=== PATIENT | female | born 1940 | race Two or more races ===

== ENCOUNTER → 2024-06-29 | Outpatient (CLI) | payer OTHER, SELFPAY ==
[2024-06-29 12:01] LABS: Carcinoembryonic Antigen 2.6 ng/mL (0.0-5.0)
[2024-06-29 12:11] LABS: Alanine Aminotransferase 8 U/L (10-49); Albumin, Serum 3.9 gm/dL (3.4-4.8); Albumin/Globulin Ratio 1.6 (1.2-2.2); Alkaline Phosphatase 68 U/L (46-116); Anion Gap 6 (7-16); Aspartate Amino Transferase 17 U/L (0-34); BUN/Creatinine Ratio 17 Ratio (12-20); Bilirubin,Total 0.8 mg/dL (0.3-1.2); Blood Urea Nitrogen 12 mg/dL (9-23); Calcium 9.1 mg/dL (8.3-10.6); Calcium (Corrected) 9.2 mg/dL (8.5-10.1); Chloride 102 mMol/L (98-107); Creatinine (Component) 0.7 mg/dL (0.6-1.3); Globulin 2.4 gm/dL (2.3-3.5); Glucose 134 mg/dL (74-106); Osmolality,Calculated 268 (275-295); Potassium 4.1 mMol/L (3.4-5.1); Sodium 133 mMol/L (136-145); Total Protein 6.3 gm/dL (5.7-8.2); eGFR > 60 See Note
[2024-06-29 13:27] LABS: Protein Total, Random Urine 29 mg/dL (1-14)
== END | disposition home or self-care (01) ==
PROVIDERS: PCP Family Medicine; Referring Provider Internal Medicine Hematology; Visit Provider Internal Medicine Hematology
DX: C18.1 Malignant neoplasm of appendix (principal)
CPT/HCPCS: 36415; 80053; 82378; 84156

== ENCOUNTER → 2024-07-12 | Outpatient (CLI) | payer OTHER, MEDICAID, SELFPAY ==
[2024-07-12 13:37] LABS: Protein Total, Random Urine 10 mg/dL (1-14)
[2024-07-12 13:44] LABS: Carcinoembryonic Antigen 2.8 ng/mL (0.0-5.0)
[2024-07-12 13:52] LABS: Alanine Aminotransferase 8 U/L (10-49); Albumin, Serum 3.8 gm/dL (3.4-4.8); Albumin/Globulin Ratio 1.7 (1.2-2.2); Alkaline Phosphatase 65 U/L (46-116); Anion Gap 6 (7-16); Aspartate Amino Transferase 16 U/L (0-34); BUN/Creatinine Ratio 16 Ratio (12-20); Blood Urea Nitrogen 14 mg/dL (9-23); Calcium 9.1 mg/dL (8.3-10.6); Calcium (Corrected) 9.3 mg/dL (8.5-10.1); Carbon Dioxide 26.8 mMol/L (20.0-31.0); Chloride 100 mMol/L (98-107); Creatinine (Component) 0.9 mg/dL (0.6-1.3); Globulin 2.3 gm/dL (2.3-3.5); Glucose 108 mg/dL (74-106); Osmolality,Calculated 267 (275-295); Potassium 4.3 mMol/L (3.4-5.1); Sodium 133 mMol/L (136-145); Total Protein 6.1 gm/dL (5.7-8.2); eGFR > 60 See Note
== END | disposition home or self-care (01) ==
PROVIDERS: PCP Family Medicine; Referring Provider Internal Medicine Hematology; Visit Provider Internal Medicine Hematology
DX: C18.1 Malignant neoplasm of appendix (principal)
CPT/HCPCS: 36415; 80053; 82378; 84156

== ENCOUNTER → 2024-08-30 | Outpatient (CLI) | payer MEDICARE, MEDICAID, SELFPAY ==
[2024-08-30 12:13] LABS: Protein Total, Random Urine 25 mg/dL (1-14)
[2024-08-30 12:19] LABS: Carcinoembryonic Antigen 3.3 ng/mL (0.0-5.0)
[2024-08-30 12:26] LABS: Alanine Aminotransferase 8 U/L (10-49); Albumin/Globulin Ratio 1.5 (1.2-2.2); Alkaline Phosphatase 68 U/L (46-116); Anion Gap 7 (7-16); Aspartate Amino Transferase 12 U/L (0-34); BUN/Creatinine Ratio 30 Ratio (12-20); Bilirubin,Total 0.6 mg/dL (0.3-1.2); Blood Urea Nitrogen 21 mg/dL (9-23); Calcium 9.1 mg/dL (8.3-10.6); Calcium (Corrected) 9.1 mg/dL (8.5-10.1); Carbon Dioxide 27.9 mMol/L (20.0-31.0); Chloride 98 mMol/L (98-107); Creatinine (Component) 0.7 mg/dL (0.6-1.3); Globulin 2.6 gm/dL (2.3-3.5); Glucose 137 mg/dL (74-106); Osmolality,Calculated 271 (275-295); Potassium 4.2 mMol/L (3.4-5.1); Sodium 133 mMol/L (136-145); Total Protein 6.6 gm/dL (5.7-8.2); eGFR > 60 See Note
== END | disposition home or self-care (01) ==
LOC: COPL 11:07
PROVIDERS: PCP Family Medicine; Referring Provider Internal Medicine Hematology; Visit Provider Internal Medicine Hematology
DX: C18.1 Malignant neoplasm of appendix (principal)
CPT/HCPCS: 36415; 80053; 82378; 84156

== ENCOUNTER 2024-09-30 05:45 | Day surgery (SDC) | payer OTHER, SELFPAY ==
--- NOTE | 2024-09-28 06:55 | EKG_ITS ---
[facility] Test Date: 2024-09-28 Pat Name: JENNIFER ADAME Department: Room: - Gender: Female Mobile Sales Expert: RT STUDENT : 1940 Requested By: Rory Calabrese Order Number: [id number] Reading MD: Rory Calabrese Measurements Intervals [place] Rate: 74 P: 48 OK: 162 QRS: 45 QRSD: 78 T: 51 QT: 353 QTc: 393 Interpretive Statements SINUS RHYTHM Compared to ECG 01/20/2022 12:44:44 Indeterminate axis no longer present Myocardial infarct finding no longer present /store/S0/[id number]
[2024-09-28 08:11] VITALS: BMI 23.8
[2024-09-28 09:35] LABS: Basophils % (Auto) 1 % (0-2.5); Eosinophils # (Auto) 0.1 Thou/mm3 (0.0-0.5); Eosinophils % (Auto) 2 % (0-10); Hematocrit 32.3 % (36.0-46.0); Hemoglobin 10.6 g/dL (12.0-16.0); Immature Granulocytes % (Auto) 0 % (0-0); Immature Granulocytes Auto 0.02 Thou/mm3 (0.00-0.00); Lymphocytes # (Auto) 1.1 Thou/mm3 (1.0-4.8); Lymphocytes % (Auto) 17 % (10-50); Mean Corpuscular HGB Conc 32.8 g/dl (31.0-37.0); Mean Corpuscular Hemoglobin 27.8 pg (25.0-35.0); Mean Corpuscular Volume 85 fL (80-100); Monocytes # (Auto) 0.7 Thou/mm3 (0.0-0.8); Monocytes % (Auto) 11 % (0-12); Neutrophils # (Auto) 4.6 Thou/mm3 (1.8-7.7); Neutrophils % (Auto) 70 % (37-80); Nucleated Red Blood Cell % 0 /100 WBC (0); Partial Thromboplastin Time 27.3 Seconds (22.0-36.0); Platelet Count 272 Thou/mm3 (140-440); Prothrombin Time 10.9 Seconds (9.0-12.2); RDW Standard Deviation 57.5 fL (36.4-46.3); Red Blood Count 3.81 Miln/mm3 (4.00-5.20); White Blood Count 6.5 Thou/mm3 (3.6-11.0)
[2024-09-28 09:36] LABS: Alanine Aminotransferase 11 U/L (10-49); Albumin, Serum 4.1 gm/dL (3.4-4.8); Albumin/Globulin Ratio 1.5 (1.2-2.2); Alkaline Phosphatase 80 U/L (46-116); Anion Gap 9 (7-16); Aspartate Amino Transferase 17 U/L (0-34); BUN/Creatinine Ratio 29 Ratio (12-20); Bilirubin,Total 0.5 mg/dL (0.3-1.2); Blood Urea Nitrogen 20 mg/dL (9-23); Calcium 9.1 mg/dL (8.3-10.6); Calcium (Corrected) 9.1 mg/dL (8.5-10.1); Carbon Dioxide 26.1 mMol/L (20.0-31.0); Chloride 97 mMol/L (98-107); Creatinine (Component) 0.7 mg/dL (0.6-1.3); Estimated Creatinine Clearance 55.8 mL/min (>60); Globulin 2.7 gm/dL (2.3-3.5); Glucose 109 mg/dL (74-106); Osmolality,Calculated 268 (275-295); Sodium 132 mMol/L (136-145); Total Protein 6.8 gm/dL (5.7-8.2); eGFR > 60 See Note
[2024-09-30] VITALS (8 sets, daily range): BP systolic 114–150; BP diastolic 61–89; PULSE 69–78; RESP 12–16; TEMP 36.1–36.6; O2SAT 97–100; BMI 23.3
--- NOTE | 2024-09-30 07:35 | CHAP ---
Patient expressed gratitude for prayer before their procedure.
--- NOTE | 2024-09-30 09:23 | PD.SUROPNT ---
Date of Procedure 09/30/24 Pre Op Diagnosis Incisional hernia the upper abdomen near the previous incision Post Op Diagnosis Same Procedure Repair of incisional hernia with Ventrio patch measuring 7.6 cm in diameter. Findings Patient had a large defect on the right side of the upper abdomen from the previous exploratory laparotomy. This was herniating the bowel and causing symptoms. Procedure Description After the patient was brought to the operating room and Trulance was given. Then her abdomen was prepped with ChloraPrep and draped in a sterile manner. Site of hernia was marked preoperatively over the right side of the incision. Timeout was performed. Then I made a midline incision for about 5 cm in length and reach the subcutaneous tissue and found out that the patient has had a large defect measuring 6 cm in length and 4 cm in width it is almost an oval defect. I found small bowel was stuck to the undersurface and I released it carefully to prevent any injury during the repair. The sac was excised which was basically the peritoneum and sent for histopathology to see if there is any residual tumor. Then the fascial edges were clamped with Gurwinder clamp and I defined the edges. I placed a Ventrio patch measuring 7.6 cm in diameter and attached it by suturing the fascia to the Marlex mesh. This was done all around using at least 8-10 sutures. At the end the defect was well controlled and patient did not have any opening through which bowel and hernia. The subcutaneous tissue was closed with 3-0 plain and injected half percent Marcaine for analgesia the skin was closed with 4-0 Monocryl subcuticular stitch and a dressing was applied with 4 x 4 and gauze. Patient tolerated the procedure well. Anesthesia GETA Implants Ventrio patch ST 7.6 cm in diameter. Pathology / specimen Other (The peritoneum which was presenting as a sac) IVF Infused 1,000 Estimated Blood Loss 10 Disposition PACU Surgeon Barbra Tafoya MD Surgical Staff Operation Date: 09/30/24 08:00 Case Staff Anesthesiologist: Luis M Hyde RN First Assistant: Kate Tam
--- NOTE | 2024-09-30 09:25 | SUR.PHASEI ---
0925: Pt. AAOx4, vitals stable, breathing unlabored, no complaint of pain or nausea, dressing to ABD CDI, no active bleed noted, report received from MD Hyde and Natalie ZARCO.
[2024-09-30] MEDS: ACETAMINOPHEN IVPB 1,000 MG/100 ML VIAL 250 MG IV (09:49)
[2024-09-30] MEDS: fentaNYL CIT INJ 50 mCg/ML AMP 2ML 25 MCG IVP (09:49)
--- NOTE | 2024-09-30 10:30 | SUR.PHASEII ---
1030: Pt. AAOx4, vitals stable, breathing unlabored, no complaint of pain or nausea, dressing to ABD CDI, no active bleed noted, pt. tolerated sips of water well, pt. ambulated to wheelchair with steady gait and no assist, no complications. Gave discharge instructions to the pt. and her ride, both verbalized understanding and had no further questions. Pt. left with all personal belongings.
== END 2024-09-30 10:30 | disposition home or self-care (01) ==
PROVIDERS: PCP Family Medicine; Referring Provider Surgery; Visit Provider Surgery
PROC: (CPT 49593; principal; 2024-09-30 08:00)
DX: K43.2 Incisional hernia without obstruction or gangrene (principal); Z01.810 Encounter for preprocedural cardiovascular examination
CPT/HCPCS: 49593; 36415; 80053; 85025; 85610; 85730; 93005; A4217; A4649; C1781; J0131; J2250; J2371; J2405; J2704; J2765; J3010; J3490; A9270

== ENCOUNTER → 2024-12-09 | Outpatient (CLI) | payer MEDICARE, MEDICAID, SELFPAY ==
[2024-12-09 12:04] LABS: Alanine Aminotransferase < 7 U/L (10-49); Albumin, Serum 3.9 gm/dL (3.4-4.8); Albumin/Globulin Ratio 1.4 (1.2-2.2); Alkaline Phosphatase 73 U/L (46-116); Anion Gap 8 (7-16); Aspartate Amino Transferase 18 U/L (0-34); BUN/Creatinine Ratio 21 Ratio (12-20); Bilirubin,Total 0.8 mg/dL (0.3-1.2); Blood Urea Nitrogen 17 mg/dL (9-23); Calcium (Corrected) 9.1 mg/dL (8.5-10.1); Carbon Dioxide 27.8 mMol/L (20.0-31.0); Chloride 99 mMol/L (98-107); Creatinine (Component) 0.8 mg/dL (0.6-1.3); Globulin 2.7 gm/dL (2.3-3.5); Glucose 136 mg/dL (74-106); Osmolality,Calculated 273 (275-295); Potassium 4.5 mMol/L (3.4-5.1); Sodium 135 mMol/L (136-145); Total Protein 6.6 gm/dL (5.7-8.2); eGFR > 60 See Note
[2024-12-10 00:59] LABS: Protein Total, Random Urine 12 mg/dL (1-14)
== END | disposition home or self-care (01) ==
LOC: COPL 10:52
PROVIDERS: PCP Family Medicine; Referring Provider Internal Medicine Hematology; Visit Provider Internal Medicine Hematology
DX: C18.1 Malignant neoplasm of appendix (principal)
CPT/HCPCS: 36415; 80053; 82378; 84156

== ENCOUNTER → 2025-01-05 | Outpatient (CLI) | payer MEDICARE, MEDICAID, SELFPAY ==
[2025-01-05 12:16] LABS: Protein Total, Random Urine 11 mg/dL (1-14)
[2025-01-05 12:32] LABS: Alanine Aminotransferase < 7 U/L (10-49); Albumin, Serum 3.8 gm/dL (3.4-4.8); Albumin/Globulin Ratio 1.7 (1.2-2.2); Alkaline Phosphatase 71 U/L (46-116); Anion Gap 9 (7-16); Aspartate Amino Transferase 17 U/L (0-34); BUN/Creatinine Ratio 18 Ratio (12-20); Bilirubin,Total 0.6 mg/dL (0.3-1.2); Blood Urea Nitrogen 14 mg/dL (9-23); Calcium 8.2 mg/dL (8.3-10.6); Calcium (Corrected) 8.4 mg/dL (8.5-10.1); Carbon Dioxide 24.1 mMol/L (20.0-31.0); Chloride 104 mMol/L (98-107); Creatinine (Component) 0.8 mg/dL (0.6-1.3); Globulin 2.3 gm/dL (2.3-3.5); Glucose 136 mg/dL (74-106); Osmolality,Calculated 276 (275-295); Potassium 3.8 mMol/L (3.4-5.1); Sodium 137 mMol/L (136-145); Total Protein 6.1 gm/dL (5.7-8.2); eGFR > 60 See Note
== END | disposition home or self-care (01) ==
LOC: COPL 10:38
PROVIDERS: PCP Family Medicine; Referring Provider Internal Medicine; Visit Provider Internal Medicine
DX: C18.1 Malignant neoplasm of appendix (principal)
CPT/HCPCS: 36415; 80053; 84156

== ENCOUNTER → 2025-02-01 | Outpatient (CLI) | payer MEDICARE, MEDICAID, SELFPAY ==
[2025-02-01 10:52] LABS: Carcinoembryonic Antigen 3.6 ng/mL (0.0-5.0)
[2025-02-01 10:53] LABS: Ferritin 23 ng/mL (7.3-270.7); Iron 22 mcg/dL (50-170); Percent Iron Saturation 5 % (20-55); Total Iron Binding Capacity 394 mcg/dL (250-425); Unsaturated Iron Binding 372 (225-295)
[2025-02-01 11:07] LABS: Alanine Aminotransferase < 7 U/L (10-49); Albumin, Serum 3.7 gm/dL (3.4-4.8); Albumin/Globulin Ratio 1.6 (1.2-2.2); Alkaline Phosphatase 72 U/L (46-116); Anion Gap 10 (7-16); Aspartate Amino Transferase 17 U/L (0-34); BUN/Creatinine Ratio 14 Ratio (12-20); Bilirubin,Total 0.7 mg/dL (0.3-1.2); Blood Urea Nitrogen 10 mg/dL (9-23); Calcium 8.5 mg/dL (8.3-10.6); Calcium (Corrected) 8.7 mg/dL (8.5-10.1); Chloride 103 mMol/L (98-107); Creatinine (Component) 0.7 mg/dL (0.6-1.3); Globulin 2.3 gm/dL (2.3-3.5); Glucose 132 mg/dL (74-106); Osmolality,Calculated 278 (275-295); Potassium 3.7 mMol/L (3.4-5.1); Sodium 139 mMol/L (136-145); eGFR > 60 See Note
[2025-02-01 11:34] LABS: Protein Total, Random Urine 19 mg/dL (1-14)
== END | disposition home or self-care (01) ==
LOC: COPL 09:59
PROVIDERS: PCP Family Medicine; Referring Provider Internal Medicine; Visit Provider Internal Medicine
DX: C18.1 Malignant neoplasm of appendix (principal)
CPT/HCPCS: 36415; 80053; 82378; 82728; 83540; 83550; 84156

== ENCOUNTER 2025-03-09 18:44 | Observation (INO) | payer MEDICARE, MEDICAID, SELFPAY ==
[2025-03-09 18:51] VITALS: BP 152/92; PULSE 70; RESP 19; TEMP 36.7; O2SAT 95
[2025-03-09 19:16] VITALS: PULSE 88; RESP 28; O2SAT 98; BMI 22.8
--- NOTE | 2025-03-09 19:36 | EKG_ITS ---
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
--- NOTE | 2025-03-09 19:36 | XR_ITS ---
Examination: AP chest single view TECHNIQUE: AP portable semiupright chest single view Date and time: March 09, 20252005 hours INDICATIONS: Dizziness today. FINDINGS: Left base pneumonia with moderate left pleural effusion Mild right pleural effusion Mild prominence left ventricle Mild vascular congestion Right internal jugular Port-A-Cath tip satisfactory position IMPRESSION: Left base pneumonia with moderate left pleural effusion
--- NOTE | 2025-03-09 19:38 | EDNOTE_ITS ---
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 Onset of symptoms since few days as worsening generalized body weakness, nausea, vomiting severity moderate. Patient told me that she felt very weak, and worried because she is living alone. She also complained of nonproductive cough, and shortness of breath. Patient had chemotherapy last week. Patient denies any fever. denies any diarrhea denies any other complaints no medications taken prior travel. Related Data Home Medications ?Medication ?Instructions ?Recorded ?Confirmed Alendronate Sodium * (FOSAMAX *) 35 mg PO Q7D #0 tabs 09/25/16 03/10/25 omeprazole 20 mg capsule,delayed 20 mg PO QDAY ##0 03/10/25 release simvastatin 10 mg tablet (Zocor) 10 mg PO HS #0 tabs 0 09/25/16 03/10/25 cyproheptadine 4 mg tablet 4 mg PO HS 09/28/24 5 lisinopril 10 mg tablet 10 mg PO QDAY 09/28/2403/10 Allergies Allergy/AdvReac Type Severity Reaction Status Date / Time No Known Allergies Allergy Verified 09/30/24 06:42 Review of Systems Review of Systems Narrative Review of Systems: Review of system reviewed and within normal limits except mentioned in HPI ED Exam Narrative Physical exam: VITAL SIGNS: Reviewed. GENERAL APPEARANCE: Alert and interactive, follows commands, no acute distress, HEAD AND FACE: Non-traumatic. ENT: PERRL, pink conjunctivitis, eyelid no trauma, Mucous membrane dry NECK: Supple, nontender, no nuchal rigidity. CHEST: No tenderness, no crepitus, no paradoxical movement, no retractions. LUNGS: Clear, well ventilated, symmetric, no rales, no wheezing, no ronchi, no stridor, good breath sounds bilaterally. HEART: Regular rate, regular rhythm, no murmur, no gallops. ABDOMEN: Soft, positive bowel sounds, nondistended, no guarding, nontender, no rebound, no masses, RECTAL: Deferred. GENITAL: Deferred. NEUROLOGICAL: Gross motor function intact sensory function intact, Appropriate for age. MUSCULOSKELETAL: low back nontender, full range of motion. EXTREMITIES: Nontender, full range of motion. SKIN: Color pink, dry, no rash, no lacerations, no abrasions, no contusions. LYMPHATICS: Deferred. Course Quality Measures none Orders Category Date Time Status COVID-19 Screening Questionnaire NOW Care 03/09/25 23:[address] Screening NOW Care 03/09/25 23:38 Active Decision to Admit X1 Care 03/09/25 23:46 Completed EKG (ED ONLY) *Do not use* NOW Care 03/09/25 19:36 Completed IV [Insert IV] NOW Care 03/09/25 19:54 Active In and Out Catheter X1 Care 03/09/25 22:[address] abdomen pelvis w con Stat Exams 03/09/25 23:38 Completed EKG (ED Only) Stat Exams 03/09/25 19:36 Draft XR chest 1V Stat Exams 03/09/25 19:36 Completed C-Reactive Protein Stat Lab 03/09/25 19:46 Completed CBC [CBC] Stat Lab 03/09/25 19:46 Completed Comprehensive Metabolic Panel Stat Lab 03/09/25 19:46 Completed Lactate (Lactic Acid) Stat Lab 03/09/25 19:46 Completed Partial Thromboplastin Time Stat Lab 03/09/25 19:46 Completed Procalcitonin Stat Lab 03/09/25 19:46 Completed Troponin I Stat Lab 03/09/25 19:46 Completed UA, C/S IF [Urinalysis, C/S if Indicated] Stat Lab 03/09/25 22:30 Completed Azithromycin Inj [Zithromax Inj] 500 mg Med 03/09/25 23:37 Discontinued Sodium Chloride 0.9% 250 ml [Ns] 250 ml IV X1 Metoclopramide Inj [Reglan Inj] Med 03/09/25 21:28 Discontinued 10 mg IVP X1 ONE Ondansetron Inj [Zofran Inj] Med 03/09/25 19:36 Discontinued 4 mg IVP X1 ONE Ringers Lactated 1000 ml [Lactated Ringers] 1,000 ml Med 03/09/25 19:37 Discontinued IV 999 mls/hr cefTRIAXone/D5w 1gm IV premix [Rocephin/D5w 1gm IV Med 03/09/25 23:37 Discontinued premix] 1 gm in 50 ml IV X1 Vital Signs Vital signs: Vital Signs Temperature 98.1 F 03/09/25 18:51 Pulse Rate 70 03/09/25 18:51 Respiratory Rate 19 03/09/25 18:51 Blood Pressure 152/92 H 03/09/25 18:51 Pulse Oximetry (%) 95 03/09/25 18:51 Oxygen Delivery Method Room Air 03/09/25 18:51 Weakness MDM Narrative [facility] Narrative:: 84-year-old female patient with 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 Onset of symptoms since few days as worsening generalized body weakness, nausea, vomiting severity moderate. Patient told me that she felt very weak, and worried because she is living alone. She also complained of nonproductive cough, and shortness of breath. Patient had chemotherapy last week. Patient denies any fever. denies any diarrhea denies any other complaints no medications taken prior travel. Chest x-ray is significant for pneumonia with pleural effusion. CT scan of the chest abdomen and pelvis showed small bowel obstruction. Patient received IV fluids Zofran and Reglan. Patient was also given ceftriaxone and Zithromax. Case discussed with hospitalist, who admitted the patient. Patient data External records reviewed:: None Clinical information provided by:: patient Social determinants that could affect healthcare access:: none (None) Patient has the following chronic illnesses:: Cancer of appendix, currently on chemotherapy How is presenting disease/condition affected by chronic disease/condition?: exacerbated by Evaluation data The following diagnostics were reviewed and interpreted by me:: lab results and radiology exam(s) Lab and/or radiology exams considered but not ordered:: None Interpretation Summary: See results [facility] Medications / Prescriptions Medications or Prescriptions considered but not ordered:: None Medication administrations:: Medication Administration History Acetaminophen (Acetaminophen 325 Mg Tablet) 650 mg PO Q6H PRN PRN Reason: PAIN SCALE 1-3 (mild Stop: 04/09/25 00:45 Heparin Sodium (Porcine) (Heparin Sod Inj 5000 Unit/Ml Vial) 5,000 unit SC Q12H BALA Stop: 03/24/25 00:59 Last Admin: 03/10/25 02:06 Dose: 5,000 unit Documented By: CLARK Co-signed By: Lactated Ringer's (Lactated Ringers) 1,000 mls @ 75 mls/hr IV .[id number] [facility] Stop: 03/10/25 14:19 Last Admin: 03/10/25 02:05 Dose: 75 mls/hr Documented By: CLARK Azithromycin 500 mg/ Sodium (Chloride) 250 mls @ 250 mls/hr IV QDAY@2100 BALA Stop: 03/17/25 20:59 Ceftriaxone Sodium/Dextrose (Rocephin/D5w 1gm Iv Premix) 1 gm in 50 mls @ 100 mls/hr IV QDAY@2100 BALA Stop: 03/17/25 20:59 Magnesium Sulfate (Magnesium Sulfate Ivpb) 4 gm in 50 mls @ 12.5 mls/hr IV X1 ONE Stop: 03/10/25 11:50 Last Admin: 03/10/25 09:56 Dose: 12.5 mls/hr Documented By: TURNER Ondansetron HCl (Ondansetron Inj 2 Mg/Ml Inj 2 Ml) 4 mg IVP Q6H PRN; Protocol PRN Reason: NAUSEA OR VOMITING Stop: 04/09/25 00:45 Last Admin: 03/10/25 09:54 Dose: 4 mg Documented By: TURNER Sennosides (Senna Tablet) 1 tab PO QDAY PRN; Protocol PRN Reason: constipation Stop: 04/09/25 00:45 Discontinued Medications Bisacodyl (Bisacodyl 10 Mg Supp) 10 mg ME X1 ONE; Protocol Stop: 03/10/25 07:44 Last Admin: 03/10/25 08:35 Dose: 10 mg Documented By: TURNER Lactated Ringer's (Lactated Ringers) 1,000 mls @ 999 mls/hr IV .Q1H1M ONE Stop: 03/09/25 20:37 Last Infusion: 03/09/25 21:00 Dose: Infused Documented By: Admin: 03/09/25 19:51 Dose: 999 mls/hr Documented By: AFSHAN Azithromycin 500 mg/ Sodium (Chloride) 250 mls @ 250 mls/hr IV X1 ONE Stop: 03/10/25 00:36 Last Infusion: 03/10/25 02:00 Dose: Infused Documented By: Admin: 03/10/25 00:52 Dose: 250 mls/hr Documented By: CLARK Ceftriaxone Sodium/Dextrose (Rocephin/D5w 1gm Iv Premix) 1 gm in 50 mls @ 100 mls/hr IV X1 ONE Stop: 03/10/25 00:06 Last Infusion: 03/10/25 00:51 Dose: Infused Documented By: Admin: 03/10/25 00:21 Dose: 100 mls/hr Documented By: CLARK Azithromycin 500 mg/ Sodium (Chloride) 250 mls @ 250 mls/hr IV QDAY [facility] Stop: 03/17/25 00:53 Last Admin: 03/10/25 01:28 Dose: Not Given Documented By: CLARK Non-Admin Reason: Discontinued Ceftriaxone Sodium/Dextrose (Rocephin/D5w 1gm Iv Premix) 1 gm in 50 mls @ 100 mls/hr IV QDAY [facility] Stop: 03/17/25 00:54 Last Admin: 03/10/25 01:28 Dose: Not Given Documented By: CLARK Non-Admin Reason: Discontinued Sodium Chloride (Ns) 1,000 mls @ 80 mls/hr IV .[id number] ONE Stop: 03/10/25 20:23 Metoclopramide HCl (Metoclopramide Inj 5 Mg/Ml Vial 2 Ml) 10 mg IVP X1 ONE; Protocol Stop: 03/09/25 21:29 Last Admin: 03/09/25 21:41 Dose: 10 mg Documented By: CLARK Morphine Sulfate (Morphine Sulf Inj 10 Mg/Ml Vial) 2 mg IVP X1 ONE Stop: 03/10/25 09:41 Last Admin: 03/10/25 09:56 Dose: 2 mg Documented By: TURNER Ondansetron HCl (Ondansetron Inj 2 Mg/Ml Inj 2 Ml) 4 mg IVP X1 ONE; Protocol Stop: 03/09/25 19:37 Last Admin: 03/09/25 19:52 Dose: 4 mg Documented By: AFSHAN IV fluids, Zofran, Reglan, supraduction IV, and Zithromax Consultations Consultation(s) initiated? (list below): No Diagnosis Weakness Differential Diagnosis: dehydration and other Most likely diagnosis given after review of the tests above:: Vomiting, small bowel obstruction, pneumonia Admission Indicated Admission indicated?: indicated Admission Request Was there a request for admission?: Yes Admission Attestation Admission request attestation: Discussed case with Hospitalist service regarding admission. Discussed patients ED course, exam findings, labs, and radiology results. The Hospitalist [agrees, to accept the patient for admission. Disposition Plan Disposition Plan: Admit Discharge Plan Plan Patient Disposition: Other Care w/in Hosp ([facility]) Problem List Clinical Impression: Nausea & vomiting, Pneumonia, Pleural effusion, Small bowel obstruction
[2025-03-09 19:50] LABS: Lactate (Lactic Acid) 1.3 mMol/L (0.4-2.0)
[2025-03-09 19:51] LABS: Basophils # (Auto) 0.0 Thou/mm3 (0.0-0.2); Basophils % (Auto) 0 % (0-2.5); Eosinophils # (Auto) 0.0 Thou/mm3 (0.0-0.5); Eosinophils % (Auto) 0 % (0-10); Hematocrit 35.9 % (36.0-46.0); Hemoglobin 11.8 g/dL (12.0-16.0); Immature Granulocytes Auto 0.03 Thou/mm3 (0.00-0.00); Lymphocytes # (Auto) 0.8 Thou/mm3 (1.0-4.8); Lymphocytes % (Auto) 8 % (10-50); Mean Corpuscular HGB Conc 32.9 g/dl (31.0-37.0); Mean Corpuscular Hemoglobin 28.5 pg (25.0-35.0); Mean Corpuscular Volume 87 fL (80-100); Monocytes # (Auto) 0.7 Thou/mm3 (0.0-0.8); Monocytes % (Auto) 7 % (0-12); Neutrophils # (Auto) 8.3 Thou/mm3 (1.8-7.7); Neutrophils % (Auto) 84 % (37-80); Nucleated Red Blood Cell # 0.00 Thou/mm3 (0.00-0.00); Nucleated Red Blood Cell % 0 /100 WBC (0); Platelet Count 261 Thou/mm3 (140-440); RDW Standard Deviation 64.4 fL (36.4-46.3); Red Blood Count 4.14 Miln/mm3 (4.00-5.20); White Blood Count 9.9 Thou/mm3 (3.6-11.0)
[2025-03-09] MEDS: RINGERS LACTATED 1000 ML 1,000 ML 999 ML IV (19:51)
[2025-03-09] MEDS: ONDANSETRON INJ 2 MG/ML INJ 2 ML 4 MG IVP (19:52)
[2025-03-09 20:20] LABS: Partial Thromboplastin Time 27.8 Seconds (22.0-36.0)
[2025-03-09] MEDS: METOCLOPRAMIDE INJ 5 MG/ML VIAL 2 ML 10 MG IVP (21:41)
[2025-03-09 21:49] LABS: Alanine Aminotransferase < 7 U/L (10-49); Albumin, Serum 4.1 gm/dL (3.4-4.8); Albumin/Globulin Ratio 1.4 (1.2-2.2); Alkaline Phosphatase 74 U/L (46-116); Anion Gap 10 (7-16); Aspartate Amino Transferase 13 U/L (0-34); BUN/Creatinine Ratio 22 Ratio (12-20); Bilirubin,Total 0.6 mg/dL (0.3-1.2); Blood Urea Nitrogen 13 mg/dL (9-23); Calcium 9.7 mg/dL (8.3-10.6); Calcium (Corrected) 9.7 mg/dL (8.5-10.1); Carbon Dioxide 24.3 mMol/L (20.0-31.0); Chloride 98 mMol/L (98-107); Creatinine (Component) 0.6 mg/dL (0.6-1.3); Estimated Creatinine Clearance 63.9 mL/min (>60); Globulin 2.9 gm/dL (2.3-3.5); Glucose 130 mg/dL (74-106); Osmolality,Calculated 266 (275-295); Potassium 4.2 mMol/L (3.4-5.1); Procalcitonin 0.05 ng/ml (0.0-0.49); Sodium 132 mMol/L (136-145); Total Protein 7.0 gm/dL (5.7-8.2); Troponin I < 0.020 ng/mL (0.0-0.045); eGFR > 60 See Note
[2025-03-09 22:04] VITALS: BP 149/88; PULSE 74; RESP 18; TEMP 36.5; O2SAT 95
[2025-03-09 22:38] LABS: Collection Type, Urine Clean Catch; Squamous Epithelial Cell,Urine 0 /hpf (0-5)
[2025-03-09 22:43] LABS: Bilirubin,Urine Negative (Negative); Blood,Urine Negative (Negative); Clarity,Urine Clear (Clear/Hazy); Color,Urine Yellow (Lt Yel-Yel); Culture Indicated,Urine Not Indicated; Glucose, Urine Negative (Negative); Ketones,Urine 1+ (Negative); Leukocyte Esterase,Urine Negative (Negative); Nitrite,Urine Negative (Negative); PH,Urine 5.5 (5.0-7.0); Protein,Urine Trace (Neg - Trace); RBC,Urine 3 /hpf (0-3); Specific Gravity,Urine 1.020 (1.001-1.035); Urobilinogen,Urine Negative mg/dL (0.0-1.0); WBC,Urine 1 /hpf (0-5)
[2025-03-09 23:36] LABS: C-Reactive Protein 0.7 mg/dL (0.0-0.9)
--- NOTE | 2025-03-09 23:38 | XR_ITS ---
Examination: CT abdomen with intravenous contrast CT pelvis with intravenous contrast 2-D coronal reconstructions 2-D sagittal reconstructions Date and time of exam: March 10, 2025, 0001 hours Comparison September 25, 2016 INDICATIONS: Nausea vomiting dizziness today CTDI: vol (mGy) 15.1 DLP: (mGycm) 843 Technique: Multiple axial sections of the abdomen and pelvis have been obtained. 64 slice high-resolution scanner used. 3 mm axial sections have been obtained, post intravenous injection 60 cc Isovue 370 2-D sagittal, coronal reconstructions obtained. Low dose protocols were performed. One or more of the following dose reduction techniques were used; automated exposure control, adjustment of the mA and/or KV according to patient size, use of iterative reconstruction technique. Findings: 12 mm nodule in the left upper lobe Moderate left and mild right pleural fluid with atelectasis in lower lung zones Fluid distended esophagus Mild enlargement cardiac contour Cirrhosis, liver is irregular in contour with moderate ascites Spleen is not enlarged Gastric mucosa is prominent No pancreatic mass No hydronephrosis Aorta normal size Multiple fluid distended small bowel loops There is rotation of the mesentery in the lower abdomen on the right The appendix is not visualized Abundant stool in the rectosigmoid and rectum Contracted urinary bladder Moderate osteopenia IMPRESSION: 12 mm pulmonary nodule in the left upper lobe, consider CT chest without contrast follow-up Moderate left pleural effusion Cirrhosis Gastritis pattern Small bowel obstruction, high-grade, consider Gastrografin small bowel series follow-up Moderate ascites Abundant stool in the rectosigmoid and rectum
[2025-03-10] MEDS: cefTRIAXone/D5w 1gm IV premix 1 GM/50 ML BAG IV ×2 (00:21→20:03)
[2025-03-10] MEDS: AZITHROMYCIN INJ 500 MG in SODIUM CHLORIDE 0.9% 250 ML 250 ML 250 MG IV ×2 (00:52→21:02)
--- NOTE | 2025-03-10 00:56 | ESHP_ITS ---
<Statement entered by Juan Pablo Camara MD - 03/10/25 06:29> I have discussed and was present for the essential components of the history, physical examination, diagnosis, and treatment plan with the resident. I agree with the patient's care as documented by the resident and amended herein by me. Juan Pablo Camara MD FACP. <Statement entered by Hosea Sanches MD - 03/10/25 05:01> I have reviewed the note and agree with the resident's assessment & plan with exceptions as below. I have personally reviewed labs, imaging, home meds/prior records, examined the patient, formulated and discussed management plan with my attending Dr. Camara. 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 Patient stated that overall she has been feeling very weak for the past 1 month, but worsened today and was accompanied by nausea and vomiting. Patient has been able to tolerate p.o. and has been urinating well. Last chemotherapy was 1 week ago. Patient lives alone and has children that live in [place] will visit her frequently. At this time patient does not feel safe going back home as she lives alone and feel she is too weak to care for herself. Patient does have a pleural effusion bilaterally, but larger on the left than on the right and some pneumonia as well. Abdomen/pelvis CT preliminary showed SBO secondary to volvulus from internal hernia and some small to moderate ascites, patient's last BM was yesterday and has been passing flatulence today. Patient did have lower abdominal pain, but not out of proportion initially and on reevaluation was more tender to light palpation and warm, lactic acid was normal but given changes in PE will order repeat lactic acid and general surgery consult. Will start patient on azithromycin and Rocephin to cover for CAP, ordered procalcitonin, not hypoxic nor any spikes in WBC or fevers. Patient may benefit from thoracentesis for differentiation as possible malignant pleural effusion is suspected. NG tube to intermittent suction and NPO. If blood products are needed in the future consider irradiated blood products given history of chemotherapy. 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 Patient reports that she has been feeling weak beginning a month ago but that she has felt particularly weak today which is what led her to seek care at the hospital. She endorses 2 episodes of nonbloody emesis today; she vomited once when the ambulance arrived at her house and then again upon arriving at the ED. She reports that she has not felt nausea or vomited since receiving REGLAN and ZOFRAN in the ED. She also endorses a mild, dry cough, backache, abdominal pain that is most severe in the LLQ (of note, she reports receiving an incisional hernia repair back in September of this year), and leg swelling. When asked to rate the severity of her abdominal pain on a scale from 1-10, she replied that it only hurt a little . Patient reports that she has been receiving chemotherapy for her cancer since 2018 and that it occurs every 2 weeks with her last session being 1 week ago. She expresses uncertainty about being able to take care of herself and wishes to stay in the hospital so that she can get better. The idea of having her convalesce at a SNF rather than the hospital was broached; patient seemed doubtful and resistant towards this option. In the ED, vitals showed: BP 152/92 HR 70 RR 19 Temp 98.1 SpO2 95% on room air ED Course: CBC showed slightly low Hgb 11.8 (MCV 87, RDW 64.4). CMP showed slightly low sodium 132 but was otherwise unremarkable. UA showed 1+ ketones but was otherwise unremarkable. Imaging: Chest x-ray showed left base pneumonia with moderate left pleural effusion. EKG showed normal sinus rhythm. CTAP showed findings suggestive of high-grade small bowel obstruction, likely due to mesenteric volvulus/internal hernia, small to moderate ascites in the background of cirrhosis, small right and moderate left pleural effusions with underlying atelectasis, and a 1 cm discrete nodule in the left upper lobe. In the ED, patient was given AZITHROMYCIN, ROCEPHIN, REGLAN, ZOFRAN, and 1 L lactated Ringer's bolus. Patient was admitted for the work-up and management of SBO and community- acquired pneumonia. Review of Systems Constitutional Comments: General: Endorses generalized weakness. Denies fevers or chills HEENT: Denies congestion or sore throat Heart: Endorses leg swelling. Denies chest pain or palpitations Lungs: Denies shortness of breath or cough Abdomen: Endorses nausea and vomiting. Endorses generalized abdominal pain (particularly to LLQ). Endorses some constipation. Denies diarrhea or blood in stool Genitourinary: Denies frequency, urgency, dysuria, or hematuria Neurology: Denies any changes in vision, neurologic weakness or difficulty speaking Musculoskeletal: Endorses backache. Review of systems otherwise negative except what is mentioned above. 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 and HTN PSH: 2017 surgery for ruptured appendix, and a surgery 6 months later to remove remnants of the tumor Medications: Lisinopril, simvastatin, omeprazole, alendronate Allergies: None FH: None SH: Lives alone in [place] in a motor home community ( 2 years ago), has 2 sons who live close by and help out, denies any drinking, smoking, or recreational drug use history Exam Vital Signs Temp Pulse Resp BP Pulse Ox O2 Del Method 97.7 F 74 18 149/88 H 95 Room Air 03/09/25 22:04 03/09/25 22:04 03/09/25 22:04 03/09/25 22:04 03/09/25 22:04 03/09/25 22:04 Narrative Exam Physical Exam: General: A/O x3, some distress, frail-appearing Skin: Warm, dry, intact, no obvious rash. Head: Normocephalic, atraumatic. Eyes: PERRL, EOMI. Anicteric, vision grossly intact. Ears: No ear pain, no ear discharge, Hearing grossly intact. Nose: No nasal discharge. Mouth/Throat: Oral mucosa moist. No obvious lesions in oropharynx. Neck: Neck supple, non-tender, no cervical lymphadenopathy. Cardiovascular: Regular rate and rhythm, no murmur, no JVD or carotid bruits. +S1/S2. Respiratory: Bilateral lungs are clear to auscultation and percussion, respirations unlabored, no crackles, no wheezing. No accessory muscle use. Gastrointestinal: Tenderness to palpation of the abdomen, most notably in the LLQ. Soft, grossly distended, no palpable masses. No guarding or rebound tenderness. Normoactive bowel sounds. Extremities: Telangiectasias noted across bilateral shins. Symmetrical, no significant deformities. No edema, no cyanosis, no clubbing. 2+ radial pulse bilaterally, 2+ posterior tibial pulse bilaterally. Neuro: No focal deficits observed. Conversant, moving all extremities. No overt cerebellar signs/incoordination. UE and LE strength symmetrical and 5+. Psychiatric: Cooperative, appropriate affect. Results: Labs 03/09/25 19:46 03/09/25 19:46 Labs: Short CBC 03/09/25 Range/Units 19:46 WBC 9.9 (3.6-11.0) Thou/mm3 Hgb 11.8 L (12.0-16.0) g/dL Hct 35.9 L (36.0-46.0) % Plt Count 261 (140-440) Thou/mm3 BMP 03/09/25 19:46 Sodium 132 L Potassium 4.2 Chloride 98 Carbon Dioxide 24.3 BUN 13 Creatinine 0.6 Glucose 130 H Calcium 9.7 Cardiac Enzymes 03/09/25 Range/Units 19:46 Troponin I < 0.020 (0.0-0.045) ng/mL Liver Function 03/09/25 Range/Units 19:46 Total Bilirubin 0.6 (0.3-1.2) mg/dL AST 13 (0-34) U/L ALT < 7 L (10-49) U/L Alkaline Phosphatase 74 (46-116) U/L Albumin 4.1 (3.4-4.8) gm/dL Urine 03/09/25 Range/Units 22:30 Urine Color Yellow (Lt Yel-Yel) Urine Clarity Clear (Clear/Hazy) Urine pH 5.5 (5.0-7.0) Ur Specific [place] 1.020 (1.001-1.035) Urine Protein Trace (Neg - Trace) Urine Glucose (UA) Negative (Negative) Quality Measures Quality Measures VTE prophylaxis Advance care planning discussed with:: patient Medications Home Medications and Allergies Home Medications ?Medication ?Instructions ?Recorded ?Confirmed ?Type Alendronate Sodium * (FOSAMAX *) 35 mg PO Q7D #0 tabs 09/25/16 03/10/25 History omeprazole 20 mg capsule,delayed 20 mg PO QDAY ##0 03/10/25 History release simvastatin 10 mg tablet (Zocor) 10 mg PO HS #0 tabs 0 09/25/16 03/10/25 History cyproheptadine 4 mg tablet 4 mg PO HS 09/28/24 5 History lisinopril 10 mg tablet 10 mg PO QDAY 09/28/2403/10 History Allergies Allergy/AdvReac Type Severity Reaction Status Date / Time No Known Allergies Allergy Verified 09/30/24 06:42 Visit Medications Discontinued Medications Lactated Ringer's (Lactated Ringers) 1,000 mls @ 999 mls/hr IV .Q1H1M ONE Stop: 03/09/25 20:37 Last Infusion: 03/09/25 21:00 Dose: Infused Azithromycin 500 mg/ Sodium (Chloride) 250 mls @ 250 mls/hr IV X1 ONE Stop: 03/10/25 00:36 Last Admin: 03/10/25 00:52 Dose: 250 mls/hr Ceftriaxone Sodium/Dextrose (Rocephin/D5w 1gm Iv Premix) 1 gm in 50 mls @ 100 mls/hr IV X1 ONE Stop: 03/10/25 00:06 Last Infusion: 03/10/25 00:51 Dose: Infused Metoclopramide HCl (Metoclopramide Inj 5 Mg/Ml Vial 2 Ml) 10 mg IVP X1 ONE; Protocol Stop: 03/09/25 21:29 Last Admin: 03/09/25 21:41 Dose: 10 mg Ondansetron HCl (Ondansetron Inj 2 Mg/Ml Inj 2 Ml) 4 mg IVP X1 ONE; Protocol Stop: 03/09/25 19:37 Last Admin: 03/09/25 19:52 Dose: 4 mg Assessment & Plan Assessment Kyleigh Oneal is an 84-year-old female with a PMH of 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 Patient was admitted for the work-up and management of SBO and community-acquired pneumonia. #Small bowel obstruction #2/2 mesenteric volvulus vs. internal hernia vs. adhesions vs. 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) #Hx of multiple abdominal surgeries #Abdominal distension #Abdominal pain (LLQ) #N/V Patient presented with nonspecific generalized weakness, nausea, vomiting, and generalized abdominal pain primarily localized to the LLQ beginning today CTAP showed findings suggestive of high-grade small bowel obstruction, likely due to mesenteric volvulus/internal hernia (incisional hernia repair in September) Currently, partial obstruction is suspected due to patient's retained ability to pass gas since being admitted (last BM was yesterday) Patient possesses the following risk factors for SBO: prior abdominal/pelvic surgery, abdominal wall or groin hernia, neoplastic history Differential Dx: intraperitoneal adhesions (55-80% of cases), tumors (particularly located in the ileum), complicated hernias, other infectious or inflammatory disorders Caution with the following drugs that may exacerbate presentation due to constipatory side effect profile: antihistamines, antispasmodics, antidepressants, antipsychotics, iron supplements, aluminum, barium, opiates, antihypertensives, ganglionic blockers, vinca alkaloids, calcium channel blockers, 5HT3 antagonists, GLP-1 agonists Initial lactic acid 1.3, uptrended to 1.6 after 6 hours at 01:59 (03/10/25) Diagnostic Inquiry -Relevant laboratory studies 1. Monitor CBC for leukocytosis or anemia 2. Monitor CMP for electrolyte derangements or signs of fluid depletion -Additional laboratory studies indicated for systemic signs of illness (eg, fever, tachycardia, hypotension, AMS) 1. Consider ABG to identify metabolic alkalosis from vomiting or metabolic acidosis from hypoperfusion 2. Serum lactate level to assess for mesenteric ischemia (2.7+) 3. Blood cultures to diagnose bacteremia/septicemia 2/2 bowel compromise Treatment Plan -Initial management 1. NPO 2. Fluid resuscitation: 1 L LR @ 75 mL/hr 3. Electrolyte repletion as necessary (already ordered baseline magnesium and phosphorus) 4. NG tube decompression w/ LIS 5. Recommend abdominal CT with oral and IV contrast to determine if immediate surgery is indicated (bowel ischemia/necrosis/perforation, closed-loop obstruction [including volvulus], acute incarcerated hernia of abdomen or groin, intussusception, gallstone ileus, foreign body ingestion, localized small bowel tumor) 6. General surgery consulted -Subsequent management in the setting of SBO likely 2/2 adhesions (non-adhesive SBO should have targeted therapy for its underlying etiology) 7. Consider Gastrografin challenge with reflex KUB based on General Surgery recommendations 8. If passed, advance diet as tolerated due to SBO resolution 9. If failed, continue steps 1-4 of initial management until surgical intervention can be performed #?Community acquired pneumonia #Moderate left pleural effusion (malignant vs. other) #Pulmonary nodule (1 cm, left upper lobe) #Dry cough CXR showed findings suggestive of left base pneumonia with moderate left pleural effusion, and a 1 cm discrete nodule in the left upper lobe Afebrile without any respiratory symptoms except for mild, dry cough (not present during interview) Upon admission, SpO2 95% on room air In the setting of presentation above as well as normal WBC, normal procalcitonin, and 0/4 SIRS criteria met, there is lower suspicion for true pneumonia at this time Diagnostic Inquiry -Flu and pneumonia vaccine screen and COVID-19 antigen test -Consider Cocci serology Treatment Plan -IV ROCEPHIN 1 gm qD -IV AZITHROMYCIN 500 mg qD -If necessary, supplemental O2, titrate as tolerated to maintain SpO2 >93% -Consider therapeutic pleural aspiration and possible pleural fluid analysis -Consider the following should shortness of breath or dyspnea worsen: 1. DUONEBS q6HR 2. MUCINEX as needed 3. Chest physiotherapy #Unsafe release #Generalized weakness Initially, admitted on observation due to presenting medical problem being generalized weakness thought to be 2/2 pneumonia Later, patient exhibited increasing abdominal distension and CTAP came back showing signs of high-grade SBO May consider upgrading to inpatient should it be deemed appropriate #Chronic medical problems #HTN #Health maintenance housekeeping Patient reports developing HTN after she began receiving chemotherapy During current admission, systolic has ranged 133-152, diastolic 87-92 Diagnostic Inquiry -TSH level Treatment Plan -Monitor BP, initiate antihypertensive therapy as appropriate -PT referral Hospital Management: Disposition: being managed for SBO, pending General Surgery recommendations Diet: NPO GI Prophylaxis: none, consider restarting patient's home omeprazole Bowel Prophylaxis: Senna DVT Prophylaxis: Heparin CODE STATUS: Full Code I have examined the patient and conferred with my attending, Dr. Camara, and my senior resident, Dr. Davis, regarding them. Neptali Bullock, DO PGY-1 Internal Medicine
[2025-03-10 01:10] VITALS: BP 133/87; PULSE 75; RESP 19; TEMP 36.4; O2SAT 96
--- NOTE | 2025-03-10 01:10 | PRELIM_ITS ---
CT scan of the abdomen and pelvis with intravenous contrast (axial sections with sagittal and coronal reformats) March 09, 2025 at 2359 hours Clinical History: Nausea vomiting Findings: There is a small right pleural effusion with underlying atelectasis. There is moderate left pleural effusion with left lower lobe atelectasis. There is streaky atelectasis and intersitial septal thickening in the remaining visualised lungs. There is a 1 cm discrete nodule in the left upper lobe (image 12/278). The liver is shrunken with diffuse nodular contour, suggestive of cirrhosis. The gallbladder is not visualised and may be surgically absent. There is focal splenic capsular calcification. The pancreas is mildly atrophic. There is prominent right extrarenal pelvis. There is a 1.5 x 1.4 cm left renal cortical cyst. The adrenals are unremarkable. There is fluid distension of the visualised esophagus. There is mild fluid distension of the stomach with mild wall thickening and enhancement. There are multiple markedly dilated and fluid filled small bowel loops, measuring up to 4.2 cm in calibre. There is apparent transition at the level of the distal ileal loop in the right mid abdomen. There is a probable twist / apparent whirl sign in the adjacent mesentery along the medial aspect, better appreciable in the coronal images. There is no luminal compromise of the mesenteric vessels. There is moderate amount of free fluid in the upper abdomen and pelvis. There is no definite extraluminal free air. The appendix is not distinctly visualised. Abund ant fecal material is noted within the proximal 2/3rd of the colon and also in the rectosigmoid colon. There is no mesenteric or retroperitoneal adenopathy. The abdominal aorta and its branches demonstrate atheromatous calcification without evidence of aneurysm. The urinary bladder is incompletely distended at the time of the examination and appears mildly thick walled. The uterus is not visualized and may be surgically absent. The bones are osteopenic. Mild degenerative changes are identified in the spine. Impression: 1. Findings suggestive of high grade small bowel obstruction, likely due to mesenteric volvulus/internal hernia. Recommend clinical correlation and follow- up. 2. Small to moderate ascites in the background of cirrhosis. 3. Small right and moderate left pleural effusions with underlying atelectasis. 4. A 1 cm discrete nodule in the left upper lobe. Recommend follow up as per Fleischner criteria. 5. Constipation. 6. Other findings as described above. Discussion Details: Results verbally communicated to : Dr. Davis at 01:04 AM 03/10/2025 Report Electronically Signed By: Rory Avery 03/10/2025 1:10:08 AM [EST]
[2025-03-10 01:42] LABS: Cardiac Risk Estimate 2.3 RATIO (3.7-5.6); Cholesterol 156 mg/dL (132-200); HDL Cholesterol 68 mg/dL (40-60); LDL Cholesterol,Calculated 77 mg/dL (0-130); Procalcitonin 0.04 ng/ml (0.0-0.49); Triglycerides 53 mg/dL (30-150)
--- NOTE | 2025-03-10 01:52 | XR_ITS ---
Examination: AP chest single view TECHNIQUE: AP portable upright chest single view Date and time: March 10, 2025, 0204 hours Comparison March 09, 2025 INDICATION: Post orogastric tube placement. FINDINGS: Orogastric tube tip in the stomach satisfactory position Mild heart failure, enlarged cardiac contour with prominent vascular congestion, mild edema at the lung bases and significant left pleural effusion Right internal jugular Port-A-Cath tip SVC satisfactory position IMPRESSION: Orogastric tube tip in the stomach satisfactory position
--- NOTE | 2025-03-10 01:56 | PC.NURSE ---
INFORMED DR. RICHARDSON NG TUBE INSERTED WITH YELLOW GASTRIC CONTENTS NOTED.
[2025-03-10] MEDS: RINGERS LACTATED 1000 ML 1,000 ML 75 ML IV (02:05)
[2025-03-10] MEDS: HEPARIN SOD INJ 5000 UNIT/ML VIAL SC (02:06)
[2025-03-10 02:08] LABS: Lactate (Lactic Acid) 1.6 mMol/L (0.4-2.0)
[2025-03-10 02:25] VITALS: BMI 27.7
[2025-03-10 04:00] VITALS: BP 124/79; PULSE 78; RESP 19; TEMP 36.4; O2SAT 95
[2025-03-10 06:24] LABS: Basophils # (Auto) 0.0 Thou/mm3 (0.0-0.2); Basophils % (Auto) 0 % (0-2.5); Eosinophils # (Auto) 0.0 Thou/mm3 (0.0-0.5); Eosinophils % (Auto) 0 % (0-10); Hematocrit 34.7 % (36.0-46.0); Hemoglobin 11.4 g/dL (12.0-16.0); Immature Granulocytes Auto 0.04 Thou/mm3 (0.00-0.00); Lymphocytes # (Auto) 0.6 Thou/mm3 (1.0-4.8); Lymphocytes % (Auto) 6 % (10-50); Mean Corpuscular HGB Conc 32.9 g/dl (31.0-37.0); Mean Corpuscular Hemoglobin 28.6 pg (25.0-35.0); Mean Corpuscular Volume 87 fL (80-100); Monocytes # (Auto) 0.4 Thou/mm3 (0.0-0.8); Monocytes % (Auto) 4 % (0-12); Neutrophils # (Auto) 9.9 Thou/mm3 (1.8-7.7); Neutrophils % (Auto) 90 % (37-80); Nucleated Red Blood Cell # 0.00 Thou/mm3 (0.00-0.00); Nucleated Red Blood Cell % 0 /100 WBC (0); Platelet Count 228 Thou/mm3 (140-440); RDW Standard Deviation 65.7 fL (36.4-46.3); Red Blood Count 3.99 Miln/mm3 (4.00-5.20); White Blood Count 11.0 Thou/mm3 (3.6-11.0)
[2025-03-10 07:28] LABS: Alanine Aminotransferase < 7 U/L (10-49); Albumin, Serum 3.5 gm/dL (3.4-4.8); Albumin/Globulin Ratio 1.3 (1.2-2.2); Alkaline Phosphatase 65 U/L (46-116); Anion Gap 13 (7-16); Aspartate Amino Transferase 16 U/L (0-34); BUN/Creatinine Ratio 17 Ratio (12-20); Bilirubin,Total 0.5 mg/dL (0.3-1.2); Blood Urea Nitrogen 10 mg/dL (9-23); Calcium 8.7 mg/dL (8.3-10.6); Calcium (Corrected) 9.1 mg/dL (8.5-10.1); Carbon Dioxide 22.5 mMol/L (20.0-31.0); Chloride 97 mMol/L (98-107); Creatinine (Component) 0.6 mg/dL (0.6-1.3); Estimated Creatinine Clearance 59.5 mL/min (>60); Globulin 2.7 gm/dL (2.3-3.5); Glucose 130 mg/dL (74-106); Magnesium 1.4 mg/dL (1.6-2.6); Osmolality,Calculated 265 (275-295); Phosphorous 4.3 mg/dL (2.4-5.1); Potassium 4.1 mMol/L (3.4-5.1); Sodium 132 mMol/L (136-145); Thyroid Stimulating Hormone 3.13 uIU/mL (0.55-4.78); Total Protein 6.2 gm/dL (5.7-8.2); eGFR > 60 See Note
[2025-03-10 07:40] VITALS: BP 126/77; PULSE 74; RESP 17; TEMP 36.3; O2SAT 94
--- NOTE | 2025-03-10 07:43 | XR_ITS ---
Examination: Small bowel series AP abdomen supine 3 views Date and time: March 10, 2025 0824 hours INDICATIONS: Abdominal pain and distention this week, small bowel obstruction pattern on CT abdomen pelvis March 09, 2025 TECHNIQUE AND FINDINGS: FINDINGS: Patient received 120 cc Gastrografin through the orogastric tube AP abdomen supine films immediate, 30 minutes one hour obtained Dilated small bowel loops are noted IMPRESSION: Small bowel obstruction pattern Recommend follow-up abdomen films 11:00 AM, 1:00 PM, 3:00 PM
--- NOTE | 2025-03-10 08:17 | PC.NURSE ---
MD Cash at bedside consulting on pt. Per MD boyle bowel series will be done & NG will be clamped at this time.
--- NOTE | 2025-03-10 08:18 | PD.SURCONS ---
HPI Consult details Consult date: 03/10/25 Reason for consultation narrative: Small bowel obstruction History of present illness: 84-year-old female with history of perforated appendicitis underwent open appendectomy. 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 She has been on chemotherapy since 2018. She is also had incisional hernia repair with mesh recently by Dr. Bella. She states that she has been feeling weak over the past 2 days. She started episodes of emesis after which she started developing generalized abdominal pain. Her last bowel movement was day prior to admission. A CT scan was obtained that revealed dilated loops of small bowel suspicious for high-grade small bowel obstruction. An NG tube was placed and patient was admitted for further management. Review of Systems Constitutional Constitutional: Denies chills and Denies fever(s) Cardiovascular Cardiovascular: Denies chest pain Respiratory Respiratory: Denies cough Gastrointestinal Gastrointestinal: Reports abdominal pain, Reports nausea and Reports vomiting Genitourinary Genitourinary: Denies difficulty voiding Hematologic/Lymphatic Hematologic/Lymphatic: Denies easy bleeding and Denies easy bruising Past Medical History Surgical History OTHER SURGICAL HX: As stated in HPI Meds Home Medications and Allergies Home Medications ?Medication ?Instructions ?Recorded ?Confirmed ?Type Alendronate Sodium * (FOSAMAX *) 35 mg PO Q7D #0 tabs 09/25/16 03/10/25 History omeprazole 20 mg capsule,delayed 20 mg PO QDAY ##0 09/25/16 03/10/25 History release simvastatin 10 mg tablet (Zocor) 10 mg PO HS #0 tabs 09/25/16 03/10/25 History cyproheptadine 4 mg tablet 4 mg PO HS 09/28/24 03/10/25 History lisinopril 10 mg tablet 10 mg PO QDAY 09/28/24 03/10/25 History Allergies Allergy/AdvReac Type Severity Reaction Status Date / Time No Known Allergies Allergy Verified 09/30/24 06:42 Exam Vital Signs Temp Pulse Resp BP Pulse Ox O2 Del Method 97.6 F 78 19 124/79 95 Room Air 03/10/25 04:00 03/10/25 04:00 03/10/25 04:00 03/10/25 04:00 03/10/25 04:00 03/10/25 04:00 Constitutional Constitutional: no acute distress Routine Abdominal Exam Comments: Abdomen is soft and mildly distended. She has tenderness to palpation throughout the abdomen, no rebound tenderness or peritonitis at this time. She has laparotomy scars from previous operations Results Results: Laboratory Laboratory results: results reviewed Results: Imaging CT scan - abdomen: report reviewed and image reviewed CT scan - pelvis: report reviewed and image reviewed Assessment & Plan Additional Assessment Additional comments: Possible small bowel obstruction from adhesions. Plan I agree with NG tube decompression. Will obtain small bowel series
--- NOTE | 2025-03-10 08:46 | ESPR_ITS ---
<Statement entered by Leanna Pack MD - 03/13/25 16:10> I reviewed above note and agree with findings and plans. I have also personally examined the patient with medicine team and went over assessment and plan with medical team including nurse intern and resident physician. <Statement entered by aCmden Gaona MD - 03/10/25 18:21> Patient was examined and case was reviewed with team including attending physician. Note reviewed, I agree with most of its contents and agree with the patient's care. 84-year-old female who was admitted here for small bowel obstruction. Patient seen today at the bedside found awake, alert, orientedx3. No overnight events reported. Vitals and labs reviewed. Patient's last bowel movement was on March 08. Currently undergoing small bowel series with NG tube, no vomiting overnight. Pending general surgery recommendations. With regards to her CAP patient currently Abx therapy Rocephin and Azithromycin will continue current regimen at this time. Case discussed with my attending Dr. Sirena Gaona MD PGY-2 Documentation for date of: 03/10/25 Subjective Subjective Interval history: No overnight events. Evaluated at bedside. Pt feels nauseous but denies vomiting overnight. NG in placed on LIS. Gen surg consulted, pending small bowel series. Last BM 03/08. Exam Vital Signs Temp Pulse Resp BP Pulse Ox O2 Del Method 97.3 F 74 17 126/77 94 L Room Air 03/10/25 07:40 03/10/25 07:40 03/10/25 07:40 03/10/25 07:40 03/10/25 07:40 03/10/25 07:40 Narrative Exam General: Well appearing, well nourished, in no distress. Oriented x 3, normal mood and affect. NG tube in place. Skin: Good turgor, no rash, unusual bruising or prominent lesions Head: Normocephalic, atraumatic, no visible or palpable masses, depressions, or scaring. Eyes: Visual acuity intact, conjunctiva clear, sclera non-icteric, EOM intact, PERRL, no exudates or hemorrhages Heart: No cardiomegaly or thrills; regular rate and rhythm, no murmur or gallop Lungs: Left base crackles, diminished lung sound. Abdomen: Distended. LLQ pain with palpation. Back: Spine normal without deformity or tenderness, no CVA tenderness Extremities: No amputations or deformities, cyanosis. Peripheral pulses intact. Superficial varicosities noted on bilateral lower extremitiy. Objective Labs 03/10/25 05:04 03/10/25 05:04 Labs: Laboratory Results - last 24 hr 03/09/25 03/09/25 03/09/25 19:46 19:46 22:30 WBC 9.9 RBC 4.14 Hgb 11.8 L Hct 35.9 L MCV 87 MCH 28.5 MCHC 32.9 RDW Std Deviation 64.4 H Plt Count 261 Neut % (Auto) 84 H Lymph % (Auto) 8 L [place] % (Auto) 7 Eos % (Auto) 0 Baso % (Auto) 0 Neut # (Auto) 8.3 H Lymph # (Auto) 0.8 L [place] # (Auto) 0.7 Eos # (Auto) 0.0 Baso # (Auto) 0.0 Immature Gran # (Auto) 0.03 H Absolute Nucleated RBC 0.00 Immature Gran % 0 Nucleated RBC % 0 APTT 27.8 Sodium 132 L Potassium 4.2 Chloride 98 Carbon Dioxide 24.3 Anion Gap 10 BUN 13 Creatinine 0.6 Estim Creat Clear Calc 63.9 eGFR > 60 BUN/Creatinine Ratio 22 H Glucose 130 H Calculated Osmolality 266 L Lactic Acid 1.3 Calcium 9.7 Corrected Calcium 9.7 Phosphorus Magnesium Total Bilirubin 0.6 AST 13 ALT < 7 L Alkaline Phosphatase 74 Troponin I < 0.020 C-Reactive Prot, Quant 0.7 Total Protein 7.0 Albumin 4.1 Globulin 2.9 Albumin/Globulin Ratio 1.4 Triglycerides 53 Cholesterol 156 LDL Cholesterol, Calc 77 HDL Cholesterol 68 H Cholesterol/HDL Ratio 2.3 L Procalcitonin 0.05 0.04 TSH Ur Collection Type Clean Catch Urine Color Yellow Urine Clarity Clear Urine pH 5.5 Ur Specific [place] 1.020 Urine Protein Trace Urine Glucose (UA) Negative Urine Ketones 1+ A Urine Blood Negative Urine Nitrite Negative Urine Bilirubin Negative Urine Urobilinogen (Auto) Negative Ur Leukocyte Esterase Negative Urine RBC 3 Urine WBC 1 Ur Squamous Epith Cells 0 Urine Bacteria None Ur Culture Indicated? Not Indicated 03/10/25 03/10/25 01:59 05:04 WBC 11.0 RBC 3.99 L Hgb 11.4 L Hct 34.7 L MCV 87 MCH 28.6 MCHC 32.9 RDW Std Deviation 65.7 H Plt Count 228 D Neut % (Auto) 90 H Lymph % (Auto) 6 L [place] % (Auto) 4 Eos % (Auto) 0 Baso % (Auto) 0 Neut # (Auto) 9.9 H Lymph # (Auto) 0.6 L [place] # (Auto) 0.4 Eos # (Auto) 0.0 Baso # (Auto) 0.0 Immature Gran # (Auto) 0.04 H Absolute Nucleated RBC 0.00 Immature Gran % 0 Nucleated RBC % 0 APTT Sodium 132 L Potassium 4.1 Chloride 97 L Carbon Dioxide 22.5 Anion Gap 13 BUN 10 Creatinine 0.6 Estim Creat Clear Calc 59.5 L eGFR > 60 BUN/Creatinine Ratio 17 Glucose 130 H Calculated Osmolality 265 L Lactic Acid 1.6 Calcium 8.7 Corrected Calcium 9.1 Phosphorus 4.3 Magnesium 1.4 L Total Bilirubin 0.5 AST 16 ALT < 7 L Alkaline Phosphatase 65 Troponin I C-Reactive Prot, Quant Total Protein 6.2 Albumin 3.5 D Globulin 2.7 Albumin/Globulin Ratio 1.3 Triglycerides Cholesterol LDL Cholesterol, Calc HDL Cholesterol Cholesterol/HDL Ratio Procalcitonin TSH 3.13 Ur Collection Type Urine Color Urine Clarity Urine pH Ur Specific [place] Urine Protein Urine Glucose (UA) Urine Ketones Urine Blood Urine Nitrite Urine Bilirubin Urine Urobilinogen (Auto) Ur Leukocyte Esterase Urine RBC Urine WBC Ur Squamous Epith Cells Urine Bacteria Ur Culture Indicated? Quality Measures Quality Measures VTE prophylaxis Advance care planning discussed with:: patient Assessment & Plan Assessment Current Active Medications: Generic Name Dose Route Start Last Admin Trade Name Freq PRN Reason Stop Dose Admin Acetaminophen 650 mg 03/10/25 00:46 Acetaminophen 325 Mg Tablet PO 04/09/25 00:45 Q6H PRN PAIN SCALE 1-3 (mild Heparin Sodium (Porcine) 5,000 unit 03/10/25 01:00 03/10/25 02:06 Heparin Sod Inj 5000 Unit/Ml Vial SC 03/24/25 00:59 5,000 unit Q12H BALA Administration Lactated Ringer's 1,000 mls @ 75 mls/hr 03/10/25 01:00 03/10/25 02:05 Lactated Ringers IV 03/10/25 14:19 75 mls/hr .[id number] BALA Administration Azithromycin 500 mg/ Sodium 250 mls @ 250 mls/hr 03/10/25 21:00 Chloride IV 03/17/25 20:59 QDAY@2100 BALA Ceftriaxone Sodium/Dextrose 1 gm in 50 mls @ 100 mls/hr 03/10/25 21:00 Rocephin/D5w 1gm Iv Premix IV 03/17/25 20:59 QDAY@2100 BALA Magnesium Sulfate 4 gm in 50 mls @ 12.5 mls/hr 03/10/25 07:51 Magnesium Sulfate Ivpb IV 03/10/25 11:50 X1 ONE Ondansetron HCl 4 mg 03/10/25 00:46 Ondansetron Inj 2 Mg/Ml Inj 2 Ml IVP 04/09/25 00:45 Q6H PRN NAUSEA OR VOMITING Protocol Sennosides 1 tab 03/10/25 00:46 Senna Tablet PO 04/09/25 00:45 QDAY PRN constipation Protocol Plan 84F with 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 #Small bowel obstruction #2/2 mesenteric volvulus vs. internal hernia vs. adhesions vs. 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 (reported last chemo session week of 02/27/25) Pt reports weakness for past few weeks, decrease appetite and n/v for past few days. LBM 03/08 03/09: CTAP showed findings suggestive of high-grade small bowel obstruction, likely due to mesenteric volvulus/internal hernia (incisional hernia repair in September). 03/10: Lactate 1.6. Dx: - Pending small bowel series - Daily Chem, Mag, and Phos Tx: - Caution with drugs that may exacerbate presentation due to constipatory side effect profile: antihistamines, antispasmodics, iron supplements, and opiates. - Gen surg consulted, pending small bowel series results - NPO - NG tube LIS - Replete K and Mg with goal of K > 4 and Mg > 2 #Community acquired pneumonia vs aspiration pneumonia #Moderate left pleural effusion #Pulmonary nodule (1 cm, left upper lobe) 03/09 Pt reports dry cough. CXR showed findings suggestive of left base pneumonia with moderate left pleural. effusion, and a 1 cm discrete nodule in the left upper lobe. No prior CXR on record. WBC 9.9 03/10 Pt satting 96% on RA. WBC 11.0. Afebrile. Resp 16. 0/4 SIRS Dx - Daily CBC, trend WBC. - Consider repeat CXR if hypoxic Tx - Continue Azithromycin 500mg QD and Rocephin 1g QD - Consider Duonebs Q6H if pt becomes hypoxic - Consider Mucinex as needed if pt have productive cough - Supplemental O2 as needed with goal of O2 sat > 93%. #Chronic Anemia, likely due to iron deficiency Chronic medical problem Baseline Hgb 10 Pt reported her chemo doctor d/c her iron pills 03/10 Iron 63, TIBC 383, Iron sat low 16%, Ferritin 62 Dx: - Iron panel ordered - Ferritin ordered - Daily CBC Tx: - Consider iron pills or diet in high iron - Outpt PCP follow up - Blood transfusion if Hgb < 7 and symptomatic. #HTN Chronic Medical problem BP on admission was 152/92. Normotensive now. Dx: - Daily VS Tx: - consider coreg or labetalol if hypertensive - outpt PCP followup - diet and lifestyle modification #Electrolyte Abnormalities #Hypomagnemia 03/10 : Mg 1.4 Dx: - Daily Mg and K Tx: - Replete as needed with goal of Mg > 2 and K > 4 Dispo: Obs DVT prophylaxis: SCD, holding Heparin for possible surgery GI prophylaxis: Not indicated Diet: NPO Lines: Peripheral IV, NG Tube Code status: Full code Case discussed with my senior resident Dr. Lj Gaona Case discussed with my attending Dr. Sirena Aebl, DO PGY 1
[2025-03-10 08:47] LABS: INR 1.0 (0.9-1.3); Prothrombin Time 11.3 Seconds (9.0-12.2)
[2025-03-10 08:57] LABS: Ammonia < 10 uMol/L (11-32)
[2025-03-10] MEDS: ONDANSETRON INJ 2 MG/ML INJ 2 ML 4 MG IVP (09:54)
[2025-03-10] MEDS: Magnesium Sulfate 4 GM Ivpb 4 GM/50 ML BAG IV (09:56)
[2025-03-10] MEDS: MORPHINE SULF INJ 10 MG/ML VIAL 2 MG IVP (09:56)
[2025-03-10 09:58] LABS: Ferritin 62 ng/mL (7.3-270.7); Iron 63 mcg/dL (50-170); Percent Iron Saturation 16 % (20-55); Total Iron Binding Capacity 383 mcg/dL (250-425); Unsaturated Iron Binding 320 (225-295)
--- NOTE | 2025-03-10 10:19 | PC.SS ---
Patient is a 84 year old female presenting to the hospital for generalized weakens and vomiting. LEGGER PRESS OPERATOR made contact with patient at bedside and explained role and reason for visit. Patient requested that LEGGER PRESS OPERATOR confirm demographic information with patient?s son Larry. LEGGER PRESS OPERATOR spoke to Larry over the phone to confirm information. Patient?s son reported that patient lives at home alone and has a walker but does not use it. Patient son stated that patient is able to ambulate independent. At home patient does not use oxygen. Patient son states that depending on doctor recommendation he would like mother to d/c home. Patient son stated that either he or Art could provide transportation. Patient son sated that PCP is Ely Ferreira and had her last appointment on 03/08/25. Patient son stated that patient has other doctors but is unsure of the names. D/C : home PCP: Dr. Graves Next of Kin: Larry Jm ph: [phone]
--- NOTE | 2025-03-10 10:51 | PC.PT ---
Patient was approached at 10:30 for PT eval. Per patient, she is feeling nauseous, weak, and cannot work with PT today. Patient was encouraged to participate but she still declined at this time. Will re-attempt PT eval at another time.
--- NOTE | 2025-03-10 11:30 | XR_ITS ---
Examination: Abdomen AP single view Technique: AP portable supine abdomen, single view Exam date and time: March 10, 2025 1125 hours INDICATIONS: Abdominal distention this week, 3 hour delayed film post small bowel series FINDINGS: Contrast in distended small bowel loops IMPRESSION: Small bowel obstruction pattern Additional delayed films will be obtained
[2025-03-10 12:05] VITALS: BP 121/72; PULSE 69; RESP 16; TEMP 36.4; O2SAT 93
--- NOTE | 2025-03-10 14:33 | PC.SS ---
Rounding note: Pt. pending workup, surgery recommendation.
[2025-03-10] MEDS: HYDROmorphone INJ 2 MG/ML VIAL 0.5 MG IVP (15:27)
--- NOTE | 2025-03-10 15:28 | PC.SS ---
SS update: CORPORATION PILOT met with patient to discuss d/c plan. Patient stated she was still not feeling well to talk about d/c plan. CORPORATION PILOT spoke to bedside nurse, bedside nurse stated family came to visit and PT but patient was not feeling well to meet with PT. Patient would like to discuss d/c plan at a later time but stated she does not feel returning home would be a safe d/c due to living alone.
--- NOTE | 2025-03-10 15:30 | XR_ITS ---
Examination: Abdomen AP single view Technique: AP portable supine abdomen, single view Exam date and time: March 10, 2025 1823 hours INDICATIONS: Abdominal pain and distention this week 7 hour delayed film post small bowel series FINDINGS: Contrast in distended small bowel loops Some contrast is present in the colon IMPRESSION: Recommend follow-up abdomen films 5:00 PM 7:00 PM
--- NOTE | 2025-03-10 15:30 | XR_ITS ---
Examination: Abdomen AP single view Technique: AP portable supine abdomen, single view Exam date and time: March 10, 2025 1336 hours INDICATIONS: Fibroids delayed film post small bowel series today, abdominal pain and distention this week, small bowel obstruction pattern on CT abdomen pelvis March 09, 2025 FINDINGS: Contrast now present in the colon IMPRESSION: Incomplete small bowel obstruction
[2025-03-10 16:00] VITALS: BP 125/74; PULSE 76; RESP 18; TEMP 36.3; O2SAT 96
--- NOTE | 2025-03-10 17:30 | XR_ITS ---
Examination: Abdomen AP single view Technique: AP portable supine abdomen, single view Exam date and time: March 10, 2025 1726 hours INDICATIONS: Abdominal pain and distention this week, 9 hour delayed film for small bowel series today. Findings : Much of the contrast is in the colon on the current study IMPRESSION: Negative for complete small bowel obstruction No further films are needed
--- NOTE | 2025-03-10 19:32 | PC.NURSE ---
Contacted hospitalist Dr. Potter regarding patient's NG tube. Patient has finished the SBO series and the results showed that the patient has had an incomplete bowel obstruction. Per Dr. Potter still have the patient on NG tube on low intermittent suction. Patient is showing no sign of distress.
[2025-03-10 20:00] VITALS: BP 114/69; PULSE 71; RESP 16; TEMP 36.6; O2SAT 93
[2025-03-10] MEDS: KETOROLAC INJ 30 MG/ML VIAL IVP (22:55)
--- NOTE | 2025-03-10 22:59 | PC.NURSE ---
Dr. Potter was contacted by nurse Louie regarding patient's pain. Dr. Potter was made aware the the patient had started having pain after her iv got infiltrated and was in severe pain. Per Dr. Potter, give the patient toradol for the pain.
[2025-03-11] VITALS: BP 104/56; PULSE 68; RESP 16; TEMP 36.3; O2SAT 94
[2025-03-11 04:00] VITALS: BP 138/63; PULSE 72; RESP 19; TEMP 36.3; O2SAT 96
[2025-03-11 05:59] LABS: Basophils # (Auto) 0.0 Thou/mm3 (0.0-0.2); Basophils % (Auto) 0 % (0-2.5); Eosinophils # (Auto) 0.0 Thou/mm3 (0.0-0.5); Eosinophils % (Auto) 0 % (0-10); Hematocrit 32.7 % (36.0-46.0); Hemoglobin 10.7 g/dL (12.0-16.0); Immature Granulocytes Auto 0.02 Thou/mm3 (0.00-0.00); Lymphocytes # (Auto) 0.9 Thou/mm3 (1.0-4.8); Lymphocytes % (Auto) 11 % (10-50); Mean Corpuscular HGB Conc 32.7 g/dl (31.0-37.0); Mean Corpuscular Hemoglobin 28.3 pg (25.0-35.0); Mean Corpuscular Volume 87 fL (80-100); Monocytes # (Auto) 0.6 Thou/mm3 (0.0-0.8); Monocytes % (Auto) 7 % (0-12); Neutrophils # (Auto) 7.0 Thou/mm3 (1.8-7.7); Neutrophils % (Auto) 82 % (37-80); Nucleated Red Blood Cell # 0.00 Thou/mm3 (0.00-0.00); Nucleated Red Blood Cell % 0 /100 WBC (0); Platelet Count 257 Thou/mm3 (140-440); RDW Standard Deviation 65.2 fL (36.4-46.3); Red Blood Count 3.78 Miln/mm3 (4.00-5.20); White Blood Count 8.5 Thou/mm3 (3.6-11.0)
[2025-03-11 06:48] LABS: Alanine Aminotransferase < 7 U/L (10-49); Albumin, Serum 3.2 gm/dL (3.4-4.8); Albumin/Globulin Ratio 1.5 (1.2-2.2); Alkaline Phosphatase 59 U/L (46-116); Anion Gap 10 (7-16); Aspartate Amino Transferase 13 U/L (0-34); BUN/Creatinine Ratio 23 Ratio (12-20); Bilirubin,Total 0.6 mg/dL (0.3-1.2); Blood Urea Nitrogen 16 mg/dL (9-23); Calcium 8.0 mg/dL (8.3-10.6); Calcium (Corrected) 8.6 mg/dL (8.5-10.1); Carbon Dioxide 26.8 mMol/L (20.0-31.0); Chloride 101 mMol/L (98-107); Creatinine (Component) 0.7 mg/dL (0.6-1.3); Estimated Creatinine Clearance 51.0 mL/min (>60); Globulin 2.2 gm/dL (2.3-3.5); Glucose 112 mg/dL (74-106); Magnesium 2.2 mg/dL (1.6-2.6); Osmolality,Calculated 277 (275-295); Phosphorous 4.0 mg/dL (2.4-5.1); Potassium 4.0 mMol/L (3.4-5.1); Sodium 138 mMol/L (136-145); Total Protein 5.4 gm/dL (5.7-8.2); eGFR > 60 See Note
--- NOTE | 2025-03-11 07:27 | PD.SURPROG ---
Documentation for date of: 03/11/25 Subjective Subjective Narrative: Patient is seen and examined. She is feeling much better. She started passing flatus and had bowel movement. Small bowel series did not show bowel obstruction Exam Vital Signs Temp Pulse Resp BP Pulse Ox O2 Del Method 97.4 F 72 19 138/63 H 96 Room Air 03/11/25 04:00 03/11/25 04:00 03/11/25 04:00 03/11/25 04:00 03/11/25 04:00 03/11/25 04:00 Constitutional Constitutional: no acute distress Routine Abdominal Exam Comments: Abdomen is soft and less distended. She has minimal tenderness to deep palpation, no rebound tenderness or peritonitis at this time Assessment & Plan Assessment Additional comments: Small bowel obstruction resolving Plan Will DC NG tube and start patient on clear liquids. When tolerating clear liquids may advance diet as tolerated and possible discharge home tomorrow
[2025-03-11 08:00] VITALS: BP 111/64; PULSE 72; RESP 18; TEMP 36.3; O2SAT 94
[2025-03-11] MEDS: Milk Of Magnesia Susp 30 ML UDC NG (08:52)
[2025-03-11 12:00] VITALS: BP 120/70; PULSE 70; RESP 18; TEMP 36.5; O2SAT 98
--- NOTE | 2025-03-11 15:18 | ESPR_ITS ---
<Statement entered by Leanna Pack MD - 03/22/25 13:47> I reviewed above note and agree with findings and plans. I have also personally examined the patient with medicine team and went over assessment and plan with medical team including equine intern and resident physician. <Statement entered by Camden Gaona MD - 03/11/25 23:46> Patient was examined and case was reviewed with team including attending physician. Note reviewed, I agree with most of its contents and agree with the patient's care. Patient seen today at the bedside found awake, alert, orientedx3. No overnight events reported. Vitals and labs reviewed. Patient was admitted for high-grade small bowel obstruction which improved after decompression with NG tube in small bowel series. Small bowel obstruction has now resolved and patient is currently having bowel movements. Spoke to general surgery recommended discontinuing continuing the NG tube and start the patient on clear liquid diet if tolerated may advance then possibly discharge home in the next 24 hours. Case discussed with my attending Dr. Sirena Gaona MD PGY-2 Disclaimer: Despite multiple revisions, due to the dictation software being used, the document bellow may not be free of grammatical errors including phonetic/typographic errors. However, this does not deter from our commitment to providing health care in the patient's best interest in mind. Documentation for date of: 03/11/25 Subjective Subjective Interval history: Per night team, the patient?s IV infiltrated in the right arm and was subsequently removed and replaced in the left arm. Patient was seen at the bedside this morning and reports feeling significantly better today. She had a bowel movement this morning and denies abdominal pain, dysuria, cough, or shortness of breath. She is motivated to get out of bed and ambulate today. Exam Vital Signs Temp Pulse Resp BP Pulse Ox O2 Del Method 97.7 F 70 18 120/70 98 Room Air 03/11/25 12:03/11/25 12:03/11/25 12:03/11/25 12:03/11/25 12:03/11/25 12:00 Narrative Exam Physical Exam General: Awake and in no acute distress. Conversational and non-toxic appearing. NG tube in place. HEENT: Normocephalic, atraumatic, mucous membranes moist. Heart: Regular rate and rhythm, normal S1 and S2, no murmurs. Lungs: Left base crackles, diminished lung sound. Abdomen: Soft, less distended, minimal tenderness. No guarding or rebound tenderness. Neurologic: Alert and oriented x3, no gross neurological deficit, and patient able to move all 4 extremities. Extremities: No edema. Superficial varicosities noted on bilateral lower extremitiy. Skin: No rash or ecchymoses. Objective Labs 03/11/25 04:56 03/11/25 04:56 Labs: Laboratory Results - last 24 hr 03/11/25 04:56 WBC 8.5 RBC 3.78 L Hgb 10.7 L Hct 32.7 L MCV 87 MCH 28.3 MCHC 32.7 RDW Std Deviation 65.2 H Plt Count 257 Neut % (Auto) 82 H Lymph % (Auto) 11 [place] % (Auto) 7 Eos % (Auto) 0 Baso % (Auto) 0 Neut # (Auto) 7.0 Lymph # (Auto) 0.9 L [place] # (Auto) 0.6 Eos # (Auto) 0.0 Baso # (Auto) 0.0 Immature Gran # (Auto) 0.02 H Absolute Nucleated RBC 0.00 Immature Gran % 0 Nucleated RBC % 0 Sodium 138 Potassium 4.0 Chloride 101 Carbon Dioxide 26.8 Anion Gap 10 BUN 16 Creatinine 0.7 Estim Creat Clear Calc 51.0 L eGFR > 60 BUN/Creatinine Ratio 23 H Glucose 112 H Calculated Osmolality 277 Calcium 8.0 L Corrected Calcium 8.6 Phosphorus 4.0 Magnesium 2.2 Total Bilirubin 0.6 AST 13 ALT < 7 L Alkaline Phosphatase 59 Total Protein 5.4 L Albumin 3.2 L Globulin 2.2 L Albumin/Globulin Ratio 1.5 Quality Measures Quality Measures none Advance care planning discussed with:: patient Assessment & Plan Assessment Current Active Medications: Generic Name Dose Route Start Last Admin Trade Name Freq PRN Reason Stop Dose Admin Acetaminophen 650 mg 03/10/25 00:46 Acetaminophen 325 Mg Tablet PO 04/09/25 00:45 Q6H PRN PAIN SCALE 1-3 (mild Heparin Sodium (Porcine) 5,000 unit 03/10/25 01:00 03/10/25 13:20 Heparin Sod Inj 5000 Unit/Ml Vial SC 03/24/25 00:59 Not Given Q12H BALA Azithromycin 500 mg/ Sodium 250 mls @ 250 mls/hr 03/10/25 21:00 03/10/25 21:02 Chloride IV 03/17/25 20:59 250 mls/hr QDAY@2100 BALA Administration Ceftriaxone Sodium/Dextrose 1 gm in 50 mls @ 100 mls/hr 03/10/25 21:00 03/10/25 20:03 Rocephin/D5w 1gm Iv Premix IV 03/17/25 20:59 100 mls/hr QDAY@2100 BALA Administration Ondansetron HCl 4 mg 03/10/25 00:46 03/10/25 09:54 Ondansetron Inj 2 Mg/Ml Inj 2 Ml IVP 04/09/25 00:45 4 mg Q6H PRN Administration NAUSEA OR VOMITING Protocol Sennosides 1 tab 03/10/25 00:46 Senna Tablet PO 04/09/25 00:45 QDAY PRN constipation Protocol Plan 84-year-old female with a 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 (reported last chemo session week of 02/27/25) CTAP (03/09): high grade small bowel obstruction Small bowel x-ray (03/10): small bowel obstruction pattern Abdomen X-ray (03/10): Incomplete small bowel obstruction Abdomen X-ray (03/10): Negative for complete small bowel obstruction Lactate 1.3 --> 1.6, slight uptrend, no signs of ischemia Plan - General surgery recommendations: discontinue NG tube and start patient on clear liquids, advance diet as tolerated, possible discharge home tomorrow (03/12) #Community acquired pneumonia vs aspiration pneumonia #Moderate left pleural effusion #Pulmonary nodule (1 cm, left upper lobe) CXR (03/09): left base pneumonia with moderate left pleural effusion, 1 cm discrete nodule in the left upper lobe. No prior CXR on record to compare. No leukocytosis and afebrile Normal Procalcitonin O2 satting 94-96% on RA 0/4 SIRS Plan - Daily CBC, trend WBC. - Consider repeat CXR if hypoxic - Continue Azithromycin 500mg QD and Rocephin 1g QD #Chronic Anemia, likely due to iron deficiency Chronic medical problem Hgb 11.8 --> 11.4 --> 10.7 (stable, low) Pt reported her chemo doctor d/c her iron pills 03/10 Iron 63, TIBC 383, Iron sat low 16%, Ferritin 62 Plan - Consider iron pills or diet in high iron - Outpt PCP follow up - Blood transfusion if Hgb < 7 and symptomatic #Hypertension Chronic Medical problem BP on admission was 152/92. Normotensive now. #Electrolyte Abnormalities (resolved) Mg 1.4 --> 2.2 Plan - Replete as needed with goal of Mg > 2 and K > 4 Health Maintenance: Dispo: Possible discharge home tomorrow (03/12) DVT prophylaxis: SCD GI prophylaxis: Not indicated Diet: NPO Lines: Peripheral IV, NG Tube Code status: Full code Patient plan of care was discussed with the senior resident, Dr. Lj Gaona, and attending physician, Dr. Pack. Regla Haskins, DO PGY-1
[2025-03-11 16:00] VITALS: BP 126/79; PULSE 69; RESP 18; TEMP 36.6; O2SAT 98
[2025-03-11 20:00] VITALS: BP 133/69; PULSE 64; RESP 16; TEMP 36.3; O2SAT 94
[2025-03-11] MEDS: cefTRIAXone/D5w 1gm IV premix 1 GM/50 ML BAG IV (20:13)
[2025-03-11] MEDS: AZITHROMYCIN INJ 500 MG in SODIUM CHLORIDE 0.9% 250 ML 250 ML 250 MG IV (20:53)
[2025-03-12] VITALS: BP 110/65; PULSE 60; RESP 16; TEMP 36.6; O2SAT 95
[2025-03-12 04:00] VITALS: BP 125/74; PULSE 69; RESP 16; TEMP 36.7; O2SAT 92
[2025-03-12 05:55] LABS: Basophils # (Auto) 0.0 Thou/mm3 (0.0-0.2); Basophils % (Auto) 0 % (0-2.5); Eosinophils # (Auto) 0.1 Thou/mm3 (0.0-0.5); Eosinophils % (Auto) 2 % (0-10); Hematocrit 29.3 % (36.0-46.0); Hemoglobin 9.8 g/dL (12.0-16.0); Immature Granulocytes Auto 0.03 Thou/mm3 (0.00-0.00); Lymphocytes # (Auto) 0.7 Thou/mm3 (1.0-4.8); Lymphocytes % (Auto) 12 % (10-50); Mean Corpuscular HGB Conc 33.4 g/dl (31.0-37.0); Mean Corpuscular Hemoglobin 29.3 pg (25.0-35.0); Mean Corpuscular Volume 88 fL (80-100); Monocytes # (Auto) 0.6 Thou/mm3 (0.0-0.8); Monocytes % (Auto) 9 % (0-12); Neutrophils # (Auto) 4.5 Thou/mm3 (1.8-7.7); Neutrophils % (Auto) 76 % (37-80); Nucleated Red Blood Cell # 0.00 Thou/mm3 (0.00-0.00); Nucleated Red Blood Cell % 0 /100 WBC (0); Platelet Count 230 Thou/mm3 (140-440); RDW Standard Deviation 65.5 fL (36.4-46.3); Red Blood Count 3.35 Miln/mm3 (4.00-5.20); White Blood Count 5.9 Thou/mm3 (3.6-11.0)
[2025-03-12 06:31] LABS: Alanine Aminotransferase < 7 U/L (10-49); Albumin, Serum 3.0 gm/dL (3.4-4.8); Albumin/Globulin Ratio 1.6 (1.2-2.2); Alkaline Phosphatase 53 U/L (46-116); Anion Gap 8 (7-16); Aspartate Amino Transferase 13 U/L (0-34); BUN/Creatinine Ratio 34 Ratio (12-20); Bilirubin,Total 0.4 mg/dL (0.3-1.2); Blood Urea Nitrogen 17 mg/dL (9-23); Calcium 7.5 mg/dL (8.3-10.6); Calcium (Corrected) 8.3 mg/dL (8.5-10.1); Carbon Dioxide 27.8 mMol/L (20.0-31.0); Chloride 102 mMol/L (98-107); Creatinine (Component) 0.5 mg/dL (0.6-1.3); Estimated Creatinine Clearance 71.4 mL/min (>60); Globulin 1.9 gm/dL (2.3-3.5); Glucose 89 mg/dL (74-106); Magnesium 2.5 mg/dL (1.6-2.6); Osmolality,Calculated 276 (275-295); Phosphorous 2.9 mg/dL (2.4-5.1); Potassium 3.9 mMol/L (3.4-5.1); Sodium 138 mMol/L (136-145); Total Protein 4.9 gm/dL (5.7-8.2); eGFR > 60 See Note
[2025-03-12 07:51] VITALS: BP 135/78; PULSE 74; RESP 16; TEMP 36.3; O2SAT 94
[2025-03-12] MEDS: CALCIUM CARBONATE 600 MG TABLET PO (09:27)
--- NOTE | 2025-03-12 11:10 | ESDS_ITS ---
Planned Discharge Date 03/12/25 DS: Providers Provider Date of admission: 03/10/25 00:46 Primary care physician: Hanna Graves MD Admitting Provider: Juan Pablo Camara MD Attending Provider on Admission: Leanna Pack MD Consults: 03/10/25 00:54 Referral Physical Therapy Routine Comment: Physician Instructions: 03/10/25 01:32 Consult to General Surgery Routine Comment: Consulting Provider: Juan Diego Cash Attending Provider on DC: Júnior Kwok MD Discharging Provider: Paulo Abel DO Anticipated date of discharge: 03/12/25 DS: Diagnosis Problem List Completed Was Problem List Reviewed/Reconciled?: Yes Hospital Course Hospital Course Hospital course: Mrs. 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 Pt reported weakness for past few weeks, decreased appetite and n/v for past few days prior to admission. CTAP on 03/09/25 showed findings suggestive of high-grade small bowel obstruction. Gen surg was consulted and suggested small bowel series, which showed resolving SBO, therefore no surgical intervention indicated at this point. Pt tolaterd diet well on her last day of admission and denied nausea, vomiting or abdominal pain. Pt reported positive bowel movement prior to discharge. Of note, CXR on 03/09 showed findings suggestive of left base pneumonia with moderate left pleural effusion, and a 1 cm discrete nodule in the left upper lobe. No prior CXR on record for comparison. Pt was afebrile throughout this admission and saturated well on room air. She was treated with Azithromycin 500mg QD and Rocephin 1g QD and advised to follow up with her PCP after discharge. Pt is medically and physically stable for discharge. Diagnosis #Small bowel obstruction - resolved #Community acquired pneumonia #Moderate left pleural effusion #Pulmonary nodule (1 cm, left upper lobe) #Chronic Anemia, likely due to iron deficiency #Hypertension Discharge Plan: Start taking Amoxicillin/clavulanate 1 tab twice daily for 5 days. Continue home medications as prescribed. Follow up with PCP within 2 weeks. Case discussed with my senior resident Dr. Beltrán Case discussed with my attending Dr. Rissa Abel DO PGY 1 Time Spent with Patient Time attestation: Total time spent providing and/or coordinating discharge services: Time spent: Greater than 30 minutes Exam Vital Signs Temp Pulse Resp BP Pulse Ox O2 Del Method 97.3 F 74 16 135/78 H 94 L Room Air 03/12/25 07:51 03/12/25 07:51 03/12/25 07:51 03/12/25 07:51 03/12/25 07:51 03/12/25 07:51 Narrative Exam General: Well appearing, well nourished, in no distress. Oriented x 3, normal mood and affect. Skin: Good turgor, no rash, unusual bruising or prominent lesions Head: Normocephalic, atraumatic, no visible or palpable masses, depressions, or scaring. Eyes: Visual acuity intact, conjunctiva clear, sclera non-icteric, EOM intact, PERRL, no exudates or hemorrhages Heart: No cardiomegaly or thrills; regular rate and rhythm, no murmur or gallop Lungs: CTAB, no wheeze, rales, or rhonchi Abdomen: soft, nondistended. No guarding, tenderness, or rebound rigidity. Back: Spine normal without deformity or tenderness, no CVA tenderness Extremities: No amputations or deformities, cyanosis. Peripheral pulses intact. Superficial varicosities noted on bilateral lower extremitiy. Discharge Plan Plan Patient Disposition: Home w/HOME HEALTH Patient condition on transfer: Stable Care Plan Goals: Start taking Amoxicillin/clavulanate 1 tab twice daily for 5 days. Continue home medications as prescribed. Follow up with PCP within 2 weeks. Prescriptions/Referrals Prescriptions/Med Rec: New amoxicillin-pot clavulanate 875-125 mg tablet 1 tab PO BID 5 Days Qty: 10 0RF Continued Alendronate Sodium * (FOSAMAX *) 35 MG tablet 35 mg PO Q7D Qty: 0 simvastatin [Zocor] 10 MG tablet 10 mg PO HS Qty: 0 omeprazole 20 MG capsule,delayed release(DR/EC) 20 mg PO QDAY Qty: 0 cyproheptadine 4 mg tablet 4 mg PO HS lisinopril 10 mg tablet 10 mg PO QDAY Referrals: Hanna Graves MD [Primary Care Provider] - Patient/Caregiver Discharge Instructions Print Language: Bulgarian Stand Alone Forms: Lillian Award Info., Patient Portal Info Letter, Work/Release Restrictions Discharge Order Discharge Orders: Discharge (Routine); Ordered 03/12/25 Ordered By: Benjamin Beltrán Quality Discharge Quality Measures none MD Attestestation MD Attestation I have examined the patient, reviewed labs and imaging findings, discussed the case with the resident(s), and reviewed entered orders. I agree with the plan of care as outlined in this note. Time Spent: [address] Rissa MD
[2025-03-12 12:00] VITALS: BP 134/83; PULSE 67; RESP 17; TEMP 36.1; O2SAT 96
--- NOTE | 2025-03-12 12:44 | PC.SS ---
Melinda fowler ordered per PT reccs via [facility]. Pending response.
--- NOTE | 2025-03-12 13:32 | PC.NURSE ---
MD made aware of Patient's statement I feel to weak to go home . MD will assess patient at bedside
--- NOTE | 2025-03-12 15:22 | ESPR_ITS ---
<Statement entered by Benjamin Beltrán MD - 03/12/25 16:01> Senior Resident Attestation: I supervised/discussed management plan with university intern physician Dr. Abel, and was involved in the care of this patient. I personally saw and examined the patient and discussed the assessment and plan with the entire medicine team, including my attending. I agree with the assessment and plan as documented. No acute overnight events reported. Patient was seen and examined at the bedside. Patient reports that she wants to go home today. However during discharge process patient reported that she is too weak to go home and wanted to go to SNF. marine services technician were contacted and placement was initiated. Patient's care was discussed with attending physician, Dr. Kwok. Benjamin Beltrán MD PGY-3. Documentation for date of: 03/12/25 Subjective Subjective Interval history: No overnight events. Evaluated at bedside. The patient refers no pain. Reports BM yesterday. Upon discharge this afternoon, pt reports she feels weak and would like to go to a SNF to regain her strength prior to returning home. Social Service aware. Exam Vital Signs Temp Pulse Resp BP Pulse Ox O2 Del Method 97.0 F 67 17 134/83 H 96 Room Air 03/12/25 12:00 03/12/25 12:00 03/12/25 12:00 03/12/25 12:00 03/12/25 12:00 03/12/25 12:00 Narrative Exam General: Awake and in no acute distress. Conversational and non-toxic appearing. NG tube in place. HEENT: Normocephalic, atraumatic, mucous membranes moist. Heart: Regular rate and rhythm, normal S1 and S2, no murmurs. Lungs: Left base crackles, diminished lung sound. Abdomen: Soft, less distended, minimal tenderness. No guarding or rebound tenderness. Neurologic: Alert and oriented x3, no gross neurological deficit, and patient able to move all 4 extremities. Extremities: No edema. Superficial varicosities noted on bilateral lower extremitiy. Skin: No rash or ecchymoses. Objective Labs 03/13/25 05:34 03/13/25 05:34 Labs: Laboratory Results - last 24 hr 03/12/25 04:38 WBC 5.9 RBC 3.35 L Hgb 9.8 L Hct 29.3 L MCV 88 MCH 29.3 MCHC 33.4 RDW Std Deviation 65.5 H Plt Count 230 Neut % (Auto) 76 Lymph % (Auto) 12 Bell % (Auto) 9 Eos % (Auto) 2 Baso % (Auto) 0 Neut # (Auto) 4.5 Lymph # (Auto) 0.7 L Bell # (Auto) 0.6 Eos # (Auto) 0.1 Baso # (Auto) 0.0 Immature Gran # (Auto) 0.03 H Absolute Nucleated RBC 0.00 Immature Gran % 1 H Nucleated RBC % 0 Sodium 138 Potassium 3.9 Chloride 102 Carbon Dioxide 27.8 Anion Gap 8 BUN 17 Creatinine 0.5 L Estim Creat Clear Calc 71.4 eGFR > 60 BUN/Creatinine Ratio 34 H Glucose 89 Calculated Osmolality 276 Calcium 7.5 L Corrected Calcium 8.3 L Phosphorus 2.9 Magnesium 2.5 Total Bilirubin 0.4 AST 13 ALT < 7 L Alkaline Phosphatase 53 Total Protein 4.9 L Albumin 3.0 L Globulin 1.9 L Albumin/Globulin Ratio 1.6 Quality Measures Quality Measures VTE prophylaxis Advance care planning discussed with:: patient Assessment & Plan Assessment Current Active Medications: Generic Name Dose Route Start Last Admin Trade Name Freq PRN Reason Stop Dose Admin Acetaminophen 650 mg 03/10/25 00:46 Acetaminophen 325 Mg Tablet PO 04/09/25 00:45 Q6H PRN PAIN SCALE 1-3 (mild Heparin Sodium (Porcine) 5,000 unit 03/10/25 01:00 03/10/25 13:20 Heparin Sod Inj 5000 Unit/Ml Vial SC 03/24/25 00:59 Not Given Q12H BALA Azithromycin 500 mg/ Sodium 250 mls @ 250 mls/hr 03/10/25 21:00 03/11/25 20:53 Chloride IV 03/17/25 20:59 250 mls/hr QDAY@2100 BALA Administration Ceftriaxone Sodium/Dextrose 1 gm in 50 mls @ 100 mls/hr 03/10/25 21:00 03/11/25 20:13 Rocephin/D5w 1gm Iv Premix IV 03/17/25 20:59 100 mls/hr QDAY@2100 BALA Administration Ondansetron HCl 4 mg 03/10/25 00:46 03/10/25 09:54 Ondansetron Inj 2 Mg/Ml Inj 2 Ml IVP 04/09/25 00:45 4 mg Q6H PRN Administration NAUSEA OR VOMITING Protocol Sennosides 1 tab 03/10/25 00:46 Senna Tablet PO 04/09/25 00:45 QDAY PRN constipation Protocol Plan 84-year-old female with a 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 (reported last chemo session week of 02/27/25) CTAP (03/09): high grade small bowel obstruction Small bowel x-ray (03/10): small bowel obstruction pattern Abdomen X-ray (03/10): Incomplete small bowel obstruction Abdomen X-ray (03/10): Negative for complete small bowel obstruction Lactate 1.3 --> 1.6, slight uptrend, no signs of ischemia Plan - General surgery recommendations: discontinue NG tube and start patient on clear liquids, advance diet as tolerated, possible discharge home tomorrow (03/12.) Gen surg okay with d/c - Advanced to regular diet by noon (03/12) #Community acquired pneumonia vs aspiration pneumonia #Moderate left pleural effusion #Pulmonary nodule (1 cm, left upper lobe) CXR (03/09): left base pneumonia with moderate left pleural effusion, 1 cm discrete nodule in the left upper lobe. No prior CXR on record to compare. No leukocytosis and afebrile Normal Procalcitonin O2 satting 94-96% on RA 0/4 SIRS Plan - Daily CBC, trend WBC. - Consider repeat CXR if hypoxic - Continue Azithromycin 500mg QD and Rocephin 1g QD #Chronic Anemia, likely due to iron deficiency Chronic medical problem Hgb 11.8 --> 11.4 --> 10.7 (stable, low) Pt reported her chemo doctor d/c her iron pills 03/10 Iron 63, TIBC 383, Iron sat low 16%, Ferritin 62 Plan - Consider iron pills or diet in high iron - Outpt PCP follow up - Blood transfusion if Hgb < 7 and symptomatic #Hypertension Chronic Medical problem BP on admission was 152/92. Normotensive now. #Electrolyte Abnormalities (resolved) Mg 1.4 --> 2.2 Plan - Replete as needed with goal of Mg > 2 and K > 4 Health Maintenance: Dispo: Pending SNF placement DVT prophylaxis: SCD GI prophylaxis: Not indicated Diet: Regular diet Lines: Peripheral IV Code status: Full code Case discussed with my senior resident Dr. Beltrán Case discussed with my attending Dr. Rissa Araizah, PGY 1 Attending Provider Attestation/Addendum I have examined the patient, reviewed labs and imaging findings, discussed the case with the resident(s), and reviewed entered orders. I agree with the plan of care as outlined in this note. Time Spent: [address] Rissa MD
[2025-03-12 16:00] VITALS: BP 134/89; PULSE 79; RESP 18; TEMP 36.2; O2SAT 97
[2025-03-12 20:00] VITALS: BP 142/88; PULSE 69; RESP 16; TEMP 36.3; O2SAT 97
[2025-03-12] MEDS: cefTRIAXone/D5w 1gm IV premix 1 GM/50 ML BAG IV (20:07)
[2025-03-12] MEDS: AZITHROMYCIN INJ 500 MG in SODIUM CHLORIDE 0.9% 250 ML 250 ML 250 MG IV (21:26)
[2025-03-13] VITALS: BP 139/81; PULSE 60; RESP 18; TEMP 37.2; O2SAT 95
--- NOTE | 2025-03-13 00:45 | PC.NURSE ---
patient not being discharged at this time due to pt changing her mind and now requesting SNF.
[2025-03-13 04:00] VITALS: BP 131/78; PULSE 62; RESP 16; TEMP 36.5; O2SAT 92
[2025-03-13 06:16] LABS: Basophils # (Auto) 0.0 Thou/mm3 (0.0-0.2); Basophils % (Auto) 0 % (0-2.5); Eosinophils # (Auto) 0.1 Thou/mm3 (0.0-0.5); Eosinophils % (Auto) 1 % (0-10); Hematocrit 29.9 % (36.0-46.0); Hemoglobin 9.9 g/dL (12.0-16.0); Immature Granulocytes Auto 0.02 Thou/mm3 (0.00-0.00); Lymphocytes # (Auto) 0.8 Thou/mm3 (1.0-4.8); Lymphocytes % (Auto) 13 % (10-50); Mean Corpuscular HGB Conc 33.1 g/dl (31.0-37.0); Mean Corpuscular Hemoglobin 28.9 pg (25.0-35.0); Mean Corpuscular Volume 87 fL (80-100); Monocytes # (Auto) 0.7 Thou/mm3 (0.0-0.8); Monocytes % (Auto) 11 % (0-12); Neutrophils # (Auto) 4.8 Thou/mm3 (1.8-7.7); Neutrophils % (Auto) 75 % (37-80); Nucleated Red Blood Cell # 0.00 Thou/mm3 (0.00-0.00); Nucleated Red Blood Cell % 0 /100 WBC (0); Platelet Count 233 Thou/mm3 (140-440); RDW Standard Deviation 66.3 fL (36.4-46.3); Red Blood Count 3.42 Miln/mm3 (4.00-5.20); White Blood Count 6.4 Thou/mm3 (3.6-11.0)
[2025-03-13 07:07] LABS: Alanine Aminotransferase < 7 U/L (10-49); Albumin, Serum 3.1 gm/dL (3.4-4.8); Albumin/Globulin Ratio 1.6 (1.2-2.2); Alkaline Phosphatase 54 U/L (46-116); Anion Gap 8 (7-16); Aspartate Amino Transferase 15 U/L (0-34); BUN/Creatinine Ratio 20 Ratio (12-20); Bilirubin,Total 0.4 mg/dL (0.3-1.2); Blood Urea Nitrogen 10 mg/dL (9-23); Calcium 8.3 mg/dL (8.3-10.6); Calcium (Corrected) 9.0 mg/dL (8.5-10.1); Carbon Dioxide 26.0 mMol/L (20.0-31.0); Chloride 102 mMol/L (98-107); Creatinine (Component) 0.5 mg/dL (0.6-1.3); Estimated Creatinine Clearance 71.4 mL/min (>60); Globulin 2.0 gm/dL (2.3-3.5); Glucose 95 mg/dL (74-106); Magnesium 1.5 mg/dL (1.6-2.6); Osmolality,Calculated 270 (275-295); Phosphorous 3.6 mg/dL (2.4-5.1); Potassium 3.9 mMol/L (3.4-5.1); Sodium 136 mMol/L (136-145); Total Protein 5.1 gm/dL (5.7-8.2); eGFR > 60 See Note
[2025-03-13 08:00] VITALS: BP 140/82; PULSE 72; RESP 18; TEMP 36.2; O2SAT 96
[2025-03-13] MEDS: Magnesium Sulfate 2 GM Ivpb 2 GM/50 ML BAG IV (08:39)
[2025-03-13 11:40] VITALS: BP 153/89; PULSE 72; RESP 18; TEMP 36.3; O2SAT 97
--- NOTE | 2025-03-13 11:50 | PC.SS ---
ACQUISITION CONSULTANT spoke to Matt PT for PT evaluation. ACQUISITION CONSULTANT met with patient and patient family at bedside to discuss SNF placement. Patient stated she would like to go to [facility]. Patient stated that once medically cleared patient family will provide transportation. ACQUISITION CONSULTANT completed PASSR and did file transfer to [facility]. ACQUISITION CONSULTANT confirmed booking with [facility] and PASSR completion.
--- NOTE | 2025-03-13 12:03 | PC.SS ---
SPEECH ASSISTANT submitted updated PT note and PASSR via [facility] to [facility]. SPEECH ASSISTANT informed bedside nurse Maria C, that patient will be going to [facility], authorization is pending.
--- NOTE | 2025-03-13 13:50 | PC.SS ---
WHITE HAT HACKER placed phone call to [facility]. Eamon at [facility] stated that authorization denied, can possibly use secondary insurance, WHITE HAT HACKER will follow up with Raj.
--- NOTE | 2025-03-13 14:03 | ESDS_ITS ---
Planned Discharge Date 03/13/25 DS: Providers Provider Date of admission: 03/10/25 00:46 Primary care physician: Hanna Graves MD Admitting Provider: Juan Pablo Camara MD Attending Provider on Admission: Leanna Pack MD Consults: 03/10/25 00:54 Referral Physical Therapy Routine Comment: Physician Instructions: 03/10/25 01:32 Consult to General Surgery Routine Comment: Consulting Provider: Juan Diego Cash Attending Provider on DC: Júnior Kwok MD Discharging Provider: Camden Gaona MD Anticipated date of discharge: 03/13/25 DS: Diagnosis Problem List Completed Was Problem List Reviewed/Reconciled?: Yes Hospital Course Hospital Course Hospital course: 84F with 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 Pt reported weakness for past few weeks, decreased appetite and n/v for past few days prior to admission. CTAP on 03/09/25 showed findings suggestive of high-grade small bowel obstruction. Gen surg was consulted and suggested small bowel series, which showed resolving SBO, therefore no surgical intervention indicated at this point. Pt tolaterd diet well on her last day of admission and denied nausea, vomiting or abdominal pain. Pt reported positive bowel movement prior to discharge. Of note, CXR on 03/09 showed findings suggestive of left base pneumonia with moderate left pleural effusion, and a 1 cm discrete nodule in the left upper lobe. No prior CXR on record for comparison. Pt was afebrile throughout this admission and saturated well on room air. She was treated with Azithromycin 500mg QD and Rocephin 1g QD and advised to follow up with her PCP after discharge. Patient is medically and physically stable for discharge. Patient was prescribed Augmentin 1 tab twice a day for a total of 5 days. Please take your medications as prescribed. Patient is instructed to follow-up with primary care physician within 1 week of discharge. Should any symptoms recur or worsen patient is instructed to return to the ER. Diagnosis #Small bowel obstruction - resolved #Community acquired pneumonia #Moderate left pleural effusion #Pulmonary nodule (1 cm, left upper lobe) #Chronic Anemia, likely due to iron deficiency #Hypertension Case discussed with my attending Dr. Rissa Gaona MD PGY-2 Status at Discharge Functional status at discharge: independent ambulation Overall status at discharge: patient is progressing back to baseline Time Spent with Patient Time attestation: Total time spent providing and/or coordinating discharge services: Time spent: Greater than 30 minutes Home Health Home Health Referral Orders: 03/12/25 13:52 Home Health Referral Routine Reason For Exam: PT Home-Bound The patient must either because of illness or injury, need the aid of supportive devices such as crutches, canes, wheelchairs, and walkers; the use of special transportation; or the assistance of another person in order to leave their place of residence; OR have a condition such that leaving his or her home is medically contraindicated. In addition, the patient also meets the following criteria: patient is normally unable to leave the home and leaving home requires considerable taxing effort. Addendum to Home Health Certification Practitioner's Certification: I certify that the patient has been under my care in the hospital and the care of attending physician (see below). We had a [id number] encounter on (see date below). My clinical findings indicate that the patient is home bound per the above cri teria and the Home Health Services noted in these orders are medically necessary. The primary reason for the [id number] encounter is related to the fact that the patient requires home health se rvices. Date Certifying [id number] Physician Encounter: 03/10/25 Physician's Name who will Assume Oversight for Services: Hanna Graves Physician's Phone No.who will Assume Oversight for Service: TELECOMMUNICATIONS ADMINISTRATOR - Community Resources: No PT to Evaluate: Yes PT to evaluate and provide a treatmnet plan to increase patient's mobility and strength. Wound Care: No IV Therapy: No RN Safety Evaluation: Yes RN to evaluate and create a plan of care that will produce positive outcomes. Palliative Treatment: No Palliative treatment and evaluate the need for hospice. Home Health Aide - Personal Care: Yes Home Health Aide to assist with any ADL's. Exam Vital Signs Temp Pulse Resp BP Pulse Ox O2 Del Method 97.4 F 72 18 153/89 H 97 Room Air 03/13/25 11:40 03/13/25 11:40 03/13/25 11:40 03/13/25 11:40 03/13/25 11:40 03/13/25 11:40 Narrative Exam General: Awake and in no acute distress. Conversational and non-toxic appearing. NG tube in place. HEENT: Normocephalic, atraumatic, mucous membranes moist. Heart: Regular rate and rhythm, normal S1 and S2, no murmurs. Lungs: Left base crackles, diminished lung sound. Abdomen: Soft, less distended, minimal tenderness. No guarding or rebound tenderness. Neurologic: Alert and oriented x3, no gross neurological deficit, and patient able to move all 4 extremities. Extremities: No edema. Superficial varicosities noted on bilateral lower extremitiy. Skin: No rash or ecchymoses. Discharge Plan Plan Patient Disposition: Home w/HOME HEALTH Patient condition on transfer: Stable Care Plan Goals: Start taking Amoxicillin/clavulanate 1 tab twice daily for 5 days. Continue home medications as prescribed. Follow up with PCP within 2 weeks. Prescriptions/Referrals Prescriptions/Med Rec: New amoxicillin-pot clavulanate 875-125 mg tablet 1 tab PO BID 5 Days Qty: 10 0RF Continued Alendronate Sodium * (FOSAMAX *) 35 MG tablet 35 mg PO Q7D Qty: 0 simvastatin [Zocor] 10 MG tablet 10 mg PO HS Qty: 0 omeprazole 20 MG capsule,delayed release(DR/EC) 20 mg PO QDAY Qty: 0 cyproheptadine 4 mg tablet 4 mg PO HS lisinopril 10 mg tablet 10 mg PO QDAY Referrals: Hanna Graves MD [Primary Care Provider] - Patient/Caregiver Discharge Instructions Education Materials: Small Bowel Obstruction, How the Colon Works Print Language: Salvadorean Stand Alone Forms: Lillian Award Info., Patient Portal Info Letter, Work/Release Restrictions Discharge Order Discharge Orders: Discharge (Routine); Ordered 03/13/25 Ordered By: Camden Gaona Quality Discharge Quality Measures VTE prophylaxis Attestestation Attestation I have examined the patient, reviewed labs and imaging findings, discussed the case with the resident(s), and reviewed entered orders. I agree with the plan of care as outlined in this note. Time Spent: [address] Rissa MD
--- NOTE | 2025-03-13 14:33 | PC.SS ---
Rounding note: Patient is medically cleared, CLINICAL IMPLEMENTATION SPECIALIST informed during rounding that insurance denied, possible Home health. CLINICAL IMPLEMENTATION SPECIALIST will follow up with Raj.
--- NOTE | 2025-03-13 15:26 | PC.SS ---
Addendum entered by SHANICE Turner 03/13/25 15:36: SOLID PLASTERER placed phone call to son Brandon, patient son was not available. SOLID PLASTERER called son Larry to inform him of insurance update. Patient son Larry stated that he would let Brandon know of HH and will return phone call. Original Note: SOLID PLASTERER followed up with Human in regards to authorization for SNF. Eamon at [facility] stated that patient does not meet medicare guidelines for SNF based on PT note, in addition [facility] will not be paying for hospital stay past Thursday. SOLID PLASTERER informed patient on [facility] update. SOLID PLASTERER informed patient that [facility] staff stated that they can appeal the billing letter once they receive it. SOLID PLASTERER informed patient that she can go home with home health, patient was agreeable to . Her PCP is Dr. Hanna Wallace her last appointment was in February 2025 and she has no preference for HH. SOLID PLASTERER informed bedside nurse Maria C.
--- NOTE | 2025-03-13 15:40 | PC.SS ---
WAFER POLISHING LEAD WORKER informed bedside nurse that patient is ready for d/c with home health. WAFER POLISHING LEAD WORKER informed brother Larry due to Art not asnwering.
--- NOTE | 2025-03-13 16:20 | PC.SS ---
MEDICAL OFFICE COORDINATOR [facility] in [facility] to [facility] ordered yesterday. [facility] staff stated that authorization is still not submitted, MEDICAL OFFICE COORDINATOR requested that authorizatin be submitted as patient is being d/c today. [facility] staff submitted for authorization. MEDICAL OFFICE COORDINATOR provided patient son Brandon with [facility] address to chart picker DME. Patient son confirmed. Pt. to be d/c today.
--- NOTE | 2025-03-13 16:22 | PC.SS ---
ORGANIZATIONAL EFFECTIVENESS CONSULTANT spoke to [facility] in regards to DME ordered yesterday. [facility] stated that they will submit for authorization. ORGANIZATIONAL EFFECTIVENESS CONSULTANT provided patient son Brandon with DME metal pickling equipment operator location. Patient to be d/c today.
--- NOTE | 2025-03-14 10:06 | PC.CC ---
Addendum entered by Edi Duffy RN 03/14/25 10:56: [facility] accepted and booked. SOC pending Original Note: HH ref sent to [facility]. Pt is a [employer] member. waiting for response
--- NOTE | 2025-03-15 12:22 | PC.CM ---
[facility] has accepted patient they they will open on 03/16.
== END 2025-03-13 16:33 | disposition home health service (06) ==
LOC: SERX 23:03 → SERHOLD 03-10 01:28 → S3SX 03-10 02:40
PROVIDERS: Nurse Practitioner Family; Admitting Provider Internal Medicine; Emergency Provider Emergency Medicine; PCP Family Medicine; Visit Provider Internal Medicine
DX: K56.600 Partial intestinal obstruction, unspecified as to cause (principal); J18.9 Pneumonia, unspecified organism; J90 Pleural effusion, not elsewhere classified; R91.1 Solitary pulmonary nodule; D64.9 Anemia, unspecified; I10 Essential (primary) hypertension; K74.60 Unspecified cirrhosis of liver; R18.8 Other ascites; C18.1 Malignant neoplasm of appendix; E83.42 Hypomagnesemia
CPT/HCPCS: 36415; 71045; 74018; 74177; 74250; 80053; 80061; 81001; 82140; 82728; 83540; 83550; 83605; 83735; 84100; 84145; 84443; 84484; 85025; 85610; 85730; 86140; 87811; 93005; 96361; 96365; 96366; 96372; 96375; 96376; 97162; 99284; A4649; G0378; J0456; J0696; J1171; J1644; J1885; J2270; J2405; J2765; J3475; J7050; J7120; Q9963; Q9967; A9270

== ENCOUNTER 2025-04-03 17:27 | Inpatient (IN) | payer MEDICARE, MEDICAID, SELFPAY ==
[2025-04-03 17:28] VITALS: BMI 20.9
[2025-04-03 18:39] VITALS: BP 127/80; PULSE 87; RESP 22; TEMP 36.9; O2SAT 95
--- NOTE | 2025-04-03 18:43 | XR_ITS ---
Examination: CT chest, without intravenous contrast. Sagittal and coronal 2-D reconstructions. Exam date and time: April 03, 2025, 1913 hours INDICATIONS: Difficulty breathing coughing one week, 8 mm pulmonary nodule left upper lobe on chest x-ray today CTDI:vol (mGy) 6.7 DLP: (mGycm) 225 Technique: Multiple 3.0 mm axial sections of the chest to been obtained. Bone and lung density settings are obtained. Sagittal and coronal 2-D reconstructions have been obtained. Low dose protocols were performed. One or more of the following dose reduction techniques were used; automated exposure control, adjustment of the mA and/or KV according to patient size, use of iterative reconstruction technique. Findings: No thoracic aorta and aneurysmal dilatation Pulmonary artery segments are not enlarged. No paratracheal tracheobronchial or bronchopulmonary adenopathy. Pulmonary nodule left upper lobe is confirmed, 11 mm Also 4 mm pulmonary nodule right lower lobe Prominent central pulmonary vasculature Pneumonia left base Moderate right moderate to large left pleural effusions Liver is irregular in contour Spleen is not enlarged. No pancreatic mass. Prominent osteopenia. IMPRESSION: Mild heart failure. Significant pneumonia left base. Moderate right moderate to large left pleural effusions 11 mm pulmonary nodule left upper lobe, 4 mm pulmonary nodule right upper lobe, differential would include lung carcinoma, metastatic pulmonary nodular disease Liver is irregular in contour, primary hepatocellular disease versus cirrhosis
--- NOTE | 2025-04-03 18:43 | EKG_ITS ---
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
--- NOTE | 2025-04-03 18:44 | PD.EDRME ---
Rapid Medical Screening Exam RME Arrival date/time: 04/03/25 17:27 This is a case of 84-year-old female who was sent by the outpatient department due to moderate pleural effusion patient was seen there due to shortness of breath chest pain and generalized weakness for 2 days patient underwent 2 chest x-ray and showed a moderate pleural effusion and was transferred here in ER for higher level of care and for CT scan of the chest Chief Complaint: Shortness of Breath/Dyspnea Time Seen by Provider: 04/03/25 18:43 Vital signs: Vital Signs Temperature 98.5 F 04/03/25 18:39 Pulse Rate 87 04/03/25 18:39 Respiratory Rate 22 H 04/03/25 18:39 Blood Pressure 127/80 04/03/25 18:39 Pulse Oximetry (%) 95 04/03/25 18:39 Oxygen Delivery Method Room Air 04/03/25 18:39
--- NOTE | 2025-04-03 19:09 | PD.EDSOB ---
ED SOB =RME/HPI General Chief Complaint: Shortness of Breath/Dyspnea Stated Complaint: SOB, WEAK AND LARGE PLEURAL EFFUSION ON XRAY Time Seen by Provider: 04/03/25 18:43 Arrival date/time: 04/03/25 17:27 RME / HPI RME / HPI Narrative: 04/03/25 17:27 This is a case of 84-year-old female who was sent by the outpatient department due to moderate pleural effusion patient was seen there due to shortness of breath chest pain and generalized weakness for 2 days patient underwent 2 chest x-ray and showed a moderate pleural effusion and was transferred here in ER for higher level of care and for CT scan of the chest -------- Dr. 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 Has a scant productive cough and increased fatigue. No vomiting, diarrhea, dysuria. Patient had finished course of Augmentin as an outpatient. Related Data Home Medications ?Medication ?Instructions ?Recorded ?Confirmed Alendronate Sodium * (FOSAMAX *) 35 mg PO Q7D #0 tabs 09/25/16 03/10/25 omeprazole 20 mg capsule,delayed 20 mg PO QDAY ##0 09/25/16 03/10/25 release simvastatin 10 mg tablet (Zocor) 10 mg PO HS #0 tabs 09/25/16 03/10/25 cyproheptadine 4 mg tablet 4 mg PO HS 09/28/24 03/10/25 lisinopril 10 mg tablet 10 mg PO QDAY 09/28/24 03/10/25 Allergies Allergy/AdvReac Type Severity Reaction Status Date / Time No Known Allergies Allergy Verified 04/03/25 17:30 Review of Systems Review of Systems Systems Reviewed: All systems reviewed, normal except as documented Past Medical History Past Medical History NEUROLOGIC: Negative Neurological Disorders, Cerebrovascular Accident, Alzheimer's Disease or Seizures CARDIAC: Positive Hypercholesterolemia and Hypertension; Negative Cardiac Disorders, Myocardial Infarction, Angina or Congestive Heart Failure RESPIRATORY: Negative Chronic Obstructive Pulmonary Disease (COPD), Asthma or Emphysema GASTROINTESTINAL: Negative Gastrointestinal Disorders, Hepatitis, Cirrhosis, Gastrointestinal Bleed or Diverticulosis GENITOURINARY: Negative Genitourinary Disorders or Renal Disease REPRODUCTIVE: Positive Previous Pregnancies MUSCULOSKELETAL: Positive Musculoskeletal Disorders, Arthritis and Osteoporosis ENDOCRINE: Negative Endocrine Disorders, Diabetes Mellitus Type 1 or Diabetes Mellitus Type 2 HEMATOLOGIC: Positive Blood Disorders and Anemia; Negative Sickle Cell Disease OTHER HISTORY: Positive Hospitalization, Chemotherapy (Gets infusions every 2 weeks, prevention of noncancerous tumor, colon), Chicken Pox, Measles and Mumps; Negative Autoimmune Disease, Down Syndrome, Developmental Delay, Shingles, Falls, Blood Transfusions, Blood Transfusion Reaction, Anesthesia Reactions or Cancer Family History FAMILY HISTORY: Positive Family Cardiac Disorders and Family Surgery; Negative Family Psychiatric Problems, Family Respiratory Disorders, Family Gastrointestinal Problems, Family Cancer or Family Anesthesia Reaction Surgical History SURGICAL: Positive Abdominal Surgery and Bowel Surgery (colon resection) Social History SMOKING STATUS: Never smoker ED Exam Narrative Physical exam: GENERAL APPEARANCE: alert and oriented x 4, nontoxic, no acute distress HEENT: Normocephalic, atraumatic; pupils equal, round, reactive to light; EOMI; mucous membranes pink, moist; oropharynx clear NECK: Supple, no JVD LUNGS: Diminished breath sounds at the left base HEART: Regular rate, regular rhythm; normal S1, S2; no murmurs ABDOMEN: non distended; normal BS; soft, no tenderness BACK: no CVA tenderness EXTREMITIES: atraumatic; no edema NEUROLOGIC: awake; alert and oriented x4; cranial nerves II-XII grossly intact; no focal sensory or motor deficits PSYCHIATRIC: appropriate mood and affect SKIN: warm, dry, normal color; no rashes Course Quality Measures none Orders Category Date Time Status EKG (ED ONLY) *Do not use* NOW Care 04/03/25 18:[address] chest wo con Stat Exams 04/03/25 18:43 Completed EKG (ED Only) Stat Exams 04/03/25 18:43 Draft BNP [B-Type Natriuretic Peptide] Stat Lab 04/03/25 19:42 Ordered CBC Stat Lab 04/03/25 18:44 Ordered CMP [Comprehensive Metabolic Panel] Stat Lab 04/03/25 18:44 Ordered Troponin I Stat Lab 04/03/25 18:44 Ordered Type and Screen Stat Lab 04/03/25 18:44 Ordered Clindamycin 900Mg Ivpb [Cleocin/D5w Ivpb] 900 mg Med 04/03/25 19:36 Active Pre-Mixed [Pre-mixed Bag] 1 bag IV X1 Furosemide Inj [Lasix Inj] Med 04/03/25 19:36 Discontinued 40 mg IVP X1 ONE Levofloxacin/D5w 500 mg Ivpb [Levaquin Ivpb] Med 04/03/25 19:36 Active 500 mg in 100 ml IV X1 Nitroglycerin Oint 2% [Nitro-paste Oint 2%] Med 04/03/25 19:43 Once 1 inch TOP X1 ONE Vital Signs Vital signs: Vital Signs Temperature 98.5 F 04/03/25 18:39 Pulse Rate 87 04/03/25 18:39 Respiratory Rate 22 H 04/03/25 18:39 Blood Pressure 127/80 04/03/25 18:39 Pulse Oximetry (%) 95 04/03/25 18:39 Oxygen Delivery Method Room Air 04/03/25 18:39 Shortness of Breath / Dyspnea MDM Narrative MDM Narrative:: Scribe Attestation: 04/03/25 - Hugh, Alla Gaona am scribing for and in the presence of Dr. Barnes. 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 Has a scant productive cough and increased fatigue. Please see PE findings. Lab markers demonstrate normal WBC count, mild anemia with Hgb 11.5, normal platelets, no left shift or bandemia. Chemistries show mildly elevated blood sugar of 117, normal renal function, UA without signs of infection. Outpatient CXR demonstrates bilateral pleural effusions with mild vascular congestion in addition to a 8 mm nodule at the RUL. CT chest obtained which demonstrated bilateral (L>R) pleural effusions with mild vascular congestion, 4 mm nodule at the RUL, in addition to previously described, suggests lung carcinoma consistent with metastatic disease. Initial oxygenation is well without any respiratory distress. Will re-institute antibiotic therapy, contact the hospitalist for admission for IR directed thoracentesis, and further work-up for possible metastasis. Dx: bilateral pleural effusions, pneumonia, pulmonary nodule, mild CHF Patient data External records reviewed:: [facility] previous records (Per chart review, patient was seen and admitted here on 03/09/21 for nausea and vomiting. 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 [facility] Report Signed Patient: JENNIFER ADAME [facility]. Record#: [id number] Birthdate: 1940 Age/Sex: 84 / F Location: [facility] Attending Dr: Hanna Graves MD Ordering Physician: Hanna Graves MD Date of Service: 04/03/25 Procedure(s): XR chest 2V Accession Number(s): [id number] cc: Yoni Shankar MD; Hanna Graves MD~ Examination: PA lateral chest 2 views TECHNIQUE: Upright PA and lateral chest 2 views Date and time: April 03, 2025, 1322 hours, comparison March 10, 2025 INDICATIONS: Shortness of breath even 2 weeks ago. FINDINGS: Mild prominence left ventricle Mild vascular congestion. Moderate right large left pleural effusion Suspicious for 8mm pulmonary nodule left mid lung IMPRESSION: Moderate right large left pleural effusions Recommend CT chest without contrast follow-up to exclude 8mm pulmonary nodule left upper lobe Dictated By: Yoni Shankar MD Signed By: <Electronically signed by Yoni Shankar MD in OV> 04/03/25 1411 [facility] Report Signed Patient: JENNIFER ADAME [place]. Record#: [id number] Birthdate: 1940 Age/Sex: 84 / F Location: [facility] Attending Dr: Ordering Physician: Chuck Mike Date of Service: 04/03/25 Procedure(s): CT chest wo con Accession Number(s): [id number] cc: Yoni Shankar MD; Chuck Mike~ Examination: CT chest, without intravenous contrast. Sagittal and coronal 2-D reconstructions. Exam date and time: April 03, 2025, 1913 hours INDICATIONS: Difficulty breathing coughing one week, 8 mm pulmonary nodule left upper lobe on chest x-ray today CTDI:vol (mGy) 6.7 DLP: (mGycm) 225 Technique: Multiple 3.0 mm axial sections of the chest to been obtained. Bone and lung density settings are obtained. Sagittal and coronal 2-D reconstructions have been obtained. Low dose protocols were performed. One or more of the following dose reduction techniques were used; automated exposure control, adjustment of the mA and/or KV according to patient size, use of iterative reconstruction technique. Findings: No thoracic aorta and aneurysmal dilatation Pulmonary artery segments are not enlarged. No paratracheal tracheobronchial or bronchopulmonary adenopathy. Pulmonary nodule left upper lobe is confirmed, 11 mm Also 4 mm pulmonary nodule right lower lobe Prominent central pulmonary vasculature Pneumonia left base Moderate right moderate to large left pleural effusions Liver is irregular in contour Spleen is not enlarged. No pancreatic mass. Prominent osteopenia. IMPRESSION: Mild heart failure. Significant pneumonia left base. Moderate right moderate to large left pleural effusions 11 mm pulmonary nodule left upper lobe, 4 mm pulmonary nodule right upper lobe, differential would include lung carcinoma, metastatic pulmonary nodular disease Liver is irregular in contour, primary hepatocellular disease versus cirrhosis Dictated By: Yoni Shankar MD Signed By: <Electronically signed by Yoni Shankar MD in OV> 04/03/251926 Medications / Prescriptions Medications or Prescriptions considered but not ordered:: none Medication administrations:: Medication Administration History Clindamycin Phosphate 900 mg/ (IV Miscellaneous Supplies) 50 mls @ 50 mls/hr IV X1 ONE Stop: 04/03/25 20:35 Levofloxacin/Dextrose (Levaquin Ivpb) 500 mg in 100 mls @ 100 mls/hr IV X1 ONE Stop: 04/03/25 20:35 Nitroglycerin (Nitroglycerin Oint 2% 1 Inch Packet) 1 inch TOP X1 ONE Stop: 04/03/25 19:44 Discontinued Medications Furosemide (Furosemide Inj 10 Mg/Ml 4ml Vial) 40 mg IVP X1 ONE Stop: 04/03/25 19:37 see above, if any Consultations Consultation(s) initiated? (list below): Yes Consultation #1 (Physician, Specialty, Details): Discussed case with Dr. Gongora, the resident physician, attending Dr. Camara from Hospitalist service regarding admission. Discussed patients ED course, exam findings, labs, and radiology results. The Hospitalist agrees to accept the patient for admission. Time: 19:43 Diagnosis Shortness of Breath Differential Diagnosis: acute exacerbation of chronic obstructive airways disease, congestive heart failure and community acquired pneumonia Most likely diagnosis given after review of the tests above:: bilateral pleural effusions, pneumonia, pulmonary nodule, mild CHF Admission Indicated Admission indicated?: indicated Explain why admission is indicated or not indicated:: bilateral pleural effusions, pneumonia, pulmonary nodule, mild CHF Admission Request Was there a request for admission?: Yes Admission Attestation Admission request attestation: Discussed case with [] from Hospitalist service regarding admission. Discussed patients ED course, exam findings, labs, and radiology results. The Hospitalist [agrees,declines] to accept the patient for admission. Disposition Plan Disposition Plan: Admit Discharge Plan Plan Patient Disposition: Admit Acute Care w/in Hospital Prescriptions/Referrals Prescriptions/Med Rec: No Action Alendronate Sodium * (FOSAMAX *) 35 MG tablet 35 mg PO Q7D Qty: 0 simvastatin [Zocor] 10 MG tablet 10 mg PO HS Qty: 0 omeprazole 20 MG capsule,delayed release(DR/EC) 20 mg PO QDAY Qty: 0 cyproheptadine 4 mg tablet 4 mg PO HS lisinopril 10 mg tablet 10 mg PO QDAY Problem List Clinical Impression: Bilateral pleural effusion, Pneumonia, Pulmonary nodule, Mild congestive heart failure Patient/Caregiver Discharge Instructions Print Language: Uzbek Stand Alone Forms: Lillian Award Info., Patient Portal Info Letter
[2025-04-03 20:01] VITALS: BP 165/90; PULSE 78; RESP 18; TEMP 36.7; O2SAT 96
[2025-04-03 20:01] LABS: Basophils # (Auto) 0.0 Thou/mm3 (0.0-0.2); Basophils % (Auto) 0 % (0-2.5); Eosinophils # (Auto) 0.1 Thou/mm3 (0.0-0.5); Eosinophils % (Auto) 1 % (0-10); Hematocrit 31.5 % (36.0-46.0); Hemoglobin 10.4 g/dL (12.0-16.0); Immature Granulocytes Auto 0.01 Thou/mm3 (0.00-0.00); Lymphocytes # (Auto) 1.1 Thou/mm3 (1.0-4.8); Lymphocytes % (Auto) 19 % (10-50); Mean Corpuscular HGB Conc 33.0 g/dl (31.0-37.0); Mean Corpuscular Hemoglobin 28.5 pg (25.0-35.0); Mean Corpuscular Volume 86 fL (80-100); Monocytes # (Auto) 0.7 Thou/mm3 (0.0-0.8); Monocytes % (Auto) 13 % (0-12); Neutrophils # (Auto) 3.6 Thou/mm3 (1.8-7.7); Neutrophils % (Auto) 66 % (37-80); Nucleated Red Blood Cell # 0.00 Thou/mm3 (0.00-0.00); Nucleated Red Blood Cell % 0 /100 WBC (0); Platelet Count 201 Thou/mm3 (140-440); RDW Standard Deviation 60.7 fL (36.4-46.3); Red Blood Count 3.65 Miln/mm3 (4.00-5.20); White Blood Count 5.4 Thou/mm3 (3.6-11.0)
[2025-04-03 20:19] LABS: Alanine Aminotransferase < 7 U/L (10-49); Albumin, Serum 3.7 gm/dL (3.4-4.8); Albumin/Globulin Ratio 1.4 (1.2-2.2); Alkaline Phosphatase 61 U/L (46-116); Anion Gap 10 (7-16); Aspartate Amino Transferase 16 U/L (0-34); BUN/Creatinine Ratio 18 Ratio (12-20); Bilirubin,Total 0.4 mg/dL (0.3-1.2); Blood Urea Nitrogen 11 mg/dL (9-23); Calcium 9.0 mg/dL (8.3-10.6); Calcium (Corrected) 9.2 mg/dL (8.5-10.1); Carbon Dioxide 23.9 mMol/L (20.0-31.0); Chloride 103 mMol/L (98-107); Creatinine (Component) 0.6 mg/dL (0.6-1.3); Estimated Creatinine Clearance 66.1 mL/min (>60); Globulin 2.7 gm/dL (2.3-3.5); Glucose 116 mg/dL (74-106); Osmolality,Calculated 274 (275-295); Potassium 4.1 mMol/L (3.4-5.1); Sodium 137 mMol/L (136-145); Total Protein 6.4 gm/dL (5.7-8.2); Troponin I < 0.020 ng/mL (0.0-0.045); eGFR > 60 See Note
[2025-04-03 20:21] LABS: B-Type Natriuretic Peptide 62 pg/mL (0-100)
[2025-04-03 20:23] VITALS: BP 165/90; PULSE 71
[2025-04-03] MEDS: NITROGLYCERIN OINT 2% 1 INCH PACKET TOP (20:23)
[2025-04-03 20:29] VITALS: BP 149/86; PULSE 71
[2025-04-03] MEDS: FUROSEMIDE INJ 10 MG/ML 4ML VIAL 40 MG IVP (20:29)
--- NOTE | 2025-04-03 21:19 | ESHP_ITS ---
<Statement entered by Juan Pablo Camara MD - 04/04/25 08:47> I have discussed and was present for the essential components of the history, physical examination, diagnosis, and treatment plan with the resident. I agree with the patient's care as documented by the resident and amended herein by me. Juan Pablo Camara MD FACP. Documentation for date of: 04/03/25 HPI History of Present Illness Chief complaint: Shortness of breath, fatigue. 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 She reports feeling exhausted over the past 2?3 weeks, with today being the worst. She endorses scant cough but denies fevers, chills, orthopnea, or paroxysmal nocturnal dyspnea. No recent chest pain, dizziness, or palpitations. She has trace bilateral leg swelling, right > left. She notes poor appetite and unintentional weight loss over the past month. Denies abdominal pain, diarrhea, or constipation. She had one episode of non-bloody vomiting 3 days ago. Her last chemotherapy was about 1 month ago. She lives at home with family support. No oxygen use at baseline. In the ED: afebrile, normotensive, satting well on room air. CXR showed bilateral effusions and a nodule. CT chest revealed moderate R, [id number] L pleural effusions, left basilar consolidation, 11 mm RANDAL and 4 mm RUL nodules concerning for malignancy, and irregular liver contour suggesting possible cirrhosis. She was ordered clindamycin and levofloxacin in the ED but was stopped. ROS * Constitutional: +fatigue, +weight loss, -fever/chills * HEENT: -sore throat, -vision changes * CV: -chest pain, -palpitations, +trace LE edema * Resp: +dyspnea, +cough, -orthopnea, -PND * GI: -abdominal pain, -diarrhea, +nausea/vomiting x1 (3 days ago) * : -dysuria, -hematuria * Neuro: -weakness, -dizziness, -headache * Skin: -rash Past Medical History * Appendiceal carcinoma s/p perforation, on chemotherapy * Hypertension * Ventral hernia s/p repair * SBO (recent admission 03/10?03/13/25) Past Surgical History: * Laparotomy for ruptured appendix (2016) * Ventral hernia repair (Sep 2024) Medications: * Lisinopril * Simvastatin * Omeprazole Allergies: None known Social History * Lives alone, family (children) visit frequently and assist * No smoking, alcohol, or illicit drugs * Independent with ADLs, uses walker for mobility Family History * Non-contributory Exam Vital Signs Temp Pulse Resp BP Pulse Ox O2 Del Method 98.0 F 71 18 149/86 H 96 Room Air 04/03/25 20:01 04/03/25 20:29 04/03/25 20:01 04/03/25 20:29 04/03/25 20:01 04/03/25 20:01 Narrative Exam General: Elderly, frail-appearing, alert and oriented ?4, no acute distress HEENT: MMM, PERRL, no JVD Lungs: Diminished breath sounds at left base, mild crackles; no accessory muscle use Heart: RRR, normal S1/S2, no murmurs/rubs/gallops Abdomen: Soft, non-distended, non-tender; surgical scars present Extremities: Trace bilateral LE edema, right > left Neuro: CN II?XII intact, strength grossly intact Skin: Warm, dry, intact Results: Labs 04/04/25 01:10 04/04/25 01:10 Labs: Short CBC 04/03/25 Range/Units 19:51 WBC 5.4 (3.6-11.0) Thou/mm3 Hgb 10.4 L (12.0-16.0) g/dL Hct 31.5 L (36.0-46.0) % Plt Count 201 D (140-440) Thou/mm3 BMP 04/03/25 19:51 Sodium 137 Potassium 4.1 Chloride 103 Carbon Dioxide 23.9 BUN 11 Creatinine 0.6 Glucose 116 H Calcium 9.0 Cardiac Enzymes 04/03/25 Range/Units 19:51 Troponin I < 0.020 (0.0-0.045) ng/mL Liver Function 04/03/25 Range/Units 19:51 Total Bilirubin 0.4 (0.3-1.2) mg/dL AST 16 (0-34) U/L ALT < 7 L (10-49) U/L Alkaline Phosphatase 61 (46-116) U/L Albumin 3.7 (3.4-4.8) gm/dL Quality Measures Quality Measures VTE prophylaxis Advance care planning discussed with:: patient and child (grandchild) Medications Home Medications and Allergies Home Medications ?Medication ?Instructions ?Recorded ?Confirmed ?Type Alendronate Sodium * (FOSAMAX *) 35 mg PO Q7D #0 tabs 09/25/16 04/04/25 History omeprazole 20 mg capsule,delayed 20 mg PO QDAY ##0 04/04/25 History release simvastatin 10 mg tablet (Zocor) 10 mg PO HS #0 tabs 0 09/25/16 04/04/25 History lisinopril 10 mg tablet 10 mg PO QDAY 09/28/2404/04 History Allergies Allergy/AdvReac Type Severity Reaction Status Date / Time No Known Allergies Allergy Verified 04/03/25 17:30 Visit Medications Acetaminophen (Acetaminophen 325 Mg Tablet) 650 mg PO Q6H PRN PRN Reason: Fever >100.4 or pain 1-3 Stop: 05/03/25 21:01 Hydrocodone Bitart/Acetaminophen (Hydrocodone/Apap 5/325 Tablet) 1 tab PO Q4HR PRN PRN Reason: PAIN SCALE 4-10(Mod-Sev Stop: 04/08/25 21:01 Enoxaparin Sodium (Enoxaparin Sod Inj 40 Mg/0.4 Ml Syringe) 40 mg SC QDAY [facility] Stop: 04/18/25 08:59 Ceftriaxone Sodium/Dextrose (Rocephin/D5w 1gm Iv Premix) 1 gm in 50 mls @ 100 mls/hr IV QDAY [facility] Stop: 04/10/25 21:06 Azithromycin 500 mg/ Sodium (Chloride) 250 mls @ 250 mls/hr IV QDAY@2100 [facility] Stop: 04/11/25 20:59 Azithromycin 500 mg/ Sodium (Chloride) 250 mls @ 250 mls/hr IV X1 ONE Stop: 04/03/25 22:14 Ondansetron HCl (Ondansetron Inj 2 Mg/Ml Inj 2 Ml) 4 mg IVP Q6H PRN; Protocol PRN Reason: NAUSEA OR VOMITING Stop: 05/03/25 21:01 Pantoprazole Sodium (Pantoprazole Inj 40 Mg Vial) 40 mg IVP QDAY [facility] Stop: 05/04/25 08:59 Discontinued Medications Furosemide (Furosemide Inj 10 Mg/Ml 4ml Vial) 40 mg IVP X1 ONE Stop: 04/03/25 19:37 Last Admin: 04/03/25 20:29 Dose: 40 mg Clindamycin Phosphate 900 mg/ (IV Miscellaneous Supplies) 50 mls @ 50 mls/hr IV X1 ONE Stop: 04/03/25 20:35 Last Admin: 04/03/25 21:05 Dose: Not Given Levofloxacin/Dextrose (Levaquin Ivpb) 500 mg in 100 mls @ 100 mls/hr IV X1 ONE Stop: 04/03/25 20:35 Last Admin: 04/03/25 21:06 Dose: Not Given Nitroglycerin (Nitroglycerin Oint 2% 1 Inch Packet) 1 inch TOP X1 ONE Stop: 04/03/25 19:44 Last Admin: 04/03/25 20:23 Dose: 1 inch Assessment & Plan Plan 84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 # Bilateral pleural effusions (L>R) Progressive dyspnea/fatigue, CT chest with bilateral effusions (L>R), pulmonary nodules, irregular liver contour. Exam with diminished breath sounds. Most consistent with malignant effusion. Plan: * US thoracentesis with full fluid studies (cell count/diff, protein, LDH, glucose, pH, Gram stain, culture, cytology) * Hold heparin morning of procedure * Oxygen PRN, monitor sats # Possible pneumonia vs post-obstructive consolidation ED ordered clinda/levo (stopped). On floor received 1 dose of ceftriaxone only, but procalcitonin negative, afebrile, WBC normal --> infectious etiology less likely. Plan: * Stop antibiotics, no azithro was given * Monitor clinically for fever, WBC, sputum changes # Pulmonary nodules (11 mm RANDAL, 4 mm RUL) New nodules, concerning for metastatic disease. 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 Plan: * Continue outpatient oncology follow-up * Update onc team once cytology results available # Generalized weakness / poor appetite Likely multifactorial from malignancy, anemia, poor PO intake. Plan: * Nutrition consult if needed * PT eval # Hypertension On lisinopril, Stable Plan: * Continue lisinopril * Complete med rec once available # Normocytic anemia Hgb 11.5, stable from prior, likely chronic disease. Plan: * Monitor CBC Health Maintenance Disposition: Admit to med-surg Diet: Cardiac; NPO after midnight for thora Thromboprophylaxis: Heparin SQ (hold AM of thora) GI prophylaxis: Protonix Code Status: CPR ok, no intubation (oxygen support only) ----- Plan discussed with attending physician Dr. Hoa Alexandre MD PGY-1 Internal Medicine
--- NOTE | 2025-04-03 21:21 | XR_ITS ---
Examination: Duplex scan of the lower extremity, unilateral right Date and time of exam: April 03, 2025 2128 hours INDICATIONS: Right leg swelling 6 months, undergoing chemotherapy Technique: Duplex scan of the extremity veins using B-mode/grayscale imaging and Doppler spectral analysis and color flow Attention is directed to internal echogenicity, compression and augmentation involving these veins, color flow assessment, spectral analysis Findings: Major deep venous structures in the extremity demonstrate normal course and caliber. There is no evidence of deep vein thrombosis. Normal color flow and spectral analysis Impression: Negative for DVT..
[2025-04-03 21:50] VITALS: PULSE 76; RESP 18; RESP 94
[2025-04-03 21:57] LABS: Procalcitonin 0.04 ng/ml (0.0-0.49)
[2025-04-03 23:35] VITALS: BP 104/68; PULSE 74; RESP 17; O2SAT 95
[2025-04-04] VITALS (9 sets, daily range): BP systolic 93–130; BP diastolic 58–82; PULSE 68–82; RESP 16–22; TEMP 36.4–36.8; O2SAT 91–97; BMI 20.9
[2025-04-04] MEDS: cefTRIAXone/D5w 1gm IV premix 1 GM/50 ML BAG IV (00:27)
[2025-04-04 01:17] LABS: Basophils # (Auto) 0.0 Thou/mm3 (0.0-0.2); Basophils % (Auto) 0 % (0-2.5); Eosinophils # (Auto) 0.1 Thou/mm3 (0.0-0.5); Eosinophils % (Auto) 1 % (0-10); Hematocrit 33.9 % (36.0-46.0); Hemoglobin 11.2 g/dL (12.0-16.0); Immature Granulocytes Auto 0.02 Thou/mm3 (0.00-0.00); Lymphocytes # (Auto) 1.1 Thou/mm3 (1.0-4.8); Lymphocytes % (Auto) 18 % (10-50); Mean Corpuscular HGB Conc 33.0 g/dl (31.0-37.0); Mean Corpuscular Hemoglobin 28.4 pg (25.0-35.0); Mean Corpuscular Volume 86 fL (80-100); Monocytes # (Auto) 0.9 Thou/mm3 (0.0-0.8); Monocytes % (Auto) 14 % (0-12); Neutrophils # (Auto) 4.2 Thou/mm3 (1.8-7.7); Neutrophils % (Auto) 67 % (37-80); Nucleated Red Blood Cell # 0.00 Thou/mm3 (0.00-0.00); Nucleated Red Blood Cell % 0 /100 WBC (0); Platelet Count 221 Thou/mm3 (140-440); RDW Standard Deviation 60.5 fL (36.4-46.3); Red Blood Count 3.94 Miln/mm3 (4.00-5.20); White Blood Count 6.4 Thou/mm3 (3.6-11.0)
[2025-04-04 01:35] LABS: Anion Gap 11 (7-16); BUN/Creatinine Ratio 22 Ratio (12-20); Blood Urea Nitrogen 13 mg/dL (9-23); Calcium 9.4 mg/dL (8.3-10.6); Carbon Dioxide 26.4 mMol/L (20.0-31.0); Chloride 100 mMol/L (98-107); Creatinine (Component) 0.6 mg/dL (0.6-1.3); Estimated Creatinine Clearance 66.1 mL/min (>60); Glucose 123 mg/dL (74-106); LDH (Lactate Dehydrogenase) 126 U/L (120-246); Magnesium 1.7 mg/dL (1.6-2.6); Osmolality,Calculated 274 (275-295); Phosphorous 4.1 mg/dL (2.4-5.1); Potassium 3.6 mMol/L (3.4-5.1); Sodium 137 mMol/L (136-145); eGFR > 60 See Note
[2025-04-04] MEDS: Magnesium Sulfate 4 GM Ivpb 4 GM/50 ML BAG IV (09:11)
--- NOTE | 2025-04-04 09:36 | ESPR_ITS ---
<Statement entered by Memo Camarena MD - 04/04/25 19:33> I have reviewed the note and agree with the resident's assessment & plan with exceptions as below. I have personally reviewed labs, imaging, home meds/prior records, examined the patient, formulated and discussed management plan with the IM team. Patient examined at bedside today. No acute overnight events. Patient to get thoracentesis tomorrow done by IR. Etiology of pleural effusions will need to be determined, however could be related to metastases (cancer history), however will need to determine using pleural fluid analysis, cytology and calculating lights criteria. Repeat hematology chemistry in the a.m. N.p.o. at midnight Memo Camarena, PGY-2 Internal Medicine Documentation for date of: 04/04/25 Subjective Subjective Interval history: Patient examined bedside feels good , Denies having oxygen at home, states she has a dry cough at home but has not coughed since admission. She denies chest pain, and all pain of any kind at the moment, denies SOB, fevers, chills night sweats. She confirmed the same narrative from the HPI. At the moment her only complaint is fatigue. Exam Vital Signs Temp Pulse Resp BP Pulse Ox O2 Del Method O2 Flow Rate 97.9 F 78 17 103/71 95 Room Air 1 04/04/25 08:00 04/04/25 08:18 04/04/25 08:00 04/04/25 08:18 04/04/25 08:00 04/04/25 08:00 04/04/25 07:06 Narrative Exam General: Elderly, frail-appearing, alert and oriented ?4, no acute distress HEENT: MMM, PERRL, no JVD Lungs: Left lower lobe mild lung crackles, other lobes clear to auscultation; no accessory muscle use Heart: RRR, normal S1/S2, no murmurs/rubs/gallops Abdomen: Soft, non-distended, non-tender; surgical scars present Extremities: Trace bilateral LE edema, right > left Neuro: CN II?XII intact, strength grossly intact Skin: Warm, dry, intact Objective Labs 04/05/25 05:21 04/05/25 05:21 Labs: Laboratory Results - last 24 hr 04/03/25 04/04/25 19:51 01:10 WBC 5.4 6.4 RBC 3.65 L 3.94 L Hgb 10.4 L 11.2 L Hct 31.5 L 33.9 L MCV 86 86 MCH 28.5 28.4 MCHC 33.0 33.0 RDW Std Deviation 60.7 H 60.5 H Plt Count 201 D 221 Neut % (Auto) 66 67 Lymph % (Auto) 19 18 Swain % (Auto) 13 H 14 H Eos % (Auto) 1 1 Baso % (Auto) 0 0 Neut # (Auto) 3.6 4.2 Lymph # (Auto) 1.1 1.1 Swain # (Auto) 0.7 0.9 H Eos # (Auto) 0.1 0.1 Baso # (Auto) 0.0 0.0 Immature Gran # (Auto) 0.01 H 0.02 H Absolute Nucleated RBC 0.00 0.00 Immature Gran % 0 0 Nucleated RBC % 0 0 Sodium 137 137 Potassium 4.1 3.6 D Chloride 103 100 Carbon Dioxide 23.9 26.4 Anion Gap 10 11 BUN 11 13 Creatinine 0.6 0.6 Estim Creat Clear Calc 66.1 66.1 eGFR > 60 > 60 BUN/Creatinine Ratio 18 22 H Glucose 116 H 123 H Calculated Osmolality 274 L 274 L Calcium 9.0 9.4 Corrected Calcium 9.2 Phosphorus 4.1 Magnesium 1.7 Total Bilirubin 0.4 AST 16 ALT < 7 L Alkaline Phosphatase 61 Lactate Dehydrogenase 126 Troponin I < 0.020 B-Natriuretic Peptide 62 Total Protein 6.4 Albumin 3.7 Globulin 2.7 Albumin/Globulin Ratio 1.4 Procalcitonin 0.04 Blood Type O Positive Antibody Screen NEGATIVE Blood Bank Wristband ID Yes Quality Measures Quality Measures VTE prophylaxis Advance care planning discussed with:: patient Assessment & Plan Assessment Current Active Medications: Generic Name Dose Route Start Last Admin Trade Name Freq PRN Reason Stop Dose Admin Acetaminophen 650 mg 04/03/25 21:02 Acetaminophen 325 Mg Tablet PO 05/03/25 21:01 Q6H PRN Fever >100.4 or pain 1-3 Hydrocodone Bitart/Acetaminophen 1 tab 04/03/25 21:02 Hydrocodone/Apap 5/325 Tablet PO 04/08/25 21:01 Q4HR PRN PAIN SCALE 4-10(Mod-Sev Atorvastatin Calcium 5 mg 04/04/25 21:00 Atorvastatin Calcium 10 Mg Tablet PO 05/04/25 20:59 HS BALA Protocol Enoxaparin Sodium 40 mg 04/04/25 09:00 Enoxaparin Sod Inj 40 Mg/0.4 Ml Syringe SC 04/18/25 08:59 QDAY BALA Magnesium Sulfate 4 gm in 50 mls @ 12.5 mls/hr 04/04/25 08:36 04/04/25 09:11 Magnesium Sulfate Ivpb IV 04/04/25 12:35 12.5 mls/hr X1 ONE Administration Ondansetron HCl 4 mg 04/03/25 21:02 Ondansetron Inj 2 Mg/Ml Inj 2 Ml IVP 05/03/25 21:01 Q6H PRN NAUSEA OR VOMITING Protocol Pantoprazole Sodium 40 mg 04/04/25 09:00 04/04/25 08:17 Pantoprazole Inj 40 Mg Vial IVP 05/04/25 08:59 40 mg QDAY BALA Administration Plan 84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 Awaiting thoracentesis for AM 04/05. # Bilateral pleural effusions (L>R) Progressive dyspnea/fatigue, CT chest with bilateral effusions (L>R), pulmonary nodules, irregular liver contour. Exam with diminished breath sounds. Most consistent with malignant effusion. Plan: * US thoracentesis with full fluid studies (cell count/diff, protein, LDH, glucose, pH, Gram stain, culture, cytology) * Hold heparin morning of procedure * Oxygen PRN, monitor sats # Possible pneumonia vs post-obstructive consolidation ED ordered clinda/levo (stopped). On floor received 1 dose of ceftriaxone only, but procalcitonin negative, afebrile, WBC normal --> infectious etiology less likely. Plan: * Stop antibiotics, no azithro was given * Monitor clinically for fever, WBC, sputum changes # Pulmonary nodules (11 mm RANDAL, 4 mm RUL) New nodules, concerning for metastatic disease. 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 Plan: * Continue outpatient oncology follow-up * Update onc team once cytology results available # Generalized weakness / poor appetite Likely multifactorial from malignancy, anemia, poor PO intake. Plan: * Nutrition consult if needed * PT eval # Hypertension On lisinopril, Stable Plan: * Continue lisinopril * Complete med rec once available # Normocytic anemia Hgb 11.5, stable from prior, likely chronic disease. Plan: * Monitor CBC Health Maintenance Disposition: Admit to med-surg Diet: Cardiac; NPO after midnight for thora Thromboprophylaxis: Heparin SQ (hold AM of thora) GI prophylaxis: Protonix Code Status: CPR ok, no intubation (oxygen support only) ----- Plan discussed with attending physician Dr. Shorty Yu MD PGY-1 Internal Medicine Attending Provider Attestation/Addendum I reviewed labs, imaging, EKG, home medications and prior available records. Face to face evaluation was performed by me. I have personally examined the patient and discussed assessment and plan with the IM team. I reviewed the resident note and agree with the plan with exceptions as below. 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
--- NOTE | 2025-04-04 11:42 | PC.SS ---
Patient is a 84 year old female presenting to the hospital for SOB. 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 ?Patient gave consent for son to be present in the room. Patient reported that she lives at home with her great granddaughter. Patient stated that in case she is unable to make medical decisions she would like her son Brandon to make them PH: [phone]. Patient stated that she uses a walker at home no oxygen. Her PCP is Dr. Graves her next appointment was today. Patient?s pharmacy of choice is [email or web address]. Patient stated that once she is medically clear she would like to return home and her son will provide transportation. PCP: Dr. Graves Decision maker: Brandon Jm PH: [phone] D/C: Home
[2025-04-04 13:37] LABS: INR 1.0 (0.9-1.3); Partial Thromboplastin Time 27.4 Seconds (22.0-36.0); Prothrombin Time 11.1 Seconds (9.0-12.2)
--- NOTE | 2025-04-04 13:45 | PC.PT ---
PT eval only. Patient is I with transfers and S with ambulation with walker.
--- NOTE | 2025-04-04 15:36 | PC.SS ---
Rounding note: pending IR
--- NOTE | 2025-04-04 16:39 | PC.NURSE ---
MD Brown made aware of pts current bps for today last one 93/58- 72 HR. No new orders received at this time. Pt comfortable in bed no distress noted.
[2025-04-04] MEDS: ATORVASTATIN CALCIUM 10 MG TABLET 5 MG PO (21:18)
[2025-04-05] VITALS (8 sets, daily range): BP systolic 108–131; BP diastolic 71–82; PULSE 69–81; RESP 16–97; TEMP 36.4–36.9; O2SAT 94–96
[2025-04-05 06:08] LABS: Basophils # (Auto) 0.0 Thou/mm3 (0.0-0.2); Basophils % (Auto) 0 % (0-2.5); Eosinophils # (Auto) 0.2 Thou/mm3 (0.0-0.5); Eosinophils % (Auto) 3 % (0-10); Hematocrit 31.6 % (36.0-46.0); Hemoglobin 10.1 g/dL (12.0-16.0); Immature Granulocytes Auto 0.02 Thou/mm3 (0.00-0.00); Lymphocytes # (Auto) 1.0 Thou/mm3 (1.0-4.8); Lymphocytes % (Auto) 18 % (10-50); Mean Corpuscular HGB Conc 32.0 g/dl (31.0-37.0); Mean Corpuscular Hemoglobin 28.0 pg (25.0-35.0); Mean Corpuscular Volume 88 fL (80-100); Monocytes # (Auto) 0.8 Thou/mm3 (0.0-0.8); Monocytes % (Auto) 13 % (0-12); Neutrophils # (Auto) 3.8 Thou/mm3 (1.8-7.7); Neutrophils % (Auto) 65 % (37-80); Nucleated Red Blood Cell # 0.00 Thou/mm3 (0.00-0.00); Nucleated Red Blood Cell % 0 /100 WBC (0); Platelet Count 182 Thou/mm3 (140-440); RDW Standard Deviation 62.9 fL (36.4-46.3); Red Blood Count 3.61 Miln/mm3 (4.00-5.20); White Blood Count 5.8 Thou/mm3 (3.6-11.0)
[2025-04-05 06:32] LABS: INR 1.0 (0.9-1.3); Partial Thromboplastin Time 21.9 Seconds (22.0-36.0); Prothrombin Time 10.9 Seconds (9.0-12.2)
[2025-04-05 06:41] LABS: Anion Gap 10 (7-16); BUN/Creatinine Ratio 22 Ratio (12-20); Blood Urea Nitrogen 13 mg/dL (9-23); Calcium 9.5 mg/dL (8.3-10.6); Carbon Dioxide 26.2 mMol/L (20.0-31.0); Chloride 100 mMol/L (98-107); Creatinine (Component) 0.6 mg/dL (0.6-1.3); Estimated Creatinine Clearance 66.1 mL/min (>60); Glucose 96 mg/dL (74-106); Magnesium 1.8 mg/dL (1.6-2.6); Osmolality,Calculated 272 (275-295); Phosphorous 4.4 mg/dL (2.4-5.1); Potassium 3.5 mMol/L (3.4-5.1); Sodium 136 mMol/L (136-145); eGFR > 60 See Note
--- NOTE | 2025-04-05 10:28 | CHAP ---
Patient was visited by a Spiritual Care Volunteer on 04/04/2025 between 0900 and 1140 and received comfort, encouragement and/or prayer.
--- NOTE | 2025-04-05 14:59 | ESCONSULT_ITS ---
HPI Data of Consult Consult date: 04/05/25 Requesting Physician: Juan Oro MD Primary Care Provider: Hanna Graves MD Consult Narrative Reason for consult: Metastatic appendiceal CA History of present illness: Patient is an unfortunate 84-year-old lady diagnosed to have appendiceal neoplasm since 2016 following laparoscopic appendectomy for ruptured appendix. Patient had additional surgery performed by Dr. Alcala in [place] and had postop chemotherapy with [facility] in [place]. Recently admitted for small bowel obstruction and pneumonia and readmitted for worsening shortness of breath with chest CT 04/03/2025 revealing moderate right and moderate to large left pleural effusions. Also noted were several pulmonary nodules likely mets. Patient now referred for oncological consultation. 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 Hypertension ventral hernia repair recent small bowel obstruction Meds Home Medications and Allergies Home Medications ?Medication ?Instructions ?Recorded ?Confirmed ?Type Alendronate Sodium * (FOSAMAX *) 35 mg PO Q7D #0 tabs 09/25/16 04/04/25 History omeprazole 20 mg capsule,delayed 20 mg PO QDAY ##0 04/04/25 History release simvastatin 10 mg tablet (Zocor) 10 mg PO HS #0 tabs 0 09/25/16 04/04/25 History lisinopril 10 mg tablet 10 mg PO QDAY 09/28/2404/04 History Allergies Allergy/AdvReac Type Severity Reaction Status Date / Time No Known Allergies Allergy Verified 04/03/25 17:30 Exam Vital Signs Temp Pulse Resp BP Pulse Ox O2 Del Method O2 Flow Rate 97.6 F 81 17 125/82 95 Room Air 1 04/05/25 12:00 04/05/25 12:00 04/05/25 12:00 04/05/25 12:00 04/05/25 12:00 04/05/25 12:00 04/04/25 07:06 Narrative Exam Appears well answering questions well. Results Labs 04/05/25 05:21 04/05/25 05:21 Labs: Short CBC 04/05/25 Range/Units 05:21 WBC 5.8 (3.6-11.0) Thou/mm3 Hgb 10.1 L (12.0-16.0) g/dL Hct 31.6 L (36.0-46.0) % Plt Count 182 D (140-440) Thou/mm3 BMP 04/05/25 05:21 Sodium 136 Potassium 3.5 Chloride 100 Carbon Dioxide 26.2 BUN 13 Creatinine 0.6 Glucose 96 Calcium 9.5 Assessment and Plan Additional Assessment & Plan Additional Plan: 1. History of appendiceal carcinoma presenting with perforation 2017. Receiving intermittent chemo at [facility] in [place]. 2. Recent admission for ventral hernia repair and pneumonia and small bowel obstruction now presenting with significant large left pleural effusion awaiting thoracentesis. 3. Reportedly has been living alone which may problematic considering her overall condition at this time. plant maintenance worker reportedly is following the case. 4. Patient appears content to continue cancer treatment at [facility] in [place] as long as possible. We could follow her locally if needed. Thank you for allowig me to evaluate this patient.
--- NOTE | 2025-04-05 16:42 | ESPR_ITS ---
Documentation for date of: 04/05/25 Subjective Subjective Interval history: Patient was seen and examined at bedside. She denied any new symptoms today she reported significant improvement of her symptoms. We still pending the thoracentesis that might not be done today due to radiology schedule overload. We consulted Dr. Gonzales were waiting for his recommendations. Exam Vital Signs Temp Pulse Resp BP Pulse Ox O2 Del Method O2 Flow Rate 97.6 F 81 17 125/82 95 Room Air 1 04/05/25 12:00 04/05/25 12:00 04/05/25 12:00 04/05/25 12:04/05/25 12:00 04/05/25 12:00 04/04/25 07:06 Narrative Exam GEN: AOx3, lying in bed comfortably, on room air, able to speak full sentences HEENT: NC/AC, oral mucosa moist, neck supple CVS: RRR, S1-S2 present, no murmurs appreciated RESP: Mild fine crepitations on the left side. GI: soft,non distended, non tender, NBS MSK: able to move all 4 limbs, trace bilateral lower extremity edema SKIN: warm and dry HEATING OPERATORS ENGINEER: CN II-XII and Sensation grossly intact. Objective Labs 04/06/25 06:12 04/06/25 06:12 Labs: Laboratory Results - last 24 hr 04/05/25 05:21 WBC 5.8 RBC 3.61 L Hgb 10.1 L Hct 31.6 L MCV 88 MCH 28.0 MCHC 32.0 RDW Std Deviation 62.9 H Plt Count 182 D Neut % (Auto) 65 Lymph % (Auto) 18 Gosper % (Auto) 13 H Eos % (Auto) 3 Baso % (Auto) 0 Neut # (Auto) 3.8 Lymph # (Auto) 1.0 Gosper # (Auto) 0.8 Eos # (Auto) 0.2 Baso # (Auto) 0.0 Immature Gran # (Auto) 0.02 H Absolute Nucleated RBC 0.00 Immature Gran % 0 Nucleated RBC % 0 PT 10.9 INR 1.0 APTT 21.9 L Sodium 136 Potassium 3.5 Chloride 100 Carbon Dioxide 26.2 Anion Gap 10 BUN 13 Creatinine 0.6 Estim Creat Clear Calc 66.1 eGFR > 60 BUN/Creatinine Ratio 22 H Glucose 96 Calculated Osmolality 272 L Calcium 9.5 Phosphorus 4.4 Magnesium 1.8 Quality Measures Quality Measures VTE prophylaxis Advance care planning discussed with:: patient Assessment & Plan Assessment Current Active Medications: Generic Name Dose Route Start Last Admin Trade Name Freq PRN Reason Stop Dose Admin Acetaminophen 650 mg 04/03/25 21:02 Acetaminophen 325 Mg Tablet PO 05/03/25 21:01 Q6H PRN Fever >100.4 or pain 1-3 Hydrocodone Bitart/Acetaminophen 1 tab 04/03/25 21:02 Hydrocodone/Apap 5/325 Tablet PO 04/08/25 21:01 Q4HR PRN PAIN SCALE 4-10(Mod-Sev Atorvastatin Calcium 5 mg 04/04/25 21:00 04/04/25 21:18 Atorvastatin Calcium 10 Mg Tablet PO 05/04/25 20:59 5 mg HS BALA Administration Protocol Diazepam 1 mg 04/04/25 11:24 Diazepam Inj 5 Mg/Ml Vial 2 Ml IVP X1 PRN for thoracentesis Enoxaparin Sodium 40 mg 04/04/25 09:00 04/05/25 07:08 Enoxaparin Sod Inj 40 Mg/0.4 Ml Syringe SC 04/18/25 08:59 Not Given QDAY BALA Ondansetron HCl 4 mg 04/03/25 21:02 Ondansetron Inj 2 Mg/Ml Inj 2 Ml IVP 05/03/25 21:01 Q6H PRN NAUSEA OR VOMITING Protocol Pantoprazole Sodium 40 mg 04/04/25 09:00 04/05/25 08:50 Pantoprazole Inj 40 Mg Vial IVP 05/04/25 08:59 40 mg QDAY BALA Administration Plan Summary: 84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 Awaiting thoracentesis to rule out pulmonary metastasis Assessment and plan: # Bilateral pleural effusions (L>R) # Pulmonary nodules (11 mm RANDAL, 4 mm RUL) New nodules, concerning for metastatic disease. Progressive dyspnea/fatigue, CT chest with bilateral effusions (L>R), pulmonary nodules, irregular liver contour. procalcitonin negative, afebrile, WBC normal --> infectious etiology less likely. Exam with diminished breath sounds. Most consistent with malignant effusion. Plan: * US thoracentesis with full fluid studies (cell count/diff, protein, LDH, glucose, pH, Gram stain, culture, cytology) * Follow up pleural cytology * Oncology consult if malignant * N.p.o. after midnight * Hold heparin morning of procedure * Oxygen PRN, monitor sats # Appendiceal carcinoma on chemotherapy Last chemo ~1 month ago. Plan: * Continue outpatient oncology follow-up * Update onc team once cytology results available # Generalized weakness / poor appetite Likely multifactorial from malignancy, anemia, poor PO intake. Plan: * Nutrition consult if needed * PT eval # Hypertension On lisinopril, Stable Plan: * Continue lisinopril * Complete med rec once available # Normocytic anemia Hgb 11.5, stable from prior, likely chronic disease. Plan: * Monitor CBC Health Maintenance Disposition: Admit to med-surg Diet: Cardiac; NPO after midnight for thora Thromboprophylaxis: Heparin SQ (hold AM of thora) GI prophylaxis: Protonix Code Status: Limited, no intubation ----- - Patient's plan and care discussed with my attending, Dr. Shorty Calderon MD Internal Medicine PGY-3 Attending Provider Attestation/Addendum I reviewed labs, imaging, EKG, home medications and prior available records. Face to face evaluation was performed by me. I have personally examined the patient and discussed assessment and plan with the IM team. I reviewed the resident note and agree with the plan with exceptions as below. 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
[2025-04-05] MEDS: ATORVASTATIN CALCIUM 10 MG TABLET 5 MG PO (20:43)
--- NOTE | 2025-04-05 23:39 | PC.NURSE ---
pt requesting a stool softener, Dr. Alexandre was made aware, new orders for pt from Dr Alexandre.
[2025-04-06] VITALS: BP 123/75; PULSE 70; RESP 17; TEMP 36.5; O2SAT 96
--- NOTE | 2025-04-06 | XR_ITS ---
Examination: PA chest single view Technique: Upright PA chest single view Date and time: April 06, 2025 1054 hrs. Comparison April 03, 2025 Indications: Status post left thoracentesis. Findings: Mild enlargement cardiac contour Significant hyperexpansion Moderate bilateral pleural fluid. No pneumothorax. Right internal jugular Port-A-Cath tip satisfactory position Impression: No pneumothorax post thoracentesis
[2025-04-06] MEDS: LACTULOSE SYRUP 20 GM/30 ML UDC PO (00:04)
--- NOTE | 2025-04-06 00:08 | PC.NURSE ---
okay to give senna x1, lactulose x1 to pt per MD Alexandre.
[2025-04-06 04:00] VITALS: BP 123/76; PULSE 67; RESP 17; TEMP 36.2; O2SAT 95
[2025-04-06 06:38] LABS: Basophils # (Auto) 0.0 Thou/mm3 (0.0-0.2); Basophils % (Auto) 0 % (0-2.5); Eosinophils # (Auto) 0.1 Thou/mm3 (0.0-0.5); Eosinophils % (Auto) 2 % (0-10); Hematocrit 36.3 % (36.0-46.0); Hemoglobin 11.9 g/dL (12.0-16.0); Immature Granulocytes Auto 0.01 Thou/mm3 (0.00-0.00); Lymphocytes # (Auto) 1.4 Thou/mm3 (1.0-4.8); Lymphocytes % (Auto) 25 % (10-50); Mean Corpuscular HGB Conc 32.8 g/dl (31.0-37.0); Mean Corpuscular Hemoglobin 28.7 pg (25.0-35.0); Mean Corpuscular Volume 88 fL (80-100); Monocytes # (Auto) 0.7 Thou/mm3 (0.0-0.8); Monocytes % (Auto) 11 % (0-12); Neutrophils # (Auto) 3.6 Thou/mm3 (1.8-7.7); Neutrophils % (Auto) 62 % (37-80); Nucleated Red Blood Cell # 0.00 Thou/mm3 (0.00-0.00); Nucleated Red Blood Cell % 0 /100 WBC (0); Platelet Count 240 Thou/mm3 (140-440); RDW Standard Deviation 62.4 fL (36.4-46.3); Red Blood Count 4.15 Miln/mm3 (4.00-5.20); White Blood Count 5.8 Thou/mm3 (3.6-11.0)
[2025-04-06 06:56] LABS: Anion Gap 10 (7-16); BUN/Creatinine Ratio 17 Ratio (12-20); Blood Urea Nitrogen 10 mg/dL (9-23); Calcium 9.9 mg/dL (8.3-10.6); Carbon Dioxide 26.2 mMol/L (20.0-31.0); Chloride 99 mMol/L (98-107); Creatinine (Component) 0.6 mg/dL (0.6-1.3); Estimated Creatinine Clearance 66.1 mL/min (>60); Glucose 100 mg/dL (74-106); Magnesium 1.9 mg/dL (1.6-2.6); Osmolality,Calculated 269 (275-295); Phosphorous 4.1 mg/dL (2.4-5.1); Potassium 3.5 mMol/L (3.4-5.1); Sodium 135 mMol/L (136-145); eGFR > 60 See Note
[2025-04-06 07:52] VITALS: BP 118/79; PULSE 70; RESP 18; TEMP 36.4; O2SAT 96
[2025-04-06] MEDS: Magnesium Sulfate 4 GM Ivpb 4 GM/50 ML BAG IV (08:21)
--- NOTE | 2025-04-06 10:51 | ESPR_ITS ---
<Statement entered by Memo Camarena MD - 04/06/25 17:18> I have reviewed the note and agree with the resident's assessment & plan with exceptions as below. I have personally reviewed labs, imaging, home meds/prior records, examined the patient, formulated and discussed management plan with the IM team. Patient examined at bedside today. Patient is currently not on room air. Patient had thoracentesis lights criteria calculated which seems to be an exudative effusion. This could be likely related to patient's prior history to malignancy. Will repeat chest x-ray tomorrow, anticipate discharge within next 24 to 48 hours. Repeat hematology and chemistry in AM. Memo Camarena, PGY-2 Internal Medicine Documentation for date of: 04/06/25 Subjective Subjective Interval history: Dr. Gonzales consulted: patient wants to continue treatment at [facility] as long as possible. Living alone maybe problematic, working with renal social worker. Pending thoracentesis for today. Patient was seen and examined at bedside. She denied any new symptoms today she reported significant improvement of her symptoms. She feels good able to walk with her cane and use the bathroom +BM and +pee. Her cough has much improved. Says she has no pain or discomfort. Exam Vital Signs Temp Pulse Resp BP Pulse Ox O2 Del Method O2 Flow Rate 97.6 F 70 18 118/79 96 Room Air 1 04/06/25 07:52 04/06/25 07:52 04/06/25 07:52 04/06/25 07:52 04/06/25 07:52 04/06/25 07:52 04/04/25 07:06 Narrative Exam GEN: AOx3, lying in bed comfortably, on room air, able to speak full sentences. Mobile and friendly HEENT: NC/AC, oral mucosa moist, neck supple CVS: RRR, S1-S2 present, no murmurs appreciated RESP: Mild fine crepitations on the left side. GI: soft,non distended, non tender, NBS MSK: able to move all 4 limbs, trace bilateral lower extremity edema SKIN: warm and dry COST CONTROL SPECIALIST: CN II-XII and Sensation grossly intact. Objective Labs 04/07/25 04:14 04/07/25 04:14 Labs: Laboratory Results - last 24 hr 04/06/25 06:12 WBC 5.8 RBC 4.15 Hgb 11.9 L Hct 36.3 MCV 88 MCH 28.7 MCHC 32.8 RDW Std Deviation 62.4 H Plt Count 240 D Neut % (Auto) 62 Lymph % (Auto) 25 [place] % (Auto) 11 Eos % (Auto) 2 Baso % (Auto) 0 Neut # (Auto) 3.6 Lymph # (Auto) 1.4 [place] # (Auto) 0.7 Eos # (Auto) 0.1 Baso # (Auto) 0.0 Immature Gran # (Auto) 0.01 H Absolute Nucleated RBC 0.00 Immature Gran % 0 Nucleated RBC % 0 Sodium 135 L Potassium 3.5 Chloride 99 Carbon Dioxide 26.2 Anion Gap 10 BUN 10 Creatinine 0.6 Estim Creat Clear Calc 66.1 eGFR > 60 BUN/Creatinine Ratio 17 Glucose 100 Calculated Osmolality 269 L Calcium 9.9 Phosphorus 4.1 Magnesium 1.9 Quality Measures Quality Measures VTE prophylaxis Advance care planning discussed with:: patient Assessment & Plan Assessment Current Active Medications: Generic Name Dose Route Start Last Admin Trade Name Freq PRN Reason Stop Dose Admin Acetaminophen 650 mg 04/03/25 21:02 Acetaminophen 325 Mg Tablet PO 05/03/25 21:01 Q6H PRN Fever >100.4 or pain 1-3 Hydrocodone Bitart/Acetaminophen 1 tab 04/03/25 21:02 Hydrocodone/Apap 5/325 Tablet PO 04/08/25 21:01 Q4HR PRN PAIN SCALE 4-10(Mod-Sev Atorvastatin Calcium 5 mg 04/04/25 21:00 04/05/25 20:43 Atorvastatin Calcium 10 Mg Tablet PO 05/04/25 20:59 5 mg HS BALA Administration Protocol Diazepam 1 mg 04/04/25 11:24 Diazepam Inj 5 Mg/Ml Vial 2 Ml IVP X1 PRN for thoracentesis Enoxaparin Sodium 40 mg 04/04/25 09:00 04/06/25 08:22 Enoxaparin Sod Inj 40 Mg/0.4 Ml Syringe SC 04/18/25 08:59 Not Given QDAY BALA Magnesium Sulfate 4 gm in 50 mls @ 12.5 mls/hr 04/06/25 07:47 04/06/25 08:21 Magnesium Sulfate Ivpb IV 04/06/25 11:46 12.5 mls/hr X1 ONE Administration Ondansetron HCl 4 mg 04/03/25 21:02 Ondansetron Inj 2 Mg/Ml Inj 2 Ml IVP 05/03/25 21:01 Q6H PRN NAUSEA OR VOMITING Protocol Pantoprazole Sodium 40 mg 04/04/25 09:00 04/06/25 08:21 Pantoprazole Inj 40 Mg Vial IVP 05/04/25 08:59 40 mg QDAY BALA Administration Plan Summary: 84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 Awaiting thoracentesis to rule out pulmonary metastasis Assessment and plan: # Bilateral pleural effusions (L>R) # Pulmonary nodules (11 mm RANDAL, 4 mm RUL) New nodules, concerning for metastatic disease. Progressive dyspnea/fatigue, CT chest with bilateral effusions (L>R), pulmonary nodules, irregular liver contour. procalcitonin negative, afebrile, WBC normal --> infectious etiology less likely. Exam with diminished breath sounds. Most consistent with malignant effusion. Plan: * US thoracentesis with full fluid studies (cell count/diff, protein, LDH, glucose, pH, Gram stain, culture, cytology) * Follow up pleural cytology * Oncology consult if malignant * Hold lovenox morning of procedure * Oxygen PRN, monitor sats # Appendiceal carcinoma on chemotherapy Last chemo ~1 month ago. Plan: * Continue outpatient oncology follow-up * Update onc team once cytology results available # Generalized weakness / poor appetite Likely multifactorial from malignancy, anemia, poor PO intake. Plan: * Nutrition consult if needed * PT eval # Hypertension On lisinopril, Stable, No signs of HTN while admitted, 118/79, 04/06. Plan: * Continue lisinopril - not started yet * Complete med rec once available # Normocytic anemia Hgb 11.5 --> 11.9, stable from prior, likely chronic disease. Plan: * Monitor CBC #HLD Plan: -Lipitor 5mg PO HS Health Maintenance Disposition: Admit to med-surg Diet: Cardiac; NPO after midnight for thora Thromboprophylaxis: Heparin SQ (hold AM of thora) GI prophylaxis: Protonix Code Status: Limited, no intubation ----- - Patient's plan and care discussed with my attending, Dr. Oro, and supervising resident Dr. Telma Yu MD Internal Medicine PGY-1 Attending Provider Attestation/Addendum I reviewed labs, imaging, EKG, home medications and prior available records. Face to face evaluation was performed by me. I have personally examined the patient and discussed assessment and plan with the IM team. I reviewed the resident note and agree with the plan with exceptions as below. Shortness of breath History of appendix carcinoma on therapy Pleural effusion, bilateral, possible malignant effusion Pulmonary nodules Status post pleurocentesis Follow-up pleural fluid analysis Consulted oncology: Recommended outpatient follow-up Management of pain as needed Monitor respiratory status Repeat chest x-ray on 04/07
--- NOTE | 2025-04-06 11:00 | XR_ITS ---
Exam: Ultrasound-guided left thoracentesis. INDICATION: Left pleural effusion. DATE: 04/06/2025 10:19 AM Comparison exam: Chest CT 04/03/2025 PROCEDURE: After discussion of risks and benefits informed consent was obtained. Patient was placed upright on the exam table. Preliminary ultrasound evaluation demonstrated a large left pleural effusion. This was targeted for thoracentesis. The overlying skin was cleaned and draped in normal sterile surgical fashion. 10 cc 1% lidocaine was used for local anesthesia. Using ultrasound guidance 5 Persian Yueh needle catheter was sequentially advanced into the targeted fluid. Clear pleural fluid was obtained. Catheter was attached to bottle suction. Approximately 0.55 L of fluid were removed. Flow ceased from the catheter. Catheter removed. Access site was covered with a sterile dressing. There are no immediate complications. Impression: Successful left thoracentesis as above. 0.55 L of fluid were removed
[2025-04-06 12:00] VITALS: BP 113/77; PULSE 76; RESP 17; TEMP 36.3; O2SAT 98
[2025-04-06 12:13] LABS: Amylase,Pleural Fluid 40 IU/L; Glucose,Pleural Fluid 85 mg/dL; LDH,Pleural Fluid 111 IU/L; Protein Total,Pleural Fluid 4.5 g/dL
[2025-04-06 12:20] LABS: Pleural Fluid WBC 293 /cmm
[2025-04-06 12:48] LABS: Pleural Fluid Appearance Hazy; Pleural Fluid Color Yellow; Pleural Fluid Mononuclear 80 %; Pleural Fluid Polynuclear 20 %; Pleural Fluid RBC 126 /cmm
[2025-04-06 16:00] VITALS: BP 136/87; PULSE 82; RESP 20; TEMP 36.7; O2SAT 98
[2025-04-06 16:12] VITALS: BMI 19.9
[2025-04-06 20:00] VITALS: BP 121/70; PULSE 105; RESP 20; TEMP 36.2; O2SAT 98
[2025-04-06] MEDS: ATORVASTATIN CALCIUM 10 MG TABLET 5 MG PO (20:15)
[2025-04-07] VITALS: BP 125/71; PULSE 71; RESP 18; TEMP 36.5; O2SAT 95
[2025-04-07 04:00] VITALS: BP 151/88; PULSE 80; RESP 20; TEMP 36.1; O2SAT 94
[2025-04-07 06:24] LABS: Basophils # (Auto) 0.0 Thou/mm3 (0.0-0.2); Basophils % (Auto) 0 % (0-2.5); Eosinophils # (Auto) 0.1 Thou/mm3 (0.0-0.5); Eosinophils % (Auto) 2 % (0-10); Hematocrit 33.6 % (36.0-46.0); Hemoglobin 11.2 g/dL (12.0-16.0); Immature Granulocytes Auto 0.02 Thou/mm3 (0.00-0.00); Lymphocytes # (Auto) 1.0 Thou/mm3 (1.0-4.8); Lymphocytes % (Auto) 18 % (10-50); Mean Corpuscular HGB Conc 33.3 g/dl (31.0-37.0); Mean Corpuscular Hemoglobin 29.1 pg (25.0-35.0); Mean Corpuscular Volume 87 fL (80-100); Monocytes # (Auto) 0.7 Thou/mm3 (0.0-0.8); Monocytes % (Auto) 13 % (0-12); Neutrophils # (Auto) 3.6 Thou/mm3 (1.8-7.7); Neutrophils % (Auto) 67 % (37-80); Nucleated Red Blood Cell # 0.00 Thou/mm3 (0.00-0.00); Nucleated Red Blood Cell % 0 /100 WBC (0); Platelet Count 221 Thou/mm3 (140-440); RDW Standard Deviation 60.5 fL (36.4-46.3); Red Blood Count 3.85 Miln/mm3 (4.00-5.20); White Blood Count 5.4 Thou/mm3 (3.6-11.0)
[2025-04-07 07:03] LABS: Alanine Aminotransferase < 7 U/L (10-49); Albumin, Serum 3.7 gm/dL (3.4-4.8); Albumin/Globulin Ratio 1.5 (1.2-2.2); Alkaline Phosphatase 69 U/L (46-116); Anion Gap 11 (7-16); Aspartate Amino Transferase 12 U/L (0-34); BUN/Creatinine Ratio 22 Ratio (12-20); Bilirubin,Total 0.7 mg/dL (0.3-1.2); Blood Urea Nitrogen 11 mg/dL (9-23); Calcium 9.3 mg/dL (8.3-10.6); Calcium (Corrected) 9.5 mg/dL (8.5-10.1); Carbon Dioxide 26.4 mMol/L (20.0-31.0); Chloride 100 mMol/L (98-107); Creatinine (Component) 0.5 mg/dL (0.6-1.3); Estimated Creatinine Clearance 75.7 mL/min (>60); Globulin 2.5 gm/dL (2.3-3.5); Glucose 80 mg/dL (74-106); Magnesium 2.0 mg/dL (1.6-2.6); Osmolality,Calculated 272 (275-295); Phosphorous 3.5 mg/dL (2.4-5.1); Potassium 3.7 mMol/L (3.4-5.1); Sodium 137 mMol/L (136-145); Total Protein 6.2 gm/dL (5.7-8.2); eGFR > 60 See Note
[2025-04-07 07:52] VITALS: BP 126/81; PULSE 77; RESP 18; TEMP 36.4; O2SAT 98
--- NOTE | 2025-04-07 08:00 | XR_ITS ---
Examination: AP chest single view TECHNIQUE: AP portable upright chest single view Date and time: April 07, 2025 0714 hours INDICATIONS: Difficulty breathing this week with bilateral pleural effusions on chest x-rays this week including March 29, 2025 FINDINGS: Mild prominence left ventricle Hyperexpansion. Pneumonia left base. Moderate right moderate to large left pleural effusion Right internal jugular Port-A-Cath tip satisfactory position IMPRESSION: Pneumonia left base. Moderate right moderate to large left pleural effusion
[2025-04-07] MEDS: POLYETHYLENE GLYCOL 17 GM PACKET PO (10:00)
[2025-04-07] MEDS: DOCUSATE SOD 100 MG CAPSULE PO (10:00)
--- NOTE | 2025-04-07 11:13 | ESDS_ITS ---
<Statement entered by Memo Camarena MD - 04/07/25 14:46> I have reviewed the note and agree with the resident's assessment & plan with exceptions as below. I have personally reviewed labs, imaging, home meds/prior records, examined the patient, formulated and discussed management plan with the IM team. Patient examined at bedside today. Patient medically cleared for discharge at this time. Patient's L sided pleural fluid (550 cc removed) likely exudative in nature and related to malignancy history. Patient's repeat chest x-ray seems to be a bit improved. Patient recommended to follow-up with her oncologist outpatient, Dr. Nicholson. Patient was then discharged with the following instructions listed below. Memo Camarena, PGY-2 Internal Medicine Planned Discharge Date 04/07/25 DS: Providers Provider Date of admission: 04/03/25 21:02 Primary care physician: Hanna Graves MD Admitting Provider: Juan Pablo Camara MD Attending Provider on Admission: Juan Oro MD Consults: 04/03/25 21:22 PT [Referral Physical Therapy] Routine Comment: Physician Instructions: 04/05/25 13:20 Consult to Oncology Urgent Comment: Possible Pulmonary Mets Consulting Provider: Jourdan Gonzales Attending Provider on DC: Juan Oro MD Discharging Provider: Juan Oro MD DS: Diagnosis Problem List Completed Was Problem List Reviewed/Reconciled?: Yes Hospital Course Hospital Course Hospital course: 84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 In the ED she was afebrile, normotensive, satting well on room air. CXR showed bilateral effusions and a nodule. CT chest revealed moderate R, [id number] L pleural effusions, left basilar consolidation, 11 mm RANDAL and 4 mm RUL nodules concerning for malignancy, and irregular liver contour suggesting possible cirrhosis. She was ordered clindamycin and levofloxacin in the ED but was stopped. She was admitted for bilateral pleural effusions and SOB. In the hospital a diagnostic thoracentesis was lights criteria positive for exudative effusion. Patient is safe to discharge, she has improved SOB, is walking, eating, and brushing teeth on her own and will follow up with her oncologist. Discharge Instructions: Follow-up with your PCP within 1 week Follow up with your oncologist, Dr. Nicholson within one to two weeks as you may have had fluid build up regarded to your cancer history Recommend to have repeat imaging of chest to assess for enlargement of pulmonary nodules Take your medicines as prescribed Return to ED if your symptoms worsen or return #Bilateral pleural effusions (L>R) #Pulmonary nodules (11 mm RANDAL, 4 mm RUL) #Appendiceal carcinoma on chemotherapy #Generalized weakness / poor appetite #Hypertension #Normocytic anemia #HLD Patient's plan and care discussed with my attending, Dr. Oro and my senior resident, MD Darrian Johnson MD Internal Medicine PGY-1 Time Spent with Patient Time attestation: Total time spent providing and/or coordinating discharge services: Time spent: Greater than 30 minutes Exam Vital Signs Temp Pulse Resp BP Pulse Ox O2 Del Method O2 Flow Rate 97.6 F 77 18 126/81 98 Room Air 1 04/07/25 07:52 04/07/25 07:52 04/07/25 07:52 04/07/25 07:52 04/07/25 07:52 04/07/25 07:52 04/04/25 07:06 Narrative Exam GEN: AOx3, lying in bed comfortably, on room air, able to speak full sentences. Mobile and friendly HEENT: NC/AC, oral mucosa moist, neck supple CVS: RRR, S1-S2 present, no murmurs appreciated RESP: Mild fine crepitations on the left lower lobe. R lung lobes clear to auscultation GI: soft,non distended, non tender, NBS MSK: able to move all 4 limbs, trace bilateral lower extremity edema SKIN: warm and dry AUDIT SPEC: CN II-XII and Sensation grossly intact. Discharge Plan Plan Patient Disposition: HOME (Self Care) Patient condition on transfer: Stable Care Plan Goals: Discharge instructions Follow-up with your PCP within 1 week Follow up with your oncologist, Dr. Nicholson within one to two weeks as you may have had fluid build up regarded to your cancer history Recommend to have repeat imaging of chest to assess for enlargement of pulmonary nodules Take your medicines as prescribed Return to ED if your symptoms worsen or return Prescriptions/Referrals Prescriptions/Med Rec: Continued Alendronate Sodium * (FOSAMAX *) 35 MG tablet 35 mg PO Q7D Qty: 0 simvastatin [Zocor] 10 MG tablet 10 mg PO HS Qty: 0 omeprazole 20 MG capsule,delayed release(DR/EC) 20 mg PO QDAY Qty: 0 lisinopril 10 mg tablet 10 mg PO QDAY Referrals: Hanna Graves MD [Primary Care Provider] - Patient/Caregiver Discharge Instructions Discharge Activity: activity as tolerated Education Materials: Thoracentesis Dc, Shortness of Breath Maximizing ..., Shortness of Breath Coping, ED Shortness of Breath (Dyspnea) Print Language: Faroese Stand Alone Forms: Lillian Award Info., Patient Portal Info Letter Discharge Order Discharge Orders: Discharge (Routine); Ordered 04/07/25 Ordered By: Memo Camarena Quality Discharge Quality Measures VTE prophylaxis MD Attestestation MD Attestation I reviewed labs, imaging, EKG, home medications and prior available records. Face to face evaluation was performed by me. I have personally examined the jaden ent and discussed assessment and plan with the IM team. I reviewed the resident note and agree with the plan with exceptions as below. Shortness of breath History of appendix carcinoma on therapy Pleural effusion, bilateral, possible malignant effusion Pulmonary nodules Status post pleurocentesis on the left with removal of 550 cc Follow-up pleural fluid analysis: Exudative possibly due to malignancy Consulted oncology: Recommended outpatient follow-up Repeat chest x-ray showed right-sided effusion however since her respiratory status is stable and she is on room air, will hold off any further pleurocentesis Time spent is 35 minutes. More than 50% of the time was spent on patient education and coordination of care.
[2025-04-07 12:00] VITALS: BP 134/71; PULSE 81; RESP 17; TEMP 36.3; O2SAT 97
== END 2025-04-07 13:50 | disposition home or self-care (01) | DRG 206 ==
LOC: SERX 19:54 → SERHOLD 21:16 → S3NX 04-04 01:17
PROVIDERS: Nurse Practitioner Family; Admitting Provider Internal Medicine; Emergency Provider Emergency Medicine; PCP Family Medicine; Visit Provider Student in an Organized Health Care Education/Training Program
DX: R91.1 Solitary pulmonary nodule (principal); C18.1 Malignant neoplasm of appendix; K56.600 Partial intestinal obstruction, unspecified as to cause; D63.0 Anemia in neoplastic disease; E78.5 Hyperlipidemia, unspecified; I11.0 Hypertensive heart disease with heart failure; I50.9 Heart failure, unspecified; J18.9 Pneumonia, unspecified organism; J91.8 Pleural effusion in other conditions classified elsewhere
CPT/HCPCS: 36415; 71045; 71250; 80048; 80053; 82150; 82945; 83615; 83735; 83880; 84100; 84145; 84157; 84484; 85025; 85610; 85730; 86850; 86900; 86901; 87040; 87070; 87075; 87081; 87205; 87400; 87811; 89051; 93005; 93971; 96374; 96376; 97162; 99284; C1729; J0696; J1650; J1938; J1956; J2470; J3475; A9270

== ENCOUNTER → 2025-04-03 | Outpatient (CLI) | payer MEDICARE, MEDICAID, SELFPAY ==
--- NOTE | 2025-04-03 12:44 | XR_ITS ---
Examination: PA lateral chest 2 views TECHNIQUE: Upright PA and lateral chest 2 views Date and time: April 03, 2025, 1322 hours, comparison March 10, 2025 INDICATIONS: Shortness of breath even 2 weeks ago. FINDINGS: Mild prominence left ventricle Mild vascular congestion. Moderate right large left pleural effusion Suspicious for 8mm pulmonary nodule left mid lung IMPRESSION: Moderate right large left pleural effusions Recommend CT chest without contrast follow-up to exclude 8mm pulmonary nodule left upper lobe
[2025-04-03 14:08] LABS: Collection Type, Urine Clean Catch
[2025-04-03 14:43] LABS: Basophils # (Auto) 0.0 Thou/mm3 (0.0-0.2); Basophils % (Auto) 0 % (0-2.5); Eosinophils # (Auto) 0.0 Thou/mm3 (0.0-0.5); Eosinophils % (Auto) 1 % (0-10); Hematocrit 35.6 % (36.0-46.0); Hemoglobin 11.5 g/dL (12.0-16.0); Immature Granulocytes Auto 0.03 Thou/mm3 (0.00-0.00); Lymphocytes # (Auto) 1.1 Thou/mm3 (1.0-4.8); Lymphocytes % (Auto) 17 % (10-50); Mean Corpuscular HGB Conc 32.3 g/dl (31.0-37.0); Mean Corpuscular Hemoglobin 28.3 pg (25.0-35.0); Mean Corpuscular Volume 88 fL (80-100); Monocytes # (Auto) 0.8 Thou/mm3 (0.0-0.8); Monocytes % (Auto) 12 % (0-12); Neutrophils # (Auto) 4.6 Thou/mm3 (1.8-7.7); Neutrophils % (Auto) 70 % (37-80); Nucleated Red Blood Cell # 0.00 Thou/mm3 (0.00-0.00); Nucleated Red Blood Cell % 0 /100 WBC (0); Platelet Count 232 Thou/mm3 (140-440); RDW Standard Deviation 62.7 fL (36.4-46.3); Red Blood Count 4.06 Miln/mm3 (4.00-5.20); White Blood Count 6.6 Thou/mm3 (3.6-11.0)
[2025-04-03 14:50] LABS: Alanine Aminotransferase < 7 U/L (10-49); Albumin, Serum 3.9 gm/dL (3.4-4.8); Albumin/Globulin Ratio 1.2 (1.2-2.2); Alkaline Phosphatase 69 U/L (46-116); Anion Gap 10 (7-16); Aspartate Amino Transferase 19 U/L (0-34); BUN/Creatinine Ratio 20 Ratio (12-20); Bilirubin,Total 0.4 mg/dL (0.3-1.2); Blood Urea Nitrogen 12 mg/dL (9-23); Calcium 9.0 mg/dL (8.3-10.6); Calcium (Corrected) 9.1 mg/dL (8.5-10.1); Carbon Dioxide 25.4 mMol/L (20.0-31.0); Chloride 100 mMol/L (98-107); Creatinine (Component) 0.6 mg/dL (0.6-1.3); Globulin 3.2 gm/dL (2.3-3.5); Glucose 117 mg/dL (74-106); Osmolality,Calculated 270 (275-295); Potassium 4.5 mMol/L (3.4-5.1); Sodium 135 mMol/L (136-145); Total Protein 7.1 gm/dL (5.7-8.2); eGFR > 60 See Note
[2025-04-03 15:06] LABS: Bilirubin,Urine Negative (Negative); Blood,Urine Negative (Negative); Clarity,Urine Clear (Clear/Hazy); Color,Urine Lt-Yellow (Lt Yel-Yel); Culture Indicated,Urine Not Indicated; Glucose, Urine Negative (Negative); Ketones,Urine Negative (Negative); Leukocyte Esterase,Urine Negative (Negative); Nitrite,Urine Negative (Negative); PH,Urine 6.0 (5.0-7.0); Protein,Urine Negative (Neg - Trace); RBC,Urine 1 /hpf (0-3); Specific Gravity,Urine 1.011 (1.001-1.035); Squamous Epithelial Cell,Urine 1 /hpf (0-5); Urobilinogen,Urine Negative mg/dL (0.0-1.0); WBC,Urine 1 /hpf (0-5)
== END | disposition home or self-care (01) ==
LOC: CDIM 12:37 → COPL 13:36
PROVIDERS: PCP Family Medicine; Referring Provider Family Medicine; Visit Provider Radiology Diagnostic Radiology
DX: J90 Pleural effusion, not elsewhere classified (principal); D50.8 Other iron deficiency anemias; R53.81 Other malaise; R06.02 Shortness of breath
CPT/HCPCS: 36415; 71046; 80053; 81001; 85025

== ENCOUNTER 2025-05-25 14:47 | Emergency (ER) | payer OTHER, MEDICAID, SELFPAY ==
[2025-05-25 14:48] VITALS: BP 135/87; PULSE 86; RESP 17; TEMP 36.8; O2SAT 97
[2025-05-25 15:01] VITALS: PULSE 87; RESP 18; O2SAT 96
[2025-05-25 15:12] VITALS: BMI 20.6
--- NOTE | 2025-05-25 15:14 | EKG_ITS ---
[facility] Test Date: 2025-05-25 Pat Name: JENNIFER ADAME Department: Room: - Gender: Female Cashier Manager: : 1940 Requested By: Elkin Stephens (ANDREW) Order Number: [id number] Reading MD: Elkin Stephens (AMMONIA STILL OPERATOR) Measurements Intervals [place] Rate: 89 P: 69 [place]: 135 QRS: 51 QRSD: 83 T: 2 QT: 346 QTc: 422 Interpretive Statements SINUS RHYTHM Compared to ECG 04/03/2025 18:51:40 No significant changes /store/S0/[id number].pdf
--- NOTE | 2025-05-25 15:14 | XR_ITS ---
EXAMINATION: PA lateral chest 2 views TECHNIQUE: Upright PA lateral chest 2 views Date and time: May 25, 2025 1542 hours, comparison April 07, 2025 INDICATIONS: Heartburn this morning. FINDINGS: Opacity left base consistent with pneumonia Moderate right large left pleural effusion No major cardiac enlargement Fluid in the fissures on the lateral view however Increased AP dimension chest Moderate vascular congestion IMPRESSION: Mild chronic heart failure pattern Moderate right large left pleural fluid
--- NOTE | 2025-05-25 15:14 | PD.EDRME ---
Rapid Medical Screening Exam RME Arrival date/time: 05/25/25 14:47 84-year-old female presents to the emergency room today for complaints of heartburn ongoing since this morning Chief Complaint: Weakness Vital signs: Vital Signs Temperature 98.2 F 05/25/25 14:48 Pulse Rate 86 05/25/25 14:48 Respiratory Rate 17 05/25/25 14:48 Blood Pressure 135/87 H 05/25/25 14:48 Pulse Oximetry (%) 97 05/25/25 14:48 Oxygen Delivery Method Room Air 05/25/25 14:48
[2025-05-25] MEDS: FAMOTIDINE 20 MG TABLET 40 MG PO (15:33)
[2025-05-25] MEDS: MG HYD/AL HYD/SIME (Maalox Reg) SUSP 30 ML UDC PO (15:34)
[2025-05-25] MEDS: LIDOCAINE VISCOUS 2% 15 ML UDC PO (15:34)
[2025-05-25 15:52] LABS: Basophils # (Auto) 0.0 Thou/mm3 (0.0-0.2); Basophils % (Auto) 0 % (0-2.5); Eosinophils # (Auto) 0.0 Thou/mm3 (0.0-0.5); Eosinophils % (Auto) 0 % (0-10); Hematocrit 35.7 % (36.0-46.0); Hemoglobin 11.8 g/dL (12.0-16.0); Immature Granulocytes Auto 0.02 Thou/mm3 (0.00-0.00); Lymphocytes # (Auto) 0.7 Thou/mm3 (1.0-4.8); Lymphocytes % (Auto) 12 % (10-50); Mean Corpuscular HGB Conc 33.1 g/dl (31.0-37.0); Mean Corpuscular Hemoglobin 27.5 pg (25.0-35.0); Mean Corpuscular Volume 83 fL (80-100); Monocytes # (Auto) 0.7 Thou/mm3 (0.0-0.8); Monocytes % (Auto) 12 % (0-12); Neutrophils # (Auto) 4.8 Thou/mm3 (1.8-7.7); Neutrophils % (Auto) 76 % (37-80); Nucleated Red Blood Cell # 0.00 Thou/mm3 (0.00-0.00); Nucleated Red Blood Cell % 0 /100 WBC (0); Platelet Count 196 Thou/mm3 (140-440); RDW Standard Deviation 51.2 fL (36.4-46.3); Red Blood Count 4.29 Miln/mm3 (4.00-5.20); White Blood Count 6.4 Thou/mm3 (3.6-11.0)
[2025-05-25 16:10] LABS: B-Type Natriuretic Peptide 34 pg/mL (0-100)
[2025-05-25 16:23] LABS: Alanine Aminotransferase 9 U/L (10-49); Albumin, Serum 3.7 gm/dL (3.4-4.8); Albumin/Globulin Ratio 1.8 (1.2-2.2); Alkaline Phosphatase 65 U/L (46-116); Anion Gap 10 (7-16); Aspartate Amino Transferase 18 U/L (0-34); BUN/Creatinine Ratio 22 Ratio (12-20); Bilirubin,Total 0.5 mg/dL (0.3-1.2); Blood Urea Nitrogen 11 mg/dL (9-23); Calcium 8.6 mg/dL (8.3-10.6); Calcium (Corrected) 8.8 mg/dL (8.5-10.1); Carbon Dioxide 25.6 mMol/L (20.0-31.0); Chloride 98 mMol/L (98-107); Creatinine (Component) 0.5 mg/dL (0.6-1.3); Estimated Creatinine Clearance 75.7 mL/min (>60); Globulin 2.1 gm/dL (2.3-3.5); Glucose 100 mg/dL (74-106); Osmolality,Calculated 267 (275-295); Potassium 3.5 mMol/L (3.4-5.1); Sodium 134 mMol/L (136-145); Total Protein 5.8 gm/dL (5.7-8.2); Troponin I < 0.020 ng/mL (0.0-0.045); eGFR > 60 See Note
--- NOTE | 2025-05-25 19:40 | EDNOTE_ITS ---
ED Weakness RME/HPI General Chief complaint: Weakness Stated complaint: WEAKNESS Time Seen by Provider: 05/25/25 17:44 Arrival date/time: 05/25/25 14:47 RME / HPI RME / HPI Narrative: 05/25/25 14:47 84-year-old female presents to the emergency room today for complaints of heartburn ongoing since this morning Dr. Del Rio?s Main ED Evaluation: 84yo female presents to the ED for a chief complaint of heartburn since this morning. Patient states she woke up at 0530 having significant heartburn and felt nauseated throughout the day. She was seen at her PCP's office and prescribed medications that she took without improvement. Patient felt generally weak, so she came in for evaluation. Patient does take omeprazole daily. Patient denies any chest pain, shortness of breath, abdominal pain, or any other associated symptoms. NKA. Related Data Home Medications ?Medication ?Instructions ?Recorded ?Confirmed Alendronate Sodium * (FOSAMAX *) 35 mg PO Q7D #0 tabs 09/25/16 04/04/25 omeprazole 20 mg capsule,delayed 20 mg PO QDAY ##0 04/04/25 release simvastatin 10 mg tablet (Zocor) 10 mg PO HS #0 tabs 0 09/25/16 04/04/25 lisinopril 10 mg tablet 10 mg PO QDAY 09/28/2404/04 Allergies Allergy/AdvReac Type Severity Reaction Status Date / Time No Known Allergies Allergy Verified 05/25/25 15:04 Review of Systems Review of Systems Systems Reviewed: All systems reviewed, normal except as documented Past Medical History Past Medical History NEUROLOGIC: Negative Neurological Disorders, Cerebrovascular Accident, Alzheimer's Disease or Seizures CARDIAC: Positive Hypercholesterolemia and Hypertension; Negative Cardiac Disorders, Myocardial Infarction, Angina or Congestive Heart Failure RESPIRATORY: Negative Chronic Obstructive Pulmonary Disease (COPD), Asthma or Emphysema GASTROINTESTINAL: Negative Gastrointestinal Disorders, Hepatitis, Cirrhosis, Gastrointestinal Bleed or Diverticulosis GENITOURINARY: Negative Genitourinary Disorders or Renal Disease REPRODUCTIVE: Positive Previous Pregnancies MUSCULOSKELETAL: Positive Musculoskeletal Disorders, Arthritis and Osteoporosis ENDOCRINE: Negative Endocrine Disorders, Diabetes Mellitus Type 1 or Diabetes Mellitus Type 2 HEMATOLOGIC: Positive Blood Disorders and Anemia; Negative Sickle Cell Disease OTHER HISTORY: Positive Hospitalization, Chemotherapy, Chicken Pox, Measles and Mumps; Negative Autoimmune Disease, Down Syndrome, Developmental Delay, Shingles, Falls, Blood Transfusions, Blood Transfusion Reaction, Anesthesia Reactions or Cancer Family History FAMILY HISTORY: Positive Family Cardiac Disorders and Family Surgery; Negative Family Psychiatric Problems, Family Respiratory Disorders, Family Gastrointestinal Problems, Family Cancer or Family Anesthesia Reaction Surgical History SURGICAL: Positive Abdominal Surgery and Bowel Surgery Social History SMOKING STATUS: Never smoker ED Exam Narrative Physical exam: Generally patient is alert and in no obvious distress and elderly and somewhat cachectic appearing female, heart regular rate and rhythm, lungs clear to auscultation with distant breath sounds bilaterally, abdomen soft bowel sounds present all send nontender, extremities show no edema, neurologic exam shows Celina Coma Scale of 15 Course Course Course Narrative: CXR is ordered for determining the etiology of weakness. Quality Measures none Orders Category Date Time Status EKG (ED ONLY) *Do not use* NOW Care 05/25/25 15:14 Completed EKG (ED Only) Stat Exams 05/25/25 15:14 Draft XR chest 2V Stat Exams 05/25/25 15:14 Completed BNP [B-Type Natriuretic Peptide] Stat Lab 05/25/25 15:35 Completed CBC Stat Lab 05/25/25 15:35 Completed Comprehensive Metabolic Panel Stat Lab 05/25/25 15:35 Completed Troponin I Stat Lab 05/25/25 15:35 Completed Famotidine [Pepcid] Med 05/25/25 15:14 Discontinued 40 mg PO X1 ONE Lidocaine 2% Viscous [Xylocaine 2% Viscous] Med 05/25/25 15:14 Discontinued 15 ml PO X1 ONE mg Hyd/Al Hyd/Lizz Susp [Maalox Susp] Med 05/25/25 15:14 Discontinued 30 ml PO X1 ONE Vital Signs Vital signs: Vital Signs Temperature 98.2 F 05/25/25 14:48 Pulse Rate 86 05/25/25 14:48 Respiratory Rate 17 05/25/25 14:48 Blood Pressure 135/87 H 05/25/25 14:48 Pulse Oximetry (%) 97 05/25/25 14:48 Oxygen Delivery Method Room Air 05/25/25 14:48 Weakness MDM Narrative MDM Narrative:: Scribe Attestation: 05/25/25 - Alla Reese am scribing for and in the presence of Dr. Del Rio. I interpreted all labs. Cardiac workup was unremarkable. Chest x-ray shows bilateral pleural effusions that are little changed in size when compared to a chest x-ray done in March of this year. Port-A-Cath is in place. Patient feels much improved and wishes to go home. By history this patient had an episode of gastroesophageal reflux. She has had this multiple times in the past and the reason why the patient came in today is a symptom simply were not going away today. She is currently on omeprazole. She may take Mylanta or Maalox or Gaviscon as needed for breakthrough acid reflux. She does have primary care follow-up. 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 Record#: [id number] Birthdate: 1940 Age/Sex: 84 / F Location: [facility] Attending Dr: Ordering Physician: Angelo BLAKE)Elkin NP Date of Service: 05/25/25 Procedure(s): XR chest 2V Accession Number(s): [id number] cc: Angelo BLAKE)Elkin NP; Yoni Shankar MD; Hanna Graves MD~ EXAMINATION: PA lateral chest 2 views TECHNIQUE: Upright PA lateral chest 2 views Date and time: May 25, 2025 1542 hours, comparison April 07, 2025 INDICATIONS: Heartburn this morning. FINDINGS: Opacity left base consistent with pneumonia Moderate right large left pleural effusion No major cardiac enlargement Fluid in the fissures on the lateral view however Increased AP dimension chest Moderate vascular congestion IMPRESSION: Mild chronic heart failure pattern Moderate right large left pleural fluid Dictated By: Yoni Shankar MD Signed By: <Electronically signed by Yoni Shankar MD in OV> 05/25/25 1556 Medications / Prescriptions Medications or Prescriptions considered but not ordered:: none Medication administrations:: Medication Administration History Discontinued Medications Al Hydrox/Mg Hydrox/Simethicone (Mg Hyd/Al Hyd/Lizz (Maalox Reg) Susp 30 Ml Udc) 30 ml PO X1 ONE Stop: 05/25/25 15:15 Last Admin: 05/25/25 15:34 Dose: 30 ml Documented By: LOREN Famotidine (Famotidine 20 Mg Tablet) 40 mg PO X1 ONE Stop: 05/25/25 15:15 Last Admin: 05/25/25 15:33 Dose: 40 mg Documented By: LOREN Lidocaine HCl (Lidocaine Viscous 2% 15 Ml Udc) 15 ml PO X1 ONE Stop: 05/25/25 15:15 Last Admin: 05/25/25 15:34 Dose: 15 ml Documented By: LOREN see above Consultations Consultation(s) initiated? (list below): No Diagnosis Weakness Differential Diagnosis: other (See MDM) Most likely diagnosis given after review of the tests above:: see clinical impression below Admission Indicated Admission indicated?: not indicated Admission Request Was there a request for admission?: No Disposition Plan Disposition Plan: Discharge Discharge Attestation Discharge Attestation: The patient and all family members were given an opportunity to ask questions and understood the discharge instructions. Discharge instructions specifically effects, indications for sooner follow up or return to the emergency department, and the expected course of current diagnosis. Patient condition: Stable Discharge Plan Plan Patient Disposition: HOME (Self Care) Prescriptions/Referrals Prescriptions/Med Rec: No Action Alendronate Sodium * (FOSAMAX *) 35 MG tablet 35 mg PO Q7D Qty: 0 simvastatin [Zocor] 10 MG tablet 10 mg PO HS Qty: 0 omeprazole 20 MG capsule,delayed release(DR/EC) 20 mg PO QDAY Qty: 0 lisinopril 10 mg tablet 10 mg PO QDAY Referrals: Hanna Graves MD [Primary Care Provider, Family Practice] - In 1 week Problem List Clinical Impression: Gastroesophageal reflux disease, Bilateral pleural effusion Patient/Caregiver Discharge Instructions Education Materials: ED GERD (Adult) Additional Instructions: Continue all current medications. You may use [id number] Maalox, Mylanta or Gaviscon as needed for breakthrough acid reflux. Avoid hot spicy greasy fatty foods. Follow-up with your doctor. Return to ER as needed or if condition worsens. Print Language: Maldivian Stand Alone Forms: Lillian Award Info., Patient Portal Info Letter
[2025-05-25 19:48] VITALS: BP 130/77; PULSE 79; RESP 18; O2SAT 97
== END 2025-05-25 20:22 | disposition home or self-care (01) ==
PROVIDERS: Nurse Practitioner Primary Care; Emergency Provider Emergency Medicine; PCP Family Medicine
DX: K21.9 Gastro-esophageal reflux disease without esophagitis (principal); I50.9 Heart failure, unspecified
CPT/HCPCS: 36415; 71046; 80053; 83880; 84484; 85025; 93005; 99283; J3490; A9270

== ENCOUNTER 2025-06-27 22:53 | Emergency (ER) | payer OTHER, MEDICAID, SELFPAY ==
[2025-06-27 22:58] VITALS: PULSE 88; RESP 18; BMI 19.4
--- NOTE | 2025-06-27 22:59 | EDNOTE_ITS ---
ED Weakness RME/HPI General Chief complaint: Weakness Stated complaint: WEAKNESS Time Seen by Provider: 06/27/25 22:59 Arrival date/time: 06/27/25 22:53 RME / HPI RME / HPI Narrative: Dr. 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 Patient states her weakness got progressively worse today, so she came in for evaluation. Patient endorses N/V (last emetic episode was last night). Denies any fever, chills, or any other associated symptoms. NKA. Related Data Home Medications ?Medication ?Instructions ?Recorded ?Confirmed Alendronate Sodium * (FOSAMAX *) 35 mg PO Q7D #0 tabs 09/25/16 04/04/25 omeprazole 20 mg capsule,delayed 20 mg PO QDAY ##0 04/04/25 release simvastatin 10 mg tablet (Zocor) 10 mg PO HS #0 tabs 0 09/25/16 04/04/25 lisinopril 10 mg tablet 10 mg PO QDAY 09/28/2404/04 Allergies Allergy/AdvReac Type Severity Reaction Status Date / Time No Known Allergies Allergy Verified 06/27/25 23:03 Review of Systems Review of Systems Systems Reviewed: All systems reviewed, normal except as documented ED Exam Narrative Physical exam: Generally the patient is alert elderly appearing female but no obvious distress, heart regular rate and rhythm, lungs clear to auscultation equal bilaterally, abdomen is soft distended and tympanic with minimal tenderness without rebound. Neurologic exam shows the patient to have a Celina Coma Scale of 15 without focal motor deficit Course Course Course Narrative: CXR is ordered for determining the etiology of weakness. Quality Measures none Orders Category Date Time Status CT Screening NOW Care 06/27/25 23:00 Active EKG (ED ONLY) *Do not use* NOW Care 06/27/25 23:[address] abdomen pelvis w con Stat Exams 06/27/25 23:00 Taken EKG (ED Only) Stat Exams 06/27/25 23:00 Ordered XR chest 1V portable Stat Exams 06/27/25 23:00 Completed CBC Stat Lab 06/27/25 23:22 Completed CMP [Comprehensive Metabolic Panel] Stat Lab 06/27/25 23:22 Completed Magnesium Stat Lab 06/27/25 23:22 Completed Troponin I Stat Lab 06/27/25 23:22 Completed UA [Urinalysis] Stat Lab 06/27/25 23:17 Completed Sodium Chloride 0.9% 1000 ml [Ns] 1,000 ml Med 06/27/25 22:59 Discontinued IV 999 mls/hr Vital Signs Vital signs: Vital Signs Temperature 97.6 F 06/27/25 23:07 Pulse Rate 87 06/27/25 23:07 Respiratory Rate 14 06/27/25 23:07 Blood Pressure 122/67 06/27/25 23:07 Pulse Oximetry (%) 100 06/27/25 23:07 Oxygen Delivery Method Room Air 06/27/25 23:07 Weakness MDM Narrative MDM Narrative:: Scribe Attestation: 06/27/25 Alla Beatty, am scribing for and in the presence of Dr. Del Rio. I interpreted all labs. There is no leukocytosis. No anemia. No electrolyte abnormality. No kidney dysfunction. Urine is not infected. CT scan down the abdomen pelvis with IV contrast shows atelectasis to bilateral lower lobes with chronic bilateral pleural effusions left side greater than right. There is no bowel obstruction. There is evidence for gastritis. All of this is known to the patient. I do long discussion with the patient and the patient's daughter at bedside. They wish to go home. There is no reason to admit this patient to the hospital at this time. Cardiac workup was unremarkable. Patient will be discharged in stable condition. 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 Her last chemotherapy was in March of this year. Patient data External records reviewed:: [facility] previous records (Per chart review, patient was seen here on 05/25/25 for bilateral pleural effusions.) Clinical information provided by:: patient Social determinants that could affect healthcare access:: none Patient has the following chronic illnesses:: appendiceal carcinoma, ventral wall hernia s/p repair How is presenting disease/condition affected by chronic disease/condition?: uneffected by Evaluation data The following diagnostics were reviewed and interpreted by me:: lab results, radiology exam(s) and EKG tracing(s) Lab and/or radiology exams considered but not ordered:: none Interpretation Summary: [facility] Report Signed Patient: JENNIFER ADAME [facility]. Record#: [id number] Birthdate: 1940 Age/Sex: 84 / F Location: [facility] Attending Dr: Ordering Physician: Kelton Del Rio DO Date of Service: 06/27/25 Procedure(s): XR chest 1V portable Accession Number(s): [id number] cc: Yoni Shankar MD; Kelton Del Rio DO~ EXAMINATION: AP chest single view TECHNIQUE: AP portable upright chest single view Date and time: June 27, 2025, 11:19 p.m., comparison May 25, 2025 INDICATIONS: Chest pain shortness of breath today. FINDINGS: Mild prominence left ventricle Moderate vascular congestion Pneumonia both bases Large left moderate right pleural effusions Right internal jugular Port-A-Cath tip satisfactory position IMPRESSION: Moderate vascular congestion Pneumonia both bases Moderate right large left pleural effusion. Dictated By: Yoni Shankar MD Signed By: <Electronically signed by Yoni Shankar MD in OV> 06/27/25 2359 [place] Preliminary Report Draft Patient: JENNIFER ADAME [facility]. Record#: [id number] Birthdate: 1940 Age/Sex: 84 / F Location: [facility] Attending Dr: Ordering Physician: Date of Service: Procedure(s): Accession Number(s): cc: ~ CT scan of the abdomen and pelvis with intravenous contrast (axial sections with sagittal and coronal reformats) June 28, 2025 at 0043 hours. Clinical History: Abdominal pain Comparison: Compared with the prior study dated March 09, 2025. Findings: Moderate pleural effusion bilaterally. Airspace disease in the lower lungs bilaterally may represent atelectasis and/or pneumonia. There is subcapsular splenic calcifications. There is a 1 cm left renal cyst. The gallbladder is surgically absent. The liver, pancreas, and adrenals are unremarkable. Small hiatus hernia noted. There is wall thickening of the stomach. There is a perigastric hypodensity (37 HU) along the body of the stomach (axial image 48-74/245 and coronal image 34- 79/141) measuring 7.4 x 3.2 cm. There is anastomotic sutures in the right colon. There is scattered small bowel thickening No evidence of bowel obstruction. A moderate amount of fecal material is present in the colon. There is no m esenteric or retroperitoneal adenopathy. The urinary bladder is unremarkable. There is moderate to large amount of free fluid in the pelvis. The uterus is not visualized and may be surgically absent. The abdominal aorta demonstrates atheromatous calcification without evidence of aneurysm. There is no free fluid, free air or abscess. Degenerative changes are identified in the spine. There is mild dextroscoliosis of the lumbar spine. There is superficial body wall soft tissue edema. Impression: 1. No evidence of bowel obstruction, free air or abscess. 2. Wall thickening of the stomach and perigastric hypodensity along the inferior aspect of the body of the stomach of indeterminate etiology; the possibility of changes related to gastritis or gastric mass cannot be excluded. Recommend clinical correlation, direct comparison with prior studies/further evaluation with upper GI examination or endoscopy if clinically feasible. 3. Scattered small bowel wall thickening may indicate enteritis. 4. Moderate bilateral pleural effusions. Airspace disease in the lower lungs may represent atelectasis and/or pneumonia. 5. Other findings as described above. Report Electronically Signed By: Leif Arenas 06/28/2025 1:27:41 AM [EST] Medications / Prescriptions Medications or Prescriptions considered but not ordered:: none Medication administrations:: Medication Administration History Discontinued Medications Sodium Chloride (Ns) 1,000 mls @ 999 mls/hr IV .Q1H1M ONE Stop: 06/27/25 23:59 Last Infusion: 06/28/25 00:19 Dose: Infused Documented By: [email or web address] Admin: 06/27/25 23:11 Dose: 999 mls/hr Documented By: [email or web address] see above Consultations Consultation(s) initiated? (list below): No Diagnosis Weakness Differential Diagnosis: other (See MDM) Most likely diagnosis given after review of the tests above:: see clinical impression below Admission Indicated Admission indicated?: not indicated Admission Request Was there a request for admission?: No Disposition Plan Disposition Plan: Discharge Discharge Attestation Discharge Attestation: The patient and all family members were given an opportunity to ask questions and understood the discharge instructions. Discharge instructions specifically effects, indications for sooner follow up or return to the emergency department, and the expected course of current diagnosis. Patient condition: Stable Discharge Plan Plan Patient Disposition: HOME (Self Care) Prescriptions/Referrals Prescriptions/Med Rec: No Action Alendronate Sodium * (FOSAMAX *) 35 MG tablet 35 mg PO Q7D Qty: 0 simvastatin [Zocor] 10 MG tablet 10 mg PO HS Qty: 0 omeprazole 20 MG capsule,delayed release(DR/EC) 20 mg PO QDAY Qty: 0 lisinopril 10 mg tablet 10 mg PO QDAY Referrals: Hanna Graves MD [Primary Care Provider, Family Practice] - In 1 week Problem List Clinical Impression: Weakness, Gastroesophageal reflux disease Patient/Caregiver Discharge Instructions Education Materials: ED GERD (Adult) Additional Instructions: Continue all current medications at this time. Follow-up with your doctor. Return to ER as needed or if condition worsens. Print Language: Lao Stand Alone Forms: Lillian Award Info., Patient Portal Info Letter
--- NOTE | 2025-06-27 23:00 | XR_ITS ---
Examination: CT abdomen with intravenous contrast CT pelvis with intravenous contrast 2-D coronal reconstructions 2-D sagittal reconstructions Date and time of exam: June 28, 2025, 0046 hours, comparison March 10, 2025 INDICATIONS: Abdominal pain weakness today, cirrhosis diagnosis, small bowel obstruction pattern on CT study March 10, 2025. CTDI: vol (mGy) 5.29 DLP: (mGycm) 281 Technique: Multiple axial sections of the abdomen and pelvis have been obtained. 64 slice high-resolution scanner used. 3 mm axial sections have been obtained, post intravenous injection 60 cc Isovue 370 2-D sagittal, coronal reconstructions obtained. Low dose protocols were performed. One or more of the following dose reduction techniques were used; automated exposure control, adjustment of the mA and/or KV according to patient size, use of iterative reconstruction technique. Findings: Moderate bilateral pleural effusions Mild enlargement cardiac contour Pneumonia left base Retrocardiac gastric hernia Liver irregular in contour Splenic calcifications Mucosal thickening in the stomach and duodenum Moderate ascites Absent gallbladder No pancreatic or adrenal mass No hydronephrosis Abdominal aortic calcification Right: Sutures Mild thickening of the colonic brabour Multiple fluid distended small bowel loops with mild wall thickening Abundant stool in the rectum No bladder mass Severe osteopenia IMPRESSION: Moderate bilateral pleural effusions Pneumonia left base Gastritis pattern Liver irregular in contour, cirrhosis pattern Moderate ascites Hepatic colopathy hepatic enteropathy pattern
--- NOTE | 2025-06-27 23:00 | EKG_ITS ---
[facility] Test Date: 2025-06-27 Pat Name: JENNIFER ADAME Department: Room: - Gender: Female [employer] Licensee: : 1940 Requested By: Kelton Maria Order Number: [id number] Reading MD: Kelton Maria Measurements Intervals [place] Rate: 86 P: 48 IN: 135 QRS: 22 QRSD: 77 T: 63 QT: 329 QTc: 396 Interpretive Statements SINUS RHYTHM LOW QRS VOLTAGE IN EXTREMITY LEADS [QRS DEFLECTION < 0.5 mV IN LIMB LEADS] MINIMAL ST DEPRESSION [0.025+ mV ST DEPRESSION] Compared to ECG 05/25/2025 15:16:17 Low QRS voltage now present ST (T wave) deviation now present /store/S0/[id number].pdf
[2025-06-27 23:02] VITALS: BMI 19.4
[2025-06-27 23:07] VITALS: BP 122/67; PULSE 87; RESP 14; TEMP 36.4; O2SAT 100
[2025-06-27] MEDS: SODIUM CHLORIDE 0.9% 1000 ML 1,000 ML 999 ML IV (23:11)
[2025-06-27 23:27] LABS: Collection Type, Urine Catheter; Squamous Epithelial Cell,Urine 0 /hpf (0-5)
[2025-06-27 23:28] LABS: Basophils # (Auto) 0.0 Thou/mm3 (0.0-0.2); Basophils % (Auto) 0 % (0-2.5); Eosinophils # (Auto) 0.0 Thou/mm3 (0.0-0.5); Eosinophils % (Auto) 0 % (0-10); Hematocrit 33.0 % (36.0-46.0); Hemoglobin 11.1 g/dL (12.0-16.0); Immature Granulocytes Auto 0.03 Thou/mm3 (0.00-0.00); Lymphocytes # (Auto) 1.3 Thou/mm3 (1.0-4.8); Lymphocytes % (Auto) 19 % (10-50); Mean Corpuscular HGB Conc 33.6 g/dl (31.0-37.0); Mean Corpuscular Hemoglobin 27.8 pg (25.0-35.0); Mean Corpuscular Volume 83 fL (80-100); Monocytes # (Auto) 0.8 Thou/mm3 (0.0-0.8); Monocytes % (Auto) 12 % (0-12); Neutrophils # (Auto) 4.6 Thou/mm3 (1.8-7.7); Neutrophils % (Auto) 69 % (37-80); Nucleated Red Blood Cell # 0.00 Thou/mm3 (0.00-0.00); Nucleated Red Blood Cell % 0 /100 WBC (0); Platelet Count 182 Thou/mm3 (140-440); RDW Standard Deviation 49.0 fL (36.4-46.3); Red Blood Count 3.99 Miln/mm3 (4.00-5.20); White Blood Count 6.7 Thou/mm3 (3.6-11.0)
[2025-06-27 23:31] LABS: Bilirubin,Urine Negative (Negative); Blood,Urine Negative (Negative); Clarity,Urine Clear (Clear/Hazy); Color,Urine Yellow (Lt Yel-Yel); Glucose, Urine Negative (Negative); Ketones,Urine Trace (Negative); Leukocyte Esterase,Urine Negative (Negative); Nitrite,Urine Negative (Negative); PH,Urine 6.0 (5.0-7.0); Protein,Urine Negative (Neg - Trace); RBC,Urine 1 /hpf (0-3); Specific Gravity,Urine 1.020 (1.001-1.035); Urobilinogen,Urine 12 mg/dL (0.0-1.0); WBC,Urine 1 /hpf (0-5)
[2025-06-28] LABS: Alanine Aminotransferase 7 U/L (10-49); Albumin, Serum 3.1 gm/dL (3.4-4.8); Albumin/Globulin Ratio 1.7 (1.2-2.2); Alkaline Phosphatase 72 U/L (46-116); Anion Gap 10 (7-16); Aspartate Amino Transferase 14 U/L (0-34); BUN/Creatinine Ratio 24 Ratio (12-20); Bilirubin,Total 0.5 mg/dL (0.3-1.2); Blood Urea Nitrogen 12 mg/dL (9-23); Calcium 7.8 mg/dL (8.3-10.6); Calcium (Corrected) 8.5 mg/dL (8.5-10.1); Carbon Dioxide 24.5 mMol/L (20.0-31.0); Chloride 97 mMol/L (98-107); Creatinine (Component) 0.5 mg/dL (0.6-1.3); Estimated Creatinine Clearance 71.4 mL/min (>60); Globulin 1.8 gm/dL (2.3-3.5); Glucose 116 mg/dL (74-106); Magnesium 1.8 mg/dL (1.6-2.6); Osmolality,Calculated 263 (275-295); Potassium 3.6 mMol/L (3.4-5.1); Sodium 131 mMol/L (136-145); Total Protein 4.9 gm/dL (5.7-8.2); Troponin I < 0.020 ng/mL (0.0-0.045); eGFR > 60 See Note
[2025-06-28 01:21] VITALS: BP 133/85; PULSE 80; RESP 19; TEMP 37; O2SAT 100
--- NOTE | 2025-06-28 01:28 | PRELIM_ITS ---
CT scan of the abdomen and pelvis with intravenous contrast (axial sections with sagittal and coronal reformats) June 28, 2025 at 0043 hours. Clinical History: Abdominal pain Comparison: Compared with the prior study dated March 09, 2025. Findings: Moderate pleural effusion bilaterally. Airspace disease in the lower lungs bilaterally may represent atelectasis and/or pneumonia. There is subcapsular splenic calcifications. There is a 1 cm left renal cyst. The gallbladder is surgically absent. The liver, pancreas, and adrenals are unremarkable. Small hiatus hernia noted. There is wall thickening of the stomach. There is a perigastric hypodensity (37 HU) along the body of the stomach (axial image 48-74/245 and coronal image 34- 79/141) measuring 7.4 x 3.2 cm. There is anastomotic sutures in the right colon. There is scattered small bowel thickening No evidence of bowel obstruction. A moderate amount of fecal material is present in the colon. There is no mesenteric or retroperitoneal adenopathy. The urinary bladder is unremarkable. There is moderate to large amount of free fluid in the pelvis. The uterus is not visualized and may be surgically absent. The abdominal aorta demonstrates atheromatous calcification without evidence of aneurysm. There is no free fluid, free air or abscess. Degenerative changes are identified in the spine. There is mild dextroscoliosis of the lumbar spine. There is superficial body wall soft tissue edema. Impression: 1. No evidence of bowel obstruction, free air or abscess. 2. Wall thickening of the stomach and perigastric hypodensity along the inferior aspect of the body of the stomach of indeterminate etiology; the possibility of changes related to gastritis or gastric mass cannot be excluded. Recommend clinical correlation, direct comparison with prior studies/further evaluation with upper GI examination or endoscopy if clinically feasible. 3. Scattered small bowel wall thickening may indicate enteritis. 4. Moderate bilateral pleural effusions. Airspace disease in the lower lungs may represent atelectasis and/or pneumonia. 5. Other findings as described above. Report Electronically Signed By: Leif Arenas 06/28/2025 1:27:41 AM [EST]
[2025-06-28 01:58] VITALS: BP 131/87; PULSE 81; RESP 18; TEMP 36.9; O2SAT 95
== END 2025-06-28 01:59 | disposition home or self-care (01) ==
PROVIDERS: Emergency Provider Emergency Medicine; PCP Family Medicine
DX: J18.9 Pneumonia, unspecified organism (principal); K21.9 Gastro-esophageal reflux disease without esophagitis
CPT/HCPCS: 36415; 71045; 74177; 80053; 81001; 83735; 84484; 85025; 93005; 96360; 99284; A4649; J7030; Q9967

== ENCOUNTER 2025-06-28 14:03 | Inpatient (IN) | payer MEDICARE, MEDICAID, SELFPAY ==
--- NOTE | 2025-06-28 14:15 | EKG_ITS ---
[facility] Test Date: 2025-06-28 Pat Name: JENNIFER ADAME Department: Room: - Gender: Female [employer] Technician: : 1940 Requested By: Elkin Stephens (ANDREW) Order Number: [id number] Reading MD: Elkin Stephens (MAIL COURIER) Measurements Intervals [place] Rate: 90 P: 87 [place]: 129 QRS: 77 QRSD: 69 T: 94 QT: 351 QTc: 431 Interpretive Statements SINUS RHYTHM WITH SINUS ARRHYTHMIA LOW QRS VOLTAGE IN PRECORDIAL LEADS [QRS DEFLECTION < 1.0 mV IN CHEST LEADS] Compared to ECG 05/25/2025 15:16:17 Low QRS voltage now present /store/S0/[id number].pdf
[2025-06-28 14:42] VITALS: BP 99/60; PULSE 89; RESP 20; TEMP 37; O2SAT 97
--- NOTE | 2025-06-28 14:52 | PD.EDRME ---
Rapid Medical Screening Exam [facility] Arrival date/time: 06/28/25 14:03 84-year-old female with a history of GERD evaluated yes today for GERD symptoms returns with complaints of nausea chest pain and throat burning Chief Complaint: Chest Pain Time Seen by Provider: 06/28/25 14:24 Vital signs: Vital Signs Temperature 98.6 F 06/28/25 14:42 Pulse Rate 89 06/28/25 14:42 Respiratory Rate 20 06/28/25 14:42 Blood Pressure 99/60 06/28/25 14:42 Pulse Oximetry (%) 97 06/28/25 14:42 Oxygen Delivery Method Room Air 06/28/25 14:42 Exam: ? Clinical Impression: ?
--- NOTE | 2025-06-28 15:29 | XR_ITS ---
Examination: CT chest, without intravenous contrast. Sagittal and coronal 2-D reconstructions. Exam date and time: June 28, 2025, 1557 hours, comparison April 03, 2025 INDICATIONS: Shortness of breath chest pain beginning 2 days ago, significant pneumonia left base moderate right moderate to large left pleural effusions 11 mm pulmonary nodule left upper lobe 4 mm pulmonary nodule right upper lobe on CT chest April 03, 2025 CTDI:vol (mGy) 5.85 DLP: (mGycm) 194 Technique: Multiple 3.0 mm axial sections of the chest to been obtained. Bone and lung density settings are obtained. Sagittal and coronal 2-D reconstructions have been obtained. Low dose protocols were performed. One or more of the following dose reduction techniques were used; automated exposure control, adjustment of the mA and/or KV according to patient size, use of iterative reconstruction technique. Findings: AP dimension ascending thoracic aorta 3.7 cm Pulmonary artery segments are not enlarged Moderate to large left pleural effusion Moderate right pleural effusion Pneumonia left base 14 mm pulmonary nodule left upper lobe Cirrhosis, liver irregular contour with moderate ascites Gastric mucosa appears thickened No hydronephrosis IMPRESSION: Moderate to large left pleural effusion Moderate right pleural effusion Pneumonia left base Enlarging nodule left upper lobe, differential would include lung carcinoma, pulmonary nodular metastatic disease Cirrhosis Moderate ascites Gastritis pattern
--- NOTE | 2025-06-28 15:36 | PD.EDADULT ---
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 Patient also stated she had nausea this am and had a vomiting episode after breakfast. Otherwise also mentioned some cough, but no phlegm and no fevers or chills. Patient recently seen in the ED due to generalized weakness and CXR appeared to have a pleural effusion, but otherwise labs unremarkable . Exam: ? Impression: ? Related Data Home Medications ?Medication ?Instructions ?Recorded ?Confirmed Alendronate Sodium * (FOSAMAX *) 35 mg PO Q7D #0 tabs 09/25/16 04/04/25 omeprazole 20 mg capsule,delayed 20 mg PO QDAY ##0 09/25/16 04/04/25 release simvastatin 10 mg tablet (Zocor) 10 mg PO HS #0 tabs 09/25/16 04/04/25 lisinopril 10 mg tablet 10 mg PO QDAY 09/28/24 04/04/25 Allergies Allergy/AdvReac Type Severity Reaction Status Date / Time No Known Allergies Allergy Verified 06/28/25 14:06 Review of Systems Review of Systems Systems Reviewed: All systems reviewed, normal except as documented Past Medical History Past Medical History NEUROLOGIC: Negative Neurological Disorders, Cerebrovascular Accident, Alzheimer's Disease or Seizures CARDIAC: Positive Hypercholesterolemia and Hypertension; Negative Cardiac Disorders, Myocardial Infarction, Angina or Congestive Heart Failure RESPIRATORY: Negative Chronic Obstructive Pulmonary Disease (COPD), Asthma or Emphysema GASTROINTESTINAL: Negative Gastrointestinal Disorders, Hepatitis, Cirrhosis, Gastrointestinal Bleed or Diverticulosis GENITOURINARY: Negative Genitourinary Disorders or Renal Disease REPRODUCTIVE: Positive Previous Pregnancies MUSCULOSKELETAL: Positive Musculoskeletal Disorders, Arthritis and Osteoporosis ENDOCRINE: Negative Endocrine Disorders, Diabetes Mellitus Type 1 or Diabetes Mellitus Type 2 HEMATOLOGIC: Positive Blood Disorders and Anemia; Negative Sickle Cell Disease OTHER HISTORY: Positive Hospitalization, Chemotherapy, Chicken Pox, Measles and Mumps; Negative Autoimmune Disease, Down Syndrome, Developmental Delay, Shingles, Falls, Blood Transfusions, Blood Transfusion Reaction, Anesthesia Reactions or Cancer Family History FAMILY HISTORY: Positive Family Cardiac Disorders and Family Surgery; Negative Family Psychiatric Problems, Family Respiratory Disorders, Family Gastrointestinal Problems, Family Cancer or Family Anesthesia Reaction Surgical History SURGICAL: Positive Abdominal Surgery and Bowel Surgery Social History SMOKING STATUS: Never smoker ED Exam Narrative Physical exam: Gen: A&O X 3, NAD, thin/frail elderly HEENT: NCAT, EOMI, Pupils reactive GRACIA, not icteric. External ears normal. No rhinorrhea. Moist mucous membranes. Neck: Supple, full range of motion, no observable masses, No meningeal sign. Lungs: No Respiratory distress, decreased breath sounds in L Lower lobe. CV: RRR, no murmurs. Abdomen: Soft, nondistended, No rebound tenderness. MSK: No joint swelling, no redness, peripheral pulses presents, 1+ peripheral edema. Skin: No rashes, petechiae, lesions. Neuro: No focal neurological deficits appreciated, sensory and motor intact. Psych: Anxious, appropriate mood and effect. Course Course Course Narrative: 14:51: Patient got zofran and protonix for heartburn 15:10 ordered labs and reviewed EKG no acute ST changes. 15:30: Patient personally seen by myself. Ordered labs and Chest CT given Hx of pulmonary nodules. 16:40: CT read as moderate/large pleural effusion on L and moderate pleural effusion on R, PNA left base, cirrhosis, moderate ascites and an enlarging L upper lobe nodule measuring 14mm from 11mm 3 months ago. CBC fairly unremarkable. 16:50: troponin and procalcitonin both negative and CMP fairly unremarkable. Will do bedside thoracentesis. Repeat trops at 17:50. 17:22: Patient complaining of heart burn gave maalox, bentyl, viscous lidocaine, and pepcid. Discussed possibility of thoracentesis along with risks and benefits, but patient unsure if she would like to proceed. 18:00: Patient reassessed states has improvements in her heart burn and feeling of not being able to swallow. Still feels nervous if it happens again. 18:10: spoke with patient states she is also having issues with swallowing and has had decreased PO intake do to this. Also wanted something to help her sleep, but at this time given her age explained that medications for anxiety can cause more issues with mentation. 18:11: Patient care transferred to Dr. Darci Johnson. Case disclosed with Attending Dr. Abhay Sanches PGY2 Disclaimer: Even though this this note was dictated by speech recognition and even though it was carefully revised there may still be minor errors in optical mechanic apprentice due to voice recognition software. Quality Measures none Orders Category Date Time Status Bedside COVID-19 Antigen Test NOW Care 06/28/25 15:29 Active Bedside Influenza A&B Antigen Test NOW Care 06/28/25 15:30 Active EKG (ED ONLY) *Do not use* NOW Care 06/28/25 14:[address] chest wo con Stat Exams 06/28/25 15:29 Completed EKG (ED Only) Stat Exams 06/28/25 14:15 Draft CBC [CBC] Stat Lab 06/28/25 15:50 Completed CMP [Comprehensive Metabolic Panel] Stat Lab 06/28/25 15:50 Completed Drug Screen,Urine Stat Lab 06/28/25 15:10 Stop Req Procalcitonin Stat Lab 06/28/25 15:50 Completed Troponin I Routine Lab 06/28/25 17:50 Ordered Troponin I Stat Lab 06/28/25 15:50 Completed Dicyclomine [Bentyl] Med 06/28/25 17:20 Discontinued 10 mg PO X1 ONE Famotidine [Pepcid] Med 06/28/25 17:20 Discontinued 40 mg PO X1 ONE Lidocaine 2% Viscous [Xylocaine 2% Viscous] Med 06/28/25 17:20 Discontinued 15 ml PO X1 ONE Ondansetron Odt [Zofran Odt] Med 06/28/25 14:51 Discontinued 4 mg PO X1 ONE Pantoprazole [Protonix] Med 06/28/25 14:51 Discontinued 40 mg PO X1 ONE mg Hyd/Al Hyd/Lizz Susp [Maalox Susp] Med 06/28/25 17:20 Discontinued 30 ml PO X1 ONE Vital Signs Vital signs: Vital Signs Temperature 98.6 F 06/28/25 14:42 Pulse Rate 89 06/28/25 14:42 Respiratory Rate 20 06/28/25 14:42 Blood Pressure 99/60 06/28/25 14:42 Pulse Oximetry (%) 97 06/28/25 14:42 Oxygen Delivery Method Room Air 06/28/25 14:42 Discharge Plan Prescriptions/Referrals Prescriptions/Med Rec: No Action Alendronate Sodium * (FOSAMAX *) 35 MG tablet 35 mg PO Q7D Qty: 0 simvastatin [Zocor] 10 MG tablet 10 mg PO HS Qty: 0 omeprazole 20 MG capsule,delayed release(DR/EC) 20 mg PO QDAY Qty: 0 lisinopril 10 mg tablet 10 mg PO QDAY Referrals: Hanna Graves MD [Primary Care Provider, Family Practice] - In 1 week Problem List Clinical Impression: Weakness, Pleural effusion, Chest pain, pleuritic Patient/Caregiver Discharge Instructions Other Activity Instructions:: Follow up with your oncologist within 5 days to discuss recurrent pleural effusion. Follow up with your primary care physician within 2-3 days Come back to the ED if worsening chest pain, shortness of breath, fevers, or any worsening symptoms. Education Materials: ED Chest Pain, Noncardiac, ED Pleural Effusion, ED Weakness (Uncertain Cause) Print Language: Citizen Of [place] MDM Medication Administration(s) Medication Administration History Discontinued Medications Al Hydrox/Mg Hydrox/Simethicone (Mg Hyd/Al Hyd/Lizz (Maalox Reg) Susp 30 Ml Udc) 30 ml PO X1 ONE Stop: 06/28/25 17:21 Last Admin: 06/28/25 17:31 Dose: 30 ml Documented By: MG Dicyclomine HCl (Dicyclomine 10 Mg Capsule) 10 mg PO X1 ONE Stop: 06/28/25 17:21 Last Admin: 06/28/25 17:31 Dose: 10 mg Documented By: MG Famotidine (Famotidine 20 Mg Tablet) 40 mg PO X1 ONE Stop: 06/28/25 17:21 Last Admin: 06/28/25 17:31 Dose: 40 mg Documented By: MG Lidocaine HCl (Lidocaine Viscous 2% 15 Ml Udc) 15 ml PO X1 ONE Stop: 06/28/25 17:21 Last Admin: 06/28/25 17:32 Dose: 15 ml Documented By: MG Ondansetron HCl (Ondansetron Odt 4 Mg Tabrap) 4 mg PO X1 ONE; Protocol Stop: 06/28/25 14:52 Last Admin: 06/28/25 16:13 Dose: 4 mg Documented By: LP Pantoprazole Sodium (Pantoprazole 40 Mg Tablet) 40 mg PO X1 ONE Stop: 06/28/25 14:52 Last Admin: 06/28/25 16:13 Dose: 40 mg Documented By: SONIA
[2025-06-28] MEDS: PANTOPRAZOLE 40 MG TABLET PO (16:13)
[2025-06-28] MEDS: ONDANSETRON ODT 4 MG TABRAP PO (16:13)
[2025-06-28 16:22] LABS: Basophils # (Auto) 0.0 Thou/mm3 (0.0-0.2); Basophils % (Auto) 0 % (0-2.5); Eosinophils # (Auto) 0.0 Thou/mm3 (0.0-0.5); Eosinophils % (Auto) 0 % (0-10); Hematocrit 34.6 % (36.0-46.0); Hemoglobin 11.5 g/dL (12.0-16.0); Immature Granulocytes Auto 0.02 Thou/mm3 (0.00-0.00); Lymphocytes # (Auto) 1.1 Thou/mm3 (1.0-4.8); Lymphocytes % (Auto) 16 % (10-50); Mean Corpuscular HGB Conc 33.2 g/dl (31.0-37.0); Mean Corpuscular Hemoglobin 27.2 pg (25.0-35.0); Mean Corpuscular Volume 82 fL (80-100); Monocytes # (Auto) 0.5 Thou/mm3 (0.0-0.8); Monocytes % (Auto) 7 % (0-12); Neutrophils # (Auto) 5.3 Thou/mm3 (1.8-7.7); Neutrophils % (Auto) 76 % (37-80); Nucleated Red Blood Cell # 0.00 Thou/mm3 (0.00-0.00); Nucleated Red Blood Cell % 0 /100 WBC (0); Platelet Count 237 Thou/mm3 (140-440); RDW Standard Deviation 48.9 fL (36.4-46.3); Red Blood Count 4.23 Miln/mm3 (4.00-5.20); White Blood Count 7.0 Thou/mm3 (3.6-11.0)
[2025-06-28 16:48] LABS: Alanine Aminotransferase 9 U/L (10-49); Albumin, Serum 3.2 gm/dL (3.4-4.8); Albumin/Globulin Ratio 1.7 (1.2-2.2); Alkaline Phosphatase 77 U/L (46-116); Anion Gap 10 (7-16); Aspartate Amino Transferase 17 U/L (0-34); BUN/Creatinine Ratio 24 Ratio (12-20); Bilirubin,Total 0.4 mg/dL (0.3-1.2); Blood Urea Nitrogen 12 mg/dL (9-23); Calcium 8.3 mg/dL (8.3-10.6); Calcium (Corrected) 8.9 mg/dL (8.5-10.1); Carbon Dioxide 26.0 mMol/L (20.0-31.0); Chloride 97 mMol/L (98-107); Creatinine (Component) 0.5 mg/dL (0.6-1.3); Globulin 1.9 gm/dL (2.3-3.5); Glucose 129 mg/dL (74-106); Osmolality,Calculated 268 (275-295); Potassium 3.6 mMol/L (3.4-5.1); Procalcitonin 0.08 ng/ml (0.0-0.49); Sodium 133 mMol/L (136-145); Total Protein 5.1 gm/dL (5.7-8.2); Troponin I 0.020 ng/mL (0.0-0.045); eGFR > 60 See Note
[2025-06-28] MEDS: FAMOTIDINE 20 MG TABLET 40 MG PO (17:31)
[2025-06-28] MEDS: MG HYD/AL HYD/SIME (Maalox Reg) SUSP 30 ML UDC PO (17:31)
[2025-06-28] MEDS: DICYCLOMINE 10 MG CAPSULE PO (17:31)
[2025-06-28] MEDS: LIDOCAINE VISCOUS 2% 15 ML UDC PO (17:32)
[2025-06-28 18:21] VITALS: BP 112/73; PULSE 79; RESP 18; TEMP 36.6; O2SAT 97
[2025-06-28 18:44] LABS: Troponin I < 0.020 ng/mL (0.0-0.045)
--- NOTE | 2025-06-28 19:04 | PD.EDADDENDU ---
Emergency Room Addendum Addendum Narrative: 18:00 - Care assumed from Dr. Davis (resident emergency physician). Past medical, surgical, social and family history reviewed. Vitals and home medications reviewed. Results and treatment plan discussed. I will assume the care of the patient at this time and will follow the patient, pending final disposition. The following addendum documentation note is intended to reflect any pending information, findings, or radiology results not included in the patient?s initial chart by the previous shift scribe. 19:14 - Dr. Latif made aware of the patient?s HPI, PMHx, lab and/or radiology results. Discussed treatment plan. Will consult an admission to the hospitalist. 19:20 - Discussed with Dr. Chaney for admission. Reviewed the patient?s HPI, PMHx, lab and/or radiology results. Discussed treatment plan. Will consult an admission to the hospitalist. 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 Records indicate patient is on Fosamax. Laboratory markers demonstrate stable hemoglobin and electrolytes. Patient with BL pleural effusions on CT scan. Currently resting comfortably, case discussed with Dr. Latif, our GI specialist, who has agreed to perform endocopy in the AM. Hospitalist consulted for admission.
--- NOTE | 2025-06-28 20:10 | ESHP_ITS ---
<Statement entered by Juan Pablo Camara MD - 06/29/25 06:22> I have discussed and was present for the essential components of the history, physical examination, diagnosis, and treatment plan with the resident. I agree with the patient's care as documented by the resident and amended herein by me. Juan Pablo Camara MD FACP. Documentation for date of: 06/28/25 HPI History of Present Illness History of present illness: 84-year-old female with a history of a malignant appendiceal mass status post perforation, off chemotherapy since 04/03, hypertension, and prior ventral hernia repair, was recently admitted on 04/03 for bilateral pleural effusions and shortness of breath. Since previous admission, the patient has experienced persistent heartburn and progressive dysphagia, involving both solids and liquids. Over the past three months, she has also reported a weight loss of approximately 10 pounds. The patient is no longer on Fosamax. She has been taking prednisone 10 mg daily for the last three months to prevent gastric upset. Patient was previously following Dr. Nicholson, oncologist, in [place], however has not going since 04/03. ED course: Initial vitals include T98.6, BP 99/60, HR 89, RR 20, O2 sat 97% room air. Notable labs include hemoglobin 11.5, sodium 133, potassium 3.6, creatinine 0.5, LFTs within normal range. UA negative. Chest CT shows large left pleural effusion, right pleural effusion, Past medical history: As stated above. Medications: Omeprazole 20 mg daily, simvastatin 10 mg daily, lisinopril 10 mg daily, prednisone 10 mg daily Past surgical history: Allergies: Laparotomy for ruptured appendix (2016), ventral hernia repair (Sep 2024) Family history: Noncontributory. Social history: No alcohol use, no smoking, no illicit drug use. Independent with ADLs, uses walker for mobility. Patient admitted for dysphagia workup pending EGD. Review of Systems Review of Systems Narrative Review of Systems: All systems reviewed negative unless stated otherwise above. Exam Vital Signs Temp Pulse Resp BP Pulse Ox O2 Del Method 97.9 F 79 18 112/73 97 Room Air 06/28/25 18:21 06/28/25 18:21 06/28/25 18:21 06/28/25 18:21 06/28/25 18:21 06/28/25 18:21 Narrative Exam General: AOx3, no acute distress, able to speak full sentences HEENT: NC/AT, mucous membranes moist, bilateral sclera anicteric Cardiovascular: regular rate and rhythm, S1/S2 present, no murmurs appreciated Pulmonary: clear to auscultation bilaterally, no rales/rhonchi/wheezes Abdominal: soft, non-tender, non-distended, no rebound/guarding, normal bowel sounds present Musculoskeletal: normal ROM, no peripheral edema Skin: warm and dry, intact, no rashes, Neuro: CN II-XII intact, no focal deficits Results: Labs 06/28/25 15:50 06/28/25 15:50 Labs: Short CBC 06/28/25 Range/Units 15:50 WBC 7.0 (3.6-11.0) Thou/mm3 Hgb 11.5 L (12.0-16.0) g/dL Hct 34.6 L (36.0-46.0) % Plt Count 237 D (140-440) Thou/mm3 BMP 06/28/25 15:50 Sodium 133 L Potassium 3.6 Chloride 97 L Carbon Dioxide 26.0 BUN 12 Creatinine 0.5 L Glucose 129 H Calcium 8.3 Cardiac Enzymes 06/28/25 06/28/25 Range/Units 15:50 18:17 Troponin I 0.020 < 0.020 (0.0-0.045) ng/mL Liver Function 06/28/25 Range/Units 15:50 Total Bilirubin 0.4 (0.3-1.2) mg/dL AST 17 (0-34) U/L ALT 9 L (10-49) U/L Alkaline Phosphatase 77 (46-116) U/L Albumin 3.2 L (3.4-4.8) gm/dL Quality Measures Quality Measures none Advance care planning discussed with:: patient Medications Home Medications and Allergies Home Medications ?Medication ?Instructions ?Recorded ?Confirmed ?Type Alendronate Sodium * (FOSAMAX *) 35 mg PO Q7D #0 tabs 09/25/16 06/28/25 History omeprazole 20 mg capsule,delayed 20 mg PO QDAY ##0 06/28/25 History release simvastatin 10 mg tablet (Zocor) 10 mg PO HS #0 tabs 0 09/25/16 06/28/25 History lisinopril 10 mg tablet 10 mg PO QDAY 09/28/2406/28 History ondansetron 4 mg disintegrating 4 mg PO Q12H PRN nause a and 06/28/25 06/28/25 History tablet vomiting prednisone 10 mg tablet 10 mg PO QDAY 06/28/2506/28 History Allergies Allergy/AdvReac Type Severity Reaction Status Date / Time No Known Allergies Allergy Verified 06/28/25 14:06 Visit Medications Discontinued Medications Al Hydrox/Mg Hydrox/Simethicone (Mg Hyd/Al Hyd/Lizz (Maalox Reg) Susp 30 Ml Udc) 30 ml PO X1 ONE Stop: 06/28/25 17:21 Last Admin: 06/28/25 17:31 Dose: 30 ml Dicyclomine HCl (Dicyclomine 10 Mg Capsule) 10 mg PO X1 ONE Stop: 06/28/25 17:21 Last Admin: 06/28/25 17:31 Dose: 10 mg Famotidine (Famotidine 20 Mg Tablet) 40 mg PO X1 ONE Stop: 06/28/25 17:21 Last Admin: 06/28/25 17:31 Dose: 40 mg Lidocaine HCl (Lidocaine Viscous 2% 15 Ml Udc) 15 ml PO X1 ONE Stop: 06/28/25 17:21 Last Admin: 06/28/25 17:32 Dose: 15 ml Ondansetron HCl (Ondansetron Odt 4 Mg Tabrap) 4 mg PO X1 ONE; Protocol Stop: 06/28/25 14:52 Last Admin: 06/28/25 16:13 Dose: 4 mg Pantoprazole Sodium (Pantoprazole 40 Mg Tablet) 40 mg PO X1 ONE Stop: 06/28/25 14:52 Last Admin: 06/28/25 16:13 Dose: 40 mg Assessment & Plan Plan 84-year-old female with a history of a malignant appendiceal mass s/p perforation, off chemotherapy since 04/03, HTN, and prior ventral hernia repair, presenting with persistent heartburn and progressive dysphagia, involving both solids and liquids. Patient admitted for dysphagia workup pending EGD. 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 Nicholson, who mentions that the patient should see palliative care as the patient is no longer coming for chemotherapy. If the patient is unable to follow-up with Dr. Nicholson, patient needs to establish care with local oncology. Plan ? GI consult placed, Dr. Latif to perform EGD tomorrow ? N.p.o. ? IV fluids ? Steroid has NOT been re-started, Day team to consider tapering of steroids #Hypertension Patient takes lisinopril 10 mg daily Plan ? Resume when no longer NPO #Generalized weakness #Poor appetite #Weight loss Likely multifactorial from malignancy and poor PO intake. Plan ? Dietitian consult placed Health Maintenance: Diet: N.p.o. GI prophylaxis: Protonix 40 mg IV daily DVT prophylaxis: Lovenox Antibiotics: none CODE STATUS: Full Disposition: [facility] Case discussed with my attending Dr. Camara, and senior resident, Dr. Tariq Luna MD PGY-1
[2025-06-28 20:30] VITALS: BP 110/70; PULSE 77; RESP 18; TEMP 36.6; O2SAT 97
[2025-06-28] MEDS: ENOXAPARIN SOD INJ 40 MG/0.4 ML SYRINGE SC (20:55)
[2025-06-28] MEDS: RINGERS LACTATED 1000 ML 1,000 ML 100 ML IV (20:57)
[2025-06-28 21:13] VITALS: PULSE 72; RESP 18; RESP 99
--- NOTE | 2025-06-28 21:37 | PD.IMCONS ---
HPI Data of Consult Requesting Physician: Juan Pablo Camara MD Primary Care Provider: Hanna Graves MD Consult Narrative Reason for consult: Dysphagia, dyspepsia History of present illness: 84 years old female being evaluated at request of the ER physician Dr. 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 Nicholson since then I been consulted basically for the GI tract symptoms of being unable to eat and having progressive dysphagia and heartburn cc:: cc: Juan Pablo Camara MD Review of Systems Review of Systems Systems Reviewed: All systems reviewed, normal except as documented Past Medical History Surgical History OTHER SURGICAL HX: Essential hypertension Hyperlipidemia Meds Home Medications and Allergies Home Medications ?Medication ?Instructions ?Recorded ?Confirmed ?Type omeprazole 20 mg capsule,delayed 20 mg PO QDAY ##0 09/25/16 06/28/25 History release simvastatin 10 mg tablet (Zocor) 10 mg PO HS #0 tabs 09/25/16 06/28/25 History lisinopril 10 mg tablet 10 mg PO QDAY 09/28/24 06/28/25 History ondansetron 4 mg disintegrating 4 mg PO Q12H PRN nausea and 06/28/25 06/28/25 History tablet vomiting Allergies Allergy/AdvReac Type Severity Reaction Status Date / Time No Known Allergies Allergy Verified 06/28/25 14:06 Exam Vital Signs Temp Pulse Resp BP Pulse Ox O2 Del Method 97.8 F 72 18 110/70 97 Room Air 06/28/25 20:30 06/28/25 21:13 06/28/25 21:13 06/28/25 20:30 06/28/25 20:30 06/28/25 20:30 Constitutional Comments: Chronically ill-appearing Routine Respiratory Exam Comments: Scattered rhonchi and decreased breath sounds Routine Abdominal Exam Comments: Soft nontender Results Labs 06/30/25 04:45 06/30/25 04:45 Labs: Short CBC 06/28/25 Range/Units 15:50 WBC 7.0 (3.6-11.0) Thou/mm3 Hgb 11.5 L (12.0-16.0) g/dL Hct 34.6 L (36.0-46.0) % Plt Count 237 D (140-440) Thou/mm3 BMP 06/28/25 15:50 Sodium 133 L Potassium 3.6 Chloride 97 L Carbon Dioxide 26.0 BUN 12 Creatinine 0.5 L Glucose 129 H Calcium 8.3 Cardiac Enzymes 06/28/25 06/28/25 Range/Units 15:50 18:17 Troponin I 0.020 < 0.020 (0.0-0.045) ng/mL Liver Function 06/28/25 Range/Units 15:50 Total Bilirubin 0.4 (0.3-1.2) mg/dL AST 17 (0-34) U/L ALT 9 L (10-49) U/L Alkaline Phosphatase 77 (46-116) U/L Albumin 3.2 L (3.4-4.8) gm/dL Assessment and Plan Additional Assessment & Plan Additional Plan: # Dysphagia # Dyspepsia # Abnormal weight loss Plan Consent obtained for fiberoptic esophagogastroduodenoscopy with possible biopsy possible therapeutic intervention under intravenous moderate sedation scheduled for tomorrow afternoon Patient can have clear liquid diet till 10 AM tomorrow then n.p.o. Other medical problems include Metastatic appendiceal carcinoma last chemotherapy treatment March [address] Nicholson in [place] the oncology group essential hypertension Hyperlipidemia Thank you very much for the opportunity to participate in the care of this patient
[2025-06-28 22:04] VITALS: BMI 20.7
[2025-06-29] VITALS (19 sets, daily range): BP systolic 94–145; BP diastolic 55–93; PULSE 59–106; RESP 8–97; TEMP 36.2–37.1; O2SAT 96–100; BMI 20.7
--- NOTE | 2025-06-29 | XR_ITS ---
EXAMINATION: AP chest single view TECHNIQUE: AP portable upright chest single view Date and time: June 29, 2025, 1426 hours, comparison June 27, 2025 INDICATIONS: Post left thoracentesis FINDINGS: No pneumothorax post thoracentesis Bilateral pleural fluid again noted Mild prominence left ventricle Right internal jugular Port-A-Cath tip satisfactory position Pneumonia at both bases IMPRESSION: No pneumothorax post thoracentesis
[2025-06-29 05:47] LABS: Basophils # (Auto) 0.0 Thou/mm3 (0.0-0.2); Basophils % (Auto) 0 % (0-2.5); Eosinophils # (Auto) 0.0 Thou/mm3 (0.0-0.5); Eosinophils % (Auto) 0 % (0-10); Hematocrit 28.7 % (36.0-46.0); Hemoglobin 9.6 g/dL (12.0-16.0); Immature Granulocytes Auto 0.01 Thou/mm3 (0.00-0.00); Lymphocytes # (Auto) 1.1 Thou/mm3 (1.0-4.8); Lymphocytes % (Auto) 23 % (10-50); Mean Corpuscular HGB Conc 33.4 g/dl (31.0-37.0); Mean Corpuscular Hemoglobin 27.7 pg (25.0-35.0); Mean Corpuscular Volume 83 fL (80-100); Monocytes # (Auto) 0.6 Thou/mm3 (0.0-0.8); Monocytes % (Auto) 13 % (0-12); Neutrophils # (Auto) 2.9 Thou/mm3 (1.8-7.7); Neutrophils % (Auto) 63 % (37-80); Nucleated Red Blood Cell # 0.00 Thou/mm3 (0.00-0.00); Nucleated Red Blood Cell % 0 /100 WBC (0); Platelet Count 149 Thou/mm3 (140-440); RDW Standard Deviation 49.2 fL (36.4-46.3); Red Blood Count 3.47 Miln/mm3 (4.00-5.20); White Blood Count 4.6 Thou/mm3 (3.6-11.0)
[2025-06-29 06:22] LABS: Alanine Aminotransferase < 7 U/L (10-49); Albumin, Serum 2.5 gm/dL (3.4-4.8); Albumin/Globulin Ratio 1.8 (1.2-2.2); Alkaline Phosphatase 58 U/L (46-116); Anion Gap 8 (7-16); Aspartate Amino Transferase 13 U/L (0-34); BUN/Creatinine Ratio 28 Ratio (12-20); Bilirubin,Total 0.4 mg/dL (0.3-1.2); Blood Urea Nitrogen 11 mg/dL (9-23); Calcium 7.5 mg/dL (8.3-10.6); Calcium (Corrected) 8.7 mg/dL (8.5-10.1); Carbon Dioxide 26.6 mMol/L (20.0-31.0); Chloride 99 mMol/L (98-107); Creatinine (Component) 0.4 mg/dL (0.6-1.3); Estimated Creatinine Clearance 95.2 mL/min (>60); Globulin 1.4 gm/dL (2.3-3.5); Glucose 82 mg/dL (74-106); Magnesium 2.0 mg/dL (1.6-2.6); Osmolality,Calculated 266 (275-295); Phosphorous 3.6 mg/dL (2.4-5.1); Potassium 3.6 mMol/L (3.4-5.1); Sodium 134 mMol/L (136-145); Total Protein 3.9 gm/dL (5.7-8.2); eGFR > 60 See Note
--- NOTE | 2025-06-29 11:40 | ESPR_ITS ---
Documentation for date of: 06/29/25 Subjective Subjective Interval history: The patient was admitted overnight for 3 months of progressive dysphagia involving solids and liquids, persistent heartburn, nausea/vomiting intermittently, and 10 lb unintentional weight loss. She also has a known history of malignant pleural effusions (March 2025 pathology: CK20+, CK7? metastatic carcinoma consistent with appendiceal primary). She reports that swallowing difficulties worsened this week and that she has had increasing fatigue and poor appetite. She has not followed with her oncologist, Dr. Nicholson, since March. On arrival yesterday her labs showed normal WBC, no infection signs. CT chest showed enlarging RANDAL pulmonary nodule, worsening pleural effusions, ascites, and gastric wall thickening (gastritis pattern). GI was consulted and scheduled an EGD for today. Today, patient reports feeling much better than yesterday. Breathing improved, tolerated clear liquid breakfast with no difficulty, no nausea/vomiting, no dizziness, and slept well overnight. All questions were answered and she understands the plan for EGD. Exam Vital Signs Temp Pulse Resp BP Pulse Ox O2 Del Method 98.0 F 78 18 131/77 H 98 Room Air 06/29/25 11:37 06/29/25 11:37 06/29/25 11:37 06/29/25 11:37 06/29/25 11:37 06/29/25 11:37 Narrative Exam General: Alert, oriented, comfortable, no distress HEENT: MMM, sclera anicteric Heart: RRR, normal S1/S2, no murmurs Lungs: Diminished sounds at bases, no wheezes/rales, non-labored breathing Abdomen: Soft, non-tender, non-distended, normal bowel sounds Extremities: No edema today Neuro: Cranial nerves intact, no focal deficits Skin: Warm, dry, intact Objective Labs 06/29/25 04:44 06/29/25 04:44 Labs: Laboratory Results - last 24 hr 06/28/25 06/28/25 06/29/25 15:50 18:17 04:44 WBC 7.0 4.6 RBC 4.23 3.47 L Hgb 11.5 L 9.6 L Hct 34.6 L 28.7 L MCV 82 83 MCH 27.2 27.7 MCHC 33.2 33.4 RDW Std Deviation 48.9 H 49.2 H Plt Count 237 D 149 D Neut % (Auto) 76 63 Lymph % (Auto) 16 23 [place] % (Auto) 7 13 H Eos % (Auto) 0 0 Baso % (Auto) 0 0 Neut # (Auto) 5.3 2.9 Lymph # (Auto) 1.1 1.1 [place] # (Auto) 0.5 0.6 Eos # (Auto) 0.0 0.0 Baso # (Auto) 0.0 0.0 Immature Gran # (Auto) 0.02 H 0.01 H Absolute Nucleated RBC 0.00 0.00 Immature Gran % 0 0 Nucleated RBC % 0 0 Sodium 133 L 134 L Potassium 3.6 3.6 Chloride 97 L 99 Carbon Dioxide 26.0 26.6 Anion Gap 10 8 BUN 12 11 Creatinine 0.5 L 0.4 L Estim Creat Clear Calc Not Performed. 95.2 eGFR > 60 > 60 BUN/Creatinine Ratio 24 H 28 H Glucose 129 H 82 Calculated Osmolality 268 L 266 L Calcium 8.3 7.5 L Corrected Calcium 8.9 8.7 Phosphorus 3.6 Magnesium 2.0 Total Bilirubin 0.4 0.4 AST 17 13 ALT 9 L < 7 L Alkaline Phosphatase 77 58 D Troponin I 0.020 < 0.020 Total Protein 5.1 L 3.9 L Albumin 3.2 L 2.5 L D Globulin 1.9 L 1.4 L Albumin/Globulin Ratio 1.7 1.8 Procalcitonin 0.08 Quality Measures Quality Measures VTE prophylaxis Advance care planning discussed with:: patient Assessment & Plan Assessment Current Active Medications: Generic Name Dose Route Start Last Admin Trade Name Freq PRN Reason Stop Dose Admin Acetaminophen 650 mg 06/28/25 20:01 Acetaminophen 325 Mg Tablet PO 07/28/25 20:00 Q6H PRN PAIN (1-3) OR FEVER > 100.4 Enoxaparin Sodium 40 mg 06/28/25 20:10 06/28/25 20:55 Enoxaparin Sod Inj 40 Mg/0.4 Ml Syringe SC 07/12/25 20:09 40 mg HS BALA Administration Ondansetron HCl 4 mg 06/28/25 20:01 Ondansetron Inj 2 Mg/Ml Inj 2 Ml IVP 07/28/25 20:00 Q6H PRN NAUSEA OR VOMITING Protocol Pantoprazole Sodium 40 mg 06/28/25 20:15 06/29/25 09:25 Pantoprazole Inj 40 Mg Vial IVP 07/28/25 20:14 40 mg QDAY BALA Administration Plan 84-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 #Dysphagia (progressive, solids + liquids) undergoing evaluation today Patient reports 3 months of progressive dysphagia to solids and liquids, heartburn, and poor appetite. She tolerated clear liquids today better than prior. Given her underlying metastatic disease, differential includes extrinsic compression, esophageal involvement from metastasis, peptic stricture, GERD- related esophagitis, or gastroparesis. Plan: * EGD today with GI (diagnostic ? therapeutic intervention, biopsy as needed) * NPO per GI instructions * IV fluids while NPO * Continue PPI (Protonix IV) * Monitor for aspiration, recurrent vomiting #Malignant pleural effusions (L > R), metastatic appendiceal carcinoma March pleural fluid cytology confirmed CK20+, CK7? metastatic carcinoma consistent with appendiceal primary. CT now shows progression with moderate-large effusions, RANDAL enlarging nodule. Today patient?s breathing is improved, no oxygen requirement. Plan: * Monitor respiratory status and O2 PRN * Ordered US thoracentesis of left lung. * No antibiotics needed (WBC normal, procal negative, afebrile) * Trend respiratory status daily #Metastatic appendiceal carcinoma Off chemotherapy since March 2025. Imaging shows worsening pleural disease, nodules, ascites, and malnutrition. Patient has not been following with oncology. Plan: * Strongly recommend she returns to Dr. Nicholson ([facility]) * If unable to follow there -> coordinate local oncology referral with Dr. Gonzales. * Hold prednisone unless needed for another indication; consider taper after EGD #Weight loss, poor appetite, and generalized weakness Likely due to malignancy and poor oral intake secondary to dysphagia and upper GI symptoms. Albumin 2.5 supports malnutrition. Plan: * Nutrition consult in place * Encourage PO intake after EGD * Reassess for need of supplements (Ensure, Boost) #Hypertension BP 170/75 this morning. On lisinopril 10 mg daily at home. Plan: * Resume lisinopril after EGD when PO is allowed * Monitor BP closely #Anemia (Hgb 9.6 from 11.5) Likely multifactorial: chronic disease + nutritional decline. No signs of bleeding. EGD will evaluate for upper GI source. Plan: * Trend CBC * Evaluate for bleeding if Hgb continues to drop * Follow EGD findings #Cirrhosis with ascites (suspected malignant or chronic liver disease) CT suggests cirrhosis and moderate ascites. No stigmata of acute decompensation. Plan: * Monitor LFTs, INR, abdomen exam Health Maintenance: Diet: NPO for EGD DVT prophylaxis: Lovenox (hold today if GI requests pre-procedure) GI prophylaxis: Protonix IV Antibiotics: None Code status: Full Disposition: Pending EGD results and oncology plan ----- Plan discussed with attending physician Dr. Delores Alexandre MD PGY-1 Internal Medicine Attending Provider Attestation/Addendum I have discussed and was present for the essential components of the history, physical examination, diagnosis, and treatment plan with the resident. I agree with the patient's care as documented by the resident and amended herein by me. Davidson Estrella DO. Although this document has been carefully reviewed, there may still be some phonetic and other typographical errors. These errors are purely grammatical due to imperfections in the software program and should not be construed in any way to compromise the substance of the patient's medical care during this visit.
--- NOTE | 2025-06-29 11:41 | XR_ITS ---
EXAMINATION: Ultrasound-guided left thoracentesis Ultrasound right hemithorax Ultrasound left hemithorax Date and time: June 29, 2025, 1345 hours INDICATIONS: Shortness of breath this week, significant bilateral pleural effusions CT chest study yesterday TECHNIQUE AND FINDINGS: High-resolution grayscale sonographic images right and left hemithoraces Significant right large left pleural effusions Informed consent provided. Timeout performed. Skin prepped over the left hemithorax and sterile drape applied hand hygiene ultrasound sterile technique 1% lidocaine administered for local anesthesia Utilizing ultrasonographic guidance successful percutaneous placement of 5 Swedish catheter in the left pleural space 850 cc pleural fluid removed IMPRESSION: Successful ultrasound-guided left thoracentesis, 850 cc pleural fluid removed
--- NOTE | 2025-06-29 12:05 | PC.DIETICIAN ---
Dietitian consult:Patient meets ASPEN criteria for moderate chronic disease related malnutrition due to wt loss >7.5% [id number], poor oral intake Thank you
[2025-06-29 12:56] LABS: INR 1.0 (0.9-1.3); Partial Thromboplastin Time 25.6 Seconds (22.0-36.0); Prothrombin Time 10.5 Seconds (9.0-12.2)
--- NOTE | 2025-06-29 15:27 | PD.ONCCONS ---
HPI Data of Consult Consult date: 06/29/25 Requesting Physician: Juan Pablo Camara MD Primary Care Provider: Hanna Graves MD Consult Narrative Reason for consult: Metastatic appendiceal CA History of present illness: Patient is an 84-year-old lady who underwent laparoscopic converted to open appendectomy performed 2017 pathology reviewed at [facility] invasive mucus is adenocarcinoma subserosa and serosal surface. Has been receiving intermittent chemo at [facility] in [place]. 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 Underwent thoracentesis 04/04/2025 revealing metastatic carcinoma. Admitted with progressive dysphagia for both solids and liquids with weight loss approximately 10 pounds in recent weeks. Last received chemo April [address] [place] 06/28/2025 revealed moderate to large left pleural effusion and moderate right pleural effusion along with pneumonia left base and enlarging nodule left upper lobe. Abdominal pelvis CT 06/27/2025 pneumonia left base irregular liver contour cirrhosis pattern moderate ascites and hepatic colopathy hepatic enteropathy pattern. Had thoracentesis today removing 850 cc from the left chest. Patient has been evaluated Dr. Latif and is scheduled for fiberoptic esophagogastroduodenoscopy with possible biopsy due to her dysphagia dyspepsia and weight loss. cc:: cc: Juan Pablo Camara MD Past Medical History Social History SOCIAL: Originally from [place] bilingual denies smoking drinking Past Medical History Comments PMH COMMENT: Appendiceal carcinoma status post perforation on chemo. Hypertension ventral hernia s/p repair. Meds Home Medications and Allergies Home Medications ?Medication ?Instructions ?Recorded ?Confirmed ?Type Alendronate Sodium * (FOSAMAX *) 35 mg PO Q7D #0 tabs 09/25/16 06/28/25 History omeprazole 20 mg capsule,delayed 20 mg PO QDAY ##0 09/25/16 06/28/25 History release simvastatin 10 mg tablet (Zocor) 10 mg PO HS #0 tabs 09/25/16 06/28/25 History lisinopril 10 mg tablet 10 mg PO QDAY 09/28/24 06/28/25 History ondansetron 4 mg disintegrating 4 mg PO Q12H PRN nausea and 06/28/25 06/28/25 History tablet vomiting prednisone 10 mg tablet 10 mg PO QDAY 06/28/25 06/28/25 History Allergies Allergy/AdvReac Type Severity Reaction Status Date / Time No Known Allergies Allergy Verified 06/28/25 14:06 Exam Vital Signs Temp Pulse Resp BP Pulse Ox O2 Del Method 98.0 F 78 18 131/77 H 98 Room Air 06/29/25 11:37 06/29/25 11:37 06/29/25 11:37 06/29/25 11:37 06/29/25 11:37 06/29/25 11:37 Narrative Exam Appearing well and breathing comfortably following thoracentesis. Results Labs 06/29/25 04:44 06/29/25 04:44 Labs: Short CBC 06/28/25 06/29/25 Range/Units 15:50 04:44 WBC 7.0 4.6 (3.6-11.0) Thou/mm3 Hgb 11.5 L 9.6 L (12.0-16.0) g/dL Hct 34.6 L 28.7 L (36.0-46.0) % Plt Count 237 D 149 D (140-440) Thou/mm3 BMP 06/28/25 06/29/25 15:50 04:44 Sodium 133 L 134 L Potassium 3.6 3.6 Chloride 97 L 99 Carbon Dioxide 26.0 26.6 BUN 12 11 Creatinine 0.5 L 0.4 L Glucose 129 H 82 Calcium 8.3 7.5 L Cardiac Enzymes 06/28/25 06/28/25 Range/Units 15:50 18:17 Troponin I 0.020 < 0.020 (0.0-0.045) ng/mL Liver Function 06/28/25 06/29/25 Range/Units 15:50 04:44 Total Bilirubin 0.4 0.4 (0.3-1.2) mg/dL AST 17 13 (0-34) U/L ALT 9 L < 7 L (10-49) U/L Alkaline Phosphatase 77 58 D (46-116) U/L Albumin 3.2 L 2.5 L D (3.4-4.8) gm/dL Assessment and Plan Additional Assessment & Plan Additional Plan: 1. 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 2. Receiving chemo under Dr. Nicholson's direction [facility] last chemo March 2025. 3. Admitted with dysphagia weight loss awaiting upper endoscopy Dr. Latif. 4. Will follow. Thank you for allowing me to evaluate this patient
[2025-06-29] MEDS: SODIUM CHLORIDE 0.9% 100 ML IV (20:50)
--- NOTE | 2025-06-29 21:19 | SUR.PHASEI ---
2118 To PACU able to lift head off of pillow, following simple commands continue to monitor pt katia signs and status.
--- NOTE | 2025-06-29 21:53 | SUR.PHASEI ---
2150 Transfer to room 380 in stable condition no complaints no s/s of distress noted.
[2025-06-30] VITALS (10 sets, daily range): BP systolic 93–126; BP diastolic 62–85; PULSE 72–90; RESP 16–100; TEMP 36.1–36.8; O2SAT 96
[2025-06-30 05:36] LABS: Basophils # (Auto) 0.0 Thou/mm3 (0.0-0.2); Basophils % (Auto) 0 % (0-2.5); Eosinophils # (Auto) 0.0 Thou/mm3 (0.0-0.5); Eosinophils % (Auto) 0 % (0-10); Hematocrit 32.6 % (36.0-46.0); Hemoglobin 10.8 g/dL (12.0-16.0); Immature Granulocytes Auto 0.01 Thou/mm3 (0.00-0.00); Lymphocytes # (Auto) 1.1 Thou/mm3 (1.0-4.8); Lymphocytes % (Auto) 25 % (10-50); Mean Corpuscular HGB Conc 33.1 g/dl (31.0-37.0); Mean Corpuscular Hemoglobin 27.3 pg (25.0-35.0); Mean Corpuscular Volume 83 fL (80-100); Monocytes # (Auto) 0.6 Thou/mm3 (0.0-0.8); Monocytes % (Auto) 12 % (0-12); Neutrophils # (Auto) 2.9 Thou/mm3 (1.8-7.7); Neutrophils % (Auto) 63 % (37-80); Nucleated Red Blood Cell # 0.00 Thou/mm3 (0.00-0.00); Nucleated Red Blood Cell % 0 /100 WBC (0); Platelet Count 181 Thou/mm3 (140-440); RDW Standard Deviation 48.7 fL (36.4-46.3); Red Blood Count 3.95 Miln/mm3 (4.00-5.20); White Blood Count 4.6 Thou/mm3 (3.6-11.0)
[2025-06-30 06:11] LABS: Alanine Aminotransferase < 7 U/L (10-49); Albumin, Serum 2.7 gm/dL (3.4-4.8); Albumin/Globulin Ratio 1.7 (1.2-2.2); Alkaline Phosphatase 68 U/L (46-116); Anion Gap 9 (7-16); Aspartate Amino Transferase 16 U/L (0-34); BUN/Creatinine Ratio 25 Ratio (12-20); Bilirubin,Total 0.5 mg/dL (0.3-1.2); Blood Urea Nitrogen 10 mg/dL (9-23); Calcium 7.6 mg/dL (8.3-10.6); Calcium (Corrected) 8.6 mg/dL (8.5-10.1); Carbon Dioxide 25.1 mMol/L (20.0-31.0); Chloride 99 mMol/L (98-107); Creatinine (Component) 0.4 mg/dL (0.6-1.3); Estimated Creatinine Clearance 92.0 mL/min (>60); Globulin 1.6 gm/dL (2.3-3.5); Glucose 82 mg/dL (74-106); Magnesium 1.9 mg/dL (1.6-2.6); Osmolality,Calculated 264 (275-295); Phosphorous 3.6 mg/dL (2.4-5.1); Potassium 3.4 mMol/L (3.4-5.1); Sodium 133 mMol/L (136-145); Total Protein 4.3 gm/dL (5.7-8.2); eGFR > 60 See Note
[2025-06-30] MEDS: POTASSIUM CHLORIDE 10% 20 MEQ/15 ML UDC PO (09:16)
[2025-06-30] MEDS: MIRTAZAPINE 15 MG TABLET 7.5 MG PO (11:10)
--- NOTE | 2025-06-30 13:24 | PC.SS ---
SNF referral submitted on behalf of pt request, pending responses
--- NOTE | 2025-06-30 13:34 | PC.SS ---
Kyleigh Oneal is a 84-year-old female admitted to Med Surg for Dysphagia. SS conducted bedside contact with the patient to complete initial assessment and to discuss discharge planning. Role and reason explained. Patient confirmed demographic information. Patient identifies Son Brandon Oneal [phone] as her surrogate decision maker. Pt states she is able to complete all ADL?s independently. Pt uses a walker at home. Pts PCP is Dr. Hanna Graves. Discharge options discussed and the pt wishes to go to short-term rehab her #1 preference is [facility].? Family will provide transportation upon DC. No further intervention required at this time, criminal justice social worker would be available to address any further concerns. DC Plan: SNF ? Contact: Nacho Taylor Address: Confirmed on face sheet PCP: Ely Bella
--- NOTE | 2025-06-30 14:20 | PC.SS ---
SS called Eamon with [facility] [phone] to update on pt requesting SNF. PT is to do eval now. Eamon stated she will keep an eye out for PT note to determine eligibility. PT SNF choice is [facility]
--- NOTE | 2025-06-30 14:41 | PC.SS ---
Rounding: Pending PT, DC plan if auth provided is DC to [facility]. PAS[facility] completed and downloaded.
[2025-06-30] MEDS: ACETAMINOPHEN 325 MG TABLET 650 MG PO (15:10)
--- NOTE | 2025-06-30 15:34 | ESPR_ITS ---
Documentation for date of: 06/30/25 Subjective Subjective Interval history: Patient reports swallowing is better after the dilation yesterday. Tolerated clear liquids well. No chest discomfort, no heartburn, no nausea or vomiting. Appetite remains poor. Breathing stable. Slept well. Patient is agreeable to temporary SNF placement as she lives alone and family cannot provide the level of care she needs at home. All questions answered. Exam Vital Signs Temp Pulse Resp BP Pulse Ox O2 Del Method O2 Flow Rate 98.2 F 72 18 126/81 96 Room Air 3 06/30/25 12:00 06/30/25 12:00 06/30/25 12:00 06/30/25 12:00 06/30/25 12:00 06/30/25 12:00 06/30/25 04:00 Narrative Exam General: Alert, oriented, comfortable, no distress HEENT: MMM, sclera anicteric Heart: RRR, normal S1/S2, no murmurs Lungs: Decreased breath sounds at bases, no wheezes/rales, non-labored breathing Abdomen: Soft, non-tender, non-distended, normal bowel sounds Extremities: No edema today Neuro: Cranial nerves intact, no focal deficits Skin: Warm, dry, intact Objective Labs 06/30/25 04:45 06/30/25 04:45 Labs: Laboratory Results - last 24 hr 06/30/25 04:45 WBC 4.6 RBC 3.95 L Hgb 10.8 L Hct 32.6 L MCV 83 MCH 27.3 MCHC 33.1 RDW Std Deviation 48.7 H Plt Count 181 D Neut % (Auto) 63 Lymph % (Auto) 25 [place] % (Auto) 12 Eos % (Auto) 0 Baso % (Auto) 0 Neut # (Auto) 2.9 Lymph # (Auto) 1.1 [place] # (Auto) 0.6 Eos # (Auto) 0.0 Baso # (Auto) 0.0 Immature Gran # (Auto) 0.01 H Absolute Nucleated RBC 0.00 Immature Gran % 0 Nucleated RBC % 0 Sodium 133 L Potassium 3.4 Chloride 99 Carbon Dioxide 25.1 Anion Gap 9 BUN 10 Creatinine 0.4 L Estim Creat Clear Calc 92.0 eGFR > 60 BUN/Creatinine Ratio 25 H Glucose 82 Calculated Osmolality 264 L Calcium 7.6 L Corrected Calcium 8.6 Phosphorus 3.6 Magnesium 1.9 Total Bilirubin 0.5 AST 16 ALT < 7 L Alkaline Phosphatase 68 Total Protein 4.3 L Albumin 2.7 L Globulin 1.6 L Albumin/Globulin Ratio 1.7 Quality Measures Quality Measures VTE prophylaxis Advance care planning discussed with:: patient Assessment & Plan Assessment Current Active Medications: Generic Name Dose Route Start Last Admin Trade Name Freq PRN Reason Stop Dose Admin Acetaminophen 650 mg 06/28/25 20:01 06/30/25 15:10 Acetaminophen 325 Mg Tablet PO 07/28/25 20:00 650 mg Q6H PRN Administration PAIN (1-3) OR FEVER > 100.4 Atorvastatin Calcium 5 mg 06/29/25 21:00 06/29/25 21:59 Atorvastatin Calcium 10 Mg Tablet PO 07/29/25 20:59 Not Given HS BALA Protocol Enoxaparin Sodium 40 mg 06/28/25 20:10 06/29/25 21:59 Enoxaparin Sod Inj 40 Mg/0.4 Ml Syringe SC 07/12/25 20:09 Not Given HS BALA Lidocaine 1 patch 06/30/25 15:12 Lidocaine 5% 1 Patch TOP 07/30/25 15:11 UD PRN PAIN Protocol Lisinopril 10 mg 06/30/25 09:00 06/30/25 08:01 Lisinopril 2.5 Mg Tablet PO 07/30/25 08:59 10 mg QDAY BALA Administration Mirtazapine 7.5 mg 06/30/25 11:15 06/30/25 11:10 Mirtazapine 15 Mg Tablet PO 07/30/25 11:14 7.5 mg QDAY BALA Administration Ondansetron HCl 4 mg 06/28/25 20:01 Ondansetron Inj 2 Mg/Ml Inj 2 Ml IVP 07/28/25 20:00 Q6H PRN NAUSEA OR VOMITING Protocol Pantoprazole Sodium 40 mg 06/28/25 20:15 06/30/25 08:02 Pantoprazole Inj 40 Mg Vial IVP 07/28/25 20:14 40 mg QDAY BALA Administration Plan 84F with metastatic appendiceal carcinoma, malignant pleural effusions, and recent EGD for dysphagia, now improving post-esophageal dilation and pending SNF placement. # Dysphagia, improving post-dilation Patient reports 3 months of progressive dysphagia to solids and liquids, heartburn, and poor appetite. Improved swallowing today after dilation. No nausea/vomiting; no chest pain; tolerated liquids then tolerated regular diet. Plan: * Advanced to regular diet and tolerated it well * Discontinue alendronate. 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 Imaging shows worsening pleural disease, nodules, ascites, and malnutrition. Patient has not been following with oncology. Prefers local oncology -> consult placed to Dr. Gonzales. Dr. Gonzales recommended patient to go see a Dr. Nicholson and discuss option of transfer of care to Dr. Gonzales. Plan: * Strongly recommend she returns to Dr. Nicholson ([facility]) one more time to discuss transfer of care as per Dr. Gonzales. * Follow-up on pathology from EGD. * Hold prednisone as patient was using it for stimulating appetite. * Started mirtazapine 7.5 daily. # Malignant pleural effusions Ultrasound thoracentesis was completed yesterday 06/29/2025 with 850 cc out. Stable breathing today close thoracentesis. Plan: * Monitor respiratory status * Repeat thoracentesis only if symptomatic #Weight loss, poor appetite, and generalized weakness Appetite still low despite improved swallowing. Plan: * Start mirtazapine 7.5 mg daily to stimulate appetite * Discharge patient on mirtazapine as well * Encourage small frequent meals #Hypertension BP stable. On lisinopril 10 mg daily at home. Plan: * Continue lisinopril 10 mg daily. * Monitor BP closely #Anemia (Hgb 10.8) Likely multifactorial: chronic disease + nutritional decline. No signs of bleeding. Plan: * Trend CBC #Cirrhosis with ascites (suspected malignant or chronic liver disease) CT suggests cirrhosis and moderate ascites. No stigmata of acute decompensation. Plan: * Monitor LFTs, INR, abdomen exam Health Maintenance: Diet: Regular diet. DVT prophylaxis: Lovenox GI prophylaxis: Protonix IV Antibiotics: None Code status: Full Disposition: Patient agrees to short-term SNF placement for rehab and support due to living alone and limited family assistance. ----- Plan discussed with attending physician Dr. Delores Alexandre MD PGY-1 Internal Medicine Attending Provider Attestation/Addendum I have discussed and was present for the essential components of the history, physical examination, diagnosis, and treatment plan with the resident. I agree with the patient's care as documented by the resident and amended herein by me. Davidson Estrella DO. Although this document has been carefully reviewed, there may still be some phonetic and other typographical errors. These errors are purely grammatical due to imperfections in the software program and should not be construed in any way to compromise the substance of the patient's medical care during this visit. Patient seen and evaluated this AM. Vital signs stable, patient afebrile, no acute events overnight. Labs largely unremarkable, hemoglobin low but stable at 10.8, sodium 133. Yesterday's thoracentesis removed 850 mL fluid. EGD significant for esophageal stenosis which was dilated, esophagitis and gastritis. Will continue to hold the patient's alendronate for potential pill induced esophagitis, will also start mirtazapine today 7.5 mg daily for appetite stimulation and discontinue patient's prednisone during this visit per oncology recommendations. Recommend patient to see Dr. Nicholson, her oncologist in [place] and explain her wishes to change oncologist due to distance from [place]. PT eval pending, the patient would like SNF placement going forward.
--- NOTE | 2025-06-30 16:16 | PC.SS ---
Follow up note: Eamon @ insurance [employer] called with auth. staff set up transport with [employer] for a knot picker cloth of 6p.m. SS notified family.
--- NOTE | 2025-06-30 18:13 | PD.IMPROG ---
Documentation for date of: 06/30/25 Subjective Subjective Interval history: Patient evaluated dysphagia symptoms have gotten better after endoscopic dilatation There is a mid gastric body mass biopsies are pending Exam Vital Signs Temp Pulse Resp BP Pulse Ox O2 Del Method O2 Flow Rate 97.2 F 90 18 107/74 96 Room Air 3 06/30/25 16:00 06/30/25 16:00 06/30/25 16:00 06/30/25 16:00 06/30/25 16:00 06/30/25 16:00 06/30/25 04:00 Objective Labs 06/30/25 04:45 06/30/25 04:45 Labs: Laboratory Results - last 24 hr 06/30/25 04:45 WBC 4.6 RBC 3.95 L Hgb 10.8 L Hct 32.6 L MCV 83 MCH 27.3 MCHC 33.1 RDW Std Deviation 48.7 H Plt Count 181 D Neut % (Auto) 63 Lymph % (Auto) 25 [place] % (Auto) 12 Eos % (Auto) 0 Baso % (Auto) 0 Neut # (Auto) 2.9 Lymph # (Auto) 1.1 [place] # (Auto) 0.6 Eos # (Auto) 0.0 Baso # (Auto) 0.0 Immature Gran # (Auto) 0.01 H Absolute Nucleated RBC 0.00 Immature Gran % 0 Nucleated RBC % 0 Sodium 133 L Potassium 3.4 Chloride 99 Carbon Dioxide 25.1 Anion Gap 9 BUN 10 Creatinine 0.4 L Estim Creat Clear Calc 92.0 eGFR > 60 BUN/Creatinine Ratio 25 H Glucose 82 Calculated Osmolality 264 L Calcium 7.6 L Corrected Calcium 8.6 Phosphorus 3.6 Magnesium 1.9 Total Bilirubin 0.5 AST 16 ALT < 7 L Alkaline Phosphatase 68 Total Protein 4.3 L Albumin 2.7 L Globulin 1.6 L Albumin/Globulin Ratio 1.7 Impressions Impression: Dysphagia status post endoscopic dilatation improved Metastatic appendiceal adenocarcinoma with a gastric mass Assessment & Plan A&P Narrative 1. 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 2. Receiving chemo under Dr. Nicholson's direction [facility] [place] last chemo March 2025. 3. Admitted with dysphagia weight loss awaiting upper endoscopy Dr. Latif. 4. Will follow. Thank you for allowing me to evaluate this patient Time Spent With Patient Time: Total time spent is greater than 50% in coordination of care (as documented) at patient's floor/unit and/or counseling patient:
[2025-06-30] MEDS: ENOXAPARIN SOD INJ 40 MG/0.4 ML SYRINGE SC (20:41)
[2025-06-30] MEDS: ATORVASTATIN CALCIUM 10 MG TABLET 5 MG PO (20:41)
[2025-07-01] VITALS (10 sets, daily range): BP systolic 93–129; BP diastolic 62–76; PULSE 68–93; RESP 16–98; TEMP 36.2–36.9; O2SAT 94–100
[2025-07-01 06:04] LABS: Basophils # (Auto) 0.0 Thou/mm3 (0.0-0.2); Basophils % (Auto) 0 % (0-2.5); Eosinophils # (Auto) 0.0 Thou/mm3 (0.0-0.5); Eosinophils % (Auto) 0 % (0-10); Hematocrit 29.2 % (36.0-46.0); Hemoglobin 10.0 g/dL (12.0-16.0); Immature Granulocytes Auto 0.02 Thou/mm3 (0.00-0.00); Lymphocytes # (Auto) 1.3 Thou/mm3 (1.0-4.8); Lymphocytes % (Auto) 25 % (10-50); Mean Corpuscular HGB Conc 34.2 g/dl (31.0-37.0); Mean Corpuscular Hemoglobin 28.2 pg (25.0-35.0); Mean Corpuscular Volume 83 fL (80-100); Monocytes # (Auto) 0.7 Thou/mm3 (0.0-0.8); Monocytes % (Auto) 14 % (0-12); Neutrophils # (Auto) 3.0 Thou/mm3 (1.8-7.7); Neutrophils % (Auto) 60 % (37-80); Nucleated Red Blood Cell # 0.00 Thou/mm3 (0.00-0.00); Nucleated Red Blood Cell % 0 /100 WBC (0); Platelet Count 164 Thou/mm3 (140-440); RDW Standard Deviation 49.0 fL (36.4-46.3); Red Blood Count 3.54 Miln/mm3 (4.00-5.20); White Blood Count 5.0 Thou/mm3 (3.6-11.0)
[2025-07-01] MEDS: LIDOCAINE 5% 1 PATCH TOP (06:16)
[2025-07-01 06:35] LABS: Alanine Aminotransferase < 7 U/L (10-49); Albumin, Serum 2.3 gm/dL (3.4-4.8); Albumin/Globulin Ratio 1.4 (1.2-2.2); Alkaline Phosphatase 62 U/L (46-116); Anion Gap 8 (7-16); Aspartate Amino Transferase 14 U/L (0-34); BUN/Creatinine Ratio 28 Ratio (12-20); Bilirubin,Total 0.5 mg/dL (0.3-1.2); Blood Urea Nitrogen 11 mg/dL (9-23); Calcium 7.0 mg/dL (8.3-10.6); Calcium (Corrected) 8.4 mg/dL (8.5-10.1); Carbon Dioxide 26.5 mMol/L (20.0-31.0); Chloride 99 mMol/L (98-107); Creatinine (Component) 0.4 mg/dL (0.6-1.3); Estimated Creatinine Clearance 92.0 mL/min (>60); Globulin 1.6 gm/dL (2.3-3.5); Glucose 78 mg/dL (74-106); Magnesium 1.8 mg/dL (1.6-2.6); Osmolality,Calculated 264 (275-295); Phosphorous 3.3 mg/dL (2.4-5.1); Potassium 3.4 mMol/L (3.4-5.1); Sodium 133 mMol/L (136-145); Total Protein 3.9 gm/dL (5.7-8.2); eGFR > 60 See Note
[2025-07-01] MEDS: MIRTAZAPINE 15 MG TABLET 7.5 MG PO (09:12)
[2025-07-01] MEDS: Milk Of Magnesia Susp 30 ML UDC PO (11:02)
[2025-07-01] MEDS: GABAPENTIN 100 MG CAPSULE 200 MG PO (11:02)
--- NOTE | 2025-07-01 11:30 | XR_ITS ---
Examination: Abdomen AP single view Technique: AP portable supine abdomen, single view Exam date and time: July 01, 2025, 1139 hours INDICATIONS: Abdominal pain and distention this week. FINDINGS: Prominent colonic ileus, also small bowel ileus Abundant stool throughout the entire colon No free air Severe osteopenia IMPRESSION: Prominent colonic ileus There appears to be also small bowel ileus
--- NOTE | 2025-07-01 13:17 | PC.SS ---
Addendum entered by Nikole Lawrence 07/01/25 16:08: SS contacted [facility] and canceled transport due to no BM, SS will follow up tomorrow Original Note: SS contacted [facility] #[phone], provided rep with Trip #[id number], per rep pt was assigned to [facility]. SS requested extended time for ETA to 1700. SS inquired with rep for a # for transport directly, who stated she can not provide that information as we need to contact [facility] directly to change time. ETA set 1700
--- NOTE | 2025-07-01 15:09 | PD.IMPROG ---
Documentation for date of: 07/01/25 Subjective Subjective Interval history: Dysphagia has improved after endoscopic dilatation Hemoglobin hematocrit 10.0 and 29.2 Exam Vital Signs Temp Pulse Resp BP Pulse Ox O2 Del Method O2 Flow Rate 98.2 F 87 16 97/69 96 Room Air 3 07/01/25 11:54 07/01/25 11:54 07/01/25 11:54 07/01/25 11:54 07/01/25 11:54 07/01/25 11:54 06/30/25 04:00 Objective Labs 07/01/25 04:45 07/01/25 04:45 Labs: Laboratory Results - last 24 hr 07/01/25 04:45 WBC 5.0 RBC 3.54 L Hgb 10.0 L Hct 29.2 L MCV 83 MCH 28.2 MCHC 34.2 RDW Std Deviation 49.0 H Plt Count 164 Neut % (Auto) 60 Lymph % (Auto) 25 [place] % (Auto) 14 H Eos % (Auto) 0 Baso % (Auto) 0 Neut # (Auto) 3.0 Lymph # (Auto) 1.3 [place] # (Auto) 0.7 Eos # (Auto) 0.0 Baso # (Auto) 0.0 Immature Gran # (Auto) 0.02 H Absolute Nucleated RBC 0.00 Immature Gran % 0 Nucleated RBC % 0 Sodium 133 L Potassium 3.4 Chloride 99 Carbon Dioxide 26.5 Anion Gap 8 BUN 11 Creatinine 0.4 L Estim Creat Clear Calc 92.0 eGFR > 60 BUN/Creatinine Ratio 28 H Glucose 78 Calculated Osmolality 264 L Calcium 7.0 L Corrected Calcium 8.4 L Phosphorus 3.3 Magnesium 1.8 Total Bilirubin 0.5 AST 14 ALT < 7 L Alkaline Phosphatase 62 Total Protein 3.9 L Albumin 2.3 L Globulin 1.6 L Albumin/Globulin Ratio 1.4 Impressions Impression: Dysphagia Esophagus stricture status post endoscopic dilatation Dysphagia improved after endoscopic dilatation Continue current manage Assessment & Plan A&P Narrative 1. 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 2. Receiving chemo under Dr. Nicholson's direction [facility] last chemo March 2025. 3. Admitted with dysphagia weight loss awaiting upper endoscopy Dr. Latif. 4. Will follow. Thank you for allowing me to evaluate this patient Time Spent With Patient Time: Total time spent is greater than 50% in coordination of care (as documented) at patient's floor/unit and/or counseling patient:
--- NOTE | 2025-07-01 16:18 | ESPR_ITS ---
Documentation for date of: 07/01/25 Subjective Subjective Interval history: No acute events overnight.?Patient seen and examined at bedside this AM.?Patient was apparently accepted by SNF and received insurance authorization yesterday, however was late in the day so discharge was deferred. Additionally, patient still needs to have a bowel movement. Patient's abdomen was distended so KUB was ordered which showed significant stool burden and ileus. Patient could not take oral laxatives as she was vomiting. Was attempted to give patient enema as well but unsuccessful. Patient was complaining of nerve pain, therefore given gabapentin. Will need to resolve patient's ileus prior to discharge, continue to encourage mobilization. Patient later had a rapid response for distention and pain, see event note for details. NG tube was started and laxatives held. Review of systems otherwise negative except what is mentioned above. Exam Vital Signs Temp Pulse Resp BP Pulse Ox O2 Del Method O2 Flow Rate 98.2 F 87 16 97/69 96 Room Air 3 07/01/25 11:54 07/01/25 11:54 07/01/25 11:54 07/01/25 11:54 07/01/25 11:54 07/01/25 11:54 06/30/25 04:00 Narrative Exam General: Alert, oriented, comfortable, no distress HEENT: MMM, sclera anicteric Heart: RRR, normal S1/S2, no murmurs Lungs: Decreased breath sounds at bases, no wheezes/rales, non-labored breathing Abdomen: Soft, non-tender, non-distended, normal bowel sounds Extremities: No edema today Neuro: Cranial nerves intact, no focal deficits Skin: Warm, dry, intact Objective Labs 07/01/25 04:45 07/01/25 04:45 Labs: Laboratory Results - last 24 hr 07/01/25 04:45 WBC 5.0 RBC 3.54 L Hgb 10.0 L Hct 29.2 L MCV 83 MCH 28.2 MCHC 34.2 RDW Std Deviation 49.0 H Plt Count 164 Neut % (Auto) 60 Lymph % (Auto) 25 [place] % (Auto) 14 H Eos % (Auto) 0 Baso % (Auto) 0 Neut # (Auto) 3.0 Lymph # (Auto) 1.3 [place] # (Auto) 0.7 Eos # (Auto) 0.0 Baso # (Auto) 0.0 Immature Gran # (Auto) 0.02 H Absolute Nucleated RBC 0.00 Immature Gran % 0 Nucleated RBC % 0 Sodium 133 L Potassium 3.4 Chloride 99 Carbon Dioxide 26.5 Anion Gap 8 BUN 11 Creatinine 0.4 L Estim Creat Clear Calc 92.0 eGFR > 60 BUN/Creatinine Ratio 28 H Glucose 78 Calculated Osmolality 264 L Calcium 7.0 L Corrected Calcium 8.4 L Phosphorus 3.3 Magnesium 1.8 Total Bilirubin 0.5 AST 14 ALT < 7 L Alkaline Phosphatase 62 Total Protein 3.9 L Albumin 2.3 L Globulin 1.6 L Albumin/Globulin Ratio 1.4 Quality Measures Quality Measures VTE prophylaxis Advance care planning discussed with:: patient Assessment & Plan Assessment Current Active Medications: Generic Name Dose Route Start Last Admin Trade Name Freq PRN Reason Stop Dose Admin Acetaminophen 650 mg 06/28/25 20:01 06/30/25 15:10 Acetaminophen 325 Mg Tablet PO 07/28/25 20:00 650 mg Q6H PRN Administration PAIN (1-3) OR FEVER > 100.4 Atorvastatin Calcium 5 mg 06/29/25 21:00 06/30/25 20:41 Atorvastatin Calcium 10 Mg Tablet PO 07/29/25 20:59 5 mg HS BALA Administration Protocol Docusate Sodium 100 mg 07/01/25 11:30 Docusate Sod 100 Mg Capsule PO 07/31/25 11:29 QDAY BALA Protocol Enoxaparin Sodium 40 mg 06/28/25 20:10 06/30/25 20:41 Enoxaparin Sod Inj 40 Mg/0.4 Ml Syringe SC 07/12/25 20:09 40 mg HS BALA Administration Glycerin 1 each 07/01/25 13:27 Glycerin, Adult 1 Ea Supp [place] 07/31/25 13:26 QDAY PRN CONSTIPATION Lidocaine 1 patch 06/30/25 15:12 07/01/25 06:16 Lidocaine 5% 1 Patch TOP 07/30/25 15:11 1 patch UD PRN Administration PAIN Protocol Lisinopril 10 mg 06/30/25 09:00 07/01/25 09:11 Lisinopril 2.5 Mg Tablet PO 07/30/25 08:59 10 mg QDAY BALA Administration Mirtazapine 7.5 mg 06/30/25 11:15 07/01/25 09:12 Mirtazapine 15 Mg Tablet PO 07/30/25 11:14 7.5 mg QDAY BALA Administration Ondansetron HCl 4 mg 06/28/25 20:01 Ondansetron Inj 2 Mg/Ml Inj 2 Ml IVP 07/28/25 20:00 Q6H PRN NAUSEA OR VOMITING Protocol Pantoprazole Sodium 40 mg 06/28/25 20:15 07/01/25 09:11 Pantoprazole Inj 40 Mg Vial IVP 07/28/25 20:14 40 mg QDAY BALA Administration Plan 84F with metastatic appendiceal carcinoma, malignant pleural effusions, and recent EGD for dysphagia, now improving post-esophageal dilation and pending SNF placement. # Colonic and small bowel ileus # Constipation Patient has significant stool burden as demonstrated on KUB 07/01, and is distended on physical exam. Plan: * Mobilize the patient, sit at the edge of bed or on chair as much as possible * Avoid laxatives for now * Continue NG tube to intermittent suction # Dysphagia, improving post-dilation Patient reports 3 months of progressive dysphagia to solids and liquids, heartburn, and poor appetite. Improved swallowing today after dilation. No nausea/vomiting; no chest pain; tolerated liquids then tolerated regular diet. Plan: * Advanced to regular diet and tolerated it well * Discontinue alendronate. 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 Imaging shows worsening pleural disease, nodules, ascites, and malnutrition. Patient has not been following with oncology. Prefers local oncology -> consult placed to Dr. Gonzales. Dr. Gonzales recommended patient to go see a Dr. Nicholson and discuss option of transfer of care to Dr. Gonzales. Plan: * Strongly recommend she returns to Dr. Nicholson ([place] [facility]) one more time to discuss transfer of care as per Dr. Gonzales. * Follow-up on pathology from EGD. * Hold prednisone as patient was using it for stimulating appetite. * Started mirtazapine 7.5 daily. # Malignant pleural effusions Ultrasound thoracentesis was completed yesterday 06/29/2025 with 850 cc out. Stable breathing today close thoracentesis. Plan: * Monitor respiratory status * Repeat thoracentesis only if symptomatic #Weight loss, poor appetite, and generalized weakness Appetite still low despite improved swallowing. Plan: * Start mirtazapine 7.5 mg daily to stimulate appetite * Discharge patient on mirtazapine as well * Encourage small frequent meals #Hypertension BP stable. On lisinopril 10 mg daily at home. Plan: * Continue lisinopril 10 mg daily. * Monitor BP closely #Anemia (Hgb 10.8) Likely multifactorial: chronic disease + nutritional decline. No signs of bleeding. Plan: * Stable, follow up outpatient #Cirrhosis with ascites (suspected malignant or chronic liver disease) CT suggests cirrhosis and moderate ascites. No stigmata of acute decompensation. Plan: * Monitor LFTs, INR, abdomen exam Health Maintenance: Diet: Regular diet. DVT prophylaxis: Lovenox GI prophylaxis: Protonix IV Antibiotics: None Code status: Full Disposition: Patient agrees to short-term SNF placement for rehab and support due to living alone and limited family assistance. Patient plan of care was discussed with the attending physician, Dr. Estrella. Bing Georges, PGY-3 Attending Provider Attestation/Addendum I have discussed and was present for the essential components of the history, physical examination, diagnosis, and treatment plan with the resident. I agree with the patient's care as documented by the resident and amended herein by me. Davidson Estrella, DO. Although this document has been carefully reviewed, there may still be some phonetic and other typographical errors. These errors are purely grammatical due to imperfections in the software program and should not be construed in any way to compromise the substance of the patient's medical care during this visit. Patient seen and evaluated this AM. No acute events overnight, vital signs stable, patient afebrile, patient is being prepped to be discharged to SNF however still has not had a bowel movement this day, we did order an abdominal ultrasound and it demonstrated prominent colonic ileus there appears also to be small bowel ileus. As such, we are going to encourage the patient to get up to a chair in hopes to get the bowel moving. She is passing gas hence we will attempt a glycerin suppository and warm water enema to hopefully get things moving. When she has a BM, she can be discharged. She will need to follow-up with her oncologist in [place], Dr. Nicholson within 1 week of discharge which she understood. We also started mirtazapine 7.5 mg for appetite stimulation and gabapentin 100 mg 3 times daily for now the patient's bilateral lower extremity neuropathy. Will continue to monitor closely while she is here hopefully has a BM soon
[2025-07-01] MEDS: KETOROLAC INJ 30 MG/ML VIAL 15 MG IVP (17:49)
--- NOTE | 2025-07-01 19:12 | PD.RESEVENT ---
Documentation for date of: 07/01/25 Event Note Event Note: Rapid Response Room: 380 Time: 6:35 Reason for Call: Abdominal distention and pain Patient presentation: Patient has significant abdominal distention increased from this afternoon, abdomen is firm however not completely rigid, some bowel sounds present. Patient complaining of pain all over, just received ketorolac 15 ml x1. Events: Patient was sat on the edge of bed and stood up on FWW, tolerated a few minutes of standing before being placed back into the bed. Attempted to reach out to both contacts on patient's chart, son Brandon Oneal and son Larry Oneal to give an update however was unable to connect a call to either. Assessment: Significant ileus and constipation. New orders: NG tube placement with lidocaine jelly, nursing staff to mobilize patient to edge of bed as much as possible. Hold off on laxatives for now. Will consider rectal tube and retention enema tomorrow if still no BM. Patient was discussed with the attending, Dr. Delores Georges, PGY-3
--- NOTE | 2025-07-01 19:13 | XR_ITS ---
EXAMINATION: AP chest single view TECHNIQUE: AP portable semiupright chest single view Date and time: July 01, 2025, 1921 hours, comparison June 29, 2025 INDICATIONS: Post orogastric tube placement FINDINGS: Chronic heart failure pattern with moderate right large left pleural effusions and prominent vascular congestion Right internal jugular Port-A-Cath tip SVC satisfactory position Orogastric tube in the stomach satisfactory position Mild enlargement left ventricle Prominent osteopenia IMPRESSION: Orogastric tube in satisfactory position in the stomach
[2025-07-01] MEDS: LIDOCAINE JELLY 2% 5 ML TUBE TOP (19:14)
[2025-07-01] MEDS: RINGERS LACTATED 1000 ML 500 ML 999 ML IV (19:40)
[2025-07-01] MEDS: ONDANSETRON INJ 2 MG/ML INJ 2 ML 4 MG IVP (20:22)
[2025-07-01] MEDS: ENOXAPARIN SOD INJ 40 MG/0.4 ML SYRINGE SC (20:28)
[2025-07-02 04:00] VITALS: BP 101/66; PULSE 85; RESP 16; TEMP 36.4; O2SAT 94
[2025-07-02] MEDS: ONDANSETRON INJ 2 MG/ML INJ 2 ML 4 MG IVP (05:36)
[2025-07-02 07:04] LABS: Magnesium 2.0 mg/dL (1.6-2.6); Phosphorous 3.5 mg/dL (2.4-5.1)
[2025-07-02 08:00] VITALS: BP 95/63; PULSE 76; RESP 17; TEMP 36.7; O2SAT 96
[2025-07-02 08:53] LABS: Basophils # (Auto) 0.0 Thou/mm3 (0.0-0.2); Basophils % (Auto) 0 % (0-2.5); Eosinophils # (Auto) 0.0 Thou/mm3 (0.0-0.5); Eosinophils % (Auto) 0 % (0-10); Hematocrit 32.4 % (36.0-46.0); Hemoglobin 10.9 g/dL (12.0-16.0); Immature Granulocytes Auto 0.02 Thou/mm3 (0.00-0.00); Lymphocytes # (Auto) 1.4 Thou/mm3 (1.0-4.8); Lymphocytes % (Auto) 20 % (10-50); Mean Corpuscular HGB Conc 33.6 g/dl (31.0-37.0); Mean Corpuscular Hemoglobin 27.9 pg (25.0-35.0); Mean Corpuscular Volume 83 fL (80-100); Monocytes # (Auto) 0.8 Thou/mm3 (0.0-0.8); Monocytes % (Auto) 11 % (0-12); Neutrophils # (Auto) 4.9 Thou/mm3 (1.8-7.7); Neutrophils % (Auto) 69 % (37-80); Nucleated Red Blood Cell # 0.00 Thou/mm3 (0.00-0.00); Nucleated Red Blood Cell % 0 /100 WBC (0); Platelet Count 201 Thou/mm3 (140-440); RDW Standard Deviation 49.0 fL (36.4-46.3); Red Blood Count 3.91 Miln/mm3 (4.00-5.20); White Blood Count 7.1 Thou/mm3 (3.6-11.0)
[2025-07-02 09:24] LABS: Lactate (Lactic Acid) 1.0 mMol/L (0.4-2.0)
[2025-07-02 09:32] LABS: Albumin, Serum 2.3 gm/dL (3.4-4.8); Albumin/Globulin Ratio 1.4 (1.2-2.2); Alkaline Phosphatase 71 U/L (46-116); Anion Gap 6 (7-16); Aspartate Amino Transferase 16 U/L (0-34); BUN/Creatinine Ratio 26 Ratio (12-20); Bilirubin,Total 0.4 mg/dL (0.3-1.2); Blood Urea Nitrogen 13 mg/dL (9-23); Calcium 7.2 mg/dL (8.3-10.6); Calcium (Corrected) 8.6 mg/dL (8.5-10.1); Carbon Dioxide 26.8 mMol/L (20.0-31.0); Chloride 99 mMol/L (98-107); Creatinine (Component) 0.5 mg/dL (0.6-1.3); Estimated Creatinine Clearance 73.6 mL/min (>60); Globulin 1.7 gm/dL (2.3-3.5); Glucose 98 mg/dL (74-106); Osmolality,Calculated 264 (275-295); Potassium 3.8 mMol/L (3.4-5.1); Sodium 132 mMol/L (136-145); Total Protein 4.0 gm/dL (5.7-8.2); eGFR > 60 See Note
[2025-07-02 09:36] LABS: Alanine Aminotransferase < 7 U/L (10-49)
--- NOTE | 2025-07-02 10:14 | XR_ITS ---
EXAMINATION: XR abdomen 2V ORDERING PROVIDER: Aj Alexandre MD HISTORY: sbo TECHNIQUE: 2 radiographs of the abdomen and pelvis COMPARISON: 07/01/2025, KUB and chest x-ray. FINDINGS: Tip of a Port-A-Cath projects over the expected region of the superior cavoatrial junction. An enteric tube is seen with tip and sideport projecting below the left hemidiaphragm. The distal end of the enteric tube is positioned at an acute angle. Improved but persistent prominent loops of large and small bowel. Large colonic stool burden. No free air identified. Moderate left pleural effusion. Emphysematous changes. Additional overlying leads identified. Chain suture right hemiabdomen. Cholecystectomy surgical namita. Osteopenia. Mild to moderate bony degenerative changes. IMPRESSION: 1. Enteric tube with tip and sideport projecting over the left hemidiaphragm. Tip is partially kinked. Consider retracting 1 to 2 cm. 2. Improved, though persistently prominent loops of small and large bowel, likely partial small bowel obstruction versus ileus. 3. Large colonic stool burden. 4. Moderate left pleural effusion.
[2025-07-02] MEDS: KETOROLAC INJ 30 MG/ML VIAL 15 MG IVP (10:48)
--- NOTE | 2025-07-02 11:57 | ESPR_ITS ---
Documentation for date of: 07/02/25 Subjective Subjective Interval history: Patient seen and examined at bedside this morning. Reports persistent abdominal discomfort but notes the NG tube is helping relieve some pressure (400 cc suctioned so far). She had an episode of vomiting this morning. She is passing gas, but still no bowel movement. She reports bloating but denies sharp abdominal pain, just mild abdominal discomfort. She agreed to mobilize and was assisted to sit at the edge of the bed. Breathing remains stable. No chest pain. No dizziness. Reports leg swelling, right > left, slightly worse than yesterday. Appetite remains poor. Exam Vital Signs Temp Pulse Resp BP Pulse Ox O2 Del Method O2 Flow Rate 98.0 F 76 17 95/63 96 Room Air 3 07/02/25 08:00 07/02/25 08:00 07/02/25 08:00 07/02/25 08:00 07/02/25 08:00 07/02/25 08:00 06/30/25 04:00 Narrative Exam General: Tired but alert; cooperative HEENT: MMM; NG tube in place Heart: RRR, no murmurs Lungs: Decreased breath sounds at bases; no distress Abdomen: Soft, non-tender, not distended, mild generalized discomfort, hypoactive bowel sounds Extremities: +2 edema, R > L Neuro: No focal deficits Skin: Warm, dry Objective Labs 07/02/25 08:29 07/02/25 08:29 Labs: Laboratory Results - last 24 hr 07/02/25 07/02/25 06:30 08:29 WBC 7.1 D RBC 3.91 L Hgb 10.9 L Hct 32.4 L MCV 83 MCH 27.9 MCHC 33.6 RDW Std Deviation 49.0 H Plt Count 201 D Neut % (Auto) 69 Lymph % (Auto) 20 [place] % (Auto) 11 Eos % (Auto) 0 Baso % (Auto) 0 Neut # (Auto) 4.9 Lymph # (Auto) 1.4 [place] # (Auto) 0.8 Eos # (Auto) 0.0 Baso # (Auto) 0.0 Immature Gran # (Auto) 0.02 H Absolute Nucleated RBC 0.00 Immature Gran % 0 Nucleated RBC % 0 Sodium 132 L Potassium 3.8 Chloride 99 Carbon Dioxide 26.8 Anion Gap 6 L BUN 13 Creatinine 0.5 L Estim Creat Clear Calc 73.6 eGFR > 60 BUN/Creatinine Ratio 26 H Glucose 98 Calculated Osmolality 264 L Lactic Acid 1.0 Calcium 7.2 L Corrected Calcium 8.6 Phosphorus 3.5 Magnesium 2.0 Total Bilirubin 0.4 AST 16 ALT < 7 L Alkaline Phosphatase 71 Total Protein 4.0 L Albumin 2.3 L Globulin 1.7 L Albumin/Globulin Ratio 1.4 Quality Measures Quality Measures VTE prophylaxis Advance care planning discussed with:: patient Assessment & Plan Assessment Current Active Medications: Generic Name Dose Route Start Last Admin Trade Name Freq PRN Reason Stop Dose Admin Acetaminophen 650 mg 06/28/25 20:01 06/30/25 15:10 Acetaminophen 325 Mg Tablet PO 07/28/25 20:00 650 mg Q6H PRN Administration PAIN (1-3) OR FEVER > 100.4 Atorvastatin Calcium 5 mg 06/29/25 21:00 07/01/25 20:27 Atorvastatin Calcium 10 Mg Tablet PO 07/29/25 20:59 Not Given On Hold: 07/02/25 08:09 HS BALA Protocol Enoxaparin Sodium 40 mg 06/28/25 20:10 07/01/25 20:28 Enoxaparin Sod Inj 40 Mg/0.4 Ml Syringe SC 07/12/25 20:09 40 mg HS BALA Administration Glycerin 1 each 07/01/25 13:27 Glycerin, Adult 1 Ea Supp [place] 07/31/25 13:26 QDAY PRN CONSTIPATION Lidocaine 1 patch 06/30/25 15:12 07/01/25 06:16 Lidocaine 5% 1 Patch TOP 07/30/25 15:11 1 patch UD PRN Administration PAIN Protocol Lisinopril 10 mg 06/30/25 09:00 07/01/25 09:11 Lisinopril 2.5 Mg Tablet PO 07/30/25 08:59 10 mg On Hold: 07/02/25 08:10 QDAY BALA Administration Mirtazapine 7.5 mg 06/30/25 11:15 07/01/25 09:12 Mirtazapine 15 Mg Tablet PO 07/30/25 11:14 7.5 mg On Hold: 07/02/25 08:10 QDAY BALA Administration Ondansetron HCl 4 mg 06/28/25 20:01 07/02/25 05:36 Ondansetron Inj 2 Mg/Ml Inj 2 Ml IVP 07/28/25 20:00 4 mg Q6H PRN Administration NAUSEA OR VOMITING Protocol Pantoprazole Sodium 40 mg 06/28/25 20:15 07/02/25 09:27 Pantoprazole Inj 40 Mg Vial IVP 07/28/25 20:14 40 mg QDAY BALA Administration Plan 84F with metastatic appendiceal carcinoma, malignant pleural effusions, recent EGD with dilation for dysphagia, SNF once BM achieved and ileus improves # Colonic and small bowel ileus # Constipation Patient has significant stool burden as demonstrated on KUB 07/01, and is distended on physical exam. No BM as of this morning but passing flatus. Plan: * Mobilize the patient, sit at the edge of bed or on chair as much as possible * Avoid laxatives for now * Continue NG tube to intermittent suction # Dysphagia, improving post-dilation Patient reports 3 months of progressive dysphagia to solids and liquids, heartburn, and poor appetite. Improved swallowing after dilation. No nausea/vomiting; no chest pain; tolerated liquids then tolerated regular diet. Plan: * Hold PO diet until ileus resolves * Discontinue alendronate. 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 Imaging shows worsening pleural disease, nodules, ascites, and malnutrition. Patient has not been following with oncology. Prefers local oncology -> consult placed to Dr. Gonzales. Dr. Gonzales recommended patient to go see a Dr. Nicholson and discuss option of transfer of care to Dr. Gonzales. Plan: * Strongly recommend she returns to Dr. Nicholson ([place] [facility]) one more time to discuss transfer of care as per Dr. Gonzales. * Follow-up on pathology from EGD. * Hold prednisone as patient was using it for stimulating appetite. * Continue mirtazapine 7.5 daily. # Malignant pleural effusions Ultrasound thoracentesis was completed yesterday 06/29/2025 with 850 cc out. Stable breathing today close thoracentesis. Plan: * Monitor respiratory status * Repeat thoracentesis only if symptomatic #Weight loss, poor appetite, and generalized weakness Appetite still low despite improved swallowing. Plan: * Continue mirtazapine 7.5 mg daily to stimulate appetite * Discharge patient on mirtazapine as well * Encourage small frequent meals #Hypertension BP soft today. On lisinopril 10 mg daily at home. Plan: * Hold lisinopril as BP is soft this morning. * Monitor BP closely #Anemia (Hgb 10.9) Likely multifactorial: chronic disease + nutritional decline. No signs of bleeding. Plan: * Stable, follow up outpatient #Cirrhosis with ascites (suspected malignant or chronic liver disease) CT suggests cirrhosis and moderate ascites. No stigmata of acute decompensation. Plan: * Monitor LFTs, INR, abdomen exam Health Maintenance: Diet: NPO. DVT prophylaxis: Lovenox GI prophylaxis: Protonix IV Code status: Full Disposition: SNF once BM achieved and ileus improves. Accepted with authorization. Discharge pending return of bowel function. ----- Plan discussed with attending physician Dr. Delores Alexandre MD PGY-1 Internal Medicine Attending Provider Attestation/Addendum I have discussed and was present for the essential components of the history, physical examination, diagnosis, and treatment plan with the resident. I agree with the patient's care as documented by the resident and amended herein by me. Davidson Estrella DO. Although this document has been carefully reviewed, there may still be some phonetic and other typographical errors. These errors are purely grammatical due to imperfections in the software program and should not be construed in any way to compromise the substance of the patient's medical care during this visit. Patient seen and evaluated this AM. No acute events overnight, rapid response was called prior to us leaving last night for abdominal pain, the patient's abdomen was distended, KUB demonstrated prominent colonic ileus and small bowel ileus. We ended up placing an NG tube and mobilize the patient is much as possible. Today the patient is much better, she endorses passing gas, she states her pain is better although she has not had any bowel movements, she is getting up to the edge of bed and we will clamp the NG tube and walk her today. Repeat KUB today shows improvement in the prominence of the small and large bowel, read as possibly partial SBO versus ileus and again a large colonic stool burden is noted. Will continue to get the patient up today, continue the NG tube for now, all laxatives have been discontinued and monitor for continued improvement.
[2025-07-02 12:00] VITALS: BP 91/60; PULSE 90; RESP 17; TEMP 36.6; O2SAT 96
--- NOTE | 2025-07-02 15:17 | PC.SS ---
Pt still has not had a bowel movement, DC held
--- NOTE | 2025-07-02 15:48 | ESPR_ITS ---
Documentation for date of: 07/02/25 Subjective Subjective Interval history: Biopsy report still pending from the gastric mass Exam Vital Signs Temp Pulse Resp BP Pulse Ox O2 Del Method O2 Flow Rate 97.8 F 90 17 91/60 96 Room Air 3 07/02/25 12:00 07/02/25 12:00 07/02/25 12:00 07/02/25 12:00 07/02/25 12:00 07/02/25 12:00 06/30/25 04:00 Objective Labs 07/02/25 08:29 07/02/25 08:29 Labs: Laboratory Results - last 24 hr 07/02/25 07/02/25 06:30 08:29 WBC 7.1 D RBC 3.91 L Hgb 10.9 L Hct 32.4 L MCV 83 MCH 27.9 MCHC 33.6 RDW Std Deviation 49.0 H Plt Count 201 D Neut % (Auto) 69 Lymph % (Auto) 20 [place] % (Auto) 11 Eos % (Auto) 0 Baso % (Auto) 0 Neut # (Auto) 4.9 Lymph # (Auto) 1.4 [place] # (Auto) 0.8 Eos # (Auto) 0.0 Baso # (Auto) 0.0 Immature Gran # (Auto) 0.02 H Absolute Nucleated RBC 0.00 Immature Gran % 0 Nucleated RBC % 0 Sodium 132 L Potassium 3.8 Chloride 99 Carbon Dioxide 26.8 Anion Gap 6 L BUN 13 Creatinine 0.5 L Estim Creat Clear Calc 73.6 eGFR > 60 BUN/Creatinine Ratio 26 H Glucose 98 Calculated Osmolality 264 L Lactic Acid 1.0 Calcium 7.2 L Corrected Calcium 8.6 Phosphorus 3.5 Magnesium 2.0 Total Bilirubin 0.4 AST 16 ALT < 7 L Alkaline Phosphatase 71 Total Protein 4.0 L Albumin 2.3 L Globulin 1.7 L Albumin/Globulin Ratio 1.4 Impressions Impression: Metastatic adenocarcinoma appendiceal Gastric mass Status post endoscopic dilatation of the proximal esophageal stricture Waiting biopsy report hopefully by tomorrow Assessment & Plan A&P Narrative 1. 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 2. Receiving chemo under Dr. Nicholson's direction [facility] last chemo March 2025. 3. Admitted with dysphagia weight loss awaiting upper endoscopy Dr. Latif. 4. Will follow. Thank you for allowing me to evaluate this patient Time Spent With Patient Time: Total time spent is greater than 50% in coordination of care (as documented) at patient's floor/unit and/or counseling patient:
[2025-07-02 16:00] VITALS: BP 100/66; PULSE 87; RESP 18; TEMP 36.6; O2SAT 95
--- NOTE | 2025-07-02 18:46 | PC.NURSE ---
Patient NGT that was placed last night during rapid response at 1900 on low intermittent suction. 52 at the nose. Output for this shift was 150ml of dark brown output. Canister marked at 1830. Patient currently tolerating well.
[2025-07-02 20:00] VITALS: BP 104/64; PULSE 86; RESP 17; TEMP 36.9; O2SAT 95
--- NOTE | 2025-07-02 22:51 | PC.NURSE ---
called Dr. Potter to ask if they could add fluids for pt, stated that she would check the chart and called me back.
[2025-07-02] MEDS: SODIUM CHLORIDE 0.9% 1000 ML 1,000 ML 80 ML IV (23:44)
[2025-07-03] VITALS: BP 98/61; PULSE 89; RESP 17; TEMP 36.8; O2SAT 94
--- NOTE | 2025-07-03 01:37 | PC.NURSE ---
Pt complaining of bruno lower extremities pain, pt stated that she was told she would get something for nerve pain since she has a pinched nerve, Dr. Potter was made aware. MD stated they will come to asses pt at bedside.
[2025-07-03] MEDS: LIDOCAINE 5% 1 PATCH TOP ×2 (03:22→14:32)
[2025-07-03 04:00] VITALS: BP 103/67; PULSE 80; RESP 17; TEMP 36.8; O2SAT 94
--- NOTE | 2025-07-03 04:42 | PC.NURSE ---
Called Dr. Potter to let her know that pt is upset since they did not come to asses her or gave her anything for nerve pain to bruno lower extremities. stated that she will check the chart and add something for pain.
[2025-07-03] MEDS: DEXTROSE 50%-WATER INJ 50 ML SYRINGE 25 ML IV (06:25)
[2025-07-03 07:40] VITALS: BP 105/64; PULSE 82; RESP 18; TEMP 36.9; O2SAT 94
--- NOTE | 2025-07-03 08:27 | PC.SS ---
Addendum entered by Nikole Lawrence 07/03/25 08:34: contacted pt insurance RN Eamon CABRERA [phone] to update on pt still admitted due to SBO with NGT, Eamon stated auth is still active and good. Original Note: SS spoke to supervisor receiving and processingMike to update on why pt is still hospitalized, Mike informed SS pt now has a SBO with NGT.
--- NOTE | 2025-07-03 09:03 | XR_ITS ---
Examination: Abdomen AP single view Technique: AP portable supine abdomen, single view Exam date and time: July 03, 2025, 1019 hours INDICATIONS: Abdominal distention today. FINDINGS: Moderate stool throughout the colon Mild to moderate air distended small bowel in the midabdomen Orogastric tube in the stomach No free air IMPRESSION: Mild to moderate small bowel ileus, clinical correlation advised
[2025-07-03] MEDS: ACETAMINOPHEN 325 MG TABLET 650 MG PO (09:43)
[2025-07-03 10:25] LABS: Basophils # (Auto) 0.0 Thou/mm3 (0.0-0.2); Basophils % (Auto) 0 % (0-2.5); Eosinophils # (Auto) 0.0 Thou/mm3 (0.0-0.5); Eosinophils % (Auto) 0 % (0-10); Hematocrit 30.4 % (36.0-46.0); Hemoglobin 10.2 g/dL (12.0-16.0); Immature Granulocytes Auto 0.01 Thou/mm3 (0.00-0.00); Lymphocytes # (Auto) 1.3 Thou/mm3 (1.0-4.8); Lymphocytes % (Auto) 24 % (10-50); Mean Corpuscular HGB Conc 33.6 g/dl (31.0-37.0); Mean Corpuscular Hemoglobin 27.8 pg (25.0-35.0); Mean Corpuscular Volume 83 fL (80-100); Monocytes # (Auto) 0.6 Thou/mm3 (0.0-0.8); Monocytes % (Auto) 12 % (0-12); Neutrophils # (Auto) 3.4 Thou/mm3 (1.8-7.7); Neutrophils % (Auto) 64 % (37-80); Nucleated Red Blood Cell # 0.00 Thou/mm3 (0.00-0.00); Nucleated Red Blood Cell % 0 /100 WBC (0); Platelet Count 203 Thou/mm3 (140-440); RDW Standard Deviation 49.4 fL (36.4-46.3); Red Blood Count 3.67 Miln/mm3 (4.00-5.20); White Blood Count 5.4 Thou/mm3 (3.6-11.0)
[2025-07-03 10:57] LABS: Alanine Aminotransferase < 7 U/L (10-49); Albumin, Serum 2.2 gm/dL (3.4-4.8); Albumin/Globulin Ratio 1.3 (1.2-2.2); Alkaline Phosphatase 72 U/L (46-116); Anion Gap 7 (7-16); Aspartate Amino Transferase 16 U/L (0-34); BUN/Creatinine Ratio 38 Ratio (12-20); Bilirubin,Total 0.6 mg/dL (0.3-1.2); Blood Urea Nitrogen 15 mg/dL (9-23); Calcium 6.9 mg/dL (8.3-10.6); Calcium (Corrected) 8.3 mg/dL (8.5-10.1); Carbon Dioxide 26.2 mMol/L (20.0-31.0); Chloride 101 mMol/L (98-107); Creatinine (Component) 0.4 mg/dL (0.6-1.3); Estimated Creatinine Clearance 92.0 mL/min (>60); Globulin 1.7 gm/dL (2.3-3.5); Glucose 81 mg/dL (74-106); Osmolality,Calculated 268 (275-295); Potassium 3.8 mMol/L (3.4-5.1); Sodium 134 mMol/L (136-145); Total Protein 3.9 gm/dL (5.7-8.2); eGFR > 60 See Note
[2025-07-03 12:20] VITALS: BP 112/67; PULSE 88; RESP 18; TEMP 36.7; O2SAT 96
--- NOTE | 2025-07-03 13:55 | ESPR_ITS ---
<Statement entered by Ramon Medel MD - 07/03/25 18:37> Patient is seen and examined at bedside. Still not have a bowel movement. No output from the NG tube suction since midnight. Patient is still kept on n.p.o. and enema was given. Patient noted to have a small bowel movement but still severely constipated. Stool disimpaction was done. Will start on GoLytely. I have personally seen and examined the patient, agree with residents assessment and plan Patient plan of care was discussed with the attending physician, Dr. Delores Medel, PGY2 Documentation for date of: 07/03/25 Subjective Subjective Interval history: Patient seen and examined this morning. Reports no abdominal pain, no bloating, and states her stomach feels ?much better? today. Abdomen is not distended. NG tube had 0 mL output overnight. She is passing gas but still no bowel movement. No nausea or vomiting today. Breathing stable. No dizziness or chest discomfort. SNF still pending; discharge requires having a BM. Exam Vital Signs Temp Pulse Resp BP Pulse Ox O2 Del Method O2 Flow Rate 98.0 F 88 18 112/67 96 Room Air 3 07/03/25 12:20 07/03/25 12:20 07/03/25 12:20 07/03/25 12:20 07/03/25 12:20 07/03/25 12:20 06/30/25 04:00 Narrative Exam General: Comfortable, no distress Heart: RRR, no murmurs Lungs: Decreased breath sounds at bases, non-labored Abdomen: Soft, non-tender, non-distended, mild hypoactive bowel sounds Extremities: R>L leg edema improved from yesterday, stable Neuro: No focal deficits Skin: Warm, dry Objective Labs 07/05/25 04:50 07/05/25 04:50 Labs: Laboratory Results - last 24 hr 07/03/25 10:08 WBC 5.4 RBC 3.67 L Hgb 10.2 L Hct 30.4 L MCV 83 MCH 27.8 MCHC 33.6 RDW Std Deviation 49.4 H Plt Count 203 Neut % (Auto) 64 Lymph % (Auto) 24 [place] % (Auto) 12 Eos % (Auto) 0 Baso % (Auto) 0 Neut # (Auto) 3.4 Lymph # (Auto) 1.3 [place] # (Auto) 0.6 Eos # (Auto) 0.0 Baso # (Auto) 0.0 Immature Gran # (Auto) 0.01 H Absolute Nucleated RBC 0.00 Immature Gran % 0 Nucleated RBC % 0 Sodium 134 L Potassium 3.8 Chloride 101 Carbon Dioxide 26.2 Anion Gap 7 BUN 15 Creatinine 0.4 L Estim Creat Clear Calc 92.0 eGFR > 60 BUN/Creatinine Ratio 38 H Glucose 81 Calculated Osmolality 268 L Calcium 6.9 L Corrected Calcium 8.3 L Total Bilirubin 0.6 AST 16 ALT < 7 L Alkaline Phosphatase 72 Total Protein 3.9 L Albumin 2.2 L Globulin 1.7 L Albumin/Globulin Ratio 1.3 Quality Measures Quality Measures VTE prophylaxis Advance care planning discussed with:: patient Assessment & Plan Assessment Current Active Medications: Generic Name Dose Route Start Last Admin Trade Name Freq PRN Reason Stop Dose Admin Acetaminophen 650 mg 06/28/25 20:01 07/03/25 09:43 Acetaminophen 325 Mg Tablet PO 07/28/25 20:00 650 mg Q6H PRN Administration PAIN (1-3) OR FEVER > 100.4 Atorvastatin Calcium 5 mg 06/29/25 21:00 07/01/25 20:27 Atorvastatin Calcium 10 Mg Tablet PO 07/29/25 20:59 Not Given On Hold: 07/02/25 08:09 HS [facility] Protocol Dextrose 25 ml 07/03/25 06:18 07/03/25 06:25 Dextrose 50%-Water Inj 50 Ml Syringe IV 08/02/25 06:17 25 ml Q15MIN PRN Administration BG 50-70 responsive npo pt Dextrose 50 ml 07/03/25 06:18 Dextrose 50%-Water Inj 50 Ml Syringe IV 08/02/25 06:17 Q15MIN PRN BG <50 OR BG <70 & pt unresponsive Enoxaparin Sodium 40 mg 06/28/25 20:10 07/02/25 20:50 Enoxaparin Sod Inj 40 Mg/0.4 Ml Syringe SC 07/12/25 20:09 Not Given HS [facility] Glycerin 1 each 07/01/25 13:27 Glycerin, Adult 1 Ea Supp SC 07/31/25 13:26 QDAY PRN CONSTIPATION Lidocaine 1 patch 06/30/25 15:12 07/03/25 03:22 Lidocaine 5% 1 Patch TOP 07/30/25 15:11 1 patch UD PRN Administration PAIN Protocol Lisinopril 10 mg 06/30/25 09:00 07/01/25 09:11 Lisinopril 2.5 Mg Tablet PO 07/30/25 08:59 10 mg On Hold: 07/02/25 08:10 QDAY BALA Administration Mirtazapine 7.5 mg 06/30/25 11:15 07/01/25 09:12 Mirtazapine 15 Mg Tablet PO 07/30/25 11:14 7.5 mg On Hold: 07/02/25 08:10 QDAY BALA Administration Ondansetron HCl 4 mg 06/28/25 20:01 07/02/25 05:36 Ondansetron Inj 2 Mg/Ml Inj 2 Ml IVP 07/28/25 20:00 4 mg Q6H PRN Administration NAUSEA OR VOMITING Protocol Pantoprazole Sodium 40 mg 06/28/25 20:15 07/03/25 08:22 Pantoprazole Inj 40 Mg Vial IVP 07/28/25 20:14 40 mg QDAY BALA Administration Plan 84F with metastatic appendiceal carcinoma, malignant pleural effusions, recent EGD with dilation for dysphagia, SNF once BM achieved and ileus improves # Colonic and small bowel ileus # Constipation Patient has significant stool burden as demonstrated on KUB 07/01, and is distended on physical exam. No BM as of this morning but passing flatus. Plan: * Mobilize the patient, sit at the edge of bed or on chair as much as possible * Avoid laxatives for now * Continue NG tube to intermittent suction # Dysphagia, improving post-dilation Patient reports 3 months of progressive dysphagia to solids and liquids, heartburn, and poor appetite. Improved swallowing after dilation. No nausea/vomiting; no chest pain; tolerated liquids then tolerated regular diet. Plan: * Hold PO diet until ileus resolves * Discontinue alendronate. 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 Imaging shows worsening pleural disease, nodules, ascites, and malnutrition. Patient has not been following with oncology. Prefers local oncology -> consult placed to Dr. Gonzales. Dr. Gonzales recommended patient to go see a Dr. Nicholson and discuss option of transfer of care to Dr. Gonzales. Plan: * Strongly recommend she returns to Dr. Nicholson ([facility]) one more time to discuss transfer of care as per Dr. Gonzales. * Follow-up on pathology from EGD. * Hold prednisone as patient was using it for stimulating appetite. * Continue mirtazapine 7.5 daily. # Malignant pleural effusions Ultrasound thoracentesis was completed yesterday 06/29/2025 with 850 cc out. Stable breathing today close thoracentesis. Plan: * Monitor respiratory status * Repeat thoracentesis only if symptomatic #Weight loss, poor appetite, and generalized weakness Appetite still low despite improved swallowing. Plan: * Holding mirtazapine. * Discharge patient on mirtazapine as well * Encourage small frequent meals #Hypertension BP soft today. On lisinopril 10 mg daily at home. Plan: * Hold lisinopril as BP is soft this morning. * Monitor BP closely #Anemia (Hgb 10.2) Likely multifactorial: chronic disease + nutritional decline. No signs of bleeding. Plan: * Stable, follow up outpatient #Cirrhosis with ascites (suspected malignant or chronic liver disease) CT suggests cirrhosis and moderate ascites. No stigmata of acute decompensation. Plan: * Monitor LFTs, INR, abdomen exam Health Maintenance: Diet: NPO. DVT prophylaxis: Lovenox GI prophylaxis: Protonix IV Code status: Full Disposition: SNF once BM achieved and ileus improves. Accepted with authorization. Discharge pending return of bowel function. ----- Plan discussed with attending physician Dr. Estrella and senior resident Dr. Gianfranco Alexandre MD PGY-1 Internal Medicine Attending Provider Attestation/Addendum I have discussed and was present for the essential components of the history, physical examination, diagnosis, and treatment plan with the resident. I agree with the patient's care as documented by the resident and amended herein by me. Davidson Estrella DO. Although this document has been carefully reviewed, there may still be some phonetic and other typographical errors. These errors are purely grammatical due to imperfections in the software program and should not be construed in any way to compromise the substance of the patient's medical care during this visit.
[2025-07-03] MEDS: DEXTROSE 5%-NS 1,000 ML 80 ML IV (14:21)
[2025-07-03 14:55] VITALS: BMI 20.7
[2025-07-03 15:40] VITALS: BP 115/67; PULSE 78; RESP 18; TEMP 36.2; O2SAT 94
--- NOTE | 2025-07-03 18:13 | ESPR_ITS ---
Documentation for date of: 07/03/25 Subjective Subjective Interval history: Patient evaluated Gastric mass biopsy negative for any carcinoma Gastric mucosal biopsy negative for Helicobacter pylori Esophageal biopsy negative for eosinophilic esophagitis Exam Vital Signs Temp Pulse Resp BP Pulse Ox O2 Del Method O2 Flow Rate 97.2 F 78 18 115/67 94 L Room Air 3 07/03/25 15:40 07/03/25 15:40 07/03/25 15:40 07/03/25 15:40 07/03/25 15:40 07/03/25 15:40 06/30/25 04:00 Objective Labs 07/03/25 10:08 07/03/25 10:08 Labs: Laboratory Results - last 24 hr 07/03/25 10:08 WBC 5.4 RBC 3.67 L Hgb 10.2 L Hct 30.4 L MCV 83 MCH 27.8 MCHC 33.6 RDW Std Deviation 49.4 H Plt Count 203 Neut % (Auto) 64 Lymph % (Auto) 24 [place] % (Auto) 12 Eos % (Auto) 0 Baso % (Auto) 0 Neut # (Auto) 3.4 Lymph # (Auto) 1.3 [place] # (Auto) 0.6 Eos # (Auto) 0.0 Baso # (Auto) 0.0 Immature Gran # (Auto) 0.01 H Absolute Nucleated RBC 0.00 Immature Gran % 0 Nucleated RBC % 0 Sodium 134 L Potassium 3.8 Chloride 101 Carbon Dioxide 26.2 Anion Gap 7 BUN 15 Creatinine 0.4 L Estim Creat Clear Calc 92.0 eGFR > 60 BUN/Creatinine Ratio 38 H Glucose 81 Calculated Osmolality 268 L Calcium 6.9 L Corrected Calcium 8.3 L Total Bilirubin 0.6 AST 16 ALT < 7 L Alkaline Phosphatase 72 Total Protein 3.9 L Albumin 2.2 L Globulin 1.7 L Albumin/Globulin Ratio 1.3 Impressions Impression: 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 2. Receiving chemo under Dr. Nicholson's direction [facility] last chemo March 2025. 3. Admitted with dysphagia weight loss awaiting upper endoscopy Dr. Latif. 4. Will follow. Thank you for allowing me to evaluate this patient Time Spent With Patient Time: Total time spent is greater than 50% in coordination of care (as documented) at patient's floor/unit and/or counseling patient:
[2025-07-03] MEDS: HYDROmorphone INJ 2 MG/ML VIAL 0.25 MG IVP (18:18)
[2025-07-03] MEDS: GLYCERIN, ADULT 1 EA SUPP 1 EACH PR (18:30)
--- NOTE | 2025-07-03 19:45 | PC.NURSE ---
Dr. Luna okayed Gabapentin PO and leave NG tube off tonight
[2025-07-03 20:00] VITALS: BP 93/64; PULSE 75; RESP 16; TEMP 36.6; O2SAT 96
[2025-07-03] MEDS: LACTULOSE SYRUP 20 GM/30 ML UDC 10 GM NG (21:03)
[2025-07-03] MEDS: DOCUSATE SOD LIQD 100 MG/10 ML UDC NG (21:03)
[2025-07-03] MEDS: ENOXAPARIN SOD INJ 40 MG/0.4 ML SYRINGE SC (21:04)
[2025-07-03] MEDS: GABAPENTIN 100 MG CAPSULE PO (22:13)
[2025-07-04] VITALS: BP 102/67; PULSE 74; RESP 17; TEMP 36.2; O2SAT 99
[2025-07-04 04:00] VITALS: BP 109/63; PULSE 71; RESP 16; TEMP 36.4; O2SAT 93
[2025-07-04 05:24] LABS: Basophils # (Auto) 0.0 Thou/mm3 (0.0-0.2); Basophils % (Auto) 0 % (0-2.5); Eosinophils # (Auto) 0.0 Thou/mm3 (0.0-0.5); Eosinophils % (Auto) 0 % (0-10); Hematocrit 29.3 % (36.0-46.0); Hemoglobin 9.8 g/dL (12.0-16.0); Immature Granulocytes Auto 0.04 Thou/mm3 (0.00-0.00); Lymphocytes # (Auto) 0.9 Thou/mm3 (1.0-4.8); Lymphocytes % (Auto) 21 % (10-50); Mean Corpuscular HGB Conc 33.4 g/dl (31.0-37.0); Mean Corpuscular Hemoglobin 27.5 pg (25.0-35.0); Mean Corpuscular Volume 82 fL (80-100); Monocytes # (Auto) 0.6 Thou/mm3 (0.0-0.8); Monocytes % (Auto) 14 % (0-12); Neutrophils # (Auto) 2.8 Thou/mm3 (1.8-7.7); Neutrophils % (Auto) 63 % (37-80); Nucleated Red Blood Cell # 0.00 Thou/mm3 (0.00-0.00); Nucleated Red Blood Cell % 0 /100 WBC (0); Platelet Count 196 Thou/mm3 (140-440); RDW Standard Deviation 48.4 fL (36.4-46.3); Red Blood Count 3.57 Miln/mm3 (4.00-5.20); White Blood Count 4.5 Thou/mm3 (3.6-11.0)
[2025-07-04] MEDS: GABAPENTIN 100 MG CAPSULE PO ×3 (05:29→21:39)
[2025-07-04] MEDS: LACTULOSE SYRUP 20 GM/30 ML UDC 10 GM NG ×3 (05:29→21:39)
[2025-07-04 06:23] LABS: Alanine Aminotransferase 7 U/L (10-49); Albumin, Serum 2.1 gm/dL (3.4-4.8); Albumin/Globulin Ratio 1.4 (1.2-2.2); Anion Gap 6 (7-16); Aspartate Amino Transferase 16 U/L (0-34); BUN/Creatinine Ratio 28 Ratio (12-20); Bilirubin,Total 0.4 mg/dL (0.3-1.2); Blood Urea Nitrogen 11 mg/dL (9-23); Calcium 7.2 mg/dL (8.3-10.6); Calcium (Corrected) 8.7 mg/dL (8.5-10.1); Carbon Dioxide 23.9 mMol/L (20.0-31.0); Chloride 105 mMol/L (98-107); Creatinine (Component) 0.4 mg/dL (0.6-1.3); Estimated Creatinine Clearance 92.0 mL/min (>60); Globulin 1.5 gm/dL (2.3-3.5); Glucose 105 mg/dL (74-106); Magnesium 1.7 mg/dL (1.6-2.6); Osmolality,Calculated 269 (275-295); Potassium 3.4 mMol/L (3.4-5.1); Sodium 135 mMol/L (136-145); Total Protein 3.6 gm/dL (5.7-8.2); eGFR > 60 See Note
[2025-07-04 06:53] LABS: Alkaline Phosphatase 69 U/L (46-116)
[2025-07-04 08:00] VITALS: BP 96/69; PULSE 68; RESP 16; TEMP 36.8; O2SAT 93
[2025-07-04] MEDS: DOCUSATE SOD LIQD 100 MG/10 ML UDC NG ×2 (09:58→21:39)
--- NOTE | 2025-07-04 10:49 | PC.SS ---
Update: Patient is NPO. Bowel movement remains pending.
[2025-07-04 12:00] VITALS: BP 115/82; PULSE 94; RESP 17; TEMP 36.2; O2SAT 96
--- NOTE | 2025-07-04 13:26 | ESPR_ITS ---
Documentation for date of: 07/04/25 Subjective Subjective Interval history: Patient seen this morning. Reports no abdominal pain, no nausea or vomiting, and states her stomach feels much better today. Abdomen is soft, but mildly distented. Passing gas but still has not had a bowel movement. Exam Vital Signs Temp Pulse Resp BP Pulse Ox O2 Del Method O2 Flow Rate 97.2 F 94 17 115/82 96 Room Air 3 07/04/25 12:00 07/04/25 12:00 07/04/25 12:00 07/04/25 12:00 07/04/25 12:00 07/04/25 12:00 07/04/25 12:00 Narrative Exam General: Comfortable, no distress Heart: RRR, no murmurs Lungs: Decreased breath sounds at bases, non-labored Abdomen: Soft, non-tender, mildly distended, mild hypoactive bowel sounds Extremities: R>L leg edema improved from yesterday, stable Neuro: No focal deficits Skin: Warm, dry Objective Labs 07/05/25 04:50 07/05/25 04:50 Labs: Laboratory Results - last 24 hr 07/04/25 04:50 WBC 4.5 RBC 3.57 L Hgb 9.8 L Hct 29.3 L MCV 82 MCH 27.5 MCHC 33.4 RDW Std Deviation 48.4 H Plt Count 196 Neut % (Auto) 63 Lymph % (Auto) 21 [place] % (Auto) 14 H Eos % (Auto) 0 Baso % (Auto) 0 Neut # (Auto) 2.8 Lymph # (Auto) 0.9 L [place] # (Auto) 0.6 Eos # (Auto) 0.0 Baso # (Auto) 0.0 Immature Gran # (Auto) 0.04 H Absolute Nucleated RBC 0.00 Immature Gran % 1 H Nucleated RBC % 0 Sodium 135 L Potassium 3.4 Chloride 105 Carbon Dioxide 23.9 Anion Gap 6 L BUN 11 Creatinine 0.4 L Estim Creat Clear Calc 92.0 eGFR > 60 BUN/Creatinine Ratio 28 H Glucose 105 Calculated Osmolality 269 L Calcium 7.2 L Corrected Calcium 8.7 Magnesium 1.7 Total Bilirubin 0.4 AST 16 ALT 7 L Alkaline Phosphatase 69 Total Protein 3.6 L Albumin 2.1 L Globulin 1.5 L Albumin/Globulin Ratio 1.4 Quality Measures Quality Measures VTE prophylaxis Advance care planning discussed with:: patient Assessment & Plan Assessment Current Active Medications: Generic Name Dose Route Start Last Admin Trade Name Freq PRN Reason Stop Dose Admin Acetaminophen 650 mg 06/28/25 20:01 07/03/25 09:43 Acetaminophen 325 Mg Tablet PO 07/28/25 20:00 650 mg Q6H PRN Administration PAIN (1-3) OR FEVER > 100.4 Dextrose 25 ml 07/03/25 06:18 07/03/25 06:25 Dextrose 50%-Water Inj 50 Ml Syringe IV 08/02/25 06:17 25 ml Q15MIN PRN Administration BG 50-70 responsive npo pt Dextrose 50 ml 07/03/25 06:18 Dextrose 50%-Water Inj 50 Ml Syringe IV 08/02/25 06:17 Q15MIN PRN BG <50 OR BG <70 & pt unresponsive Docusate Sodium 100 mg 07/03/25 21:00 07/04/25 09:58 Docusate Sod Liqd 100 Mg/10 Ml Udc NG 08/02/25 20:59 100 mg BID BALA Administration Protocol Enoxaparin Sodium 40 mg 06/28/25 20:10 07/03/25 21:04 Enoxaparin Sod Inj 40 Mg/0.4 Ml Syringe SC 07/12/25 20:09 40 mg HS BALA Administration Gabapentin 100 mg 07/03/25 22:00 07/04/25 05:29 Gabapentin 100 Mg Capsule PO 08/02/25 21:59 100 mg TID BALA Administration Glycerin 1 each 07/01/25 13:27 07/03/25 18:30 Glycerin, Adult 1 Ea Supp AL 07/31/25 13:26 1 each QDAY PRN Administration CONSTIPATION Lactulose 10 gm 07/03/25 22:00 07/04/25 05:29 Lactulose Syrup 20 Gm/30 Ml Udc NG 08/02/25 21:59 10 gm TID BALA Administration Protocol Lidocaine 1 patch 06/30/25 15:12 07/03/25 14:32 Lidocaine 5% 1 Patch TOP 07/30/25 15:11 1 patch UD PRN Administration PAIN Protocol Lisinopril 10 mg 06/30/25 09:00 07/01/25 09:11 Lisinopril 2.5 Mg Tablet PO 07/30/25 08:59 10 mg On Hold: 07/02/25 08:10 QDAY BALA Administration Mirtazapine 7.5 mg 06/30/25 11:15 07/01/25 09:12 Mirtazapine 15 Mg Tablet PO 07/30/25 11:14 7.5 mg On Hold: 07/02/25 08:10 QDAY BALA Administration Ondansetron HCl 4 mg 06/28/25 20:01 07/02/25 05:36 Ondansetron Inj 2 Mg/Ml Inj 2 Ml IVP 07/28/25 20:00 4 mg Q6H PRN Administration NAUSEA OR VOMITING Protocol Pantoprazole Sodium 40 mg 06/28/25 20:15 07/04/25 09:58 Pantoprazole Inj 40 Mg Vial IVP 07/28/25 20:14 40 mg QDAY BALA Administration Plan 84F with metastatic appendiceal carcinoma, malignant pleural effusions, recent EGD with dilation for dysphagia, SNF once BM achieved and ileus improves # Colonic and small bowel ileus # Constipation Patient has significant stool burden as demonstrated on KUB 07/01, and is distended on physical exam. Had a bowel movement yesterday small hard stool, digital disimpaction with hard stools that was extracted. Passing flatus, no bowel movement since that small bowel movement yesterday. NG tube was clamped yesterday as there was no suction over 24 hours, NG suction was resumed this morning with 200 cc output in that last 3 hours. Plan: * Continue NG to intermittent suction. * Once NG tube output is minimal will start GoLytely via NG tube until bowel movement occurs. Will start at 100 cc/hr uptitrate as tolerable, max 200cc/hr. * NPO except meds * Monitor for BM and progress of NG output * Continue mobilization (sit at edge of bed, out of bed as tolerated) * Daily abdominal exams # Dysphagia, improving post-dilation Patient reports 3 months of progressive dysphagia to solids and liquids, heartburn, and poor appetite. Improved swallowing after dilation. No nausea/vomiting; no chest pain; tolerated liquids then tolerated regular diet. Plan: * Hold PO diet until ileus resolves * Discontinue alendronate. 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 Imaging shows worsening pleural disease, nodules, ascites, and malnutrition. Patient has not been following with oncology. Prefers local oncology -> consult placed to Dr. Gonzales. Dr. Gonzales recommended patient to go see a Dr. Nicholson and discuss option of transfer of care to Dr. Gonzales. Plan: * Strongly recommend she returns to Dr. Nicholson ([facility]) one more time to discuss transfer of care as per Dr. Gonzales. * Follow-up on pathology from EGD. * Hold prednisone as patient was using it for stimulating appetite. * Holding mirtazapine as patient is npo # Malignant pleural effusions Ultrasound thoracentesis was completed yesterday 06/29/2025 with 850 cc out. Stable breathing today close thoracentesis. Plan: * Monitor respiratory status * Repeat thoracentesis only if symptomatic #Weight loss, poor appetite, and generalized weakness Appetite still low despite improved swallowing. Plan: * Holding mirtazapine. * Discharge patient on mirtazapine as well * Encourage small frequent meals # Neuropathy Started gabapentin 100 mg TID yesterday Plan: * Continue gabapentin * Adjust dose based on symptoms and sedation #Hypertension BP soft today. On lisinopril 10 mg daily at home. Plan: * Hold lisinopril as BP is soft this morning. * Monitor BP closely #Anemia (Hgb 9.8) Likely multifactorial: chronic disease + nutritional decline. No signs of bleeding. Plan: * Stable, follow up outpatient #Cirrhosis with ascites (suspected malignant or chronic liver disease) CT suggests cirrhosis and moderate ascites. No stigmata of acute decompensation. Plan: * Monitor LFTs, INR, abdomen exam Health Maintenance: Diet: NPO. DVT prophylaxis: Lovenox GI prophylaxis: Protonix IV Code status: Full Disposition: SNF once BM achieved and ileus improves. Accepted with authorization. Discharge pending return of bowel function. ----- Plan discussed with attending physician Dr. Rissa Alexandre MD PGY-1 Internal Medicine Attending Provider Attestation/Addendum I have examined the patient, reviewed labs and imaging findings, discussed the case with the resident(s), and reviewed entered orders. I agree with the plan of care as outlined in this note. Dr. Rissa MD
[2025-07-04] MEDS: ACETAMINOPHEN 325 MG TABLET 650 MG PO (14:45)
[2025-07-04 16:00] VITALS: BP 107/75; PULSE 88; RESP 16; TEMP 36.7; O2SAT 95
[2025-07-04 16:42] VITALS: BMI 15.0
--- NOTE | 2025-07-04 18:33 | PD.IMPROG ---
Documentation for date of: 07/04/25 Subjective Subjective Interval history: Patient evaluated agree with the current plan that once the NGT suction goes down start the GoLytely low-dose such as 100 cc an hour and hopefully we can flush the stool burden out of the left colon and the right colon Exam Vital Signs Temp Pulse Resp BP Pulse Ox O2 Del Method O2 Flow Rate 98.0 F 88 16 107/75 95 Room Air 3 07/04/25 16:00 07/04/25 16:00 07/04/25 16:00 07/04/25 16:00 07/04/25 16:00 07/04/25 16:00 07/04/25 16:00 Objective Labs 07/04/25 04:50 07/04/25 04:50 Labs: Laboratory Results - last 24 hr 07/04/25 04:50 WBC 4.5 RBC 3.57 L Hgb 9.8 L Hct 29.3 L MCV 82 MCH 27.5 MCHC 33.4 RDW Std Deviation 48.4 H Plt Count 196 Neut % (Auto) 63 Lymph % (Auto) 21 [place] % (Auto) 14 H Eos % (Auto) 0 Baso % (Auto) 0 Neut # (Auto) 2.8 Lymph # (Auto) 0.9 L [place] # (Auto) 0.6 Eos # (Auto) 0.0 Baso # (Auto) 0.0 Immature Gran # (Auto) 0.04 H Absolute Nucleated RBC 0.00 Immature Gran % 1 H Nucleated RBC % 0 Sodium 135 L Potassium 3.4 Chloride 105 Carbon Dioxide 23.9 Anion Gap 6 L BUN 11 Creatinine 0.4 L Estim Creat Clear Calc 92.0 eGFR > 60 BUN/Creatinine Ratio 28 H Glucose 105 Calculated Osmolality 269 L Calcium 7.2 L Corrected Calcium 8.7 Magnesium 1.7 Total Bilirubin 0.4 AST 16 ALT 7 L Alkaline Phosphatase 69 Total Protein 3.6 L Albumin 2.1 L Globulin 1.5 L Albumin/Globulin Ratio 1.4 Impressions Impression: Stool impaction Once the NGT suction goes down to minimum start the GoLytely 100 cc an hour via the NGT Assessment & Plan A&P Narrative 1. 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 2. [facility]. 3. Admitted with dysphagia weight loss awaiting upper endoscopy Dr. Latif. 4. Will follow. Thank you for allowing me to evaluate this patient Time Spent With Patient Time: Total time spent is greater than 50% in coordination of care (as documented) at patient's floor/unit and/or counseling patient:
[2025-07-04 20:00] VITALS: BP 98/62; PULSE 83; RESP 16; TEMP 36.8; O2SAT 96
[2025-07-04] MEDS: ENOXAPARIN SOD INJ 40 MG/0.4 ML SYRINGE SC (21:37)
[2025-07-05] VITALS: BP 98/71; PULSE 86; RESP 16; TEMP 36.7; O2SAT 95
--- NOTE | 2025-07-05 | XR_ITS ---
Examination: Abdomen AP single view Technique: AP portable supine abdomen, single view Exam date and time: July 05, 2025, 1807 hours INDICATIONS: Abdominal pain and distention this week, 4-hour delayed film for small bowel series today. FINDINGS: Most of the contrast is in the colon IMPRESSION: Negative for small bowel obstruction No further films are needed
--- NOTE | 2025-07-05 | XR_ITS ---
Examination: Abdomen AP single view Technique: AP portable supine abdomen, single view Exam date and time: July 05, 2025, 1611 hours INDICATIONS: Abdominal pain and distention this week, 2-hour delayed film for small bowel series FINDINGS: Contrast is present in the colon IMPRESSION: Recommend 1 additional follow-up abdomen film at 6:00 p.m.
[2025-07-05] MEDS: DEXTROSE 5%-NS 1,000 ML 50 ML IV ×2 (00:19→20:23)
[2025-07-05] MEDS: LIDOCAINE 5% 1 PATCH TOP (00:40)
[2025-07-05 04:00] VITALS: BP 103/71; PULSE 86; RESP 18; TEMP 37; O2SAT 96
[2025-07-05] MEDS: ONDANSETRON INJ 2 MG/ML INJ 2 ML 4 MG IVP (04:56)
[2025-07-05 05:50] LABS: Basophils # (Auto) 0.0 Thou/mm3 (0.0-0.2); Basophils % (Auto) 0 % (0-2.5); Eosinophils # (Auto) 0.0 Thou/mm3 (0.0-0.5); Eosinophils % (Auto) 0 % (0-10); Hematocrit 27.8 % (36.0-46.0); Hemoglobin 9.3 g/dL (12.0-16.0); Immature Granulocytes Auto 0.02 Thou/mm3 (0.00-0.00); Lymphocytes # (Auto) 1.1 Thou/mm3 (1.0-4.8); Lymphocytes % (Auto) 26 % (10-50); Mean Corpuscular HGB Conc 33.5 g/dl (31.0-37.0); Mean Corpuscular Hemoglobin 27.9 pg (25.0-35.0); Mean Corpuscular Volume 84 fL (80-100); Monocytes # (Auto) 0.6 Thou/mm3 (0.0-0.8); Monocytes % (Auto) 12 % (0-12); Neutrophils # (Auto) 2.7 Thou/mm3 (1.8-7.7); Neutrophils % (Auto) 61 % (37-80); Nucleated Red Blood Cell # 0.00 Thou/mm3 (0.00-0.00); Nucleated Red Blood Cell % 0 /100 WBC (0); Platelet Count 204 Thou/mm3 (140-440); RDW Standard Deviation 49.0 fL (36.4-46.3); Red Blood Count 3.33 Miln/mm3 (4.00-5.20); White Blood Count 4.4 Thou/mm3 (3.6-11.0)
[2025-07-05 06:20] LABS: Alanine Aminotransferase 7 U/L (10-49); Albumin, Serum 2.1 gm/dL (3.4-4.8); Albumin/Globulin Ratio 1.3 (1.2-2.2); Alkaline Phosphatase 70 U/L (46-116); Anion Gap 8 (7-16); Aspartate Amino Transferase 15 U/L (0-34); BUN/Creatinine Ratio 37 Ratio (12-20); Bilirubin,Total 0.5 mg/dL (0.3-1.2); Blood Urea Nitrogen 11 mg/dL (9-23); Calcium 7.1 mg/dL (8.3-10.6); Calcium (Corrected) 8.6 mg/dL (8.5-10.1); Carbon Dioxide 25.5 mMol/L (20.0-31.0); Chloride 104 mMol/L (98-107); Creatinine (Component) 0.3 mg/dL (0.6-1.3); Estimated Creatinine Clearance 122.7 mL/min (>60); Globulin 1.6 gm/dL (2.3-3.5); Glucose 87 mg/dL (74-106); Magnesium 1.7 mg/dL (1.6-2.6); Osmolality,Calculated 272 (275-295); Potassium 3.1 mMol/L (3.4-5.1); Sodium 137 mMol/L (136-145); Total Protein 3.7 gm/dL (5.7-8.2); eGFR > 60 See Note
[2025-07-05 07:37] VITALS: BP 112/71; PULSE 88; RESP 18; TEMP 37; O2SAT 96
[2025-07-05] MEDS: DOCUSATE SOD LIQD 100 MG/10 ML UDC NG ×2 (08:55→21:11)
--- NOTE | 2025-07-05 09:10 | XR_ITS ---
EXAMINATION: XR abdomen 1V ORDERING PROVIDER: Aj Alexandre MD HISTORY: sbo TECHNIQUE: 2 radiographs abdomen and pelvis (KUB) COMPARISON: 07/03/2025, KUB. FINDINGS: Port-A-Cath tip projecting over the expected region of the superior cavoatrial junction. Enteric tube with tip and sideport projecting below the left hemidiaphragm. Again seen are prominent air-filled loops of bowel, including small bowel measuring up to 3.1 cm. There is air and stool density projecting over the rectum. Small right moderate left pleural effusions. Right upper quadrant surgical clips. Chain suture right hemiabdomen. IMPRESSION: 1. Lines and tubes as above. 2. Mildly dilated loops of small bowel again visualized: ileus versus partial obstruction. 3. Small right moderate left pleural effusions.
--- NOTE | 2025-07-05 09:21 | PD.ONCPROG ---
Documentation for date of: 07/05/25 Subjective Subjective Interval history: Patient with metastatic appendiceal CA receiving chemotherapy at [facility] in [place]., Admitted with dysphagia and weight loss, upper endoscopy 06/29/2025 revealing benign-appearing esophageal stenosis, with biopsy taken at various regions of the esophagus and stomach region which did not reveal any malignancies, but chronic gastritis appearance. Esophageal dilation was performed. Patient has not had BM in recent days with abdominal distention showing mild to moderate small bowel ileus. Receiving NG suction. Exam Vital Signs Temp Pulse Resp BP Pulse Ox O2 Del Method O2 Flow Rate 98.6 F 88 18 112/71 96 Room Air 3 07/05/25 07:37 07/05/25 07:37 07/05/25 07:37 07/05/25 07:37 07/05/25 07:37 07/05/25 07:37 07/04/25 16:00 Objective Objective Narrative Objective Narrative: Appears more comfortable today still not passing bowel contents, receiving NG suction. Labs 07/05/25 04:50 07/05/25 04:50 Labs: Laboratory Results - last 24 hr 07/05/25 04:50 WBC 4.4 RBC 3.33 L Hgb 9.3 L Hct 27.8 L MCV 84 MCH 27.9 MCHC 33.5 RDW Std Deviation 49.0 H Plt Count 204 Neut % (Auto) 61 Lymph % (Auto) 26 [place] % (Auto) 12 Eos % (Auto) 0 Baso % (Auto) 0 Neut # (Auto) 2.7 Lymph # (Auto) 1.1 [place] # (Auto) 0.6 Eos # (Auto) 0.0 Baso # (Auto) 0.0 Immature Gran # (Auto) 0.02 H Absolute Nucleated RBC 0.00 Immature Gran % 1 H Nucleated RBC % 0 Sodium 137 Potassium 3.1 L Chloride 104 Carbon Dioxide 25.5 Anion Gap 8 BUN 11 Creatinine 0.3 L Estim Creat Clear Calc 122.7 eGFR > 60 BUN/Creatinine Ratio 37 H Glucose 87 Calculated Osmolality 272 L Calcium 7.1 L Corrected Calcium 8.6 Magnesium 1.7 Total Bilirubin 0.5 AST 15 ALT 7 L Alkaline Phosphatase 70 Total Protein 3.7 L Albumin 2.1 L Globulin 1.6 L Albumin/Globulin Ratio 1.3 Assessment & Plan A&P Narrative 1. 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 2. Receiving chemo under Dr. Nicholson's direction [facility] [place] last chemo March 2025. 3. Admitted with dysphagia weight loss endoscopy revealing no malignancy but esophageal stenosis and dilation performed. 4. Currently with difficulty passing bowel contents receiving supportive care. Time Spent With Patient Time: Total time spent is greater than 50% in coordination of care (as documented) at patient's floor/unit and/or counseling patient:
[2025-07-05] MEDS: POT PHOS 15 mMol in NS 250 ML 15 MMOL/250 ML BAG 62.5 MMOL IV ×3 (09:37→17:48)
[2025-07-05] MEDS: ACETAMINOPHEN 325 MG TABLET 650 MG PO ×2 (09:48→19:11)
[2025-07-05 11:15] VITALS: BP 105/69; PULSE 79; RESP 18; TEMP 37; O2SAT 96
--- NOTE | 2025-07-05 13:15 | XR_ITS ---
EXAMINATION: Small bowel series AP abdomen 3 views Date and time: July 05, 2025, 1411 hours INDICATIONS: Abdominal pain and distention this week TECHNIQUE AND FINDINGS: Patient received 120 cc Gastrografin Immediate 1 hour films obtained The 1 hour film shows contrast in the colon IMPRESSION: Findings do not indicate complete small bowel obstruction Recommend 1 additional abdomen film at 5:00 p.m.
--- NOTE | 2025-07-05 13:30 | ESPR_ITS ---
<Statement entered by Ramon Medel MD - 07/05/25 15:52> Patient is seen and examined at bedside. No acute overnight events. Still complaining of abdominal distention and pain. On physical examination, noted moderate abdominal distention and overnight, patient had 500 cc of NG tube suction abdominal x-ray was done and still showed distended bowel loops. Started on bowel series. Will monitor for bowel movements. I have personally seen and examined the patient, agree with residents assessment and plan Patient plan of care was discussed with the attending physician, Dr. Rissa Medel, PGY2 Documentation for date of: 07/05/25 Subjective Subjective Interval history: No acute overnight events. Patient abdomen appears to be mildly distended . On NG low intermitent suction that was restarted yesterday, there is 500cc output since then. No BM yet. Starting bowel series. Exam Vital Signs Temp Pulse Resp BP Pulse Ox O2 Del Method O2 Flow Rate 98.6 F 79 18 105/69 96 Room Air 3 07/05/25 11:15 07/05/25 11:15 07/05/25 11:15 07/05/25 11:15 07/05/25 11:15 07/05/25 11:15 07/04/25 16:00 Narrative Exam General: Comfortable, no distress Heart: RRR, no murmurs Lungs: Decreased breath sounds at bases, non-labored Abdomen: Soft, non-tender, mildly distended, mild hypoactive bowel sounds Extremities: R>L leg edema improved from yesterday, stable Neuro: No focal deficits Skin: Warm, dry Objective Labs 07/06/25 04:45 07/06/25 04:45 Labs: Laboratory Results - last 24 hr 07/05/25 04:50 WBC 4.4 RBC 3.33 L Hgb 9.3 L Hct 27.8 L MCV 84 MCH 27.9 MCHC 33.5 RDW Std Deviation 49.0 H Plt Count 204 Neut % (Auto) 61 Lymph % (Auto) 26 [place] % (Auto) 12 Eos % (Auto) 0 Baso % (Auto) 0 Neut # (Auto) 2.7 Lymph # (Auto) 1.1 [place] # (Auto) 0.6 Eos # (Auto) 0.0 Baso # (Auto) 0.0 Immature Gran # (Auto) 0.02 H Absolute Nucleated RBC 0.00 Immature Gran % 1 H Nucleated RBC % 0 Sodium 137 Potassium 3.1 L Chloride 104 Carbon Dioxide 25.5 Anion Gap 8 BUN 11 Creatinine 0.3 L Estim Creat Clear Calc 122.7 eGFR > 60 BUN/Creatinine Ratio 37 H Glucose 87 Calculated Osmolality 272 L Calcium 7.1 L Corrected Calcium 8.6 Magnesium 1.7 Total Bilirubin 0.5 AST 15 ALT 7 L Alkaline Phosphatase 70 Total Protein 3.7 L Albumin 2.1 L Globulin 1.6 L Albumin/Globulin Ratio 1.3 Quality Measures Quality Measures VTE prophylaxis Advance care planning discussed with:: patient Assessment & Plan Assessment Current Active Medications: Generic Name Dose Route Start Last Admin Trade Name Freq PRN Reason Stop Dose Admin Acetaminophen 650 mg 06/28/25 20:01 07/05/25 09:48 Acetaminophen 325 Mg Tablet PO 07/28/25 20:00 650 mg Q6H PRN Administration PAIN (1-3) OR FEVER > 100.4 Dextrose 25 ml 07/03/25 06:18 07/03/25 06:25 Dextrose 50%-Water Inj 50 Ml Syringe IV 08/02/25 06:17 25 ml Q15MIN PRN Administration BG 50-70 responsive npo pt Dextrose 50 ml 07/03/25 06:18 Dextrose 50%-Water Inj 50 Ml Syringe IV 08/02/25 06:17 Q15MIN PRN BG <50 OR BG <70 & pt unresponsive Docusate Sodium 100 mg 07/03/25 21:00 07/05/25 08:55 Docusate Sod Liqd 100 Mg/10 Ml Udc NG 08/02/25 20:59 100 mg BID BALA Administration Protocol Enoxaparin Sodium 40 mg 06/28/25 20:10 07/04/25 21:37 Enoxaparin Sod Inj 40 Mg/0.4 Ml Syringe SC 07/12/25 20:09 40 mg HS BALA Administration Gabapentin 100 mg 07/03/25 22:00 07/05/25 06:00 Gabapentin 100 Mg Capsule PO 08/02/25 21:59 Not Given TID BALA Glycerin 1 each 07/01/25 13:27 07/03/25 18:30 Glycerin, Adult 1 Ea Supp VT 07/31/25 13:26 1 each QDAY PRN Administration CONSTIPATION Dextrose/Sodium Chloride 1,000 mls @ 50 mls/hr 07/05/25 00:15 07/05/25 00:19 D5-Ns IV 08/04/25 00:14 50 mls/hr .Q20H BALA Administration Potassium Phosphate 15 mmol in 250 mls @ 62.5 mls/hr 07/05/25 09:10 07/05/25 09:37 Pot Phos 15 Mmol In Ns 250 Ml IV 07/05/25 21:09 62.5 mls/hr Q4H BALA Administration Lactulose 10 gm 07/03/25 22:00 07/05/25 06:00 Lactulose Syrup 20 Gm/30 Ml Udc NG 08/02/25 21:59 Not Given TID BALA Protocol Lidocaine 1 patch 06/30/25 15:12 07/05/25 00:40 Lidocaine 5% 1 Patch TOP 07/30/25 15:11 1 patch UD PRN Administration PAIN Protocol Lisinopril 10 mg 06/30/25 09:00 07/01/25 09:11 Lisinopril 2.5 Mg Tablet PO 07/30/25 08:59 10 mg On Hold: 07/02/25 08:10 QDAY BALA Administration Mirtazapine 7.5 mg 06/30/25 11:15 07/01/25 09:12 Mirtazapine 15 Mg Tablet PO 07/30/25 11:14 7.5 mg On Hold: 07/02/25 08:10 QDAY BALA Administration Ondansetron HCl 4 mg 06/28/25 20:01 07/05/25 04:56 Ondansetron Inj 2 Mg/Ml Inj 2 Ml IVP 07/28/25 20:00 4 mg Q6H PRN Administration NAUSEA OR VOMITING Protocol Pantoprazole Sodium 40 mg 06/28/25 20:15 07/05/25 08:55 Pantoprazole Inj 40 Mg Vial IVP 07/28/25 20:14 40 mg QDAY BALA Administration Plan 84F with metastatic appendiceal carcinoma, malignant pleural effusions, recent EGD with dilation for dysphagia, SNF once BM achieved and ileus improves # Colonic and small bowel ileus # Constipation Patient has significant stool burden as demonstrated on KUB 07/01, and is distended on physical exam. Had a bowel movement yesterday small hard stool, digital disimpaction with hard stools that was extracted. Passing flatus, no bowel movement since that small bowel movement yesterday. NG tube was clamped on 07/03 as there was no suction over 24 hours, NG suction was resumed 07/04 with 200 cc output in that last 3 hours. This morning 07/05 there was 500 cc output. KUB on 07/05 shows no change, illeus vs possible obstruction. Plan: * Start gatrograffin bowel series. * Continue NG to intermittent suction. * NPO except meds * Monitor for BM and progress of NG output * Continue mobilization (sit at edge of bed, out of bed as tolerated) * Daily abdominal exams # Dysphagia, improving post-dilation Patient reports 3 months of progressive dysphagia to solids and liquids, heartburn, and poor appetite. Improved swallowing after dilation. No nausea/vomiting; no chest pain; tolerated liquids then tolerated regular diet. Plan: * Hold PO diet until ileus resolves * Discontinue alendronate. 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 Imaging shows worsening pleural disease, nodules, ascites, and malnutrition. Patient has not been following with oncology. Prefers local oncology -> consult placed to Dr. Gonzales. Dr. Gonzales recommended patient to go see a Dr. Nicholson and discuss option of transfer of care to Dr. Gonzales. Plan: * Strongly recommend she returns to Dr. Nicholson ([place] [facility]) one more time to discuss transfer of care as per Dr. Gonzales. * Follow-up on pathology from EGD. * Holding mirtazapine as patient is npo # Malignant pleural effusions Ultrasound thoracentesis was completed yesterday 06/29/2025 with 850 cc out. Stable breathing today close thoracentesis. Plan: * Monitor respiratory status * Repeat thoracentesis only if symptomatic #Weight loss, poor appetite, and generalized weakness Appetite still low despite improved swallowing. Plan: * Holding mirtazapine. * Discharge patient on mirtazapine as well * Encourage small frequent meals # Neuropathy Started gabapentin 100 mg TID . Plan: * Continue gabapentin * Adjust dose based on symptoms and sedation #Hypertension BP soft today. On lisinopril 10 mg daily at home. Plan: * Hold lisinopril as BP is soft this morning. * Monitor BP closely #Anemia (Hgb 9.3) Likely multifactorial: chronic disease + nutritional decline. No signs of bleeding. Plan: * Stable, follow up outpatient #Cirrhosis with ascites (suspected malignant or chronic liver disease) CT suggests cirrhosis and moderate ascites. No stigmata of acute decompensation. Plan: * Monitor LFTs, INR, abdomen exam Health Maintenance: Diet: NPO. DVT prophylaxis: Lovenox GI prophylaxis: Protonix IV Code status: Full Disposition: SNF once BM achieved and ileus improves. Accepted with authorization. Discharge pending return of bowel function. ----- Plan discussed with attending physician Dr. Kwok and senior resident Dr. Gianfranco Alexandre MD PGY-1 Internal Medicine Attending Provider Attestation/Addendum I have examined the patient, reviewed labs and imaging findings, discussed the case with the resident(s), and reviewed entered orders. I agree with the plan of care as outlined in this note. Dr. Rissa MD
[2025-07-05] MEDS: LACTULOSE SYRUP 20 GM/30 ML UDC 10 GM NG ×2 (13:44→22:09)
[2025-07-05] MEDS: GABAPENTIN 100 MG CAPSULE PO ×2 (13:44→21:11)
--- NOTE | 2025-07-05 15:04 | PC.SS ---
Rounding Note: Bowel movement remains pending. D/C to SNF remains the plan.
[2025-07-05 15:49] VITALS: BP 111/73; PULSE 96; RESP 18; TEMP 37; O2SAT 96
[2025-07-05 17:13] VITALS: BMI 20.7
--- NOTE | 2025-07-05 17:31 | PC.DIETICIAN ---
Dietitian recommendation: Pt has negligible intake since admission, suffers from dysgeusia, dislikes oral supplements, etc. If oral diet re-starts, re- order Faviola Prado (pt will try). If stays on liquids, initiate PPN. *Recommend PPN start D5% AA 4.25% at 30ml/hr x8hrs, then 60ml/hr x8hrs then 90ml/hr goal rate to provide with 500ml 20% IL 3x/week (TTHSA) to provide: 2160ml total vol, 1163total kcal, 92g AA, 108g dextrose Thank you
--- NOTE | 2025-07-05 17:43 | PD.IMPROG ---
Documentation for date of: 07/05/25 Subjective Subjective Interval history: Significant NGT suction secretions about 500 cc in last 24 hours Patient has been n.p.o. for a while Metastatic appendiceal adenocarcinoma Gastric biopsy negative for any intragastric tumor Recommend PPN till the bowel function stabilizes It may never stabilize because of the underlying metastatic disease Exam Vital Signs Temp Pulse Resp BP Pulse Ox O2 Del Method O2 Flow Rate 98.6 F 96 18 111/73 96 Room Air 3 07/05/25 15:49 07/05/25 15:49 07/05/25 15:49 07/05/25 15:49 07/05/25 15:49 07/05/25 15:49 07/04/25 16:00 Objective Labs 07/05/25 04:50 07/05/25 04:50 Labs: Laboratory Results - last 24 hr 07/05/25 04:50 WBC 4.4 RBC 3.33 L Hgb 9.3 L Hct 27.8 L MCV 84 MCH 27.9 MCHC 33.5 RDW Std Deviation 49.0 H Plt Count 204 Neut % (Auto) 61 Lymph % (Auto) 26 [place] % (Auto) 12 Eos % (Auto) 0 Baso % (Auto) 0 Neut # (Auto) 2.7 Lymph # (Auto) 1.1 [place] # (Auto) 0.6 Eos # (Auto) 0.0 Baso # (Auto) 0.0 Immature Gran # (Auto) 0.02 H Absolute Nucleated RBC 0.00 Immature Gran % 1 H Nucleated RBC % 0 Sodium 137 Potassium 3.1 L Chloride 104 Carbon Dioxide 25.5 Anion Gap 8 BUN 11 Creatinine 0.3 L Estim Creat Clear Calc 122.7 eGFR > 60 BUN/Creatinine Ratio 37 H Glucose 87 Calculated Osmolality 272 L Calcium 7.1 L Corrected Calcium 8.6 Magnesium 1.7 Total Bilirubin 0.5 AST 15 ALT 7 L Alkaline Phosphatase 70 Total Protein 3.7 L Albumin 2.1 L Globulin 1.6 L Albumin/Globulin Ratio 1.3 Impressions Impression: Metastatic appendiceal adenocarcinoma Small bowel ileus/obstruction most likely secondary to metastatic disease Continue NGT Consider PPN Assessment & Plan A&P Narrative 1. 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 2. Receiving chemo under Dr. Nicholson's direction [facility] [place] last chemo March 2025. 3. Admitted with dysphagia weight loss endoscopy revealing no malignancy but esophageal stenosis and dilation performed. 4. Currently with difficulty passing bowel contents receiving supportive care. Time Spent With Patient Time: Total time spent is greater than 50% in coordination of care (as documented) at patient's floor/unit and/or counseling patient:
[2025-07-05 20:00] VITALS: BP 115/81; PULSE 84; RESP 17; TEMP 36.9; O2SAT 96
[2025-07-05] MEDS: ENOXAPARIN SOD INJ 40 MG/0.4 ML SYRINGE SC (21:17)
[2025-07-06] VITALS: BP 92/73; PULSE 83; RESP 15; TEMP 37.1; O2SAT 96
[2025-07-06 04:00] VITALS: BP 102/69; PULSE 79; RESP 18; TEMP 36.8; O2SAT 95
[2025-07-06] MEDS: GABAPENTIN 100 MG CAPSULE PO ×3 (05:03→21:23)
[2025-07-06] MEDS: LACTULOSE SYRUP 20 GM/30 ML UDC 10 GM NG ×3 (05:03→21:24)
[2025-07-06 06:00] VITALS: BMI 20.7
[2025-07-06 06:00] LABS: Basophils # (Auto) 0.0 Thou/mm3 (0.0-0.2); Basophils % (Auto) 0 % (0-2.5); Eosinophils # (Auto) 0.0 Thou/mm3 (0.0-0.5); Eosinophils % (Auto) 0 % (0-10); Hematocrit 29.7 % (36.0-46.0); Hemoglobin 9.8 g/dL (12.0-16.0); Immature Granulocytes Auto 0.01 Thou/mm3 (0.00-0.00); Lymphocytes # (Auto) 1.1 Thou/mm3 (1.0-4.8); Lymphocytes % (Auto) 26 % (10-50); Mean Corpuscular HGB Conc 33.0 g/dl (31.0-37.0); Mean Corpuscular Hemoglobin 27.5 pg (25.0-35.0); Mean Corpuscular Volume 83 fL (80-100); Monocytes # (Auto) 0.5 Thou/mm3 (0.0-0.8); Monocytes % (Auto) 11 % (0-12); Neutrophils # (Auto) 2.7 Thou/mm3 (1.8-7.7); Neutrophils % (Auto) 63 % (37-80); Nucleated Red Blood Cell # 0.00 Thou/mm3 (0.00-0.00); Nucleated Red Blood Cell % 0 /100 WBC (0); Platelet Count 229 Thou/mm3 (140-440); RDW Standard Deviation 50.0 fL (36.4-46.3); Red Blood Count 3.56 Miln/mm3 (4.00-5.20); White Blood Count 4.4 Thou/mm3 (3.6-11.0)
[2025-07-06 06:34] LABS: Alanine Aminotransferase 8 U/L (10-49); Albumin, Serum 2.2 gm/dL (3.4-4.8); Albumin/Globulin Ratio 1.2 (1.2-2.2); Alkaline Phosphatase 81 U/L (46-116); Anion Gap 8 (7-16); Aspartate Amino Transferase 15 U/L (0-34); BUN/Creatinine Ratio 23 Ratio (12-20); Bilirubin,Total 0.4 mg/dL (0.3-1.2); Blood Urea Nitrogen 9 mg/dL (9-23); Calcium 7.0 mg/dL (8.3-10.6); Calcium (Corrected) 8.4 mg/dL (8.5-10.1); Carbon Dioxide 25.5 mMol/L (20.0-31.0); Chloride 107 mMol/L (98-107); Creatinine (Component) 0.4 mg/dL (0.6-1.3); Estimated Creatinine Clearance 92.0 mL/min (>60); Globulin 1.9 gm/dL (2.3-3.5); Glucose 95 mg/dL (74-106); Magnesium 1.7 mg/dL (1.6-2.6); Osmolality,Calculated 278 (275-295); Potassium 3.7 mMol/L (3.4-5.1); Sodium 140 mMol/L (136-145); Total Protein 4.1 gm/dL (5.7-8.2); eGFR > 60 See Note
[2025-07-06 07:39] VITALS: BP 99/69; PULSE 87; RESP 18; TEMP 36.8; O2SAT 95
[2025-07-06] MEDS: DOCUSATE SOD LIQD 100 MG/10 ML UDC NG ×2 (09:17→21:24)
--- NOTE | 2025-07-06 10:48 | ESPR_ITS ---
Documentation for date of: 07/06/25 Subjective Subjective Interval history: Small bowel follow-through negative Patient's issues are related to her gastrointestinal motility disorder with no clear signs of obstruction Exam Vital Signs Temp Pulse Resp BP Pulse Ox O2 Del Method O2 Flow Rate 98.3 F 87 18 99/69 95 Room Air 3 07/06/25 07:39 07/06/25 07:39 07/06/25 07:39 07/06/25 07:39 07/06/25 07:39 07/06/25 07:39 07/04/25 16:00 Objective Labs 07/06/25 04:45 07/06/25 04:45 Labs: Laboratory Results - last 24 hr 07/06/25 04:45 WBC 4.4 RBC 3.56 L Hgb 9.8 L Hct 29.7 L MCV 83 MCH 27.5 MCHC 33.0 RDW Std Deviation 50.0 H Plt Count 229 Neut % (Auto) 63 Lymph % (Auto) 26 [place] % (Auto) 11 Eos % (Auto) 0 Baso % (Auto) 0 Neut # (Auto) 2.7 Lymph # (Auto) 1.1 [place] # (Auto) 0.5 Eos # (Auto) 0.0 Baso # (Auto) 0.0 Immature Gran # (Auto) 0.01 H Absolute Nucleated RBC 0.00 Immature Gran % 0 Nucleated RBC % 0 Sodium 140 Potassium 3.7 D Chloride 107 Carbon Dioxide 25.5 Anion Gap 8 BUN 9 Creatinine 0.4 L Estim Creat Clear Calc 92.0 eGFR > 60 BUN/Creatinine Ratio 23 H Glucose 95 Calculated Osmolality 278 Calcium 7.0 L Corrected Calcium 8.4 L Magnesium 1.7 Total Bilirubin 0.4 AST 15 ALT 8 L Alkaline Phosphatase 81 Total Protein 4.1 L Albumin 2.2 L Globulin 1.9 L Albumin/Globulin Ratio 1.2 Impressions Impression: Gastrointestinal motility disorder versus resolved small bowel obstruction Continue current management Assessment & Plan A&P Narrative 1. 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 2. Receiving chemo under Dr. Nicholson's direction [facility] [place] last chemo March 2025. 3. Admitted with dysphagia weight loss endoscopy revealing no malignancy but esophageal stenosis and dilation performed. 4. Currently with difficulty passing bowel contents receiving supportive care. Time Spent With Patient Time: Total time spent is greater than 50% in coordination of care (as documented) at patient's floor/unit and/or counseling patient:
[2025-07-06 12:00] VITALS: BP 110/75; PULSE 94; RESP 18; TEMP 36.8; O2SAT 95
--- NOTE | 2025-07-06 15:12 | PC.SS ---
SS contacted Kirstin from [facility] to check status on auth. Kirstin informed SS that auth date would need to be changed, however will still need PT note in case new auth needs to be resubmitted. SS met with patient and patients son at bedside to inform patient that auth might need to be resubmitted and therefore she needs to participate with PT. Patient refused PT today. Patient verbalized understanding and informed SS she would participate tomorrow. SS also contacted Michelien from PT to update and inform her if she could work with patient tomorrow morning. SS will stand by for further needs.
[2025-07-06 15:55] VITALS: BP 117/72; PULSE 89; RESP 18; TEMP 36.8; O2SAT 95
--- NOTE | 2025-07-06 16:07 | ESPR_ITS ---
Documentation for date of: 07/06/25 Subjective Subjective Interval history: No acute events overnight.?Patient seen and examined at bedside this AM.?Patient had a moderate sized bowel movement last night. She reports feeling much relieved. Will start on clear liquids and remove NG tube if patient tolerates without nausea, vomiting, or distention. Labs and vitals were reviewed.?No further complaints at this time. Now awaiting advancement and toleration of diet prior to discharge. Review of systems otherwise negative except what is mentioned above. Exam Vital Signs Temp Pulse Resp BP Pulse Ox O2 Del Method O2 Flow Rate 98.3 F 89 18 117/72 95 Room Air 3 07/06/25 15:55 07/06/25 15:55 07/06/25 15:55 07/06/25 15:55 07/06/25 15:55 07/06/25 15:55 07/04/25 16:00 Narrative Exam General: Comfortable, no distress Heart: RRR, no murmurs Lungs: Decreased breath sounds at bases, non-labored Abdomen: Soft, non-tender, mildly distended, mild hypoactive bowel sounds Extremities: R>L leg edema improved from yesterday, stable Neuro: No focal deficits Skin: Warm, dry Objective Labs 07/07/25 04:55 07/07/25 04:55 Labs: Laboratory Results - last 24 hr 07/06/25 04:45 WBC 4.4 RBC 3.56 L Hgb 9.8 L Hct 29.7 L MCV 83 MCH 27.5 MCHC 33.0 RDW Std Deviation 50.0 H Plt Count 229 Neut % (Auto) 63 Lymph % (Auto) 26 [place] % (Auto) 11 Eos % (Auto) 0 Baso % (Auto) 0 Neut # (Auto) 2.7 Lymph # (Auto) 1.1 [place] # (Auto) 0.5 Eos # (Auto) 0.0 Baso # (Auto) 0.0 Immature Gran # (Auto) 0.01 H Absolute Nucleated RBC 0.00 Immature Gran % 0 Nucleated RBC % 0 Sodium 140 Potassium 3.7 D Chloride 107 Carbon Dioxide 25.5 Anion Gap 8 BUN 9 Creatinine 0.4 L Estim Creat Clear Calc 92.0 eGFR > 60 BUN/Creatinine Ratio 23 H Glucose 95 Calculated Osmolality 278 Calcium 7.0 L Corrected Calcium 8.4 L Magnesium 1.7 Total Bilirubin 0.4 AST 15 ALT 8 L Alkaline Phosphatase 81 Total Protein 4.1 L Albumin 2.2 L Globulin 1.9 L Albumin/Globulin Ratio 1.2 Quality Measures Quality Measures VTE prophylaxis Advance care planning discussed with:: patient Assessment & Plan Assessment Current Active Medications: Generic Name Dose Route Start Last Admin Trade Name Freq PRN Reason Stop Dose Admin Acetaminophen 650 mg 06/28/25 20:01 07/05/25 19:11 Acetaminophen 325 Mg Tablet PO 07/28/25 20:00 650 mg Q6H PRN Administration PAIN (1-3) OR FEVER > 100.4 Dextrose 25 ml 07/03/25 06:18 07/03/25 06:25 Dextrose 50%-Water Inj 50 Ml Syringe IV 08/02/25 06:17 25 ml Q15MIN PRN Administration BG 50-70 responsive npo pt Dextrose 50 ml 07/03/25 06:18 Dextrose 50%-Water Inj 50 Ml Syringe IV 08/02/25 06:17 Q15MIN PRN BG <50 OR BG <70 & pt unresponsive Docusate Sodium 100 mg 07/03/25 21:00 07/06/25 09:17 Docusate Sod Liqd 100 Mg/10 Ml Udc NG 08/02/25 20:59 100 mg BID BALA Administration Protocol Enoxaparin Sodium 40 mg 06/28/25 20:10 07/05/25 21:17 Enoxaparin Sod Inj 40 Mg/0.4 Ml Syringe SC 07/12/25 20:09 40 mg HS BALA Administration Gabapentin 100 mg 07/03/25 22:00 07/06/25 14:02 Gabapentin 100 Mg Capsule PO 08/02/25 21:59 100 mg TID BALA Administration Glycerin 1 each 07/01/25 13:27 07/03/25 18:30 Glycerin, Adult 1 Ea Supp [place] 07/31/25 13:26 1 each QDAY PRN Administration CONSTIPATION Dextrose/Sodium Chloride 1,000 mls @ 50 mls/hr 07/05/25 00:15 07/05/25 20:23 D5-Ns IV 08/04/25 00:14 50 mls/hr .Q20H BALA Administration Lactulose 10 gm 07/03/25 22:00 07/06/25 14:01 Lactulose Syrup 20 Gm/30 Ml Udc NG 08/02/25 21:59 10 gm TID BALA Administration Protocol Lidocaine 1 patch 06/30/25 15:12 07/05/25 00:40 Lidocaine 5% 1 Patch TOP 07/30/25 15:11 1 patch UD PRN Administration PAIN Protocol Lisinopril 10 mg 06/30/25 09:00 07/01/25 09:11 Lisinopril 2.5 Mg Tablet PO 07/30/25 08:59 10 mg On Hold: 07/02/25 08:10 QDAY BALA Administration Mirtazapine 7.5 mg 06/30/25 11:15 07/01/25 09:12 Mirtazapine 15 Mg Tablet PO 07/30/25 11:14 7.5 mg On Hold: 07/02/25 08:10 QDAY BALA Administration Ondansetron HCl 4 mg 06/28/25 20:01 07/05/25 04:56 Ondansetron Inj 2 Mg/Ml Inj 2 Ml IVP 07/28/25 20:00 4 mg Q6H PRN Administration NAUSEA OR VOMITING Protocol Pantoprazole Sodium 40 mg 06/28/25 20:15 07/06/25 09:18 Pantoprazole Inj 40 Mg Vial IVP 07/28/25 20:14 40 mg QDAY BALA Administration Plan 84F with metastatic appendiceal carcinoma, malignant pleural effusions, recent EGD with dilation for dysphagia, SNF once BM achieved and ileus improves # Colonic and small bowel ileus, improving # Constipation Patient has significant stool burden as demonstrated on KUB 07/01, and is distended on physical exam. Had a bowel movement yesterday small hard stool, digital disimpaction with hard stools that was extracted. Passing flatus, no bowel movement since that small bowel movement yesterday. NG tube was clamped on 07/03 as there was no suction over 24 hours, NG suction was resumed 07/04 with 200 cc output in that last 3 hours. This morning 07/05 there was 500 cc output. KUB on 07/05 shows no change, illeus vs possible obstruction. Small bowel series was negative for obstruction. Plan: * Discontinued NG to intermittent suction. * Started clear liquid diet * Monitor for BM * Continue mobilization (sit at edge of bed, out of bed as tolerated) * Daily abdominal exams # Dysphagia, improving post-dilation Patient reports 3 months of progressive dysphagia to solids and liquids, heartburn, and poor appetite. Improved swallowing after dilation. No nausea/vomiting; no chest pain; tolerated liquids then tolerated regular diet. Plan: * Started clear liquid diet * Discontinue alendronate. 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 Imaging shows worsening pleural disease, nodules, ascites, and malnutrition. Patient has not been following with oncology. Prefers local oncology -> consult placed to Dr. Gonzales. Dr. Gonzales recommended patient to go see a Dr. Nicholson and discuss option of transfer of care to Dr. Gonzales. Plan: * Strongly recommend she returns to Dr. Nicholson ([facility]) one more time to discuss transfer of care as per Dr. Gonzales. * Follow-up on pathology from EGD. * Continue mirtazapine for appetite, sleep, and mood # Malignant pleural effusions Ultrasound thoracentesis was completed yesterday 06/29/2025 with 850 cc out. Stable breathing today close thoracentesis. Plan: * Monitor respiratory status * Repeat thoracentesis only if symptomatic #Weight loss, poor appetite, and generalized weakness Appetite still low despite improved swallowing. Plan: * Continue mirtazapine. * Discharge patient on mirtazapine as well * Encourage small frequent meals # Neuropathy Started gabapentin 100 mg TID . Plan: * Continue gabapentin * Adjust dose based on symptoms and sedation #Hypertension BP soft today. On lisinopril 10 mg daily at home. Plan: * Holding lisinopril as BP is normal * Monitor BP closely #Anemia (Hgb 9.3) Likely multifactorial: chronic disease + nutritional decline. No signs of bleeding. Plan: * Stable, follow up outpatient #Cirrhosis with ascites (suspected malignant or chronic liver disease) CT suggests cirrhosis and moderate ascites. No stigmata of acute decompensation. Plan: * Monitor LFTs, INR, abdomen exam Health Maintenance: Diet: NPO. DVT prophylaxis: Lovenox GI prophylaxis: Protonix IV Code status: Full Disposition: SNF once BM achieved and ileus improves. Accepted with authorization. Discharge pending return of bowel function. Advancing diet ----- Patient plan of care was discussed with the attending physician, Dr. Kwok. Bing Georges, PGY-3 Attending Provider Attestation/Addendum I have examined the patient, reviewed labs and imaging findings, discussed the case with the resident(s), and reviewed entered orders. I agree with the plan of care as outlined in this note, with these additional summaries/recommendations: Patient seen at bedside. No acute events. Patient reports she had a moderate bowel movement earlier this morning. Abdomen still slightly distended although significantly improved. We will clamp NG tube for now. We will advance diet to clear liquid and monitor how patient tolerates. If unable to tolerate then patient will likely need to be restarted on artificial nutrition. Continue antiemetics and bowel regimen. Patient continue to increase ambulation as tolerated. Outpatient follow-up for metastatic appendiceal carcinoma with mets. Continue gabapentin for neuropathy. Still holding home antihypertensives as patient has been normotensive. Will advance diet today and monitor how patient tolerates. Gastroenterology following. Patient updated on the plan and in agreement. All questions answered to satisfaction. Please see residents note for additional details and management. Dr. Rissa MD
[2025-07-06] MEDS: DEXTROSE 5%-NS 1,000 ML 50 ML IV (16:16)
[2025-07-06 20:00] VITALS: BP 107/65; PULSE 64; RESP 18; TEMP 36.6; O2SAT 94
[2025-07-06] MEDS: ENOXAPARIN SOD INJ 40 MG/0.4 ML SYRINGE SC (21:23)
[2025-07-07] VITALS: BP 113/73; PULSE 87; RESP 20; TEMP 36.8; O2SAT 96
[2025-07-07 04:00] VITALS: BP 120/86; PULSE 92; RESP 16; TEMP 36.5; O2SAT 95
[2025-07-07 05:51] LABS: Basophils # (Auto) 0.0 Thou/mm3 (0.0-0.2); Basophils % (Auto) 0 % (0-2.5); Eosinophils # (Auto) 0.0 Thou/mm3 (0.0-0.5); Eosinophils % (Auto) 0 % (0-10); Hematocrit 30.6 % (36.0-46.0); Hemoglobin 10.1 g/dL (12.0-16.0); Immature Granulocytes Auto 0.02 Thou/mm3 (0.00-0.00); Lymphocytes # (Auto) 1.0 Thou/mm3 (1.0-4.8); Lymphocytes % (Auto) 23 % (10-50); Mean Corpuscular HGB Conc 33.0 g/dl (31.0-37.0); Mean Corpuscular Hemoglobin 27.6 pg (25.0-35.0); Mean Corpuscular Volume 84 fL (80-100); Monocytes # (Auto) 0.6 Thou/mm3 (0.0-0.8); Monocytes % (Auto) 13 % (0-12); Neutrophils # (Auto) 2.8 Thou/mm3 (1.8-7.7); Neutrophils % (Auto) 63 % (37-80); Nucleated Red Blood Cell # 0.00 Thou/mm3 (0.00-0.00); Nucleated Red Blood Cell % 0 /100 WBC (0); Platelet Count 236 Thou/mm3 (140-440); RDW Standard Deviation 49.5 fL (36.4-46.3); Red Blood Count 3.66 Miln/mm3 (4.00-5.20); White Blood Count 4.5 Thou/mm3 (3.6-11.0)
[2025-07-07] MEDS: GABAPENTIN 100 MG CAPSULE PO ×3 (05:55→21:13)
[2025-07-07 06:42] LABS: Alanine Aminotransferase 7 U/L (10-49); Albumin, Serum 2.1 gm/dL (3.4-4.8); Albumin/Globulin Ratio 1.1 (1.2-2.2); Alkaline Phosphatase 84 U/L (46-116); Anion Gap 9 (7-16); Aspartate Amino Transferase 13 U/L (0-34); BUN/Creatinine Ratio 20 Ratio (12-20); Bilirubin,Total 0.3 mg/dL (0.3-1.2); Blood Urea Nitrogen 8 mg/dL (9-23); Calcium 7.2 mg/dL (8.3-10.6); Calcium (Corrected) 8.7 mg/dL (8.5-10.1); Carbon Dioxide 25.2 mMol/L (20.0-31.0); Chloride 107 mMol/L (98-107); Creatinine (Component) 0.4 mg/dL (0.6-1.3); Estimated Creatinine Clearance 92.0 mL/min (>60); Globulin 1.9 gm/dL (2.3-3.5); Glucose 117 mg/dL (74-106); Magnesium 1.7 mg/dL (1.6-2.6); Osmolality,Calculated 280 (275-295); Phosphorous 2.6 mg/dL (2.4-5.1); Potassium 3.3 mMol/L (3.4-5.1); Sodium 141 mMol/L (136-145); Total Protein 4.0 gm/dL (5.7-8.2); eGFR > 60 See Note
[2025-07-07 08:00] VITALS: BP 108/65; PULSE 90; RESP 15; TEMP 36.4; O2SAT 98
[2025-07-07] MEDS: POTASSIUM CHLORIDE 10% 20 MEQ/15 ML UDC 40 MEQ PO (09:36)
[2025-07-07 11:15] VITALS: BMI 20.3
--- NOTE | 2025-07-07 11:15 | PC.SS ---
SS follow up note; Advancing diet. Patient will discharge back to [facility] when medically cleared.
--- NOTE | 2025-07-07 11:30 | PC.SS ---
SS follow up note; SS was contacted by Kirstin and informed SS that auth was obtained however new auth needed to be resubmitted, however [employer] is closed until ThursdayJul 10.
[2025-07-07 12:00] VITALS: BP 106/72; PULSE 88; RESP 16; TEMP 36.6; O2SAT 96
--- NOTE | 2025-07-07 14:32 | ESPR_ITS ---
Documentation for date of: 07/07/25 Subjective Subjective Interval history: No acute events overnight.?Patient seen and examined at bedside this AM.?Per nursing, patient continues to have loose bowel movements. Patient states that she would have some crampy pain when having bowel movements over night but relieved afterwards.? Labs and vitals were reviewed.?Potassium 3.3 therefore given 40 mEq. Otherwise stable. Patient worked with PT today, stood with walker and sat on edge of bed. Currently diet is being advanced, patient tolerated clear liquids and wanted cream of wheat. Full liquids for lunch. Per community mental health social worker, insurance auth has and patient now needs a new auth, which will likely not happen until Thursday. Review of systems otherwise negative except what is mentioned above. Exam Vital Signs Temp Pulse Resp BP Pulse Ox O2 Del Method O2 Flow Rate 97.9 F 88 16 106/72 96 Room Air 3 07/07/25 12:00 07/07/25 12:00 07/07/25 12:00 07/07/25 12:00 07/07/25 12:00 07/07/25 12:00 07/04/25 16:00 Narrative Exam General: Comfortable, no distress Heart: RRR, no murmurs Lungs: Decreased breath sounds at bases, non-labored Abdomen: Soft, non-tender, mildly distended, mild hypoactive bowel sounds Extremities: R>L leg edema improved from yesterday, stable Neuro: No focal deficits Skin: Warm, dry Objective Labs 07/08/25 04:43 07/08/25 04:43 Labs: Laboratory Results - last 24 hr 07/07/25 04:55 WBC 4.5 RBC 3.66 L Hgb 10.1 L Hct 30.6 L MCV 84 MCH 27.6 MCHC 33.0 RDW Std Deviation 49.5 H Plt Count 236 Neut % (Auto) 63 Lymph % (Auto) 23 [place] % (Auto) 13 H Eos % (Auto) 0 Baso % (Auto) 0 Neut # (Auto) 2.8 Lymph # (Auto) 1.0 [place] # (Auto) 0.6 Eos # (Auto) 0.0 Baso # (Auto) 0.0 Immature Gran # (Auto) 0.02 H Absolute Nucleated RBC 0.00 Immature Gran % 0 Nucleated RBC % 0 Sodium 141 Potassium 3.3 L Chloride 107 Carbon Dioxide 25.2 Anion Gap 9 BUN 8 L Creatinine 0.4 L Estim Creat Clear Calc 92.0 eGFR > 60 BUN/Creatinine Ratio 20 Glucose 117 H Calculated Osmolality 280 Calcium 7.2 L Corrected Calcium 8.7 Phosphorus 2.6 Magnesium 1.7 Total Bilirubin 0.3 AST 13 ALT 7 L Alkaline Phosphatase 84 Total Protein 4.0 L Albumin 2.1 L Globulin 1.9 L Albumin/Globulin Ratio 1.1 L Quality Measures Quality Measures VTE prophylaxis Advance care planning discussed with:: patient Assessment & Plan Assessment Current Active Medications: Generic Name Dose Route Start Last Admin Trade Name Freq PRN Reason Stop Dose Admin Acetaminophen 650 mg 06/28/25 20:01 07/05/25 19:11 Acetaminophen 325 Mg Tablet PO 07/28/25 20:00 650 mg Q6H PRN Administration PAIN (1-3) OR FEVER > 100.4 Dextrose 25 ml 07/03/25 06:18 07/03/25 06:25 Dextrose 50%-Water Inj 50 Ml Syringe IV 08/02/25 06:17 25 ml Q15MIN PRN Administration BG 50-70 responsive npo pt Dextrose 50 ml 07/03/25 06:18 Dextrose 50%-Water Inj 50 Ml Syringe IV 08/02/25 06:17 Q15MIN PRN BG <50 OR BG <70 & pt unresponsive Docusate Sodium 100 mg 07/03/25 21:00 07/07/25 09:37 Docusate Sod Liqd 100 Mg/10 Ml Udc NG 08/02/25 20:59 Not Given BID BALA Protocol Enoxaparin Sodium 40 mg 06/28/25 20:10 07/06/25 21:23 Enoxaparin Sod Inj 40 Mg/0.4 Ml Syringe SC 07/12/25 20:09 40 mg HS BALA Administration Gabapentin 100 mg 07/03/25 22:00 07/07/25 13:57 Gabapentin 100 Mg Capsule PO 08/02/25 21:59 100 mg TID BALA Administration Glycerin 1 each 07/01/25 13:27 07/03/25 18:30 Glycerin, Adult 1 Ea Supp [place] 07/31/25 13:26 1 each QDAY PRN Administration CONSTIPATION Dextrose/Sodium Chloride 1,000 mls @ 50 mls/hr 07/05/25 00:15 07/06/25 16:16 D5-Ns IV 08/04/25 00:14 50 mls/hr .Q20H BALA Administration Lactulose 10 gm 07/03/25 22:00 07/07/25 06:40 Lactulose Syrup 20 Gm/30 Ml Udc NG 08/02/25 21:59 Not Given TID BALA Protocol Lidocaine 1 patch 06/30/25 15:12 07/05/25 00:40 Lidocaine 5% 1 Patch TOP 07/30/25 15:11 1 patch UD PRN Administration PAIN Protocol Lisinopril 10 mg 06/30/25 09:00 07/01/25 09:11 Lisinopril 2.5 Mg Tablet PO 07/30/25 08:59 10 mg On Hold: 07/02/25 08:10 QDAY BALA Administration Mirtazapine 7.5 mg 06/30/25 11:15 07/01/25 09:12 Mirtazapine 15 Mg Tablet PO 07/30/25 11:14 7.5 mg On Hold: 07/02/25 08:10 QDAY BALA Administration Ondansetron HCl 4 mg 06/28/25 20:01 07/05/25 04:56 Ondansetron Inj 2 Mg/Ml Inj 2 Ml IVP 07/28/25 20:00 4 mg Q6H PRN Administration NAUSEA OR VOMITING Protocol Pantoprazole Sodium 40 mg 06/28/25 20:15 07/07/25 09:34 Pantoprazole Inj 40 Mg Vial IVP 07/28/25 20:14 40 mg QDAY BALA Administration Plan 84F with metastatic appendiceal carcinoma, malignant pleural effusions, recent EGD with dilation for dysphagia, SNF once diet is advance and authorization obtained. # Colonic and small bowel ileus, resolved # Constipation, improved Patient has significant stool burden as demonstrated on KUB 07/01, and is distended on physical exam. Had a bowel movement 07/02 small hard stool, 07/03 digital disimpaction was done with hard stools that was extracted. KUB on 07/05 shows no change, illeus vs possible obstruction. 07/05 Small bowel series was negative for obstruction. Patient following that was able to start having loose BMs 07/06 NG tube was removed Plan: * Advance clear liquid to full liquid diet * Monitor for continued BMs * Continue mobilization (sit at edge of bed, out of bed as tolerated, PT) # Dysphagia, improved post-dilation Patient reports 3 months of progressive dysphagia to solids and liquids, heartburn, and poor appetite. Improved swallowing after dilation. No nausea/vomiting; no chest pain; tolerated liquids then tolerated regular diet. Discontinued alendronate. 07/04/2025 EGD biopsy results showed negative for H. pylori in all areas of stomach and esophagus, normal squamous epithelium, and mild chronic gastritits. 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 Imaging shows worsening pleural disease, nodules, ascites, and malnutrition. Patient has not been following with oncology. Prefers local oncology -> consult placed to Dr. Gonzales. Dr. Gonzales recommended patient to go see a Dr. Nicholson and discuss option of transfer of care to Dr. Gonzales. Plan: * Strongly recommend she returns to Dr. Nicholson ([facility]) one more time to discuss transfer of care as per Dr. Gonzales. * Continue mirtazapine for appetite, sleep, and mood # Malignant pleural effusions Ultrasound thoracentesis was completed yesterday 06/29/2025 with 850 cc out. Stable breathing today close thoracentesis. Plan: * Monitor respiratory status * Repeat thoracentesis only if symptomatic #Weight loss, poor appetite, and generalized weakness Appetite still low despite improved swallowing. Plan: * Continue mirtazapine. * Discharge patient on mirtazapine as well * Encourage small frequent meals # Neuropathy Started gabapentin 100 mg TID. Plan: * Continue gabapentin * Adjust dose based on symptoms and sedation #Hypertension BP soft today. On lisinopril 10 mg daily at home. Plan: * Holding lisinopril as BP is normal * Monitor BP closely #Anemia (Hgb 9.3) Likely multifactorial: chronic disease + nutritional decline. No signs of bleeding. Plan: * Stable, follow up outpatient #Cirrhosis with ascites (suspected malignant or chronic liver disease) CT suggests cirrhosis and moderate ascites. No stigmata of acute decompensation. Plan: * Monitor LFTs, INR, abdomen exam Health Maintenance: Diet: NPO. DVT prophylaxis: Lovenox GI prophylaxis: Protonix IV Code status: Full Disposition: SNF once authorization completes as the first one . Advancing diet ----- Patient plan of care was discussed with the attending physician, Dr. Kwok. Bing Georges, PGY-3 Attending Provider Attestation/Addendum I have examined the patient, reviewed labs and imaging findings, discussed the case with the resident(s), and reviewed entered orders. I agree with the plan of care as outlined in this note, with these additional summaries/recommendations: Patient seen at bedside. No acute events. Patient reports she had a moderate bowel movement earlier this morning. Abdomen still slightly distended although significantly improved. We will clamp NG tube for now. We will advance diet to clear liquid and monitor how patient tolerates. If unable to tolerate then patient will likely need to be restarted on artificial nutrition. Continue antiemetics and bowel regimen. Patient continue to increase ambulation as tolerated. Outpatient follow-up for metastatic appendiceal carcinoma with mets. Continue gabapentin for neuropathy. Still holding home antihypertensives as patient has been normotensive. Will advance diet today and monitor how patient tolerates. Gastroenterology following. Patient updated on the plan and in agreement. All questions answered to satisfaction. Please see residents note for additional details and management. Dr. Rissa MD
[2025-07-07 16:00] VITALS: BP 114/66; PULSE 91; RESP 15; TEMP 36.2; O2SAT 95
--- NOTE | 2025-07-07 17:18 | ESPR_ITS ---
Documentation for date of: 07/07/25 Subjective Subjective Interval history: Patient had a bowel movement yesterday feeling much better after that patient can be started on a clear liquid diet Exam Vital Signs Temp Pulse Resp BP Pulse Ox O2 Del Method O2 Flow Rate 97.2 F 91 15 114/66 95 Room Air 3 07/07/25 16:00 07/07/25 16:00 07/07/25 16:00 07/07/25 16:00 07/07/25 16:00 07/07/25 16:00 07/04/25 16:00 Objective Labs 07/08/25 04:43 07/08/25 04:43 Labs: Laboratory Results - last 24 hr 07/07/25 04:55 WBC 4.5 RBC 3.66 L Hgb 10.1 L Hct 30.6 L MCV 84 MCH 27.6 MCHC 33.0 RDW Std Deviation 49.5 H Plt Count 236 Neut % (Auto) 63 Lymph % (Auto) 23 [place] % (Auto) 13 H Eos % (Auto) 0 Baso % (Auto) 0 Neut # (Auto) 2.8 Lymph # (Auto) 1.0 [place] # (Auto) 0.6 Eos # (Auto) 0.0 Baso # (Auto) 0.0 Immature Gran # (Auto) 0.02 H Absolute Nucleated RBC 0.00 Immature Gran % 0 Nucleated RBC % 0 Sodium 141 Potassium 3.3 L Chloride 107 Carbon Dioxide 25.2 Anion Gap 9 BUN 8 L Creatinine 0.4 L Estim Creat Clear Calc 92.0 eGFR > 60 BUN/Creatinine Ratio 20 Glucose 117 H Calculated Osmolality 280 Calcium 7.2 L Corrected Calcium 8.7 Phosphorus 2.6 Magnesium 1.7 Total Bilirubin 0.3 AST 13 ALT 7 L Alkaline Phosphatase 84 Total Protein 4.0 L Albumin 2.1 L Globulin 1.9 L Albumin/Globulin Ratio 1.1 L Impressions 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 2. Receiving chemo under Dr. Nicholson's direction [facility] last chemo March 2025. 3. Admitted with dysphagia weight loss endoscopy revealing no malignancy but esophageal stenosis and dilation performed. 4. Currently with difficulty passing bowel contents receiving supportive care. Time Spent With Patient Time: Total time spent is greater than 50% in coordination of care (as documented) at patient's floor/unit and/or counseling patient:
[2025-07-07 20:00] VITALS: BP 120/79; PULSE 87; RESP 18; TEMP 36.3; O2SAT 95
[2025-07-07] MEDS: ENOXAPARIN SOD INJ 40 MG/0.4 ML SYRINGE SC (21:15)
[2025-07-08] VITALS: BP 104/66; PULSE 74; RESP 18; TEMP 36.1; O2SAT 95
[2025-07-08 04:00] VITALS: BP 115/74; PULSE 74; RESP 18; TEMP 36.2; O2SAT 97
[2025-07-08] MEDS: GABAPENTIN 100 MG CAPSULE PO ×2 (05:24→14:01)
[2025-07-08 06:27] LABS: Basophils # (Auto) 0.0 Thou/mm3 (0.0-0.2); Basophils % (Auto) 0 % (0-2.5); Eosinophils # (Auto) 0.0 Thou/mm3 (0.0-0.5); Eosinophils % (Auto) 0 % (0-10); Hematocrit 32.9 % (36.0-46.0); Hemoglobin 10.6 g/dL (12.0-16.0); Immature Granulocytes Auto 0.03 Thou/mm3 (0.00-0.00); Lymphocytes # (Auto) 1.6 Thou/mm3 (1.0-4.8); Lymphocytes % (Auto) 31 % (10-50); Mean Corpuscular HGB Conc 32.2 g/dl (31.0-37.0); Mean Corpuscular Hemoglobin 27.7 pg (25.0-35.0); Mean Corpuscular Volume 86 fL (80-100); Monocytes # (Auto) 0.6 Thou/mm3 (0.0-0.8); Monocytes % (Auto) 11 % (0-12); Neutrophils # (Auto) 2.8 Thou/mm3 (1.8-7.7); Neutrophils % (Auto) 56 % (37-80); Nucleated Red Blood Cell # 0.00 Thou/mm3 (0.00-0.00); Nucleated Red Blood Cell % 0 /100 WBC (0); Platelet Count 228 Thou/mm3 (140-440); RDW Standard Deviation 50.6 fL (36.4-46.3); Red Blood Count 3.83 Miln/mm3 (4.00-5.20); White Blood Count 5.0 Thou/mm3 (3.6-11.0)
[2025-07-08 06:57] LABS: Alanine Aminotransferase < 7 U/L (10-49); Albumin, Serum 2.1 gm/dL (3.4-4.8); Albumin/Globulin Ratio 1.2 (1.2-2.2); Alkaline Phosphatase 86 U/L (46-116); Anion Gap 7 (7-16); Aspartate Amino Transferase < 8 U/L (0-34); BUN/Creatinine Ratio 27 Ratio (12-20); Bilirubin,Total 0.4 mg/dL (0.3-1.2); Blood Urea Nitrogen 8 mg/dL (9-23); Calcium 7.7 mg/dL (8.3-10.6); Calcium (Corrected) 9.2 mg/dL (8.5-10.1); Carbon Dioxide 25.8 mMol/L (20.0-31.0); Chloride 107 mMol/L (98-107); Creatinine (Component) 0.3 mg/dL (0.6-1.3); Estimated Creatinine Clearance 122.7 mL/min (>60); Globulin 1.7 gm/dL (2.3-3.5); Glucose 79 mg/dL (74-106); Osmolality,Calculated 276 (275-295); Potassium 3.7 mMol/L (3.4-5.1); Sodium 140 mMol/L (136-145); Total Protein 3.8 gm/dL (5.7-8.2); eGFR > 60 See Note
[2025-07-08 08:00] VITALS: BP 123/83; PULSE 81; RESP 18; TEMP 36.3; O2SAT 95
[2025-07-08] MEDS: ACETAMINOPHEN 325 MG TABLET 650 MG PO (10:09)
[2025-07-08] MEDS: DOCUSATE SOD LIQD 100 MG/10 ML UDC PO (10:12)
[2025-07-08 11:24] VITALS: BMI 11.0
[2025-07-08 12:00] VITALS: BP 95/76; PULSE 91; RESP 17; TEMP 36.3; O2SAT 93
--- NOTE | 2025-07-08 13:55 | PD.RESPRO ---
Documentation for date of: 07/08/25 Exam Vital Signs Temp Pulse Resp BP Pulse Ox O2 Del Method O2 Flow Rate 97.3 F 91 17 95/76 93 L Room Air 3 07/08/25 12:00 07/08/25 12:00 07/08/25 12:00 07/08/25 12:00 07/08/25 12:00 07/08/25 12:00 07/04/25 16:00 Objective Labs 07/08/25 04:43 07/08/25 04:43 Labs: Laboratory Results - last 24 hr 07/08/25 04:43 WBC 5.0 RBC 3.83 L Hgb 10.6 L Hct 32.9 L MCV 86 MCH 27.7 MCHC 32.2 RDW Std Deviation 50.6 H Plt Count 228 Neut % (Auto) 56 Lymph % (Auto) 31 [place] % (Auto) 11 Eos % (Auto) 0 Baso % (Auto) 0 Neut # (Auto) 2.8 Lymph # (Auto) 1.6 [place] # (Auto) 0.6 Eos # (Auto) 0.0 Baso # (Auto) 0.0 Immature Gran # (Auto) 0.03 H Absolute Nucleated RBC 0.00 Immature Gran % 1 H Nucleated RBC % 0 Sodium 140 Potassium 3.7 Chloride 107 Carbon Dioxide 25.8 Anion Gap 7 BUN 8 L Creatinine 0.3 L Estim Creat Clear Calc 122.7 eGFR > 60 BUN/Creatinine Ratio 27 H Glucose 79 Calculated Osmolality 276 Calcium 7.7 L Corrected Calcium 9.2 Total Bilirubin 0.4 AST < 8 ALT < 7 L Alkaline Phosphatase 86 Total Protein 3.8 L Albumin 2.1 L Globulin 1.7 L Albumin/Globulin Ratio 1.2 Quality Measures Quality Measures VTE prophylaxis Assessment & Plan Assessment Current Active Medications: Generic Name Dose Route Start Last Admin Trade Name Freq PRN Reason Stop Dose Admin Acetaminophen 650 mg 06/28/25 20:01 07/08/25 10:09 Acetaminophen 325 Mg Tablet PO 07/28/25 20:00 650 mg Q6H PRN Administration PAIN (1-3) OR FEVER > 100.4 Dextrose 25 ml 07/03/25 06:18 07/03/25 06:25 Dextrose 50%-Water Inj 50 Ml Syringe IV 08/02/25 06:17 25 ml Q15MIN PRN Administration BG 50-70 responsive npo pt Dextrose 50 ml 07/03/25 06:18 Dextrose 50%-Water Inj 50 Ml Syringe IV 08/02/25 06:17 Q15MIN PRN BG <50 OR BG <70 & pt unresponsive Docusate Sodium 100 mg 07/08/25 10:00 07/08/25 10:12 Docusate Sod Liqd 100 Mg/10 Ml Udc PO 08/07/25 09:59 100 mg BID BALA Administration Protocol Enoxaparin Sodium 40 mg 06/28/25 20:10 07/07/25 21:15 Enoxaparin Sod Inj 40 Mg/0.4 Ml Syringe SC 07/12/25 20:09 40 mg HS BALA Administration Gabapentin 100 mg 07/03/25 22:00 07/08/25 05:24 Gabapentin 100 Mg Capsule PO 08/02/25 21:59 100 mg TID BALA Administration Glycerin 1 each 07/01/25 13:27 07/03/25 18:30 Glycerin, Adult 1 Ea Supp [place] 07/31/25 13:26 1 each QDAY PRN Administration CONSTIPATION Lidocaine 1 patch 06/30/25 15:12 07/05/25 00:40 Lidocaine 5% 1 Patch TOP 07/30/25 15:11 1 patch UD PRN Administration PAIN Protocol Ondansetron HCl 4 mg 06/28/25 20:01 07/05/25 04:56 Ondansetron Inj 2 Mg/Ml Inj 2 Ml IVP 07/28/25 20:00 4 mg Q6H PRN Administration NAUSEA OR VOMITING Protocol Pantoprazole Sodium 40 mg 06/28/25 20:15 07/08/25 08:18 Pantoprazole Inj 40 Mg Vial IVP 07/28/25 20:14 40 mg QDAY BALA Administration
--- NOTE | 2025-07-08 14:36 | PD.RESDS ---
Planned Discharge Date 07/09/25 DS: Providers Provider Date of admission: 07/03/25 11:00 Primary care physician: Hanna Graves MD Admitting Provider: Juan Pablo Camara MD Attending Provider on Admission: Júnior Kwok MD Consults: 06/28/25 20:17 Consult to Gastroenterology Routine Comment: Consulting Provider: Alma Latif 06/28/25 20:57 Referral Registered Dietitian Routine Comment: 06/29/25 11:53 Consult to Oncology Routine Comment: metastatic cancer Consulting Provider: Jourdan Gonzales 06/30/25 11:07 PT [Referral Physical Therapy] Routine Comment: Physician Instructions: Attending Provider on DC: Ramon Medel MD Discharging Provider: Ramon Medel MD DS: Diagnosis Problem List Completed Was Problem List Reviewed/Reconciled?: Yes Hospital Course Hospital Course Hospital course: 84-year-old female with significant past medical history of malignant appendiceal mass status post perforation, last chemotherapy on 03/2025, hypertension, prior ventral hernia repair who was recently admitted to the hospital on 04/03 for bilateral pleural effusion and shortness of breath and underwent thoracocentesis at that time. Pleural fluid analysis showed metastatic cancer. Presented to the hospital on 06/28/2025 with chief complaints of persistent heartburn, progressive dysphagia for both solids and liquids and admitted for dysphagia, SBO Hospital course: Vitals are stable at the time of admission. Labs are significant for hemoglobin 11.5, sodium 133. Software Requirements Engineer, Dr. Latif was consulted and he did upper GI endoscopy that showed circumferential scarring or stenosis that was found in the proximal esophagus which was dilated with Savary dilator. Esophagitis is found in the lower third of the esophagus. Biopsies are obtained. Diffuse moderate inflammation characterized by erythema was found in the entire stomach. Also noted to have large left pleural effusion for which patient underwent ultrasound-guided thoracentesis and 850 cc of pleural fluid is removed. Radiation oncologist, Dr. Gonzales was consulted and he recommended to follow-up on outpatient basis. Later on 07/01/2025, patient noted to have severe abdominal distention with decreased bowel sounds and no bowel movements for which NG tube was placed for decompression. Later as the patient is not having bowel movements series of abdominal x-rays was done and noted to have small bowel obstruction for which patient underwent Gastrografin series and the obstruction resolved. Patient is stable at the time of discharge Patient is discharged to SNF with the following medications and recommendations -Follow up with PCP within 1 week of discharge -Follow up with your oncologist Dr. Nicholson within 5 days to discuss recurrent pleural effusion. -Take mirtazapine 7.5 mg once nightly for appetite stimulation, depression, and sleep (you can take during the day or at night if it makes you sleepy) -Take gabapentin 100 mg TID for nerve pain, monitor for side effects of sedation or dizziness -Stop lisinopril as your blood pressures are within normal limits during hospital stay and follow up with PCP -Stop Alendronate as it is causing esophagitis -Continue rest of medications as previously prescribed -Return to the ED or call EMS if symptoms return and/or worsen. 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 Rissa Medel, PGY2 Time Spent with Patient Time attestation: Total time spent providing and/or coordinating discharge services: Time spent: Greater than 30 minutes Exam Vital Signs Temp Pulse Resp BP Pulse Ox O2 Del Method O2 Flow Rate 97.9 F 89 18 113/80 97 Room Air 3 07/08/25 20:00 07/08/25 20:00 07/08/25 20:00 07/08/25 20:00 07/08/25 20:00 07/08/25 20:00 07/04/25 16:00 Narrative Exam General: Awake. HEENT: Normocephalic, atraumatic, mucous membranes moist. Heart: Regular rate and rhythm, no murmurs. Lungs: Clear to auscultation with no wheezing or crackles. decreased breath sounds in bilateral basilar areas Abdomen: Soft, nondistended, nontender, positive bowel sounds. ?No guarding or rebound tenderness. Neurologic: Alert and oriented x3, no gross neurological deficit, and patient able to move all 4 extremities. Extremities: No edema. Skin: No rash or ecchymoses. Discharge Plan Plan Patient Disposition: Xfer Skilled Nsg Fac (SNF) Disposition Comment: [facility] Patient condition on transfer: Stable Care Plan Goals: Discharge Recommendations: -Follow up with PCP within 1 week of discharge -Follow up with your oncologist Dr. Nicholson within 5 days to discuss recurrent pleural effusion. -Take mirtazapine 7.5 mg once nightly for appetite stimulation, depression, and sleep (you can take during the day or at night if it makes you sleepy) -Take gabapentin 100 mg TID for nerve pain, monitor for side effects of sedation or dizziness -Stop lisinopril as your blood pressures are within normal limits during hospital stay and follow up with PCP -Stop Alendronate as it is causing esophagitis -Continue rest of medications as previously prescribed -Return to the ED or call EMS if symptoms return and/or worsen. Prescriptions/Referrals Prescriptions/Med Rec: New mirtazapine 7.5 mg tablet 7.5 mg PO QDAY 30 Days Qty: 30 0RF gabapentin 100 mg capsule 100 mg PO TID 30 Days Qty: 90 0RF Continued simvastatin [Zocor] 10 MG tablet 10 mg PO HS Qty: 0 omeprazole 20 MG capsule,delayed release(DR/EC) 20 mg PO QDAY Qty: 0 ondansetron 4 mg tablet,disintegrating 4 mg PO Q12H PRN (Reason: nausea and vomiting) Discontinued Alendronate Sodium * (FOSAMAX *) 35 MG tablet 35 mg PO Q7D Qty: 0 lisinopril 10 mg tablet 10 mg PO QDAY prednisone 10 mg tablet 10 mg PO QDAY Patient Comments: TAKE 1 TABLET BY MOUTH ONCE EVERY DAY WITH FOOD TO PREVENT STOMACH UPSET Referrals: Hanna Graves MD [Primary Care Provider, Family Practice] Patient/Caregiver Discharge Instructions Other Discharge Activity Instructions:: Follow up with your oncologist within 5 days to discuss recurrent pleural effusion. Follow up with your primary care physician within 2-3 days Come back to the ED if worsening chest pain, shortness of breath, fevers, or any worsening symptoms. Education Materials: Large Bowel Obstruction, Thoracentesis Dc, How the Colon Works, Obstruction Intestinal Print Language: [place]an Stand Alone Forms: Lillian Award Info., Patient Portal Info Letter Discharge Order Discharge Orders: Discharge (Routine); Ordered 07/08/25 Ordered By: Ramon Medel Quality Discharge Quality Measures VTE prophylaxis Attestestation Attestation I have examined the patient, reviewed labs and imaging findings, discussed the case with the resident(s), and reviewed entered orders. I agree with the plan of care as outlined in this note. Time Spent: [address] Rissa MD
--- NOTE | 2025-07-08 15:31 | PC.SS ---
Addendum entered by Nikole Lawrence 07/08/25 15:35: IESHA reached out to Kristie to keep an eye out for Auth via Fax, per Kristie nothing has come through just yet Original Note: IESHA contacted [facility] for insurance auth for [facility], spoke to Lorri [phone],, who transferred me to Lesly. IESHA provided Lesly with [facility] fax # [phone]
--- NOTE | 2025-07-08 15:59 | PC.SS ---
Addendum entered by Nikole Lawrence 07/08/25 16:14: SS spoke to Sheyla at [facility] ETA set for 1930 SS updated FRANKY, Riya and Eusebia as well as covering RN, Lela. Original Note: SS set up transport going to [facility] [place], ETA requested 1899. Trip #[id number], pending transportation assignment. SS requested [facility].
[2025-07-08 16:00] VITALS: BP 126/74; PULSE 76; RESP 14; TEMP 36.8; O2SAT 94
--- NOTE | 2025-07-08 18:12 | PD.IMPROG ---
Documentation for date of: 07/08/25 Subjective Subjective Interval history: No signs of complete small bowel obstruction on small bowel follow-through Exam Vital Signs Temp Pulse Resp BP Pulse Ox O2 Del Method O2 Flow Rate 98.2 F 76 14 126/74 94 L Room Air 3 07/08/25 16:00 07/08/25 16:00 07/08/25 16:00 07/08/25 16:00 07/08/25 16:00 07/08/25 16:00 07/04/25 16:00 Objective Labs 07/08/25 04:43 07/08/25 04:43 Labs: Laboratory Results - last 24 hr 07/08/25 04:43 WBC 5.0 RBC 3.83 L Hgb 10.6 L Hct 32.9 L MCV 86 MCH 27.7 MCHC 32.2 RDW Std Deviation 50.6 H Plt Count 228 Neut % (Auto) 56 Lymph % (Auto) 31 Saunders % (Auto) 11 Eos % (Auto) 0 Baso % (Auto) 0 Neut # (Auto) 2.8 Lymph # (Auto) 1.6 Saunders # (Auto) 0.6 Eos # (Auto) 0.0 Baso # (Auto) 0.0 Immature Gran # (Auto) 0.03 H Absolute Nucleated RBC 0.00 Immature Gran % 1 H Nucleated RBC % 0 Sodium 140 Potassium 3.7 Chloride 107 Carbon Dioxide 25.8 Anion Gap 7 BUN 8 L Creatinine 0.3 L Estim Creat Clear Calc 122.7 eGFR > 60 BUN/Creatinine Ratio 27 H Glucose 79 Calculated Osmolality 276 Calcium 7.7 L Corrected Calcium 9.2 Total Bilirubin 0.4 AST < 8 ALT < 7 L Alkaline Phosphatase 86 Total Protein 3.8 L Albumin 2.1 L Globulin 1.7 L Albumin/Globulin Ratio 1.2 Impressions 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 2. Receiving chemo under Dr. Nicholson's direction [facility] last chemo March 2025. 3. Admitted with dysphagia weight loss endoscopy revealing no malignancy but esophageal stenosis and dilation performed. 4. Currently with difficulty passing bowel contents receiving supportive care. Time Spent With Patient Time: Total time spent is greater than 50% in coordination of care (as documented) at patient's floor/unit and/or counseling patient:
--- NOTE | 2025-07-08 18:13 | PC.NURSE ---
Pt being DC to [facility]. Report called to REGINA Minaya. Transport set up for [id number].
[2025-07-08 20:00] VITALS: BP 113/80; PULSE 89; RESP 18; TEMP 36.6; O2SAT 97
[2025-07-17 23:17] LABS: Collection Type, Urine Catheter; RBC,Urine 0 /hpf (0-3); Squamous Epithelial Cell,Urine 0 /hpf (0-5); WBC,Urine 0 /hpf (0-5)
[2025-07-17 23:37] LABS: Bacteria,Urine 4+; Bilirubin,Urine Negative (Negative); Blood,Urine Negative (Negative); Calcium Oxalate Crystals,Urine 4+; Clarity,Urine Turbid (Clear/Hazy); Color,Urine Yellow (Lt Yel-Yel); Glucose, Urine Negative (Negative); Ketones,Urine 1+ (Negative); Leukocyte Esterase,Urine Negative (Negative); Nitrite,Urine Negative (Negative); PH,Urine 5.5 (5.0-7.0); Protein,Urine 1+ (Neg - Trace); Specific Gravity,Urine 1.029 (1.001-1.035); Urobilinogen,Urine 6.0 mg/dL (0.0-1.0)
[2025-07-17 23:41] LABS: Culture Indicated,Urine Yes
== END 2025-07-08 20:08 | disposition skilled nursing facility (03) | DRG 388 ==
LOC: SERX 19:01 → S3SX 06-29 05:57 → SERHOLD 06-30 12:04 → S3SX 06-30 12:05
PROVIDERS: Specialist; Student in an Organized Health Care Education/Training Program; Admitting Provider Internal Medicine; Emergency Provider Emergency Medicine; PCP Family Medicine; Visit Provider Student in an Organized Health Care Education/Training Program
PROC: (CPT 43239; principal; 2025-06-29 17:00)
DX: K56.609 Unspecified intestinal obstruction, unspecified as to partial versus complete obstruction (principal); J18.9 Pneumonia, unspecified organism; C18.1 Malignant neoplasm of appendix; C78.00 Secondary malignant neoplasm of unspecified lung; C78.89 Secondary malignant neoplasm of other digestive organs; E46 Unspecified protein-calorie malnutrition; J91.0 Malignant pleural effusion; R18.8 Other ascites; K22.2 Esophageal obstruction; K56.7 Ileus, unspecified; R13.10 Dysphagia, unspecified; I10 Essential (primary) hypertension; R63.4 Abnormal weight loss; K31.9 Disease of stomach and duodenum, unspecified; K29.70 Gastritis, unspecified, without bleeding; F32.A Depression, unspecified; K56.41 Fecal impaction; G57.93 Unspecified mononeuropathy of bilateral lower limbs; D63.0 Anemia in neoplastic disease; K21.00 Gastro-esophageal reflux disease with esophagitis, without bleeding; K74.60 Unspecified cirrhosis of liver; Z79.899 Other long term (current) drug therapy
CPT/HCPCS: 36415; 71250; 74018; 74250; 80048; 80053; 80307; 81001; 83605; 83735; 84100; 84145; 84484; 85025; 85610; 85730; 87086; 87502; 87635; 92526; 92610; 93005; 96374; 97163; 99283; A4649; C1729; C1769; G0378; J1171; J1200; J1650; J1885; J2250; J2405; J2470; J3010; J3490; J7030; J7042; J7050; J7120; J7999; Q0162; Q9963; A9270